=== PATIENT | male | born 1975 | race Caucasian/White ===

== ENCOUNTER 2025-02-08 05:09 | Observation (INO) | payer BC, SELFPAY ==
[2025-02-08] VITALS (17 sets, daily range): BP systolic 107–145; BP diastolic 60–93; PULSE 49–99; RESP 16–18; TEMP 36.4–37.1; O2SAT 91–100; BMI 28.8; BMI 25.4
--- NOTE | 2025-02-08 05:54 | ED_ITS ---
HPI - Abdominal Pain 2 General: Chief Complaint: Abdominal Pain Stated Complaint: severe abd pain n/v Time Seen by Provider: 02/08/25 05:53 History of Present Illness: 49-year-old man with no known medical hi story who presents emergency room with epigastric abdominal pain. This started overnight and was very severe. He has had some nausea and vomiting. No diarrhea. He says he had a similar episode about a month ago. He had taken some Ozempic for weight loss but has not had any in well over a month. No fevers. No chest pain. No altered mental status. Related Data Home Medications ?Medication ?Instructions ?Recorded ?Confirmed No Known Home Medications 02/08/25 09/0 11/27 Allergies Allergy/AdvReac Type Severity Reaction Status Date / Time cephalexin (From Keflex) Allergy ALGY-Rash Verified 02/08/25 07:52 Review of Systems 2 Narrative: Constitutional symptoms: Negative except as documented in HPI. Skin symptoms: Negative except as documented in HPI. Eye symptoms: Negative except as documented in HPI. ENMT symptoms: Negative except as documented in HPI. Respiratory symptoms: Negative except as documented in HPI. Cardiovascular symptoms: Negative except as documented in HPI. Gastrointestinal symptoms: Negative except as documented in HPI. Genitourinary symptoms: Negative except as documented in HPI. Musculoskeletal symptoms: Negative except as documented in HPI. Neurologic symptoms: Negative except as documented in HPI. Psychiatric symptoms: Negative except as documented in HPI. Endocrine symptoms: Negative except as documented in HPI. Physical Exam 2 Narrative: EXAM NARRATIVE: General: Alert, no acute distress. Skin: Warm, dry. Head: Normocephalic, atraumatic. Neck: Supple, trachea midline. Eye: Extraocular movements are intact. Ears, nose, mouth and throat: mucosa moist. Cardiovascular: Regular, Normal peripheral perfusion. Respiratory: Lungs are clear to auscultation, respirations are non-labored, breath sounds are equal, Symmetrical chest wall expansion. Gastrointestinal: Soft, moderate epigastric pain to palpation, Non distended Musculoskeletal: Normal ROM, no deformity. Neurological: Alert and oriented, No focal neurological deficit observed. Psychiatric: Cooperative, appropriate mood & affect. Course 2 Vital Signs: Vital signs: Vital Signs Temperature 98.2 F 02/08/25 05:28 Pulse Rate 61 02/08/25 08:00 Respiratory Rate 18 02/08/25 05:28 Blood Pressure 107/60 02/08/25 08:00 Pulse Oximetry 96 02/08/25 08:00 Oxygen Delivery Me thod Room Air 02/08/25 08:00 MDM - Abdominal Pain Medical Decision Making Medical decision making: Differential diagnosis including but not limited to and based on the above HPI, review of systems and physical exam: In this patient with epigastric pain differential would include cholelithiasis or cholecystitis. Hepatitis. Diverticulitis. Constipation. UTI. colitis. small bowel obstruction. crohn's flare. pancreatitis. gastritis. peptic ulcer. also concern for acute cardiac event. Orders placed to evaluate differential diagnosis based on the above differential, HPI and physical exam Lab Review: Laboratory results were reviewed and interpreted by myself the emergency room physician. Leukocytosis with a white count of 15,000. No anemia. No renal failure. Liver enzymes are normal. Bilirubin is normal. Lipase is normal. CRP is negative. CT of the abdomen pelvis with contrast: Possible abnormal gallbladder. Gallstones. Ultrasound recommended. This was reviewed and interpreted by myself the emergency room physician. I also reviewed the radiology report. Ultrasound of the gallbladder: Cholelithiasis with thickened gallbladder wall. Mcrae sign. Likely acute cholecystitis. This was reviewed and interpreted by myself the emergency room physician. I also reviewed the radiology report. I reviewed the patient's medical record. Consultation: I spoke with Dr. Gamble who is on-call for general surgery who recommends admission. He recommends every 8 Zosyn. As needed morphine. Fluids. N.p.o. for now. Although there may not be OR space today. Reexamination: Patient says his pain is quite a bit improved with Toradol. No increased work of breathing. No altered mental status. I discussed findings and plan for admission and cholecystectomy. Assessment and plan: Acute cholecystitis. Cholelithiasis ? Toradol and Zofran initially. Some pain improvement. ? Initiated maintenance fluids and Zosyn. -I discussed the patient with the hospitalist on-call who is admitting the patient. - Discussed findings and plan with patient. Answered any questions. - All laboratory values were reviewed and interpreted personally by myself, the ER physician - All imaging was reviewed and interpreted personally by myself, the ER physician. - Evaluation and treatment of this problem were appropriate in the emergency setting Lab Data 02/08/25 06:04 02/08/25 06:04 Labs/Radiology: Radiology Impressions Abdomen/Pelvis CT 02/08/25 05:58 IMPRESSION: Possibly abnormal gallbladder. Ultrasound recommended. Gallbladder Ultrasound 02/08/25 07:50 IMPRESSION: Cholelithiasis with a thickened gallbladder wall. Laboratory Results WBC 15.59 10^3/uL (3.29-11.43) H 02/08/25 06:04 RBC 5.49 10^6/uL (3.85-5.65) 02/08/25 06:04 Hgb 16.40 g/dL (11.27-16.99) 02/08/25 06:04 Hct 47.8 % (37-53) 02/08/25 06:04 MCV 87.1 fl (82-101) 02/08/25 06:04 MCH 29.9 pg (27-33) 02/08/25 06:04 MCHC 34.3 g/dL (30-55) 02/08/25 06:04 RDW 12.5 % (12.1-15.1) 02/08/25 06:04 Plt Count 302 10^3/cmm (157-399) 02/08/25 06:04 MPV 10.0 fL (7.4-10.4) 02/08/25 06:04 Neut % (Auto) 88.6 % 02/08/25 06:04 Lymph % (Auto) 6.2 % 02/08/25 06:04 [place] % (Auto) 4.4 % 02/08/25 06:04 Eos % (Auto) 0.0 % 02/08/25 06:04 Baso % (Auto) 0.3 % 02/08/25 06:04 Neut # (Auto) 13.82 10^3/uL (1.8-7.7) H 02/08/25 06:04 Lymph # (Auto) 1.0 10^3/uL (0.8-4.8) 02/08/25 06:04 [place] # (Auto) 0.7 10^3/uL (0.2-0.9) 02/08/25 06:04 Eos # (Auto) 0.0 10^3/uL (0.0-0.8) 02/08/25 06:04 Baso # (Auto) 0.0 10^3/uL (0.0-0.1) 02/08/25 06:04 Nucleated RBC % (auto) 0 % 02/08/25 06:04 Nucleated RBCs # 0.0 /100WBC 02/08/25 06:04 Sodium 137 mmol/L (136-145) 02/08/25 06:04 Potassium 4.1 mmol/L (3.5-5.1) 02/08/25 06:04 Chloride 100 mmol/L (98-107) 02/08/25 06:04 Carbon Dioxide 27 mmol/L (22-29) 02/08/25 06:04 Anion Gap 14.1 (5-19) 02/08/25 06:04 BUN 13 mg/dL (6-20) 02/08/25 06:04 Creatinine 1.0 mg/dL (0.7-1.2) 02/08/25 06:04 GFR Calculation 80.1 mL/min (90-130) L 02/08/25 06:04 Glucose 155 mg/dL (65-115) H 02/08/25 06:04 Calculated Osmolality 287 mOsm/kg (285-295) 02/08/25 06:04 Calcium 9.8 mg/dL (8.5-10.5) 02/08/25 06:04 Total Bilirubin 0.5 mg/dL (0.15-1.2) 02/08/25 06:04 AST 25 U/L (0-40) 02/08/25 06:04 ALT 29 U/L (0-41) 02/08/25 06:04 Alkaline Phosphatase 72 U/L (40-130) 02/08/25 06:04 C-Reactive Protein 3.0 mg/L (0.0-4.9) 02/08/25 06:04 Total Protein 7.8 g/dL (6.6-8.7) 02/08/25 06:04 Albumin 4.7 g/dL (3.5-5.2) 02/08/25 06:04 Globulin 3.1 g/dL (1.3-4.6) 02/08/25 06:04 Lipase 32 U/L (13-60) 02/08/25 06:04 Urine Color Yellow (Yellow) 02/08/25 06:45 Urine Appearance Clear (CLEAR) 02/08/25 06:45 Urine pH 8.0 (5-7) A 02/08/25 06:45 Ur Specific [place] 1.055 (1.005-1.030) H 02/08/25 06:45 Urine Protein Negative (Negative) 02/08/25 06:45 Urine Glucose (UA) Negative (Normal) 02/08/25 06:45 Urine Ketones 1+ (Negative) H 02/08/25 06:45 Urine Blood Negative (Negative) 02/08/25 06:45 Urine Nitrate Negative (Negative) 02/08/25 06:45 Urine Bilirubin Negative (Negative) 02/08/25 06:45 Urine Urobilinogen 0.2 mg/dL (Negative) 02/08/25 06:45 Ur Leukocyte Esterase Negative (Negative) 02/08/25 06:45 Urine RBC 0-2 /hpf (0-2) 02/08/25 06:45 Urine WBC 0-5 /hpf (0-5) 02/08/25 06:45 Ur Squamous Epith Cells 0-5 /hpf (0-5) 02/08/25 06:45 Amorphous Sediment Not Reportable 02/08/25 06:45 Urine Bacteria None seen /hpf (NONE) 02/08/25 06:45 Hyaline Casts 0.40 /lpf 02/08/25 06:45 All radiology interpretation(s) finalized by discharge Discharge Plan Discharge Patient Disposition: Admitted As Inpatient Clinical Impression: Acute calculous cholecystitis Condition: Stable Coding Level of Care Code ED Toll Service Observer for Luz Marina Francis
--- NOTE | 2025-02-08 05:58 | CTR_ITS ---
PROCEDURE INFORMATION: Exam: CT Abdomen And Pelvis With Contrast Exam date and time: 02/08/2025 6:33 AM Age: 49 years old Clinical indication: Abdominal pain; Localized; Right lower quadrant (rlq); Rlq pain with n/v TECHNIQUE: Imaging protocol: Computed tomography of the abdomen and pelvis with contrast. Radiation optimization: All CT scans at this facility use at least one of these dose optimization techniques: automated exposure control; mA and/or kV adjustment per patient size (includes targeted exams where dose is matched to clinical indication); or iterative reconstruction. Contrast material: OMNI 350; Contrast volume: 100 ml; Contrast route: INTRAVENOUS (IV); COMPARISON: No relevant prior studies available. RADIATION DOSE METRICS: Total DLP (mGy-cm): 621.62 FINDINGS: Liver: Normal. No mass. Gallbladder and biliary ducts: Possible cholelithiasis with mild thickening of the wall of the fundus of the gallbladder. Ultrasound recommended for further evaluation. Pancreas: Normal. No ductal dilation. Spleen: Normal. No splenomegaly. Adrenal glands: Normal. No mass. Kidneys and ureters: Normal. No hydronephrosis. Stomach and bowel: Unremarkable. No obstruction. No mucosal thickening. Appendix: The appendix is very well visualized and is normal. Intraperitoneal space: Unremarkable. No free air. No significant fluid collection. Vasculature: Unremarkable. No abdominal aortic aneurysm. Lymph nodes: Unremarkable. No enlarged lymph nodes. Urinary bladder: Unremarkable as visualized. Reproductive: Unremarkable as visualized. Bones/joints: Unremarkable. No acute fracture. Soft tissues: Unremarkable. CT/CT abdomen pelvis w con* [id number] IMPRESSION: Possibly abnormal gallbladder. Ultrasound recommended.
[2025-02-08 06:10] LABS: Hematocrit 47.8 % (37-53); Hemoglobin 16.40 g/dL (11.27-16.99); Mean Corpuscular HGB Conc 34.3 g/dL (30-55); Mean Corpuscular Hemoglobin 29.9 pg (27-33); Mean Corpuscular Volume 87.1 fl (82-101); Nucleated Red Blood Cells % 0 %; Platelet Count 302 10^3/cmm (157-399); Red Blood Count 5.49 10^6/uL (3.85-5.65); White Blood Count 15.59 10^3/uL (3.29-11.43)
[2025-02-08] MEDS: ondansetron 2 mg/ML SDV 2 mL 4 MG IVP (06:22)
[2025-02-08 06:28] LABS: Alanine Aminotransferase 29 U/L (0-41); Albumin Level 4.7 g/dL (3.5-5.2); Alkaline Phosphatase 72 U/L (40-130); Anion Gap 14.1 (5-19); Aspartate Amino Transferase 25 U/L (0-40); Blood Urea Nitrogen 13 mg/dL (6-20); Calcium 9.8 mg/dL (8.5-10.5); Carbon Dioxide 27 mmol/L (22-29); Chloride 100 mmol/L (98-107); Creatinine Clr Calc Pharmacy 97.5379; Globulin 3.1 g/dL (1.3-4.6); Glucose 155 mg/dL (65-115); Lipase 32 U/L (13-60); Osmolality Calculated 287 mOsm/kg (285-295); Potassium 4.1 mmol/L (3.5-5.1); Sodium 137 mmol/L (136-145); Total Protein 7.8 g/dL (6.6-8.7)
[2025-02-08] MEDS: iohexol 350 mg/mL 500 mL Btl (per mL) IV (06:37)
[2025-02-08 07:34] LABS: Glucose Urine UA Negative (Normal); Nitrate Urine Negative (Negative)
[2025-02-08 07:36] LABS: Add Urine Microscopic? YES; Specific Gravity, Urine 1.055 (1.005-1.030)
--- NOTE | 2025-02-08 07:50 | USR_ITS ---
PROCEDURE INFORMATION: Exam: US Abdomen, Limited; Right Upper Quadrant Exam date and time: 02/08/2025 8:06 AM Age: 49 years old Clinical indication: Abdominal pain; Acute; Additional info: Right upper quadrant pain, concern for cholecystitis TECHNIQUE: Imaging protocol: Real time ultrasound of the abdomen with image documentation. Limited exam focused on the right upper quadrant. COMPARISON: CT abdomen pelvis w con* [id number] 02/08/2025 6:33 AM FINDINGS: Liver: Normal. No masses. Gallbladder: Numerous gallstones. Sludge is also present. The gallbladder wall is mildly thickened at 4 mm. No definite pericholecystic fluid. Biliary ducts: Normal. No stones. No dilation. Pancreas: Visualized pancreas is unremarkable. Right kidney: Normal. No mass. No hydronephrosis. US/US gall bladder [id number] IMPRESSION: Cholelithiasis with a thickened gallbladder wall.
[2025-02-08] MEDS: piperacillin-tazobactam 3.375 GM in sodium chloride 0.9% (plus) 50 ML IV ×2 (09:13→18:53)
--- NOTE | 2025-02-08 12:12 | PC.CHAP ---
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 trimming caser visit [] Patient/Family/Request visit [] Outpatient visit [] Follow-up visit [] Physician referral [] Code/Alert [x] Routine visit [] Staff referral [] Actively dying [] Patient sleeping [] Family support [] [] Out of room [] Palliative care [] [] Receiving care in room [] Pre-surgical visit [] Trauma [] Long length of stay [] ICU visit [] Other: Relational/Emotional Strength [] Patient feels connected with others/family/visitors/staff [] Distress [] Loneliness/isolation [] Abandonment Spirituality of Patient [x] Person of Destiny [] Attends Sikhism of their Destiny [] Believes in Prayer [] Reads Bible or Yazidism materials [] There are Spiritual 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 addressed [employer]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 Interventions [x] Prayer [] Active listening [] Non-anxious presence [] Spiritual/emotional support [] Crisis/trauma care [] Spiritual counseling [] Bereavement support [] Provided bereavement packet [] Provided Bible/devotional materials [] Provided toy/stuffed animal, coloring book to patient or family member [] Provided Communion [] Anointing/[place] [] Salvation [] Completed spiritual assessment [] Other: Impact on Illness or Injury [] Angry [] Fearful [] Anxious [] Often cries [] Exhaustion [] Unable to work [] Unable to attend quaker [] Unable to walk/stand [] Unable to read [] Unable to drive [] Unable to eat/drink [] Unable to sleep [] Unable to be with family [] Patient intubated [] Other: Summary Time spent with patient
--- NOTE | 2025-02-08 13:02 | P.HP_ITS ---
Providers/Chief Complaint 2 Admitting Physician: Kenton Gamble MD Primary Care Provider: Chandu Nassar DO Chief Complaint: severe abd pain n/v History of Present Illness Edwin Keita is a 49 year old male who presented with acute cholecystitis. Patient reports about 4 episodes of right upper quadrant pain. Worse with heavy meals. His pain is now persistent. White count 16,000. Imaging consistent with early acute cholecystitis. Medications/Allergies Home Medications ?Medication ?Instructions ?Recorded ?Confirmed ?Last Taken ?Type No Known Home Medications 02/08/25 09/11/27 Unknown History Allergies Allergy/AdvReac Type Severity Reaction Status Date / Time cephalexin (From Keflex) Allergy ALGY-Rash Verified 02/08/25 07:52 Vitals/I&O/Wt Last Vital Signs Temp 98.7 F 02/08/25 12:24 Pulse 65 02/08/25 12:24 Resp 16 02/08/25 12:24 BP 115/72 02/08/25 12:24 Pulse Ox 98 02/08/25 12:24 O2 Del Method Room Air 02/08/25 12:24 02/07/25 02/08/25 02/08/25 22:59 06:59 14:59 Intake Total 0 / 0 1050 / 1050 Balance 0 / 0 1050 / 1050 Weight last 48 hrs Weight 167 lb Weight 190 lb Physical Exam 2 Narrative: Chest: Unlabored breathing room air. No lymphadenopathy. Heart: Regular rate and rhythm. Abdomen: Soft, tender right upper quadrant. Data 02/08/25 06:04 02/08/25 06:04 A&P Assessment and plan 1. Acute calculous cholecystitis: Plan: 49-year-old male who presented with acute cholecystitis. Discussed risk and benefits and patient agreed to proceed with laparoscopic cholecystectomy possible open. Patient understands that the risks of the surgery include postoperative infection, bleeding, bile leak, incisional hernia, and in very rare instances injuries to the bowel, common bile duct, portal vein, and liver failure. PDMP PDMP Reviewed: Not Reviewed Attestations 2 Medical Necessity Statement*: IV fluid, IV pain meds, IV antibiotic Coding Level of Care Code 88795 Diagnoses Acute calculous cholecystitis K80.00
--- NOTE | 2025-02-08 13:30 | ANES.PREANE2 ---
Pre-Anesthetic Assessment Height/Weight: Height 5 ft 8 in Weight 167 lb Temp Pulse Resp BP Pulse Ox O2 Del Method 98.7 F 65 16 115/72 98 Room Air 02/08/25 12:24 02/08/25 12:24 02/08/25 12:24 02/08/25 12:24 02/08/25 12:24 02/08/25 12:24 Preop Diagnosis: Acute calculous cholecystitis Operation Date: 02/08/25 13:25 Proposed Procedures p Laparoscopic Cholecystectomy(Not Applicable) - Kenton Gamble MD Was Beta Marisabel taken within 24 hours: N/A Was Clonidine taken within 24 hours: N/A Last intake: Intake Last Liquid Date 02/07/25 Last Liquid Time 20:00 Last Solid Date 02/07/25 Last Solid Time 20:00 Anesthetic Plan Other: No prior issues with anesthesia N.p.o. since yesterday evening Denies any cardiac or pulmonary issues Patient has acute cholecystitis, WBC 15.5. Vitals are stable currently Takes no home meds Plan for GETA Medications/Allergies Home Medications ?Medication ?Instructions ?Recorded ?Confirmed ?Last Taken ?Type No Known Home Medications 02/08/25 02/08/25 Unknown History Allergies Allergy/AdvReac Type Severity Reaction Status Date / Time cephalexin (From KeAutoESL) Allergy ALGY-Rash Verified 02/08/25 07:52 Current Medications Generic Name Dose Route Start Last Admin Trade Name Freq PRN Reason Stop Dose Admin Piperacillin Sod/Tazobactam 50 mls @ 100 mls/hr 02/08/25 09:00 02/08/25 09:54 Sod 3.375 gm/ Sodium Chloride IV Infused Q8H FATIMAH Infusion Protocol Sodium Chloride 1,000 mls @ 100 mls/hr 02/08/25 09:00 02/08/25 11:41 Sodium Chloride 0.9% IV 100 mls/hr .Q10H FATIMAH Administration Data Anesthesia 02/08/25 06:04 02/08/25 06:04 Short CBC 02/08/25 Range/Units 06:04 WBC 15.59 H (3.29-11.43) 10^3/uL Hgb 16.40 (11.27-16.99) g/dL Hct 47.8 (37-53) % MCV 87.1 (82-101) fl Plt Count 302 (157-399) 10^3/cmm Neut % (Auto) 88.6 % Neut # (Auto) 13.82 H (1.8-7.7) 10^3/uL BMP 02/08/25 06:04 Sodium 137 Potassium 4.1 Chloride 100 Carbon Dioxide 27 BUN 13 Creatinine 1.0 Glucose 155 H Calcium 9.8 Liver Function 02/08/25 Range/Units 06:04 Total Bilirubin 0.5 (0.15-1.2) mg/dL AST 25 (0-40) U/L ALT 29 (0-41) U/L Alkaline Phosphatase 72 (40-130) U/L Albumin 4.7 (3.5-5.2) g/dL Urine 02/08/25 Range/Units 06:45 Urine Color Yellow (Yellow) Urine Appearance Clear (CLEAR) Urine pH 8.0 A (5-7) Ur Specific [place] 1.055 H (1.005-1.030) Urine Protein Negative (Negative) Urine Glucose (UA) Negative (Normal) Urine Ketones 1+ H (Negative) Urine Nitrate Negative (Negative) Urine Bilirubin Negative (Negative) Ur Leukocyte Esterase Negative (Negative) Urine RBC 0-2 (0-2) /hpf Urine WBC 0-5 (0-5) /hpf Coags 02/08/25 06:04 C-Reactive Protein 3.0
[2025-02-08] MEDS: lidocaine-epi 1% 20 mL INJ INJECTION (15:14)
[2025-02-08] MEDS: BUPivacaine 0.25% INJ 10 mL INJECTION (15:14)
--- NOTE | 2025-02-08 16:28 | W.PM.BPON ---
Date of Procedure: 02/08/2025 Surgeon: Dr. Gamble Substation Operator Helper(s): N/A Procedure(s) performed: Laparoscopic cholecystectomy converted to open cholecystectomy. Findings of the procedure(s): Chronic cholecystitis. Significant inflammatory changes in the right upper quadrant made it impossible to obtain a critical view of safety. At this point I converted to an open cholecystectomy and performed a partial cholecystectomy. Fired a staple out at the infundibulum. Staple line looked intact. Fibrin glue applied. 19 [place] drain left in the right upper quadrant. Inspection of the abdominal cavity at the end of the case revealed an intact duodenum and hepatic flexure. Estimated blood loss: 50 cc Specimen(s) removed: Gallbladder Post-operative diagnosis: Chronic cholecystitis
--- NOTE | 2025-02-08 16:33 | P.OP_ITS ---
Operative Report Date of procedure: February 08, 2025 Pre-op diagnosis: Acute cholecystitis Post-op diagnosis: Chronic cholecystitis Post-op findings: Chronic cholecystitis. Significant inflammatory changes in the right upper quadrant made it impossible to obtain a critical view of safety. At this point I converted to an open cholecystectomy and performed a partial cholecystectomy. Fired a staple out at the infundibulum. Prior to firing the staple load I made sure that there were no stones remaining at the infundibulum or at the cystic duct. Staple line looked intact. Fibrin glue applied. 19 [place] Juan Antonio drain left in the right upper quadrant. Inspection of the abdominal cavity at the end of the case revealed an intact duodenum and hepatic flexure. Procedure done: Laparoscopic cholecystectomy converted to open partial cholecystectomy Implants: N/A Specimens removed/disposition: Gallbladder sent to pathology Pathology: Gallbladder sent to pathology Surgeon: Kenton Gamble MD Athletic Gear Custodian: N/A Anesthesia: General Estimated blood loss (mL): 50 Complications: N/A Findings: Chronic cholecystitis. Significant inflammatory changes in the right upper quadrant made it impossible to obtain a critical view of safety. At this point I converted to an open cholecystectomy and performed a partial cholecystectomy. Fired a staple out at the infundibulum. Prior to firing the staple load I made sure that there were no stones remaining at the infundibulum or at the cystic duct. Staple line looked intact. Fibrin glue applied. 19 [place] Juan Antonio drain left in the right upper quadrant. Inspection of the abdominal cavity at the end of the case revealed an intact duodenum and hepatic flexure. Condition: stable Disposition: observation Brief History: 49-year-old male who presented with acute cholecystitis. Large stones on CT scan. Discussed risk and benefits and patient agreed to proceed with laparoscopic cholecystectomy possible open. The patient was warned that given CT scan findings of large stones in the gallbladder his surgery could be more technically challenging. Patient agreed to proceed. Procedure: I discussed the risks and benefits of laparoscopic cholecystectomy, possible open, and obtained consent prior to proceeding to the operating room. SCDs were utilized. Scheduled antibiotics administered. General anesthesia was induced. The patient was placed supine, and was prepped and draped in the usual sterile fashion. Insufflation to 15mmHg was achieved using a Veress needle at Sagastume's point. A 12mm optiview trocar was placed at the umbilicus under direct visu alization. The left upper quadrant was inspected, and no injuries were noted. Two 5mm ports were placed in the right upper quadrant, and a 12mm working port was placed in the epigastrium. The right upper quadrant was inspected and I found significant inflammatory changes in the right upper quadrant. There were adhesions between the gallbladder and the duodenum. There was also some fluid in the right upper quadrant. The gallbladder was then retracted cephalad through the lateral RUQ port, and the infundibulum grabbed through the medial RUQ port and retracted laterally. I lysed the adhesions between the gallbladder and the duodenum using a combination of blunt dissection as well as dissection using hook electrocautery. The gallbladder had a thick inflammatory rind and was very friable, all of this consistent with chronic cholecystitis. I proceeded to score the peritoneum over the medial aspect of the gallbladder using a laparoscopic hook with electrocautery. Then the infundibulum was retracted medially in order to score the peritoneum over the lateral aspect of the galbladder. I attempted to dissect the cystic duct and the cystic artery using a combination of blunt dissection and energy using Kitner dissectors as well as silk electrocautery and I was unable to obtain a critical view of safety given the severe inflammatory changes in the right upper quadrant. The gallbladder was also very friable and it started tearing. At this point, I deemed it safest to convert to an open cholecystectomy and pursue a partial cholecystectomy to avoid any injuries to the common bile duct. The abdomen was desufflated. A 10 cm right subcostal incision was carried out incorporating the lateral working port. Skin was incised using a 10 blade. Electrocautery was used to dissect down to the posterior fascia layer. The abdomen was entered using Metzenbaum scissors. I inspected the hepatic flexure as well as the duodenum and they were both intact. I used a couple of lap pads to retract and protect the hepatic flexure as well as the duodenum. I then proceeded to grab the fundus of the gallbladder with a Earlene clamp. I proceeded to dissect off the gallbladder off the cystic plate using electrocautery. I was unable to reach all the way down to the cystic duct given the severe inflammatory changes. I then proceeded to open the gallbladder and empty all the stones. I irrigated the gallbladder with 200 cc of warm normal saline. I managed to remove all the stones in the gallbladder. I then palpated the gallbladder infundibulum as well as the cystic duct and did not p alpate any residual stones. I then proceeded to staple the gallbladder. At the level of the infundibulum I fired 2 blue staple loads using a laparoscopic stapler. I passed off the specimen which was sent to pathology. I inspected the staple line and it was intact. I then proceeded to washout the abdomen with 2 L of warm normal saline. I inspected the cystic plate as well as the staple line again. I confirmed adequate hemostasis in the absence of any bile leaks. I also inspected the hepatic flexure as well as the duodenum again and they were both intact and healthy. I then proceeded to apply fibrin glue to the staple line. I left a piece of omentum on top of the fibrin glue. I then left a 19 [place] Juan Antonio drain in the right upper quadrant which I secured using a 3-0 nylon. I proceeded to close the 2 fascial layers separately using looped #1 PDS. The skin was irrigated with normal saline prior to closing with 4-0 Monocryl. Surgical glue was applied. A sterile dressing was then applied. Drain output was serosanguineous. The patient woke up from anesthesia and transferred to PACU without any complications. Related Problem List Diagnoses 1. Acute calculous cholecystitis:
[2025-02-08] MEDS: acetaminophen 1,000 MG/100 ML PIGGYBACK 400 MG IV (21:53)
[2025-02-09] VITALS: BP 107/63; PULSE 76; RESP 17; TEMP 36.8; O2SAT 95
[2025-02-09] MEDS: piperacillin-tazobactam 3.375 GM in sodium chloride 0.9% (plus) 50 ML IV ×2 (00:22→09:16)
[2025-02-09 04:00] VITALS: BP 111/73; PULSE 62; RESP 18; TEMP 36.6; O2SAT 95
[2025-02-09] MEDS: acetaminophen 1,000 MG/100 ML PIGGYBACK 400 MG IV (06:31)
[2025-02-09 07:26] VITALS: BP 119/91; PULSE 66; RESP 17; TEMP 37; O2SAT 94
--- NOTE | 2025-02-09 10:27 | P.DS_ITS ---
Discharge Providers Date of Admission: 02/08/25 08:51 Date of Discharge: February 09, 2025 Attending Provider at Admission: Kenton Gamble MD Attending Provider at Discharge: Kenton Gamble MD Primary Care Provider: Chandu Nassar DO Diagnoses at Discharge Discharge Diagnosis 1. Acute calculous cholecystitis: Reason for Visit Reason for Visit: severe abd pain n/v Hospital Course Hospital Course 49-year-old male who was initially admitted for symptomatic cholelithiasis. Wh ite count of 16,000. Patient had had pain for several months. Patient decided to proceed with laparoscopic cholecystectomy possible open. Intraoperative findings consistent with chronic cholecystitis. Significant inflammatory changes in the right upper quadrant. Attempted laparoscopic cholecystectomy but could not get a critical view of safety. Decided to convert to open cholecystectomy. Opened the gallbladder and emptied all of the stones. Ensured that there were no remaining stones in the antrum. Fired a staple line at the antrum. Left a drain in the resection bed. At the end of the case the staple line looked intact. The patient did well postoperatively. Prior to discharge the patient's pain was under control, his drain was serous, and his abdominal exam was benign. Instructed to come back to the hospital if the drain turned bilious or if he developed a fever. Physical Exam Narrative: Chest: Unlabored breathing room air. No lymphadenopathy. Heart: Regular rate and rhythm. Abdomen: Soft, appropriately tender, nondistended. Drain is serous. Incisions are clean dry intact. Discharge Data Studies Completed and Pending Completed Studies During Hospitalization Category Date Time Status CT abdomen pelvis w con* [id number] Stat Cat Scan 02/08/25 05:58 Completed US gall bladder [id number] Stat Ultrasound 02/08/25 07:50 Completed Pending at discharge Category Date Time Status Pathology: Surgical [PTH] Routine Pth 02/08/25 16:15 Ordered Radiology Impressions Abdomen/Pelvis CT 02/08/25 05:58 IMPRESSION: Possibly abnormal gallbladder. Ultrasound recommended. Gallbladder Ultrasound 02/08/25 07:50 IMPRESSION: Cholelithiasis with a thickened gallbladder wall. Laboratory Results WBC 15.59 10^3/uL (3.29-11.43) H 02/08/25 06:04 RBC 5.49 10^6/uL (3.85-5.65) 02/08/25 06:04 Hgb 16.40 g/dL (11.27-16.99) 02/08/25 06:04 Hct 47.8 % (37-53) 02/08/25 06:04 MCV 87.1 fl (82-101) 02/08/25 06:04 MCH 29.9 pg (27-33) 02/08/25 06:04 MCHC 34.3 g/dL (30-55) 02/08/25 06:04 RDW 12.5 % (12.1-15.1) 02/08/25 06:04 Plt Count 302 10^3/cmm (157-399) 02/08/25 06:04 MPV 10.0 fL (7.4-10.4) 02/08/25 06:04 Neut % (Auto) 88.6 % 02/08/25 06:04 Lymph % (Auto) 6.2 % 02/08/25 06:04 [place] % (Auto) 4.4 % 02/08/25 06:04 Eos % (Auto) 0.0 % 02/08/25 06:04 Baso % (Auto) 0.3 % 02/08/25 06:04 Neut # (Auto) 13.82 10^3/uL (1.8-7.7) H 02/08/25 06:04 Lymph # (Auto) 1.0 10^3/uL (0.8-4.8) 02/08/25 06:04 [place] # (Auto) 0.7 10^3/uL (0.2-0.9) 02/08/25 06:04 Eos # (Auto) 0.0 10^3/uL (0.0-0.8) 02/08/25 06:04 Baso # (Auto) 0.0 10^3/uL (0.0-0.1) 02/08/25 06:04 Nucleated RBC % (auto) 0 % 02/08/25 06:04 Nucleated RBCs # 0.0 /100WBC 02/08/25 06:04 Sodium 137 mmol/L (136-145) 02/08/25 06:04 Potassium 4.1 mmol/L (3.5-5.1) 02/08/25 06:04 Chloride 100 mmol/L (98-107) 02/08/25 06:04 Carbon Dioxide 27 mmol/L (22-29) 02/08/25 06:04 Anion Gap 14.1 (5-19) 02/08/25 06:04 BUN 13 mg/dL (6-20) 02/08/25 06:04 Creatinine 1.0 mg/dL (0.7-1.2) 02/08/25 06:04 GFR Calculation 80.1 mL/min (90-130) L 02/08/25 06:04 Glucose 155 mg/dL (65-115) H 02/08/25 06:04 Calculated Osmolality 287 mOsm/kg (285-295) 02/08/25 06:04 Calcium 9.8 mg/dL (8.5-10.5) 02/08/25 06:04 Total Bilirubin 0.5 mg/dL (0.15-1.2) 02/08/25 06:04 AST 25 U/L (0-40) 02/08/25 06:04 ALT 29 U/L (0-41) 02/08/25 06:04 Alkaline Phosphatase 72 U/L (40-130) 02/08/25 06:04 C-Reactive Protein 3.0 mg/L (0.0-4.9) 02/08/25 06:04 Total Protein 7.8 g/dL (6.6-8.7) 02/08/25 06:04 Albumin 4.7 g/dL (3.5-5.2) 02/08/25 06:04 Globulin 3.1 g/dL (1.3-4.6) 02/08/25 06:04 Lipase 32 U/L (13-60) 02/08/25 06:04 Urine Color Yellow (Yellow) 02/08/25 06:45 Urine Appearance Clear (CLEAR) 02/08/25 06:45 Urine pH 8.0 (5-7) A 02/08/25 06:45 Ur Specific [place] 1.055 (1.005-1.030) H 02/08/25 06:45 Urine Protein Negative (Negative) 02/08/25 06:45 Urine Glucose (UA) Negative (Normal) 02/08/25 06:45 Urine Ketones 1+ (Negative) H 02/08/25 06:45 Urine Blood Negative (Negative) 02/08/25 06:45 Urine Nitrate Negative (Negative) 02/08/25 06:45 Urine Bilirubin Negative (Negative) 02/08/25 06:45 Urine Urobilinogen 0.2 mg/dL (Negative) 02/08/25 06:45 Ur Leukocyte Esterase Negative (Negative) 02/08/25 06:45 Urine RBC 0-2 /hpf (0-2) 02/08/25 06:45 Urine WBC 0-5 /hpf (0-5) 02/08/25 06:45 Ur Squamous Epith Cells 0-5 /hpf (0-5) 02/08/25 06:45 Amorphous Sediment Not Reportable 02/08/25 06:45 Urine Bacteria None seen /hpf (NONE) 02/08/25 06:45 Hyaline Casts 0.40 /lpf 02/08/25 06:45 Vitals Last Vital Signs Temp 98.6 F 02/09/25 07:26 Pulse 66 02/09/25 07:26 Resp 17 02/09/25 07:26 BP 119/91 02/09/25 07:26 Pulse Ox 94 02/09/25 07:26 O2 Del Method Room Air 02/09/25 07:26 O2 Flow Rate 6 02/08/25 17:13 Discharge Plan Discharge Patient Disposition: Home Condition: Stable Prescriptions: New oxycodone 5 mg tablet 5 mg PO Q6H PRN (Reason: pain) 5 Days Qty: 10 0RF ciprofloxacin HCl 500 mg tablet 500 mg PO BID 5 Days Qty: 10 0RF metronidazole 500 mg tablet 500 mg PO Q8H 5 Days Qty: 15 0RF Discharge Order = DC NOW: Discharge Order (Routine); Ordered 02/09/25 Ordered By: Kenton Gamble Referrals: Kenton Gamble MD [Physician, General Surgery] - 2 weeks Referral Note: We have notified Dr. Gamble's clinic of the need for a follow- up appointment to be scheduled. If you have not heard from them within the next 2 business days, please call them directly. Chandu Nassar DO [Primary Care Provider, Family Practice] - 7-10 days Referral Note: Please call your primary care provider monday to make a hospital discharge follow up in 7-10 days. Patient Instructions: Cholecystitis (DC), Acute Wound Care (DC), Open Cholecystectomy (DC), Opioid Safety, Post Anesthesia Care, Patient Portal & [place] Instructions Activity Restrictions/Additional Instructions: 1. No lifting greater than 10lbs for 6 weeks. 2. Ok to add over the counter ibuprofen 400mg q6hrs as needed for pain. Ok to add over the counter tylenol 650mg q8hrs as needed for pain. 3. Strip drain daily. Return to ED if drain output turns green or if you develop a fever. 4. OK to shower daily. No bath tubs or pools for 2 weeks. 5. Follow up in clinic in 2 weeks. Call the office if you have any questions. Stand Alone Forms: Work/School Release Discharge Attestations Time Spent in Discharge Care*: greater than 30 min Quality Metrics Clinical Quality Measures [ No reported AMI, CVA or VTE this stay] Coding Level of Care Code Acute Code for [facility] Fwd Diagnoses Acute calculous cholecystitis K80.00
--- NOTE | 2025-02-09 10:27 | P.PN_ITS ---
Subjective 2 Subjective: Feeling well this morning Drain is serous Abdomen is benign Incisions are clean dry intact Vitals/I&O/Wt Last Vital Signs Temp 98.6 F 02/09/25 07:26 Pulse 66 02/09/25 07:26 Resp 17 02/09/25 07:26 BP 119/91 02/09/25 07:26 Pulse Ox 94 02/09/25 07:26 O2 Del Method Room Air 02/09/25 07:26 O2 Flow Rate 6 02/08/25 17:13 02/08/25 02/09/25 02/09/25 22:59 06:59 14:59 Intake Total 350 / 1400 654 / 2054 360 / 360 Output Total 385 / 385 250 / 635 Balance -35 / 1015 404 / 1419 335 / 335 Weight last 48 hrs Weight 179 lb 1.6 oz Weight 167 lb Weight 190 lb Physical Exam 2 Narrative: Chest: Unlabored breathing room air. No lymphadenopathy. Heart: Regular rate and rhythm. Abdomen: Soft, appropriately tender, nondistended. Drain is serous. Incisions are clean dry intact. Data 02/08/25 06:04 02/08/25 06:04 A&P Assessment and plan 1. Chronic cholecystitis: Plan: 49-year-old male who underwent a laparoscopic cholecystectomy converted to open cholecystectomy for chronic cholecystitis. Clinically doing well. Tolerating a diet. Pain is under control. Drain is serous. Okay for discharge. Instructed to come back to the hospital if his drain turns bilious or if he gets a fever. Discussed with family as well. Follow-up in 2 weeks. Strip the drain daily. No lifting greater than 10 pounds for 6 weeks. PDMP PDMP Reviewed: Last Reviewed 02/09/25 12:04 EDT by Kenton Gamble MD Attestations 2 Medical Necessity Statement*: Chronic cholecystitis, IV fluids, IV antibiotic, IV pain meds Coding Level of Care Code 98334 Diagnoses Chronic cholecystitis K81.1
[2025-02-09 11:38] VITALS: BP 142/90; PULSE 69; RESP 17; TEMP 36.7; O2SAT 98
[2025-02-09 11:41] VITALS: BP 142/90; PULSE 69; RESP 17; TEMP 36.7; O2SAT 98
== END 2025-02-09 11:44 | disposition home or self-care (01) ==
LOC: ER 08:52 → MEDSURG 13:14
PROVIDERS: Emergency Medicine; Admitting Provider Student in an Organized Health Care Education/Training Program; Emergency Provider Emergency Medicine; PCP Electrodiagnostic Medicine; Visit Provider Student in an Organized Health Care Education/Training Program
PROC: 0FT40ZZ Resection of Gallbladder, Open Approach (ICD-10-PCS; CPT 47600; 2025-02-08 13:15)
DX: K80.00 Calculus of gallbladder with acute cholecystitis without obstruction (principal)
CPT/HCPCS: 47600; 36415; 74177; 76705; 80053; 81001; 83690; 85025; 86140; 88304; 96365; 96375; 99285; A4216; C9250; G0378; J0131; J1100; J1171; J1885; J2250; J2405; J2543; J2704; J3010; J3490; J7030; J9999

== ENCOUNTER → 2025-02-24 12:03 | Outpatient (BNVA) | payer BC, SELFPAY | PROVIDERS: PCP Electrodiagnostic Medicine; Visit Provider Student in an Organized Health Care Education/Training Program | DX: K80.00 Calculus of gallbladder with acute cholecystitis without obstruction (principal); Z98.890 Other specified postprocedural states | CPT/HCPCS: 36415; 80053; 82247 ==

== ENCOUNTER 2025-02-27 09:49 | Emergency (ER) | payer BC, SELFPAY ==
[2025-02-27 10:07] VITALS: BP 132/81; PULSE 67; RESP 18; TEMP 36.7; O2SAT 98
[2025-02-27 10:08] LABS: Hematocrit 45.2 % (37-53); Hemoglobin 15.20 g/dL (11.27-16.99); Mean Corpuscular HGB Conc 33.6 g/dL (30-55); Mean Corpuscular Hemoglobin 29.7 pg (27-33); Mean Corpuscular Volume 88.3 fl (82-101); Nucleated Red Blood Cells % 0 %; Platelet Count 351 10^3/cmm (157-399); Red Blood Count 5.12 10^6/uL (3.85-5.65); White Blood Count 11.20 10^3/uL (3.29-11.43)
--- NOTE | 2025-02-27 10:15 | ED_ITS ---
HPI - Abdominal Pain 2 General: Chief Complaint: Abdominal Pain Stated Complaint: Upper ABD Pain Dr Hernandez Time Seen by Provider: 02/27/25 10:15 History of Present Illness: 49-year-old male who is postop day [address] open cholecystectomy. He developed a bile leak he has a drain in place. Dr. Gamble had done the procedure. He had called and advised this he was sending the patient back is concerned the patient may need to be transferred for an ERCP because of the bile leak. Patient reports some nausea he is not having any vomiting or diarrhea now has some mild abdominal discomfort mostly in the epigastric region. No fever sweats or chills no medic easy melena hematemesis coffee-ground emesis continues to have slightly bilious blood-tinged drainage in the bulb from the drain. Associated Symptoms: Denies chills, dysuria and fever(s) Related Data Previous Rx's ?Medication ?Instructions ?Recorded amoxicillin 875 mg-potassium 1 tab PO BID #14 tabs clavulanate 125 mg tablet pantoprazole 40 mg tablet,delayed 40 mg PO DAILY #90 t abs 02/27/25 release sucralfate 1 gram tablet (Carafate) 1 g PO TID 8 weeks #168 tabs 02/27/25 Allergies Allergy/AdvReac Type Severity Reaction Status Date / Time cephalexin (From Keflex) Allergy ALGY-Rash Verified 02/24/25 11:19 Review of Systems 2 Const: Denies: fever(s) or chills Card: Denies: chest pain Resp: Denies: dyspnea GI: Denies: abdominal pain : Denies: dysuria, urinary frequency or urinary urgency Musc: Denies: neck pain or back pain Skin/Breast: Denies: rash PFSH ED 2 PFSH: Social History Smoking and tobacco/nicotine status: never used tobacco/nicotine Physical Exam 2 Const: COMMON NORMALS: no acute distress GENERAL APPEARANCE: cooperative and comfortable ORIENTATION/CONSCIOUSNESS: Yes awake, Yes oriented to person, Yes oriented to place and Yes oriented to time HENMT: COMMON NORMALS: normocephalic, atraumatic and hearing grossly normal bilaterally HEAD & SCALP: normocephalic and atraumatic Resp: COMMON NORMALS: normal respiratory effort, No retractions, No use of accessory muscles and clear to auscultation bilaterally AUSCULTATION: clear to auscultation bilaterally Cardio: COMMON NORMALS: regular rate, regular rhythm and No murmurs present (Cardio) RATE: regular rate RHYTHM: regular rhythm GI: COMMON NORMALS: Soft to palpation and No hepatosplenomegaly present A USCULTATION: Yes normoactive bowel sounds PALPATION: Yes Soft to palpation, No Tenderness to palpation present (GI), No Guarding due to palpation present (GI) and Yes No hepatosplenomegaly present Extremity: COMMON NORMALS: normal to inspection, capillary refill normal, no clubbing, cyanosis or edema, no calf tenderness and no pedal edema Neuro: SENSORIUM/ORIENTATION: Yes oriented to person, Yes oriented to place and Yes oriented to time Skin: COMMON NORMALS: no rashes or lesions noted GENERAL SKIN EXAM: no rashes or lesions noted Course 2 Vital Signs: Vital signs: Vital Signs Temperature 98.1 F 02/27/25 10:07 Pulse Rate 65 02/27/25 11:40 Respiratory Rate 18 02/27/25 10:07 Blood Pressure 129/83 02/27/25 11:40 Pulse Oximetry 97 02/27/25 11:40 Oxygen Delivery Me thod Room Air 02/27/25 10:07 MDM - Abdominal Pain Medical Decision Making Discussed findings with Dr. Gamble. Dr. Gamble also came and seen the patient ultimately he recommends discharge home. The tube is draining appropriately. There is no formation of a biloma. He recommends that he be discharged home on pantoprazole cell Carafate and Augmentin and follow-up with him as an outpatient Lab Data 02/27/25 10:02 02/27/25 10:02 Labs/Radiology: Radiology Impressions Abdomen/Pelvis CT 02/27/25 10:15 IMPRESSION: 1. Interval partial cholecystectomy with suspected bile leak. No evidence of subhepatic or significant extrahepatic fluid collection. Suspected bile leak appears well controlled with the surgical drain. 2. Partial cholecystectomy with sutures in the gallbladder fossa. Tiny trace of fluid in the gallbladder fossa. Persistent dilated cystic duct with mild common bile duct and intrahepatic ductal dilatation appears slightly progressed. Normal common bile duct at the pancreatic head. 3. Fluid distended stomach with air-fluid level. 4. No other acute findings. 5. Chronic bilateral pars defects L5-S1 Notified Edouard Walton DO at 02/27/2025 11:06 AM. Laboratory Results WBC 11.20 10^3/uL (3.29-11.43) 02/27/25 10:02 RBC 5.12 10^6/uL (3.85-5.65) 02/27/25 10:02 Hgb 15.20 g/dL (11.27-16.99) 02/27/25 10:02 Hct 45.2 % (37-53) 02/27/25 10:02 MCV 88.3 fl (82-101) 02/27/25 10:02 MCH 29.7 pg (27-33) 02/27/25 10:02 MCHC 33.6 g/dL (30-55) 02/27/25 10:02 RDW 12.7 % (12.1-15.1) 02/27/25 10:02 Plt Count 351 10^3/cmm (157-399) 02/27/25 10:02 MPV 9.7 fL (7.4-10.4) 02/27/25 10:02 Neut % (Auto) 78.0 % 02/27/25 10:02 Lymph % (Auto) 12.8 % 02/27/25 10:02 [place] % (Auto) 7.8 % 02/27/25 10:02 Eos % (Auto) 0.6 % 02/27/25 10:02 Baso % (Auto) 0.4 % 02/27/25 10:02 Neut # (Auto) 8.73 10^3/uL (1.8-7.7) H 02/27/25 10:02 Lymph # (Auto) 1.4 10^3/uL (0.8-4.8) 02/27/25 10:02 [place] # (Auto) 0.9 10^3/uL (0.2-0.9) 02/27/25 10:02 Eos # (Auto) 0.1 10^3/uL (0.0-0.8) 02/27/25 10:02 Baso # (Auto) 0.1 10^3/uL (0.0-0.1) 02/27/25 10:02 Nucleated RBC % (auto) 0 % 02/27/25 10:02 Nucleated RBCs # 0.0 /100WBC 02/27/25 10:02 Sodium 139 mmol/L (136-145) 02/27/25 10:02 Potassium 3.9 mmol/L (3.5-5.1) 02/27/25 10:02 Chloride 100 mmol/L (98-107) 02/27/25 10:02 Carbon Dioxide 29 mmol/L (22-29) 02/27/25 10:02 Anion Gap 13.9 (5-19) 02/27/25 10:02 BUN 11 mg/dL (6-20) 02/27/25 10:02 Creatinine 0.9 mg/dL (0.7-1.2) 02/27/25 10:02 GFR Calculation 90.4 mL/min (90-130) 02/27/25 10:02 Glucose 117 mg/dL (65-115) H 02/27/25 10:02 Calculated Osmolality 288 mOsm/kg (285-295) 02/27/25 10:02 Calcium 9.6 mg/dL (8.5-10.5) 02/27/25 10:02 Total Bilirubin 1.0 mg/dL (0.15-1.2) 02/27/25 10:02 AST 111 U/L (0-40) H 02/27/25 10:02 ALT 88 U/L (0-41) H 02/27/25 10:02 Alkaline Phosphatase 123 U/L (40-130) 02/27/25 10:02 Total Protein 7.5 g/dL (6.6-8.7) 02/27/25 10:02 Albumin 4.4 g/dL (3.5-5.2) 02/27/25 10:02 Globulin 3.1 g/dL (1.3-4.6) 02/27/25 10:02 Lipase 49 U/L (13-60) 02/27/25 10:02 Urine Color Yellow (Yellow) 02/27/25 11:11 Urine Appearance Clear (CLEAR) 02/27/25 11:11 Urine pH 7.5 (5-7) 02/27/25 11:11 Ur Specific [place] 1.025 (1.005-1.030) 02/27/25 11:11 Urine Protein Negative (Negative) 02/27/25 11:11 Urine Glucose (UA) Negative (Normal) 02/27/25 11:11 Urine Ketones Negative (Negative) 02/27/25 11:11 Urine Blood Negative (Negative) 02/27/25 11:11 Urine Nitrate Negative (Negative) 02/27/25 11:11 Urine Bilirubin Negative (Negative) 02/27/25 11:11 Urine Urobilinogen 1.0 mg/dL (Negative) 02/27/25 11:11 Ur Leukocyte Esterase Negative (Negative) 02/27/25 11:11 Urine RBC 0-2 /hpf (0-2) 02/27/25 11:11 Urine WBC 0-5 /hpf (0-5) 02/27/25 11:11 Ur Squamous Epith Cells 0-5 /hpf (0-5) 02/27/25 11:11 Amorphous Sediment Not Reportable 02/27/25 11:11 Urine Bacteria None seen /hpf (NONE) 02/27/25 11:11 Hyaline Casts 0-4 /lpf H 02/27/25 11:11 All radiology interpretation(s) finalized by discharge Discharge Plan Discharge Patient Disposition: Home Clinical Impression: S/P cholecystectomy, Postoperative bile leak Condition: Stable Prescriptions: New amoxicillin-pot clavulanate 875-125 mg tablet 1 tab PO BID Qty: 14 0RF pantoprazole 40 mg tablet,delayed release (DR/EC) 40 mg PO DAILY Qty: 90 0RF sucralfate [Carafate] 1 gram tablet 1 g PO TID 56 Days Qty: 168 0RF Discharge Orders: Discharge ED (Routine); Ordered 02/27/25 Ordered By: Edouard Walton Referrals: Chandu Nassar DO [Primary Care Provider, [facility]] Discharge Diet: Clear Liquid Discharge Activity: Increase activity as tolerated Patient Instructions: Opioid Safety, Pain Management, Patient Portal & [place] Instructions Activity Restrictions/Additional Instructions: Thank you for choosing [facility] for your healthcare needs today. It is very important that you follow up as instructed or that you return to the Emergency Department should you have concerns or if your condition changes or worsens in any way. Emergency department visits are focused on emergent conditions, in some cases you may require further evaluation on an outpatient basis. You are seen in the emergency room for concerns about a bile leak after your gallbladder surgery. CT did not show significant bile collection and it appears the drain is adequately draining the gallbladder bed. Dr. Gamble reviewed and discussed the as well he recommends that you be discharged home on Augmentin twice a day for a week also on pantoprazole and Carafate follow-up with him as scheduled. Return if you have further problems increasing pain or fever (Please note that included in your discharge packet is information concerning opioid safety and pain management. This information is given to all patients were discharged from the ER regardless of their discharge diagnosis or the medicines they usually take or are prescribed.) Print Language: Nepali Coding Level of Care Code ED Family Preservation Caseworker for Luz Marina Francis
--- NOTE | 2025-02-27 10:15 | CT_ITS ---
WS: [id number] CT ABDOMEN PELVIS TECHNIQUE: Contrast-enhanced CT of the abdomen and pelvis with coronal and sagittal reformatted images. CLINICAL INFORMATION: abd pain/status post partial cholecystectomy/drain/bile leak COMPARISON: 02/08/2025 DLP: 594.[address] scans at [facility] use at least one of these dose optimization techniques: automated exposure control; mA and/or kV adjustment per patient size (includes targeted exams where dose is matched to clinical indication); or iterative reconstruction. FINDINGS: Interval partial cholecystectomy with drain placement for possible bile leak. No evidence of subhepatic or extrahepatic fluid collection or biloma outside of the gallbladder fossa. Persistent dilatation of the cystic duct with mild dilatation of the common bile duct. Minimal intrahepatic bili ductal dilatation. Surgical sutures in the gallbladder fossa with a small amount of presumed residual gallbladder. Tiny trace of adjacent fluid. Bile leak appears well controlled with the surgical drain. Portal vein and splenic vein are patent. Fluid distended stomach with air-fluid level. Tiny esophageal hiatal hernia. Lung bases are well aerated. Normal pancreatic parenchymal enhancement. Normal caliber abdominal aorta. Celiac and SMA are patent. Adrenal glands are normal. No hydronephrosis in either kidney. Normal excretion. Normal sigmoid colon. Chronic bilateral pars defects L5-S1 with slight anterolisthesis. CT/CT abdomen pelvis w con* [id number] IMPRESSION: 1. Interval partial cholecystectomy with suspected bile leak. No evidence of s ubhepatic or significant extrahepatic fluid collection. Suspected bile leak jorge ears well controlled with the surgical drain. 2. Partial cholecystectomy with sutures in the gallbladder fossa. Tiny trace o f fluid in the gallbladder fossa. Persistent dilated cystic duct with mild comm on bile duct and intrahepatic ductal dilatation appears slightly progressed. No rmal common bile duct at the pancreatic head. 3. Fluid distended stomach with air-fluid level. 4. No other acute findings. 5. Chronic bilateral pars defects L5-S1 Notified Edouard Walton DO at 02/27/2025 11:06 AM.
[2025-02-27 10:30] LABS: Alanine Aminotransferase 88 U/L (0-41); Albumin Level 4.4 g/dL (3.5-5.2); Alkaline Phosphatase 123 U/L (40-130); Anion Gap 13.9 (5-19); Aspartate Amino Transferase 111 U/L (0-40); Blood Urea Nitrogen 11 mg/dL (6-20); Calcium 9.6 mg/dL (8.5-10.5); Carbon Dioxide 29 mmol/L (22-29); Chloride 100 mmol/L (98-107); Creatinine Clr Calc Pharmacy 108.3754; Globulin 3.1 g/dL (1.3-4.6); Glucose 117 mg/dL (65-115); Lipase 49 U/L (13-60); Osmolality Calculated 288 mOsm/kg (285-295); Potassium 3.9 mmol/L (3.5-5.1); Sodium 139 mmol/L (136-145); Total Protein 7.5 g/dL (6.6-8.7)
[2025-02-27] MEDS: iohexol 350 mg/mL 500 mL Btl (per mL) IV (10:40)
[2025-02-27 11:23] LABS: Glucose Urine UA Negative (Normal); Nitrate Urine Negative (Negative); Specific Gravity, Urine 1.025 (1.005-1.030)
[2025-02-27 11:25] LABS: Add Urine Microscopic? YES
[2025-02-27 11:40] VITALS: BP 129/83; PULSE 65; O2SAT 97
--- NOTE | 2025-02-27 13:04 | PM.CONSULT ---
Providers/Reason For Consult Consulting Physician/Specialty*: Dr. Gamble general surgery Reason for Consult*: Bile leak Primary Care Provider: Chandu Nassar DO History of Present Illness History of Present Illness Edwin Keita is a 49 year old male who underwent a laparoscopic cholecystectomy converted to open cholecystectomy due to significant inflammatory changes in the right upper quadrant. Dissection was extremely difficult. Given the inability to obtain a critical view of safety a subtotal cholecystectomy was performed and the drain was left in place. Patient did well postoperatively and was discharged. Now patient is back with concerns for a bile leak. Drain output was tested for bilirubin days prior in the clinic and results consistent with a low volume bile leak (at the time daily output was 5 to 10 cc and patient was completely asymptomatic). Patient has a pending ERCP in [place]. He now reports that the drain output is about 15 cc a day, no fevers, reports epigastric pain. Medications/Allergies Home Medications ?Medication ?Instructions ?Recorded ?Confirmed ?Last Taken ?Type amoxicillin 875 mg-potassium 1 tab PO BID #14 tabs 02/27/25 Unknown Rx clavulanate 125 mg tablet pantoprazole 40 mg tablet,delayed 40 mg PO DAILY #90 tabs 02/27/25 Unknown Rx release sucralfate 1 gram tablet (Carafate) 1 g PO TID 8 weeks #168 tabs 02/27/25 Unknown Rx Allergies Allergy/AdvReac Type Severity Reaction Status Date / Time cephalexin (From Keflex) Allergy ALGY-Rash Verified 02/24/25 11:19 PFSH Acute PFSH: Social History Smoking and tobacco/nicotine status: never used tobacco/nicotine Vitals/I&O/Wt Last Vital Signs Temp 98.1 F 02/27/25 10:07 Pulse 65 02/27/25 11:40 Resp 18 02/27/25 10:07 BP 129/83 02/27/25 11:40 Pulse Ox 97 02/27/25 11:40 O2 Del Method Room Air 02/27/25 10:07 Weight last 48 hrs Weight 190 lb Physical Exam Narrative: Chest: Unlabored breathing room air. No lymphadenopathy. Heart: Regular rate and rhythm. Abdomen: Soft, nontender on palpation, nondistended. Drain with dark output 5 cc in drain. Incisions are well-healed. Data 02/27/25 10:02 02/27/25 10:02 A&P Assessment and plan 1. Postoperative bile leak: 2. Chronic cholecystitis: Plan: 49-year-old male with a history of laparoscopic converted to open cholecystectomy. ER workup was reassuring as there is very small amount of subhepatic fluid and the surgical drain is well-positioned. Afebrile. No leukocytosis. LFTs are within expected ranges. Explained the options to the patient and the . Had an extensive discussion with them. Answered all of their questions. Given that this is a controlled small volume bile leak which is being controlled by the surgical drain, it is reasonable for him to go home and wait for ERCP in the next few weeks. He was instructed to come back to the emergency department if his pain worsens, if he gets a fever, if he develops nausea and vomiting, or if the drain output increases. Will discharge on 7 days of Augmentin in case he is developing an intra-abdominal abscess. Also treated with Protonix and sucralfate since he is mostly complaining of epigastric pain could be consistent with gastritis. My office will call him weekly until he gets his ERCP. Patient and were in agreement with this plan. PDMP PDMP Reviewed: Not Reviewed Coding Level of Care Code 25739 Diagnoses Postoperative bile leak K91.89; K83.8 Chronic cholecystitis K81.1
== END 2025-02-27 11:41 | disposition home or self-care (01) ==
PROVIDERS: Emergency Provider Family Medicine; PCP Electrodiagnostic Medicine
DX: K91.89 Other postprocedural complications and disorders of digestive system (principal); Z98.890 Other specified postprocedural states
CPT/HCPCS: 36415; 74177; 80053; 81001; 83690; 85025; 99285

== ENCOUNTER 2025-04-12 07:43 | Emergency (ER) | payer BC, SELFPAY ==
--- OUTSIDE RECORDS SUMMARY | 2025-04-12 07:46 | XMS_ITS | Continuity of Care Document ---
Author Organization KAYLA Owens [facility] Stephen, Vannesa, [facility] ([facility]) Address [address] [facility] [place] [address] Care Team Providers Care Paper Coater Name Role Phone COLIN NASSAR Primary Care Provider Unavailabl e Assessment No assessment recorded. Plan of Treatment Reminders Order Date Submit Date Provider Last Modified By Organization Details Last Modified Time Details Appointments RECHECK 10 2024 09:10A M Colin Nassar, DO Not available Not available Not available Lab CBC 2024 025 [facility], [address] [facility] [address], [place], [address], 04/07/2025 10:43:49 C-react raj protein , quantit ative, serum or plasma 2024 025 [employer] [facility], [address] [facility], [place], [address], 04/08/2025 06:41:41 Referral None recorde d. Procedures None recorde d. Surgeries None recorde d. Imaging None recorde d. Medication Orders None recorde d. Patient TargetsNo targets recorded. Patient InstructionsNo instructions recorded. Reason for Referral None Reported. Results Created Date Observation Date Name Description Value Unit Range Abnormal Flag Note LastModifiedBy Organization Detail LastModifiedTime 03/26/20 25 03/26/2025 CBC WBC 16.0 x10 4.5-10 .5 high Not Available [facility] [address], [place], [address], 03/26/2025 14:37:45 03/26/2003/26/2025 CBC RBC 4.06 x10 4.30-5 .90 low Not Available [facility] [address] [facility] 1, [place], [address], 03/26/2025 14:37:45 03/26/20 25 03/26/2025 CBC HGB 12.3 g/dL 13.5-1 8.0 low Not Available [facility] [address] [facility] 1, [place], [address], 03/26/2025 14:37:45 03/26/2003/26/2025 CBC HCT 37.5 % 35.0-6 0.0 Not Available [facility] [address] [facility] [address] [facility] [address], [place], [address], 03/26/2025 14:37:45 03/26/2003/26/2025 CBC MCV 92.4 fL 80.0-9 9.9 Not Available [facility] [address] [facility] [address] [facility] 1, [place], [address], 03/26/2025 14:37:45 03/26/2003/26/2025 CBC MCH 30.3 pg 27.0-3 2.0 Not Available [facility] [address] [facility] [address] [facility] 1, [place], [address], 03/26/2025 14:37:45 03/26/2003/26/2025 CBC MCHC 32.9 g/dL 32.0-3 6.0 Not Available [facility] [address] [facility] [address] [facility] 1, [place], [address], 03/26/2025 14:37:45 03/26/2003/26/2025 CBC RDW 13.6 % 11.5-1 4.5 Not Available [facility] [address] [facility] 1, [place], [address], 03/26/2025 14:37:45 03/26/2003/26/2025 CBC plt 849.3 x10 150.0- 451.0 high Not Available [facility] [address] [facility] 1, [place], [address], 03/26/2025 14:37:45 03/26/20 25 03/26/2025 CBC lymphocytes % 11.2 % 20.0-5 0.0 low Not Available [facility] [address] [facility] [address], [place], [address], 03/26/2025 14:37:45 03/26/2003/26/2025 CBC granulcytes % 75.5 % 30.0-7 0.0 high Not Available [facility] [address] [address], [place], [address], 03/26/2025 14:37:45 03/26/20 25 03/26/2025 CBC monocytes % 9.2 % 2.0-16 .0 Not Available [facility] [address] [address], [place], [address], 03/26/2025 14:37:45 03/26/20 25 03/26/2025 CBC granulcytes# 12.1 x10 Not Merlyn ilable [facility] [address] [address], [place], [address], 03/26/2025 14:37:45 03/26/2003/26/2025 CBC lymphocytes # 1.8 x10 Not Available [facility] [address] [address], [place], [address], 03/26/2025 14:37:45 03/26/20 25 03/26/2025 CBC monocytes # 1.5 x10 Not Avai lable [facility] [address] [address], [place], [address], 03/26/2025 14:37:45 03/26/2003/26/2025 CMP (MALE ) glucose 133.0 mg/dL 60.0-9 9.0 high Not Available [facility] [address] [facility] [address] [facility] 1, [place], [address], 03/26/2025 15:21:43 03/26/20 25 03/26/2025 CMP (MALE ) BUN (blood urea nitrogen) 12.0 mg/dL 10.0-2 6.0 Not Available [facility] [address] [facility], [place], [address], 03/26/2025 15:21:43 03/26/20 25 03/26/2025 CMP (MALE ) creatinine (serum) 0.9 mg/dL 0.4-1. 5 Not Available [facility] [address] [facility], [place], [address], 03/26/2025 15:21:43 03/26/20 25 03/26/2025 CMP (MALE ) BUN/creatini ne ratio 13.33 ratio Not Available [facility] [address] [facility], [place], [address], 03/26/2025 15:21:43 03/26/20 25 03/26/2025 CMP (MALE ) eGFR calculated 96.1 Not Available [facility] [address] [facility], [place], [address], 03/26/2025 15:21:43 03/26/2003/26/2025 CMP (MALE ) total protein 6.9 g/dL 6.0-8. 5 Not Available [facility] [address] [facility], [place], [address], 03/26/2025 15:21:43 03/26/2003/26/2025 CMP (MALE ) total bilirubin 0.5 mg/dL 0.2-1. 3 Not Available [facility] [address] [facility] 1, [place], [address], 03/26/2025 15:21:43 03/26/20 25 03/26/2025 CMP (MALE ) albumin 3.1 g/dL 3.5-5. 5 low Not Available [facility] [address] [facility] 1, [place], [address], 03/26/2025 15:21:43 03/26/2003/26/2025 CMP (MALE ) globulin 3.8 calc Not Available [facility] [address] [address], [place], [address], 03/26/2025 15:21:43 03/26/20 25 03/26/2025 CMP (MALE ) AST (SGOT) 61.0 U/L 0.0-46 .0 high Not Available [facility] [address] [facility] [address], [place], [address], 03/26/2025 15:21:43 03/26/20 25 03/26/2025 CMP (MALE ) altv (SGPT) 39.0 U/L 13.0-6 9.0 normal Not Available [facility] [address] [facility] [address], [place], [address], 03/26/2025 15:21:43 03/26/20 25 03/26/2025 CMP (MALE ) A/G ratio 0.8 ratio Not Available [facility] [address] [facility] 1, [place], [address], 03/26/2025 15:21:43 03/26/20 25 03/26/2025 CMP (MALE ) ALP phos 128.0 U/L 30.0-1 40.0 normal Not Available [facility] [address] [facility] [address], [place], [address], 03/26/2025 15:21:43 03/26/2003/26/2025 CMP (MALE ) calcium 8.5 mg/dL 8.4-10 .5 Not Available [facility] [address] [facility] [address], [place], [address], 03/26/2025 15:21:43 03/26/20 25 03/26/2025 CMP (MALE ) sodium 131.0 mmol/ L 136.0- 145.0 low Not Available [facility] [address] [facility] [address], [place], [address], 03/26/2025 15:21:43 03/26/20 25 03/26/2025 CMP (MALE ) potassium 4.4 mmol/ L 3.5-5. 1 Not Available [facility] [address] [facility] [address], [place], [address], 03/26/2025 15:21:43 03/26/2003/26/2025 CMP (MALE ) chloride 97.0 mmol/ L 98.0-1 10.0 abnormal Not Available [facility] [address] [facility] [address], [place], [address], 03/26/2025 15:21:43 03/26/2003/26/2025 CMP (MALE ) C02 30.0 mmol/ L 22.0-3 1.0 Not Available [facility] [address] [facility] [address], [place], [address], 03/26/2025 15:21:43 03/26/20 25 03/26/2025 CMP (MALE ) anion gap 4.0 calc Not Available [facility] [address] [facility] [address], [place], [address], 03/26/2025 15:21:43 03/26/2003/26/2025 CMP (MALE ) osmolality 272.7 calc Not Available [facility] [address] [facility] 1, [place], [address], 03/26/2025 15:21:43 04/01/2004/01/2025 CBC WBC 12.2 x10 high Not Available [facility] [address] [facility] 1, [place], [address], 04/01/2025 13:12:43 04/01/2004/01/2025 CBC RBC 4.24 x10 low Not Available [facility] [address] [facility] 1, [place], [address], 04/01/2025 13:12:43 04/01/2004/01/2025 CBC HGB 12.7 g/dL low Not Available [facility] [address] [facility] 1, [place], [address], 04/01/2025 13:12:43 04/01/2004/01/2025 CBC HCT 39.3 % Not Available [facility] [address] [facility] 1, [place], [address], 04/01/2025 13:12:43 04/01/2004/01/2025 CBC MCV 92.6 fL Not Available [facility] [address] [facility] 1, [place], [address], 04/01/2025 13:12:43 04/01/2004/01/2025 CBC MCH 30.0 pg Not Available [facility] [address] [facility] 1, [place], [address], 04/01/2025 13:12:43 04/01/20 25 04/01/2025 CBC MCHC 32.4 g/dL Not Available [facility] [address], [place], [address], 04/01/2025 13:12:43 04/01/2004/01/2025 CBC RDW 14.2 % Not Available [facility] [address], [place], [address], 04/01/2025 13:12:43 04/01/2004/01/2025 CBC plt 877.5 x10 high Not Available [facility] [address] [facility] [address], [place], [address], 04/01/2025 13:12:43 04/01/2004/01/2025 CBC lymphocytes % 14.1 % low Not Available [facility] [address] [facility] [address], [place], [address], 04/01/2025 13:12:43 04/01/2004/01/2025 CBC granulcytes % 74.2 % high Not Available [facility] [address] [facility] [address], [place], [address], 04/01/2025 13:12:43 04/01/2004/01/2025 CBC monocytes % 8.7 % Not Avai lable [facility] [address] [facility] [address], [place], [address], 04/01/2025 13:12:43 04/01/2004/01/2025 CBC granulcytes# 9.1 x10 Not Merlyn ilable [facility] [address] [facility] [address], [place], [address], 04/01/2025 13:12:43 04/01/2004/01/2025 CBC lymphocytes # 1.7 x10 Not Available [facility] [address] [facility] [address], [place], [address], 04/01/2025 13:12:43 04/01/2004/01/2025 CBC monocytes # 1.1 x10 Not [facility] [address] [facility] 1, [place], [address], 04/01/2025 13:12:43 04/01/2004/01/2025 CMP (MALE ) glucose 148.0 mg/dL 60.0-9 9.0 high Not Available [facility] [address] [facility] 1, [place], [address], 04/01/2025 14:20:52 04/01/20 25 04/01/2025 CMP (MALE ) BUN (blood urea nitrogen) 11.0 mg/dL 10.0-2 6.0 Not Available [facility] [address] [address], [place], [address], 04/01/2025 14:20:52 04/01/20 25 04/01/2025 CMP (MALE ) creatinine (serum) 0.8 mg/dL 0.4-1. 5 Not Available [facility] [address] [address], [place], [address], 04/01/2025 14:20:52 04/01/20 25 04/01/2025 CMP (MALE ) BUN/creatini ne ratio 13.75 ratio Not Available [facility] [address] [address], [place], [address], 04/01/2025 14:20:52 04/01/20 25 04/01/2025 CMP (MALE ) eGFR calculated 110.1 Not Available [facility] [address] [facility] [address], [place], [address], 04/01/2025 14:20:52 04/01/20 25 04/01/2025 CMP (MALE ) total protein 7.4 g/dL 6.0-8. 5 Not Available [facility] [address] [facility] [address], [place], [address], 04/01/2025 14:20:52 04/01/2004/01/2025 CMP (MALE ) total bilirubin 0.5 mg/dL 0.2-1. 3 Not Available [facility] [address] [facility] [address], [place], [address], 04/01/2025 14:20:52 04/01/2004/01/2025 CMP (MALE ) albumin 3.5 g/dL 3.5-5. 5 Not Available [facility] [address] [facility] [address], [place], [address], 04/01/2025 14:20:52 04/01/20 25 04/01/2025 CMP (MALE ) globulin 3.9 calc Not Available [facility] [address] [facility] [address], [place], [address], 04/01/2025 14:20:52 04/01/2004/01/2025 CMP (MALE ) AST (SGOT) 56.0 U/L 0.0-46 .0 high Not Available [facility] [address] [facility] [address], [place], [address], 04/01/2025 14:20:52 04/01/20 25 04/01/2025 CMP (MALE ) altv (SGPT) 68.0 U/L 13.0-6 9.0 normal Not Available [facility] [address] [facility] [address], [place], [address], 04/01/2025 14:20:52 04/01/20 25 04/01/2025 CMP (MALE ) A/G ratio 0.9 ratio Not Available [facility] [address] [facility] [address], [place], [address], 04/01/2025 14:20:52 04/01/20 25 04/01/2025 CMP (MALE ) ALP phos 103.0 U/L 30.0-1 40.0 normal Not Available [facility] [address] [facility] 1, [place], [address], 04/01/2025 14:20:52 04/01/20 25 04/01/2025 CMP (MALE ) calcium 9.1 mg/dL 8.4-10 .5 Not Available [facility] [address] [facility] [address], [place], [address], 04/01/2025 14:20:52 04/01/2004/01/2025 CMP (MALE ) sodium 135.0 mmol/ L 136.0- 145.0 low Not Available [facility] [address] [facility] 1, [place], [address], 04/01/2025 14:20:52 04/01/20 25 04/01/2025 CMP (MALE ) potassium 3.7 mmol/ L 3.5-5. 1 Not Available [facility] [address] [facility] [address], [place], [address], 04/01/2025 14:20:52 04/01/20 25 04/01/2025 CMP (MALE ) chloride 97.0 mmol/ L 98.0-1 10.0 abnormal Not Available [place] [address] [facility] [address], [place], [address], 04/01/2025 14:20:52 04/01/20 25 04/01/2025 CMP (MALE ) C02 32.0 mmol/ L 22.0-3 1.0 high Not Available [facility] [address] [facility] 1, [place], [address], 04/01/2025 14:20:52 04/01/20 25 04/01/2025 CMP (MALE ) anion gap 6.0 calc Not Available [facility] [address] [facility] 1, [place], [address], 04/01/2025 14:20:52 04/01/2004/01/2025 CMP (MALE ) osmolality 281.1 calc Not Available [facility] [address] [facility], [place], [address], 04/01/2025 14:20:52 04/01/2004/02/2025 C-LIZETH CTIVE PROTE IN C-reactive protein 5.3 mg/L <8.0 normal Not Available [facility] [address] [place], [address], 04/02/2025 09:32:12 04/01/2004/02/2025 LIPAS E lipase 174 U/L 7-60 high Not Available [facility] [address] [place], [address], 04/02/2025 09:32:13 04/07/20 25 04/07/2025 CBC WBC 8.5 x10 4.5-10 .5 Not Available [facility] [address] [facility], [place], [address], 04/07/2025 10:43:49 04/07/20 25 04/07/2025 CBC RBC 4.60 x10 4.30-5 .90 Not Available [facility] [address] [facility], [place], [address], 04/07/2025 10:43:49 04/07/20 25 04/07/2025 CBC HGB 13.4 g/dL 13.5-1 8.0 low Not Available [facility] [address] [facility] 1, [place], [address], 04/07/2025 10:43:49 04/07/20 25 04/07/2025 CBC HCT 42.4 % 35.0-6 0.0 Not Available [facility] [address] [facility] 1, [place], [address], 04/07/2025 10:43:49 04/07/20 25 04/07/2025 CBC MCV 92.1 fL 80.0-9 9.9 Not Available [facility] [address] [facility] 1, [place], [address], 04/07/2025 10:43:49 04/07/20 25 04/07/2025 CBC MCH 29.2 pg 27.0-3 2.0 Not Available [facility] [address] [facility] 1, [place], [address], 04/07/2025 10:43:49 04/07/20 25 04/07/2025 CBC MCHC 31.7 g/dL 32.0-3 6.0 low Not Available [facility] [address] [facility] 1, [place], [address], 04/07/2025 10:43:49 04/07/20 25 04/07/2025 CBC RDW 14.3 % 11.5-1 4.5 Not Available [facility] [address] [facility] 1, [place], [address], 04/07/2025 10:43:49 04/07/20 25 04/07/2025 CBC plt 659.8 x10 150.0- 451.0 high Not Available [facility] [address] [facility] 1, [place], [address], 04/07/2025 10:43:49 04/07/20 25 04/07/2025 CBC lymphocytes % 18.9 % 20.0-5 0.0 low Not Available [facility] [address] [facility] 1, [place], [address], 04/07/2025 10:43:49 04/07/20 25 04/07/2025 CBC granulcytes % 66.4 % 30.0-7 0.0 Not Available [facility] [address] [address], [place], [address], 04/07/2025 10:43:49 04/07/20 25 04/07/2025 CBC monocytes % 10.4 % 2.0-16 .0 Not Available [facility] [address] [facility] [address], [place], [address], 04/07/2025 10:43:49 04/07/20 25 04/07/2025 CBC granulcytes# 5.6 x10 Not Merlyn ilable [facility] [address] [address], [place], [address], 04/07/2025 10:43:49 04/07/20 25 04/07/2025 CBC lymphocytes # 1.6 x10 Not Available [facility] [address] [address], [place], [address], 04/07/2025 10:43:49 04/07/2004/07/2025 CBC monocytes # 0.9 x10 Not Avai lable [facility] [address], [address], 04/07/2025 10:43:49 Result Notes None recorded. Problems Name Problem SNOMED Code Status Onset Date Resolution Date Notes Provider Name and Address Organization Details Recorded Time Metabolic syndrome X 227016369 Active 2022 Colin Nassar DO [address] [place] [address], [phone], [facility] Vannesa Mitchell 4 14:10:14 Adult health examination Active 2022 Colin Nassar DO [address] [place] [address], [address], [facility] Vannesa Mitchell 3 14:59:23 Obesity 855605832 Active [address], [address] [place] [address] 5, [facility] 3 14:59:40 Chronic recurrent sinusitis 391370752 Active [address], [address] [place] [address] 5, [facility] 3 15:25:55 Mixed hyperlipide digna 039364058 Active [address], [address] [place] [address] 5, [facility] 4 09:57:35 Leukocytosi s 229900406 Active [address], [address] [place] [address] 5, [facility] 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 5 13:02:19 Reactive depression (situationa l) 05624601 Active [address], [address] [place] [address] 5, [facility] 5 08:06:48 Acute pancreatiti s 440822918 Active [address], [address] [place] [address] 5, [facility] 5 08:06:50 Acute cholecystit is 29688022 Active 2024 Colin Nassar DO [address] [place], [address], [facility] 5 08:06:52 Gallstone acute pancreatiti s 738910798 Active 2024 Colin Nassar DO [address] [place], [address], [facility] 5 07:06:29 Problem Notes None recorded. Medical Equipment None Reported. Allergies Allergen ID Allergen Name Allergen Category Reaction Reaction Severity Criticality Documentation Date Start Date Code Code System Note Provider Name and Address Organization Details Recorded Time 99112 Keflex medicatio n Not available Not available Not available 12/31/202257944 7 RxNorm Comme nt: Recor ded 04/25 1:57P M by Ligia Rothman n, Offic e Visit ; Promo sondra; Dee roth ce: *; Reaso n: Drug aller gy; ; Not Available [facility] 3 02:27:06 Medications Name Sig Start Date Stop Date Status Note LastModified by Organization Details LastModified Time ondansetron HCl 8 mg tablet TAKE ONE TABLET BY MOUTH THREE TIMES DAILY NEEDED FOR NAUSEA AND VOMITING active Not Available Not Available No t Available metronidazo le 500 mg tablet TAKE 1 TABLET BY MOUTH EVERY 8 HOURS FOR 5 DAYS 03/24 completed Not Available Not Available Not Available ciprofloxac in 500 mg tablet TAKE 1 TABLET BY MOUTH TWICE DAILY FOR 5 DAYS 03/24 completed Not Available Not Available Not Available Cholestyram ine Light 4 gram powder for suspension in a packet TAKE ONE PACKET BY MOUTH ONCE DAILY NEEDED FOR diarrhea. active Not Available Not Available No t Available sertraline 25 mg tablet Take 1 tablet every day by oral route, for mood. 04/08 completed Not Available Not Available Not Available montelukast 10 mg tablet TAKE 1 TABLET BY MOUTH DAILY 05/01 completed Not Available Not Available Not Available fluticasone propionate 50 mcg/actuati on nasal spray,suspe nsion SHAKE LIQUID AND USE 1 SPRAY IN EACH NOSTRIL EVERY DAY 05/01 completed Not Available Not Available Not Available metoclopram calli 10 mg tablet TAKE ONE TABLET BY MOUTH FOUR TIMES DAILY NEEDED FOR SEVERE nausea AND vomiting active Not Available Not Available No t Available oxycodone 5 mg tablet TAKE 1 TABLET BY MOUTH EVERY 6 HOURS NEEDED FOR PAIN FOR 5 DAYS active Not Available Not Available No t Available Eliquis 5 mg tablet TAKE TWO TABLETS BY MOUTH TWICE DAILY FOR SEVEN DAYS, THEN one TABLET TWICE DAILY. active Not Available Not Available No t Available Creon 36,000 unit-114,00 0 unit-180,00 0 unit capsule,del ayed release 1 cap 4 times daily with meals and snacks. 2024 active Not Available Not Available Not Avai lable Ozempic 0.25 mg or 0.5 mg (2 mg/1.5 mL) subcutaneou s pen injector Inject 0.25 mg every week by subcutane ous route as directed for 28 days. 03/26 completed Not Available Not Available Not Available Ozempic 0.25 mg or 0.5 mg (2 mg/3 mL) subcutaneou s pen injector INJECT 0.25MG SUBCUTANE OUSLY EVERY WEEK DIRECTED FOR 28 DAYSA. active Not Available Not Available No t Available Vitals None Recorded Social History None recorded. Functional Status Question Answer Note LastModified by Organizat ion Details LastModified Time Do you use any illicit or recreational drugs? No [email or web address] Information not available 05/01/2023 Do you or have you ever used any other forms of tobacco or nicotine? No [email or web address] Information not available 05/01/2023 What is your level of alcohol consumption? None [email or web address] Information not available 05/01/2023 Mental Status None recorded. Family History Relationship Description Onset Age of this Age Resolved Age Notes LastModified by Organization Details LastModified Time Father Coronary arterioscler osis 65 father with AMI late 60s [email or web address] Not available 05/01/2023 15:28:02 Medical History No medical history recorded. Immunizations Vaccine Type Date Status Note Provider Nam e and Address Organization Details Recorded Time Influenza, MDCK, quadrivalent, PF 05/03/2017 completed Leticia castillo [facility] 05/07/2024 09:23:05 COVID-19, mRNA, LNP-S, PF, 30 mcg/0.3 mL dose 01/02/2021 completed Leticia castillo [facility] 05/07/2024 09:23:05 COVID-19, mRNA, LNP-S, PF, 30 mcg/0.3 mL dose 01/23/2021 completed Leticia castillo [facility] 05/07/2024 09:23:05 Past Encounters Encounter ID Performer Location Encounter Start Date Encounter Closed Date Diagnosis/Indication Diagnosis SNOMED-CT Code Diagnosis ICD10 Code Diagnosis IMO Codes Diagnosis Note [id number] Colin Nassar DO [facility] ([facility]) [address] [place] [address] 03/26/2025 14:20:32 03/27/2025 13:03:22 Acute cholecystitis 73690021 K81.0 [id number] 03/26/25: Necrotic s/p parrtial excsion from laproscopi c turned open cholecyste ctemoy at [facility] feb 2025 requiring GB drain. complicate d by duct obstructio n, sepsis, pancreatit is with 25 day hospital stay at [facility]. He has been on abx for 30 days. He continues with refractory leukocytos is, weight loss, fatigue, anemic, and significna tly elevated platelets. I cunseled stop abx tx, he has been on this for >1 month, this is likely effecting his nutrition, elevated WBC likely not d/t infection. F/u with me in one week, lab then, CBC, CMP, lipase, CRP. Acute pancreatitis 7 K85.90 [id number] 03/26/25: 2/2 stone post GB excision feb 2025.will follow labs, continue antiemetic s, Start Creon, Counseled on diagnosis, treatment options including medication s and possible side effects. Hyperbilirubinemia 97268 006 E80.6 43467 Leukocytosis 571380497 D 72.829 [id number] since initial GB surgery, persistent . unclear etiology. has been evaluated by Hematology and ID at [facility]. determined NOT to be from infection or cancer. Will monitor labs weekly for now: Cbc, crp. Reactive d epression (situational) [id number] F43.21 [id number] 03/26/25: Post lengthy hospitaliz ation, start Sertraline 25mg daily, Counseled on diagnosis, treatment options including medication s and possible side effects. Bilateral upper limb superficial vein thrombophlebitis [id number] I80.8 [id number] 03/26/25: Dc'd from [facility] on Eliquis, will continue 5mg BID at this time. [id number] Colin Nassar DO [facility] ([facility]) [address] [place] [address] [phone] 5 03/26/2025 14:22:27 03/27/2025 13:03:41 Post-discharge follow-up [id number] [id number] Colin Nassar DO [facility] ([facility]) [address] [place] [address] [phone] 5 04/01/2025 12:22:22 04/02/2025 09:46:08 Acute pancreatitis [id number] K85.90 [id number] 03/26/25: 2/2 stone post GB excision feb 2025.will follow labs, continue antiemetic s, Start Creon, Counseled on diagnosis, treatment options including medication s and possible side effects. [id number] Colin Nassar DO [facility] ([facility]) [address] [place] [address] [phone] 5 04/02/2025 09:22:56 04/04/2025 11:48:33 Acute cholecystitis [id number] K81.0 9456 04/02/25: slow improvemen t, working on diet to gain weight, monitoring lab. nocurrent sign of obstructio n or infection. 03/26/25: Necrotic s/p parrtial excsion from laproscopi c turned open cholecyste ctemoy at [facility] feb 2025 requiring GB drain. complicate d by duct obstructio n, sepsis, pancreatit is with 25 day hospital stay at [facility]. He has been on abx for 30 days. He continues with refractory leukocytos is, weight loss, fatigue, anemic, and significna tly elevated platelets. I cunseled stop abx tx, he has been on this for >1 month, this is likely effecting his nutrition, elevated WBC likely not d/t infection. F/u with me in one week, lab then, CBC, CMP, lipase, CRP. Acute pancreatitis 6006 K85.90 [id number] 04/02/25: Continues Creon, tolerating well. nausea improved, no recent vomiting. no sign of infection. 03/26/25: 2/2 stone post GB excision feb 2025.will follow labs, continue antiemetic s, Start Creon, Counseled on diagnosis, treatment options including medication s and possible side effects. Leukocytosis 508841472 D 72.829 [id number] 04/02/25- improved, monitoring lab, f/u 1 week. since initial GB surgery, persistent . unclear etiology. has been evaluated by Hematology and ID at [facility]. determined NOT to be from infection or cancer. Will monitor labs weekly for now: Cbc, crp. Reactive d epression (situational) [id number] F43.21 [id number] 04/02/25: Tolerating Sertraline , continue current tx. 5: Post lengthy hospitaliz ation, start Sertraline 25mg daily, Counseled on diagnosis, treatment options including medication s and possible side effects. Bilateral upper limb superficial vein thrombophlebitis [id number] I80.8 [id number] 03/26/25: Dc'd from [facility] on Eliquis, will continue 5mg BID at this time. [id number] Colin Nassar DO [facility] ([facility]) [address] [place] [address] 04/07/2025 10:19:40 04/08/2025 10:10:52 Acute cholecystitis [id number] K81.0 9456 04/02/25: slow improvemen t, working on diet to gain weight, monitoring lab. nocurrent sign of obstructio n or infection. 03/26/25: Necrotic s/p parrtial excsion from laproscopi c turned open cholecyste ctemoy at [facility] feb 2025 requiring GB drain. complicate d by duct obstructio n, sepsis, pancreatit is with 25 day hospital stay at [facility] d. He has been on abx for 30 days. He continues with refractory leukocytos is, weight loss, fatigue, anemic, and significna tly elevated platelets. I cunseled stop abx tx, he has been on this for >1 month, this is likely effecting his nutrition, elevated WBC likely not d/t infection. F/u with me in one week, lab then, CBC, CMP, lipase, CRP. Acute pancreatitis 61049 6007 K85.90 [id number] 04/02/25: Continues Creon, tolerating well. nausea improved, no recent vomiting. no sign of infection. 03/26/25: 2/2 stone post GB excision feb 2025.will follow labs, continue antiemetic s, Start Creon, Counseled on diagnosis, treatment options including medication s and possible side effects. Leukocytosis 415855775 D 72.829 [id number] 04/02/25- improved, monitoring lab, f/u 1 week. since initial GB surgery, persistent . unclear etiology. has been evaluated by Hematology and ID at [facility]. determined NOT to be from infection or cancer. Will monitor labs weekly for now: Cbc, crp. Health Concerns Section Related Observation LastModified by Organization Detai ls LastModified Time None Recorded Concern Status LastModified by Organization Details LastModified Time None Recorded Payers Encounter Date Sequence Insurance Name Policy Number Policy Amaya Covered Member ID Amaya Member ID Guarantor Name 04/07/2025 1 [employer] [id number] Edwin Keita [id number] Edwin Keita
--- OUTSIDE RECORDS SUMMARY | 2025-04-12 07:47 | XMS_ITS | Data Portability ---
Author Organization KAYLA Owens [facility], [facility] Address [address] [place] [address] Care Team Providers Care Vision Impaired Teacher Name Role Phone COLIN MICHELLE Primary Care Provider Unavailabl e Assessment Encounter Date Assessment Date Assessment LastModified by Organization Details LastModified Time 04/02/2025 04/02/2025 Document scribed by Rashad Padilla, Store Receiver. I was present during interview and exam. I have reviewed and agree with above documentation . Dr. Colin Michelle. Reviewed and discussed repeat lab, improving other than Platelets. [email or web address] Not available 04/02/2025 09:57:02 04/08/2025 04/08/2025 Reviewed and discussed repeat lab, f/u 1 week, repeat nonfasting labs prior: cbc, cmp, crp, lipase. [email or web address] Not available 04/09/2025 07:07:44 Plan of Treatment Reminders Order Date Submit Date Provider Last Modified By Organization Details Last Modified Time Details Appointments RECHECK 10 2024 09:10A M Colin Michelle, DO Not available Not available Not available Lab CMP, serum or plasma 2024 025 [facility], [address] [facility] [address], [address], [place], [address], 04/09/2025 07:08:58 CBC 2024 025 [facility], [address] [facility] [address], [address], [place], [address], 04/09/2025 07:08:59 C-react raj protein , quantit ative, serum or plasma [address] [facility], [address] [place] [address] 248, [address], [place], [address], 04/09/2025 07:09:20 lipase, serum or plasma [address] [facility], [address] [place] [address], [address], [place], [address], 04/09/2025 07:09:20 CBC 2024 [facility], [address] [facility], [address], [address], 04/07/2025 10:43:49 C-react raj protein , quantit ative, serum or plasma [address] [facility], [address] [facility], [place], [address], 04/08/2025 06:41:41 CBC 2024 [facility], [address] [facility], [facility] [address], [address], 04/01/2025 13:12:43 CMP, serum or plasma 2024 025 [facility], [address] [facility], [facility], [address], 04/01/2025 14:20:52 lipase, serum or plasma [address] [facility], [address] [place] [address], [address], [place], [address], 04/02/2025 09:32:13 C-react raj protein , quantit ative, serum or plasma [address] [facility], [address] [facility], [place], [address], 04/02/2025 09:32:12 CBC 2024 025 CHILTON Ramsey [facility], [address], [facility], [place], [address], 03/26/2025 14:37:45 CMP, serum or plasma 2024 025 CHILTON Ramsey [facility], [address], [facility], [place], [address], 03/26/2025 15:21:43 Referral None recorde d. Procedures None recorde d. Surgeries None recorde d. Imaging None recorde d. Medication Orders None recorde d. Patient TargetsNo targets recorded. Patient InstructionsNo instructions recorded. Reason for Referral None Reported. Results Created Date Observation Date Name Description Value Unit Range Abnormal Flag Note LastModifiedBy Organization Detail LastModifiedTime 03/26/2003/26/2025 CBC WBC 16.0 x10 4.5-10 .5 high Not Available [facility] [address] [address] [facility], [place], [address], 03/26/2025 14:37:45 03/26/2003/26/2025 CBC RBC 4.06 x10 4.30-5 .90 low Not Available [facility] [address] [facility] [address] [facility], [place], [address], 03/26/2025 14:37:45 03/26/2003/26/2025 CBC HGB 12.3 g/dL 13.5-1 8.0 low Not Available [facility] [address] [facility] [address] [facility], [place], [address], 03/26/2025 14:37:45 03/26/20 25 03/26/2025 CBC HCT 37.5 % 35.0-6 0.0 Not Available Ramsey [facility] [address] [facility], [place], [address], 03/26/2025 14:37:45 03/26/20 25 03/26/2025 CBC MCV 92.4 fL 80.0-9 9.9 Not Available [facility] [address] [facility] [address] [facility], [place], [address], 03/26/2025 14:37:45 03/26/20 25 03/26/2025 CBC MCH 30.3 pg 27.0-3 2.0 Not Available [facility] [address] [facility] [address] [facility], [place], [address], 03/26/2025 14:37:45 03/26/2003/26/2025 CBC MCHC 32.9 g/dL 32.0-3 6.0 Not Available [facility] [address] [facility], [place], [address], 03/26/2025 14:37:45 03/26/20 25 03/26/2025 CBC RDW 13.6 % 11.5-1 4.5 Not Available Ramsey [facility] [address] [facility], [place], [address], 03/26/2025 14:37:45 03/26/20 25 03/26/2025 CBC plt 849.3 x10 150.0- 451.0 high Not Available Ramsey [facility] [address] [facility], [place], [address], 03/26/2025 14:37:45 03/26/20 25 03/26/2025 CBC lymphocytes % 11.2 % 20.0-5 0.0 low Not Available [facility] [address] [facility] [address] [facility], [place], [address], 03/26/2025 14:37:45 03/26/20 25 03/26/2025 CBC granulcytes % 75.5 % 30.0-7 0.0 high Not Available Ramsey [facility] [address] [facility], [place], [address], 03/26/2025 14:37:45 03/26/2003/26/2025 CBC monocytes % 9.2 % 2.0-16 .0 Not Available [facility] [address] [facility], [place], [address], 03/26/2025 14:37:45 03/26/2003/26/2025 CBC granulcytes# 12.1 x10 Not Merlyn ilable [facility] [address] [address], [place], [address], 03/26/2025 14:37:45 03/26/2003/26/2025 CBC lymphocytes # 1.8 x10 Not Available [facility] [address] [address], [place], [address], 03/26/2025 14:37:45 03/26/2003/26/2025 CBC monocytes # 1.5 x10 Not Avai lable [facility] [address] [address], [place], [address], 03/26/2025 14:37:45 03/26/2003/26/2025 CMP (MALE ) glucose 133.0 mg/dL 60.0-9 9.0 high Not Available [facility] [address] [address], [place], [address], 03/26/2025 15:21:43 03/26/2003/26/2025 CMP (MALE ) BUN (blood urea nitrogen) 12.0 mg/dL 10.0-2 6.0 Not Available [facility] [address] [address], [place], [address], 03/26/2025 15:21:43 03/26/2003/26/2025 CMP (MALE ) creatinine (serum) 0.9 mg/dL 0.4-1. 5 Not Available [facility] [address] [facility], [place], [address], 03/26/2025 15:21:43 03/26/20 25 03/26/2025 CMP (MALE ) BUN/creatini ne ratio 13.33 ratio Not Available [facility] [address] [facility], [place], [address], 03/26/2025 15:21:43 03/26/20 25 03/26/2025 CMP (MALE ) eGFR calculated 96.1 Not Available [facility] [address] [facility], [place], [address], 03/26/2025 15:21:43 03/26/20 25 03/26/2025 CMP (MALE ) total protein 6.9 g/dL 6.0-8. 5 Not Available Ramsey [facility] [address] [facility], [place], [address], 03/26/2025 15:21:43 03/26/20 25 03/26/2025 CMP (MALE ) total bilirubin 0.5 mg/dL 0.2-1. 3 Not Available [facility] [address] [facility], [place], [address], 03/26/2025 15:21:43 03/26/20 25 03/26/2025 CMP (MALE ) albumin 3.1 g/dL 3.5-5. 5 low Not Available [facility] [address] [facility], [place], [address], 03/26/2025 15:21:43 03/26/20 25 03/26/2025 CMP (MALE ) globulin 3.[address] [facility] [address] [facility], [place], [address], 03/26/2025 15:21:43 03/26/20 25 03/26/2025 CMP (MALE ) AST (SGOT) 61.0 U/L 0.0-46 .0 high Not Available [facility] [address] [facility], [place], [address], 03/26/2025 15:21:43 03/26/20 25 03/26/2025 CMP (MALE ) altv (SGPT) 39.0 U/L 13.0-6 9.0 normal Not Available Ramsey [facility] [address] [facility], [place], [address], 03/26/2025 15:21:43 03/26/20 25 03/26/2025 CMP (MALE ) A/G ratio 0.8 ratio Not Available [facility] [address] [facility], [place], [address], 03/26/2025 15:21:43 03/26/20 25 03/26/2025 CMP (MALE ) ALP phos 128.0 U/L 30.0-1 40.0 normal Not Available Ramsey [facility] [address] [facility], [place], [address], 03/26/2025 15:21:43 03/26/20 25 03/26/2025 CMP (MALE ) calcium 8.5 mg/dL 8.4-10 .5 Not Available Ramsey [facility] [address] [facility], [place], [address], 03/26/2025 15:21:43 03/26/20 25 03/26/2025 CMP (MALE ) sodium 131.0 mmol/ L 136.0- 145.0 low Not Available Ramsey [facility] [address] [facility], [place], [address], 03/26/2025 15:21:43 03/26/2003/26/2025 CMP (MALE ) potassium 4.4 mmol/ L 3.5-5. 1 Not Available Ramsey [facility] [address] [facility], [place], [address], 03/26/2025 15:21:43 03/26/2003/26/2025 CMP (MALE ) chloride 97.0 mmol/ L 98.0-1 10.0 abnormal Not Available [facility] [address] [facility], [place], [address], 03/26/2025 15:21:43 03/26/2003/26/2025 CMP (MALE ) C02 30.0 mmol/ L 22.0-3 1.0 Not Available Ramsey [facility] [address] [facility], [place], [address], 03/26/2025 15:21:43 03/26/2003/26/2025 CMP (MALE ) anion gap 4.0 calc Not Available [facility] [address], [place], [address], 03/26/2025 15:21:43 03/26/2003/26/2025 CMP (MALE ) osmolality 272.7 calc Not Available Ras[facility]y [facility] [address] [facility], [place], [address], 03/26/2025 15:21:43 04/01/2004/01/2025 CBC WBC 12.2 x10 high Not Available [facility] [address], [place], [address], 04/01/2025 13:12:43 04/01/2004/01/2025 CBC RBC 4.24 x10 low Not Available Ramsey [facility] [address] [facility], [place], [address], 04/01/2025 13:12:43 04/01/2004/01/2025 CBC HGB 12.7 g/dL low Not Available Ramsey [facility] [address] [facility], [place], [address], 04/01/2025 13:12:43 04/01/2004/01/2025 CBC HCT 39.3 % Not Available Ramsey [facility] [address] [facility], [place], [address], 04/01/2025 13:12:43 04/01/2004/01/2025 CBC MCV 92.6 fL Not Available Ramsey [facility] [address] [facility], [place], [address], 04/01/2025 13:12:43 04/01/2004/01/2025 CBC MCH 30.0 pg Not Available [facility] [address] [facility] [address] [facility], [place], [address], 04/01/2025 13:12:43 04/01/2004/01/2025 CBC MCHC 32.4 g/dL Not Available [facility] [address] [facility] [address] [facility], [place], [address], 04/01/2025 13:12:43 04/01/2004/01/2025 CBC RDW 14.2 % Not Available [facility] [address] [facility] [address] [facility], [place], [address], 04/01/2025 13:12:43 04/01/2004/01/2025 CBC plt 877.5 x10 high Not Available [facility] [address] [facility] [address] [facility], [place], [address], 04/01/2025 13:12:43 04/01/2004/01/2025 CBC lymphocytes % 14.1 % low Not Available Ramsey [facility] [address] [facility], [place], [address], 04/01/2025 13:12:43 04/01/2004/01/2025 CBC granulcytes % 74.2 % high Not Available [facility] [address] [facility], [place], [address], 04/01/2025 13:12:43 04/01/2004/01/2025 CBC monocytes % 8.7 % Not [facility] [address] [facility], [place], [address], 04/01/2025 13:12:43 04/01/2004/01/2025 CBC granulcytes# 9.1 x10 Not Merlyn ilable [facility] [address] [address], [place], [address], 04/01/2025 13:12:43 04/01/2004/01/2025 CBC lymphocytes # 1.7 x10 Not Available [facility] [address] [address], [place], [address], 04/01/2025 13:12:43 04/01/2004/01/2025 CBC monocytes # 1.1 x10 Not [facility] [address] [address], [place], [address], 04/01/2025 13:12:43 04/01/2004/01/2025 CMP (MALE ) glucose 148.0 mg/dL 60.0-9 9.0 high Not Available [facility] [address] [facility] R[address] [facility], [place], [address], 04/01/2025 14:20:52 04/01/2004/01/2025 CMP (MALE ) BUN (blood urea nitrogen) 11.0 mg/dL 10.0-2 6.0 Not Available [facility] [address] [facility], [place], [address], 04/01/2025 14:20:52 04/01/20 25 04/01/2025 CMP (MALE ) creatinine (serum) 0.8 mg/dL 0.4-1. 5 Not Available [facility] [address] [facility], [place], [address], 04/01/2025 14:20:52 04/01/20 25 04/01/2025 CMP (MALE ) BUN/creatini ne ratio 13.75 ratio Not Available [facility] [address] [facility], [place], [address], 04/01/2025 14:20:52 04/01/20 25 04/01/2025 CMP (MALE ) eGFR calculated 110.1 Not Available [facility] [address] [facility], [place], [address], 04/01/2025 14:20:52 04/01/20 25 04/01/2025 CMP (MALE ) total protein 7.4 g/dL 6.0-8. 5 Not Available [facility] [address] [facility], [place], [address], 04/01/2025 14:20:52 04/01/20 25 04/01/2025 CMP (MALE ) total bilirubin 0.5 mg/dL 0.2-1. 3 Not Available [facility] [address] [facility], [place], [address], 04/01/2025 14:20:52 04/01/20 25 04/01/2025 CMP (MALE ) albumin 3.5 g/dL 3.5-5. 5 Not Available [facility] [address] [facility], [place], [address], 04/01/2025 14:20:52 04/01/20 25 04/01/2025 CMP (MALE ) globulin 3.9 calc Not Available [facility] [address] [facility], [place], [address], 04/01/2025 14:20:52 04/01/20 25 04/01/2025 CMP (MALE ) AST (SGOT) 56.0 U/L 0.0-46 .0 high Not Available [facility] [address] [facility], [place], [address], 04/01/2025 14:20:52 04/01/2004/01/2025 CMP (MALE ) altv (SGPT) 68.0 U/L 13.0-6 9.0 normal Not Available [facility] [address] [facility], [place], [address], 04/01/2025 14:20:52 04/01/20 25 04/01/2025 CMP (MALE ) A/G ratio 0.9 ratio Not Available [facility] [address] [facility], [place], [address], 04/01/2025 14:20:52 04/01/20 25 04/01/2025 CMP (MALE ) ALP phos 103.0 U/L 30.0-1 40.0 normal Not Available [facility] [address] [facility], [place], [address], 04/01/2025 14:20:52 04/01/20 25 04/01/2025 CMP (MALE ) calcium 9.1 mg/dL 8.4-10 .5 Not Available [facility] [address] [facility], [place], [address], 04/01/2025 14:20:52 04/01/20 25 04/01/2025 CMP (MALE ) sodium 135.0 mmol/ L 136.0- 145.0 low Not Available [facility] [address] [facility], [place], [address], 04/01/2025 14:20:52 04/01/2004/01/2025 CMP (MALE ) potassium 3.7 mmol/ L 3.5-5. 1 Not Available [facility] [address] [facility], [place], [address], 04/01/2025 14:20:52 04/01/20 25 04/01/2025 CMP (MALE ) chloride 97.0 mmol/ L 98.0-1 10.0 abnormal Not Available [facility] [address] [facility], [place], [address], 04/01/2025 14:20:52 04/01/20 25 04/01/2025 CMP (MALE ) C02 32.0 mmol/ L 22.0-3 1.0 high Not Available [facility] [address] [address], [place], [address], 04/01/2025 14:20:52 04/01/20 25 04/01/2025 CMP (MALE ) anion gap 6.0 calc Not Available [facility] [address] [address], [place], [address], 04/01/2025 14:20:52 04/01/20 25 04/01/2025 CMP (MALE ) osmolality 281.1 calc Not Available [facility] [address] [address], [place], [address], 04/01/2025 14:20:52 04/01/2004/02/2025 C-LIZETH CTIVE PROTE IN C-reactive protein 5.3 mg/L <8.0 normal Not Available [facility] [address] , [place], [address], 04/02/2025 09:32:12 04/01/2004/02/2025 LIPAS E lipase 174 U/L 7-60 high Not Available [facility] [address] [facility], [place], [address], 04/02/2025 09:32:13 04/07/2004/07/2025 CBC WBC 8.5 x10 4.5-10 .5 Not Available [facility] [address] [facility], [place], [address], 04/07/2025 10:43:49 04/07/2004/07/2025 CBC RBC 4.60 x10 4.30-5 .90 Not Available [facility] [address] [facility], [place], [address], 04/07/2025 10:43:49 04/07/20 25 04/07/2025 CBC HGB 13.4 g/dL 13.5-1 8.0 low Not Available [facility] [address] [facility], [place], [address], 04/07/2025 10:43:49 04/07/2004/07/2025 CBC HCT 42.4 % 35.0-6 0.0 Not Available [facility] [address] [facility], [place], [address], 04/07/2025 10:43:49 04/07/2004/07/2025 CBC MCV 92.1 fL 80.0-9 9.9 Not Available [facility] [address] [facility], [place], [address], 04/07/2025 10:43:49 04/07/2004/07/2025 CBC MCH 29.2 pg 27.0-3 2.0 Not Available [facility] [address] [facility], [place], [address], 04/07/2025 10:43:49 04/07/20 25 04/07/2025 CBC MCHC 31.7 g/dL 32.0-3 6.0 low Not Available [facility] [address] [facility], [place], [address], 04/07/2025 10:43:49 04/07/20 25 04/07/2025 CBC RDW 14.3 % 11.5-1 4.5 Not Available [facility] [address] [facility], [place], [address], 04/07/2025 10:43:49 04/07/20 25 04/07/2025 CBC plt 659.8 x10 150.0- 451.0 high Not Available [facility] [address] [facility], [place], [address], 04/07/2025 10:43:49 04/07/20 25 04/07/2025 CBC lymphocytes % 18.9 % 20.0-5 0.0 low Not Available [facility] [address] [facility], [place], [address], 04/07/2025 10:43:49 04/07/20 25 04/07/2025 CBC granulcytes % 66.4 % 30.0-7 0.0 Not Available [facility] [address] [facility], [place], [address], 04/07/2025 10:43:49 04/07/20 25 04/07/2025 CBC monocytes % 10.4 % 2.0-16 .0 Not Available [facility] [address] [facility], [place], [address], 04/07/2025 10:43:49 04/07/20 25 04/07/2025 CBC granulcytes# 5.6 x10 Not Merlyn ilable [facility] [address] [facility], [place], [address], 04/07/2025 10:43:49 04/07/20 25 04/07/2025 CBC lymphocytes # 1.6 x10 Not Available [facility] [address] [facility], [place], [address], 04/07/2025 10:43:49 04/07/20 25 04/07/2025 CBC monocytes # 0.9 x10 Not Avai lable [facility] [address] [facility], [place], [address], 04/07/2025 10:43:49 Result Notes None recorded. Problems Name Problem SNOMED Code Status Onset Date Resolution Date Notes Provider Name and Address Organization Details Recorded Time Metabolic syndrome X 149966894 Active 2022 Colin Michelle DO [address] [place] [address], [phone], [facility] 4 14:10:14 Adult health examination Active 2022 oClin Michelle [address], [address], [facility] 3 14:59:23 Obesity 010090873 Active 2022 Colin Michelle [address], [address], [facility] 3 14:59:40 Chronic recurrent sinusitis 128821303 Active 2022 Colin Michelle DO [address] [place] [address], [address], [facility] 3 15:25:55 Mixed hyperlipide digna 901677775 Active 2023 Colin Michelle DO [address] [place] [address], [address], [facility] 4 09:57:35 Leukocytosi s 835959101 Active [address], [address] [place] [address] 5, [facility] 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 13:02:19 Reactive depression (situationa l) 50320671 Active [address], [address] [place] [address] 5, [facility] 5 08:06:48 Acute pancreatiti s 838627446 Active [address], [address] [place] [address] 5, [facility] 08:06:50 Acute cholecystit is 91735177 Active [address], [address] [place] [address] 5, [facility] 08:06:52 Gallstone acute pancreatiti s 661781502 Active [address], [address] [place] [address] 5, [facility] 07:06:29 Problem Notes None recorded. Medical Equipment None Reported. Allergies Allergen ID Allergen Name Allergen Category Reaction Reaction Severity Criticality Documentation Date Start Date Code Code System Note Provider Name and Address Organization Details Recorded Time 66265 Keflex medicatio n Not available Not available Not available 12/31/2022 7 RxNorm Comme nt: Recor ded 04/25 1:57P M by Ligia Rothman n, Offic e Visit ; Jocelyn amaro; Dee roth ce: *; Reaso n: Drug aller gy; ; Not Available [facility] 3 02:27:06 Medications Name Sig Start Date [...] Available Not Available No t Available Vitals Date Recorded Body height Body mass index (BMI) Body weight Oxygen saturation Oxygen saturation in Arterial blood by Pulse oximetry Heart rate Respiratory rate Systolic And Diastolic Provider Name and Address Organization Details Last Updated DateTime 5 172.72 cm 26.5 kg/m2 70253.8 7 g 98 % 98 % 107 /min 18 /min 124/72 mm[Hg] [facility] 15:14:28 Date Recorded Body height Body mass index (BMI) Body weight Oxygen saturation Oxygen saturation in Arterial blood by Pulse oximetry Heart rate Respiratory rate Systolic And Diastolic Provider Name and Address Organization Details Last Updated DateTime 5 172.72 cm 26.1 kg/m2 44450.1 g 97 % 97 % 90 /min 18 /min 126/84 mm[Hg] [facility] 09:36:41 Date Recorded Body height Body mass index (BMI) Body weight Oxygen saturation Oxygen saturation in Arterial blood by Pulse oximetry Heart rate Respiratory rate Systolic And Diastolic Provider Name and Address Organization Details Last Updated DateTime 5 172.72 cm 26.2 kg/m2 96238.2 9 g 97 % 97 % 91 /min 18 /min 146/90 mm[Hg] MAHAD WISE [facility] 14:26:44 Social History None recorded. Functional Status Question Answer Note LastModified by Organizat ion Details LastModified Time Do you use any illicit or recreational drugs? No [email or web address] Information not available 05/01/2023 Do you or have you ever used any other forms of tobacco or nicotine? No [email or web address] Information not available 05/01/2023 What is your level of alcohol consumption? None [email or web address] Information not available 05/01/2023 Mental Status None recorded. Family History Relationship Description Onset Age of this Age Resolved Age Notes LastModified by Organization Details LastModified Time Father Coronary arterioscler osis 65 father with AMI late 60s [email or web address] Not available 05/01/2023 15:28:02 Medical History No medical history recorded. Immunizations Vaccine Type Date Status Note Provider Clayton steele and Address Organization Details Recorded Time Influenza, MDCK, quadrivalent, PF 05/03/[address] [facility] 05/07/2024 09:23:05 COVID-19, mRNA, LNP-S, PF, 30 mcg/0.3 mL dose 01/02/[address] [facility] 05/07/2024 09:23:05 COVID-19, mRNA, LNP-S, PF, 30 mcg/0.3 mL dose 01/23/[address] [facility] 05/07/2024 09:23:05 Past Encounters Encounter ID Performer Location Encounter Start Date Encounter Closed Date Diagnosis/Indication Diagnosis SNOMED-CT Code Diagnosis ICD10 Code Diagnosis IMO Codes Diagnosis Note [id number] Colin Michelle DO [facility] ([facility]) [id number] [place] [phone] 5 05/01/2023 14:22:03 05/01/2023 15:35:15 Adult health examination [id number] Z00.00 I counseled patient on diet, exercise, weight, and mental health. We discussed appropriat e cancer screenings . All questions were addressed. I reviewed recent labs prior to visit and discussed recent labs/studi es with pt during this visit. Pt is encouraged to utilized the portal. all questions were addressed. f/u every 12 mts for annual wellness visits. Obesity [id number] E66.9 I counseled pt on obesity. We discussed risks and ways to loose weight. Pt will work on diet, exercise. Chronic re current sinusitis [id number] J32.9 Most of adult life. Refractory to nasal steroids, antihistam lauren and nasal rinses. Counseled on nasal washes. Discussed neck step would be CT scan of the sinus and then evaluation by qual research manager . He will discuss this with his and consider. [id number] Colin Michelle DO [facility] ([facility]) [address] [place] [phone] 5 10/18/2023 08:29:48 10/19/2023 11:19:04 Adult health examination [id number] Z00.00 I counseled patient on diet, exercise, weight, and mental health. We discussed appropriat e cancer screenings . All questions were addressed. I reviewed recent labs prior to visit and discussed recent labs/studi es with pt during this visit. Pt is encouraged to utilized the portal. all questions were addressed. f/u every 12 mts for annual wellness visits. [id number] Colin Michelle DO [facility] [place]) [address] [place] [phone] 04/30/2024 08:21:17 05/01/2024 08:14:51 Adult health examination [id number] Z00.00 I counseled patient on diet, exercise, weight, and mental health. We discussed appropriat e cancer screenings . All questions were addressed. I reviewed recent labs prior to visit and discussed recent labs/studi es with pt during this visit. Pt is encouraged to utilized the portal. all questions were addressed. f/u every 12 mts for annual wellness visits. [id number] Colin Michelle DO [facility] [place]) [address] [place] [phone] 5 05/07/2024 09:17:43 05/07/2024 10:19:37 Active or passive immunization [id number] Z23 Adult heal th examination [id number] Z00.00 I counseled patient on diet, exercise, weight, and mental health. We discussed appropriat e cancer screenings . All questions were addressed. I reviewed recent labs prior to visit and discussed recent labs/studi es with pt during this visit. Pt is encouraged to utilized the portal. all questions were addressed. f/u every 12 mts for annual wellness visits. Obesity 824423364 E66.9 much improved with Semaglutid e. continue for now, counseled on expectatio ns and how to wean off in the future without gaining back the weight. I counseled pt on obesity. We discussed risks and ways to loose weight. Pt will work on diet, exercise. Mixed hyperlipidemia [id number] 810252 E78.2 much improved with weight loss. Will hold off on statin due to improvemen t. counseled on diet, exercise. [id number] Colin Michelle DO [facility] ([facility]) [address] [place] [address] 03/26/2025 14:20:32 03/27/2025 13:03:22 Acute cholecystitis [id number] K81.0 [id number] 03/26/25: Necrotic s/p parrtial excsion from laproscopi c turned open cholecyste ctemoy at [facility] feb 2025 requiring GB drain. complicate d by duct obstructio n, sepsis, pancreatit is with 25 day hospital stay at [facility]. He has been on abx for 30 days. He continues with refractory leukocytos is, weight loss, fatigue, anemic, and significna tly elevated platelets. I cunseled stop abx tx, he has been on this for >1 month, this is likely effecting his nutrition, elevated WBC likely not d/t infection. F/u with me in one week, lab then, CBC, CMP, lipase, CRP. Acute pancreatitis 6007 K85.90 [id number] 03/26/25: 2/2 stone post GB excision feb 2025.will follow labs, continue antiemetic s, Start Creon, Counseled on diagnosis, treatment options including medication s and possible side effects. Hyperbilirubinemia 40298 006 E80.6 99202 Leukocytosis 016995585 D 72.829 [id number] since initial GB surgery, persistent . unclear etiology. has been evaluated by Hematology and ID at [facility]. determined NOT to be from infection or cancer. Will monitor labs weekly for now: Cbc, crp. Reactive d epression (situational) [id number] F43.21 [id number] 03/26/25: Post lengthy hospitaliz ation, start Sertraline 25mg daily, Counseled on diagnosis, treatment options including medication s and possible side effects. Bilateral upper limb superficial vein thrombophlebitis [id number] 2478876 I80.8 [id number] 03/26/25: Dc'd from [facility] on Eliquis, will continue 5mg BID at this time. [id number] Colin Michelle DO [facility] ([facility]) [address] [place] [phone] 5 03/26/2025 14:22:27 03/27/2025 13:03:41 Post-discharge follow-up [id number] Z09 [id number] Colin Michelle DO [facility] [place]) [address] [place] [phone] 5 04/01/2025 12:22:22 04/02/2025 09:46:08 Acute pancreatitis [id number] K85.90 [id number] 03/26/25: 2/2 stone post GB excision feb 2025.will follow labs, continue antiemetic s, Start Creon, Counseled on diagnosis, treatment options including medication s and possible side effects. [id number] Colin Michelle DO [facility] [place]) [address] [place] [phone] 5 04/02/2025 09:22:56 04/04/2025 11:48:33 Acute cholecystitis 33835745 K81.0 9456 04/02/25: slow improvemen t, working on diet to gain weight, monitoring lab. nocurrent sign of obstructio n or infection. 03/26/25: Necrotic s/p parrtial excsion from laproscopi c turned open cholecyste ctemoy at [facility] feb 2025 requiring GB drain. complicate d by duct obstructio n, sepsis, pancreatit is with 25 day hospital stay at [facility]. He has been on abx for 30 days. He continues with refractory leukocytos is, weight loss, fatigue, anemic, and significna tly elevated platelets. I cunseled stop abx tx, he has been on this for >1 month, this is likely effecting his nutrition, elevated WBC likely not d/t infection. F/u with me in one week, lab then, CBC, CMP, lipase, CRP. Acute pancreatitis 6007 K85.90 [id number] 04/02/25: Continues Creon, tolerating well. nausea improved, no recent vomiting. no sign of infection. 03/26/25: 2/2 stone post GB excision feb 2025.will follow labs, continue antiemetic s, Start Creon, Counseled on diagnosis, treatment options including medication s and possible side effects. Leukocytosis 402744912 D 72.829 [id number] 04/02/25- improved, monitoring lab, f/u 1 week. since initial GB surgery, persistent . unclear etiology. has been evaluated by Hematology and ID at [facility]. determined NOT to be from infection or cancer. Will monitor labs weekly for now: Cbc, crp. Reactive d epression (situational) 83350461 F43.21 [id number] 04/02/25: Tolerating Sertraline , continue current tx. 5: Post lengthy hospitaliz ation, start Sertraline 25mg daily, Counseled on diagnosis, treatment options including medication s and possible side effects. Bilateral upper limb superficial vein thrombophlebitis [id number] I80.8 [id number] 03/26/25: Dc'd from [facility] on Eliquis, will continue 5mg BID at this time. [id number] Colin Michelle DO [facility] ([facility]) [address] [place] [phone] 5 04/07/2025 10:19:40 04/08/2025 10:10:52 Acute cholecystitis 57057826 K81.0 9456 04/02/25: slow improvemen t, working on diet to gain weight, monitoring lab. nocurrent sign of obstructio n or infection. 03/26/25: Necrotic s/p parrtial excsion from laproscopi c turned open cholecyste ctemoy at [facility] feb 2025 requiring GB drain. complicate d by duct obstructio n, sepsis, pancreatit is with 25 day hospital stay at [facility]. He has been on abx for [...] CMP, lipase, CRP. Acute pancreatitis 6006 K85.90 [id number] 04/02/25: Continues Creon, tolerating well. nausea improved, no recent vomiting. no sign of infection. 03/26/25: 2/2 stone post GB excision feb 2025.will follow labs, continue antiemetic s, Start Creon, Counseled on diagnosis, treatment options including medication s and possible side effects. Leukocytosis 705382916 D 72.829 [id number] 04/02/25- improved, monitoring lab, f/u 1 week. since initial GB surgery, persistent . unclear etiology. has been evaluated by Hematology and ID at [facility]. determined NOT to be from infection or cancer. Will monitor labs weekly for now: Cbc, crp. [id number] Colin Michelle DO [facility] ([facility]) [address] [place] [phone] 04/08/2025 14:02:26 04/08/2025 15:11:33 Acute cholecystitis 75044652 K81.0 9456 04/08/25:: chronic, necrotic. off abx. continue with planned f/u with surgeon next mt. Start Cholesytro deacon.03/06 02/27: slow improvemen t, working on diet to gain weight, monitoring lab. no current sign of obstructio n or infection. 03/26/25: Necrotic s/p partial excision from laproscopi c turned open cholecyste ctomy at [facility] feb 2025 requiring GB drain. complicate d by duct obstructio n, sepsis, pancreatit is with 25 day hospital stay at [facility]. He has been on abx for 30 days. He continues with refractory leukocytos is, weight loss, fatigue, anemic, and significna tly elevated platelets. I cunseled stop abx tx, he has been on this for >1 month, this is likely effecting his nutrition, elevated WBC likely not d/t infection. F/u with me in one week, lab then, CBC, CMP, lipase, CRP. Leukocytosis 317041170 D 72.829 [id number] 04/08/25: normalized . repeat labs in 1 week.04/02- improved, monitoring lab, f/u 1 week. since initial GB surgery, persistent . unclear etiology. has been evaluated by Hematology and ID at [facility]. determined NOT to be from infection or cancer. Will monitor labs weekly for now: Cbc, crp. Reactive d epression (situational) 05645592 F43.21 [id number] 04/08/25: improved.1 : Tolerating Sertraline , continue current tx. 5: Post lengthy hospitaliz ation, start Sertraline 25mg daily, Counseled on diagnosis, treatment options including medication s and possible side effects. Bilateral upper limb superficial vein thrombophlebitis [id number] 8724387 I80.8 [id number] 04/08/25:st op eliquis, start 81mg EC asa nightly.: Dc'd from [facility] on Eliquis, will continue 5mg BID at this time. Gallstone acute pancreatitis 234125571 K85.10 [id number] 04/08/25: somewhat improved. WBC normalized . nausea mildly improved. tolerating high protein diet. continue meds and diet.04/02: Continues Creon, tolerating well. nausea improved, no recent vomiting. no sign of infection. 03/26/25: 2/2 stone post GB excision feb 2025.will follow labs, continue antiemetic s, Start Creon, Counseled on diagnosis, treatment options including medication s and possible side effects. Health Concerns Section Related Observation LastModified by Organization Detai ls LastModified Time None Recorded Concern Status LastModified by Organization Details LastModified Time None Recorded Advance Directives Directive None Recorded Payers Insurance Date Sequence Insurance Name Policy Number Policy Amaya Covered Member ID Amaya Member ID Guarantor Name 04/08/2025 1 [employer] [id number] Edwin Keita [id number] Edwin Keita Notes Date Note Type Note Provider Name and Address Organization Details Recorded Time 03/26/2025 text/html ROS as noted in the HPI Pt presents for hospital f/u He went in 02/08/25 for laparoscopic cholecystectomy that was converted to open d/t inflammation in RUQ. Spouse reports only partial gallbladder removal. Drain placed. Started draining yellow, urgent referal placed by his Gen Surg for ERCP. He continued to have pain and drainage so he went to [facility] ER and ended up transferred to [facility] for ERCP. His WBC was up to 43, prolonging his hospital stay. WBC 15.2 per spouse on day of hospital d/c. Plt also increased. Na low, was on Sodium tablets in the hospital, last 133 when checked prior to dc. Dx:Acute cholecystitis, Acute Pancreatitis, bile leak, Hyperbilirubinemia, Luekocytosis. HOSPITAL COURSE SUMMARY Ediwn Keita is a 49 y.o. male who was admitted for further evaluation of abdominal pain and vomiting. Patient was treated for necrotizing cholecystitis with partial cholecystectomy on 02/08 at [facility]. During a follow-up, his bilirubin was elevated and was concern for leak. Patient's bilirubin has been gradually increasing and he is jaundiced. Patient's drainage is darker. He has been experiencing upper abdominal pain since yesterday morning and went to ER at [facility]. Patient started vomiting last night and continues to have abdominal pain and vomiting and is unable to keep down anything since yesterday. He had a bowel movement yesterday. Patient's abdominal pain is located in the upper abdomen and back and gets better after vomiting. In the ED, patient was afebrile, hemodynamically stable, alert oriented x 3, saturating well on room air. Significant labs are normal WBC count with left shift, CMP with normal electrolytes and renal function, elevated LFTs with total bili 6.5, ALP 264, AST 364, ALT 513, normal lipase. CT abdomen pelvis with contrast showing postsurgical changes in gallbladder fossa. Ultrasound abdomen showing surgically absent gallbladder, trace amount of complex fluid in gallbladder fossa. He was given IV fluids, antiemetics and analgesics in the ED. ED provider spoke to Dr. Sloan with surgery who will consult. He is being admitted to medicine hospitalist service for further management. 03/01: Afebrile. LFTs still up, surgery Dr. Sloan recommend no interventions. GI consult pending-per report unable to do ERCP on weekend. Watch on p.o. intake. Continue IV ABX. Report pain improving since came in 03/02: No labs done today. Some cloudy RENA drain output. BCx NTD. But reports pain worsens with p.o. intake-better switching to low-fat diet. 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 03/03: some bile in the RENA drain. ERCP today showed no obstruction/Bile leak , but biliary stent placed given concerns for biliary leak/sphincterotomy done. Clear liquids>ADAT. Gsx reccd no interventions 03/04: woke up this 3 AM with no nausea no abdominal pain. Today reports no BM since testing and not passing flatus-but not eating much since admit. Lactate 1.8, LFTs downtrending. Check UA Appreciate GI recs-KUB reviewed, lipase elevated-Will proceed with CT abdomen pelvis -showed findings of pancreatitis. RENA drain more bilious 03/05: Still nausea and abdominal pain consulted for medications helping. Continue n.p.o, IVF. per GI. Still no BM-titrate bowel regimen. Appreciate surgery-recommend no interventions. Labs in a.m. UA stable, check bladder scan 03/06: Assumed care today. at bedside. Reviewed hospital course with both. Reported tachycardia and elevated blood pressure this am. Positive bowel movement last night and this am. Elevated white count this am. Abdominal pain persists. 03/07: Better night. Multiple liquid stools. Increased urine output however still dark in color. Better pain tolerance. Per GI will advance diet to full liquids. Encourage increase in activity. Notified by nursing of increased abdominal distention. No change in pain. The patients diet was advanced to full liquid diet this morning. No vomiting. Blood pressure 148/105 O2 sat 98% on room air pulse 117 Abdomen is distended without rebound. Lower extremities without edema Increasing abdominal distention with pancreatitis ERCP induced Lipase this morning had decreased to 275 from admission when it was greater than [address] of the abdomen /pelvis NPO Repeat lipase As needed medications for hypertension Discussed with Dr. Duque, surgeon. 03/08: A little more comfortable this am. Positive flatus. Discussed case with surgery this am. Reviewed feeding options with patient and family. Agreeable to post-pyloric feeding tube. Will proceed. Auto Dealer consult as well. 03/09: Patient appears more comfortable this a.m. Feeding tube in place. At goal rate tolerating. Positive liquid stool and flatus. 03/10: Increasing lower abdominal fullness and discomfort. Will order paracentesis with fluid studies. Leukocytosis worsening, ID has been consulted. Continue Zosyn. Doppler studies negative for DVT, additional infectious workup has been ordered and oral vancomycin added to regimen 03/11: Inadequate peritoneal fluid for drainage. Worsening leukocytosis but patient afebrile. Continue IV antibiotic therapy, NGT feeding. Daily potassium supplement has been added Bilateral acute upper extremity superficial venous thrombophlebitis with left cephalic vein extension. Therapeutic anticoagulation initiated. 03/12: No significant change in abdominal symptoms. Leukocytosis worse without any fevers or new growth on cultures. Continue antibiotic therapy, anticoagulation and tube feeds 03/13: Lower abdominal and back fullness with discomfort unchanged. Tolerating clears. Continued uptrend in WBC count but no fevers. Continue IV antibiotic therapy, postpyloric tube feeding 03/14: Leukocytosis improving, CRP improving. Tolerating full liquids-advancement per GI. Continue IV antibiotic therapy, postpyloric tube feeding. Significant diarrhea, rigger up requested to add stool bulking agent to formula. 03/15: Tolerated low-fat diet. Continue tube feeds, IV antibiotic therapy. Add gentle IV hydration. 03/16: Abdominal symptoms improving and tolerating low-fat diet ~25% intake. Will hold daytime feeding to promote oral intake and monitor. Continue IV antibiotic therapy 03/17: WBC, CRP improving. Abdominal symptoms improving. P.o. tolerance improving. Remove NG tube. Continue IV antibiotic therapy. 03/18: Slight increase in WBC but no fever or chills. Good p.o. tolerance and no active abdominal symptoms. Continue IV antibiotic therapy, increase out of bed activity as tolerated. Thrombocytosis, hematology evaluation tomorrow 03/19: Tolerating diet. Leukocytosis and CRP improving. Platelets trending up trending up- Hematology consulted. Continue IV antibiotic therapy 03/20: Slight uptrend in WBC and platelets, no fevers. Dependent edema-elevate lower extremities. Continue IV antibiotic repeat 03/21: CRP improving, white count stable. More frequent bowel movements overnight with traces of blood-FOBT ordered and pending. Continue IV antibiotic therapy 03/22: Stool consistency and frequency improving. White count stable without fevers. Continue IV antibiotic therapy. Increase out of bed activity as tolerated 03/23: Stool consistency and frequency continue to improve Spouse reports this was the worst hospital experience they have ever encountered, as far as communication between hospital staff.Hematology advised pt and spouse that elevated Plt like reaction to illness, was tolf if Hematology f/u needed pt can f/u in [place].They were advised he can f/u with Hepato specialist in [place] when improved, to discuss further removal of the rest of the gb. He was on abx prior to hospitalization after surgery, all during hospitalization, is still on abx today. Spouse reports it was unclear with ID how long he needed to be on them or what the plan was.He is supposed to f/u with ID ( Dr. Figueroa) next . Spouse has lab on portal on day of dc:WBC 16.2, Hgb 11.2, Pt reports he is worn out, no more than when he was in the hospital.He is trying to be a little more active, getting up, but he is tired.He continues to lose weight.He is eating well, plenty of protein, chicken, eggs, protein shakes, however weight is not gaining. He has been battling nausea, no vomiting.Has been battling diarrhea. He was dx with PE x2 weeks ago. Eliquis has been decreased to 5mg.No longer taking Ozempic. Colin Michelle, DO [address] [place] [address], [phone], [place] [facility] 03/27/2025 13:03:28 04/02/2025 text/html ROS as noted in the HPI Pt presents for recheck 1 week Cholecystitis, Pancreatitis. Overall he feels better today than he did one week ago. Lab performed yesterday, 04/01/25.Platelets remain high at 877.WBC has decreased from 16 to 12.2.albumin is improved to 3.5lipase and amylase He c/o burning and tightness in his stomach. He usually complains of this when his stomach is empty. Taking Pantoprazole when needed. His abd does feel less distended now. no juandice or icterus. no bloody or dark tarry stools. no fevers ro chillls or nightsweats. Continues with nausea, hasn't had emesis since his visit last week. No recurrence of diarrhea.Not using Cholestyramine. Continues Creon, tolerating well. He is still losing wt even though he is having protein bars, and shakes, and snacks during the dayHe has lost 3 lbs since the last visit 1 week ago. Colin Michelle DO [address] [place] [address], [phone], [facility], [place]. 04/03/2025 08:07:24 04/08/2025 text/html ROS as noted in the HPI 49-year-old male with history of cholecystitis, pancreatitis, hyperlipidemia and depression presenting for one week follow-up. Overall he feels better today than he did one week ago. Lab performed yesterday, 04/07/25Platelets remain high at 659.8, decreased from 877 on 04/01/25WBC has decreased from 16 to 8.5Albumin is improved to 3.5 Still experiencing nausea but hasn t vomited in a couple weeksNo recurrence of diarrhea. Taking Reglan and Zofran. Stopped taking Creon 2 days ago, noticed a decrease in nausea and stomach burning. Colin Michelle DO [address] [place] [address], [phone], [facility], [place]. 04/09/2025 07:09:17
--- OUTSIDE RECORDS SUMMARY | 2025-04-12 07:47 | XMS_ITS | Continuity of Care Document ---
Author Organization KAYLA Owens [facility] Stephen, LSvetlana, BANNER ([facility]) Address [address] [address] Care Team Providers Care Refractory Repairer Name Role Phone COLIN NASSAR Primary Care Provider Unavailabl e Assessment Encounter Date Assessment Date Assessment LastModified by Organization Details LastModified Time 04/08/2025 04/08/2025 Reviewed and discussed repeat lab, f/u 1 week, repeat nonfasting labs prior: cbc, cmp, crp, lipase. [email or web address] Not available 04/09/2025 07:07:44 Plan of Treatment Reminders Order Date Submit Date Provider Last Modified By Organization Details Last Modified Time Details Appointments RECHECK 10 2024 09:10A M Colin Nassar, DO Not available Not available Not available Lab CMP, serum or plasma 2024 025 [facility], [address] [facility], [facility] [address], [place], [address], 04/09/2025 07:08:58 CBC 2024 025 [facility], [address], [facility] 1, [place], [address], 04/09/2025 07:08:59 C-reacti ve protein, quantita tive, serum or plasma 2024 025 [employer] [facility], [address], [address] [facility] [place], [address], 04/09/2025 07:09:20 lipase, serum or plasma 2024 025 [facility], [address], [address] [place], [address], 04/09/2025 07:09:20 Referral None recorded . Procedures None recorded . Surgeries None recorded . Imaging None recorded . Medication Orders None recorded . Patient TargetsNo targets recorded. Patient InstructionsNo instructions recorded. Reason for Referral None Reported. Results Created Date Observation Date Name Description Value Unit Range Abnormal Flag Note LastModifiedBy Organization Detail LastModifiedTime 03/26/2003/26/2025 CBC WBC 16.0 x10 4.5-10 .5 high Not Available [facility] [address] [facility] [address], [place], [address], 03/26/2025 14:37:45 03/26/2003/26/2025 CBC RBC 4.06 x10 4.30-5 .90 low Not Available [facility] [address] [facility] 1, [place], [address], 03/26/2025 14:37:45 03/26/2003/26/2025 CBC HGB 12.3 g/dL 13.5-1 8.0 low Not Available [facility] [address] [facility] 1, [place], [address], 03/26/2025 14:37:45 03/26/2003/26/2025 CBC HCT 37.5 % 35.0-6 0.0 Not Available [facility] [address] [facility] 1, [place], [address], 03/26/2025 14:37:45 03/26/2003/26/2025 CBC MCV 92.4 fL 80.0-9 9.9 Not Available [facility] [address] [facility] 1, [place], [address], 03/26/2025 14:37:45 03/26/20 25 03/26/2025 CBC MCH 30.3 pg 27.0-3 2.0 Not Available [facility] [address] [facility] 1, [place], [address], 03/26/2025 14:37:45 03/26/20 25 03/26/2025 CBC MCHC 32.9 g/dL 32.0-3 6.0 Not Available [facility] [address] [facility] 1, [place], [address], 03/26/2025 14:37:45 03/26/2003/26/2025 CBC RDW 13.6 % 11.5-1 4.5 Not Available [facility] [address] [facility] 1, [place], [address], 03/26/2025 14:37:45 03/26/2003/26/2025 CBC plt 849.3 x10 150.0- 451.0 high Not Available [facility] [address], [place], [address], 03/26/2025 14:37:45 03/26/2003/26/2025 CBC lymphocytes % 11.2 % 20.0-5 0.0 low Not Available [facility] [address], [place], [address], 03/26/2025 14:37:45 03/26/2003/26/2025 CBC granulcytes % 75.5 % 30.0-7 0.0 high Not Available [facility] [address], [place], [address], 03/26/2025 14:37:45 03/26/20 25 03/26/2025 CBC monocytes % 9.2 % 2.0-16 .0 Not Available [facility] [address], [place], [address], 03/26/2025 14:37:45 03/26/20 25 03/26/2025 CBC granulcytes# 12.1 x10 Not Merlyn ilable [facility] [address] [address], [place], [address], 03/26/2025 14:37:45 03/26/20 25 03/26/2025 CBC lymphocytes # 1.8 x10 Not Available [facility] [address] [address], [place], [address], 03/26/2025 14:37:45 03/26/2003/26/2025 CBC monocytes # 1.5 x10 Not Avai lable [facility] [address] [address], [place], [address], 03/26/2025 14:37:45 03/26/20 25 03/26/2025 CMP (MALE ) glucose 133.0 mg/dL 60.0-9 9.0 high Not Available [address] [address], [place], [address], 03/26/2025 15:21:43 03/26/20 25 03/26/2025 CMP (MALE ) BUN (blood urea nitrogen) 12.0 mg/dL 10.0-2 6.0 Not Available [address] [address], [place], [address], 03/26/2025 15:21:43 03/26/20 25 03/26/2025 CMP (MALE ) creatinine (serum) 0.9 mg/dL 0.4-1. 5 Not Available [facility] [address], [address], 03/26/2025 15:21:43 03/26/20 25 03/26/2025 CMP (MALE ) BUN/creatini ne ratio 13.33 ratio Not Available [facility] [address] [facility] 1, [place], [address], 03/26/2025 15:21:43 03/26/20 25 03/26/2025 CMP (MALE ) eGFR calculated 96.1 Not Available [facility] [address] [facility] 1, [place], [address], 03/26/2025 15:21:43 03/26/20 25 03/26/2025 CMP (MALE ) total protein 6.9 g/dL 6.0-8. 5 Not Available [facility] [address] [facility] 1, [place], [address], 03/26/2025 15:21:43 03/26/20 25 03/26/2025 CMP (MALE ) total bilirubin 0.5 mg/dL 0.2-1. 3 Not Available [facility] [address], [place], [address], 03/26/2025 15:21:43 03/26/20 25 03/26/2025 CMP (MALE ) albumin 3.1 g/dL 3.5-5. 5 low Not Available [facility] [address] [facility] 1, [place], [address], 03/26/2025 15:21:43 03/26/20 25 03/26/2025 CMP (MALE ) globulin 3.8 calc Not Available [facility] [address] [facility] 1, [place], [address], 03/26/2025 15:21:43 03/26/20 25 03/26/2025 CMP (MALE ) AST (SGOT) 61.0 U/L 0.0-46 .0 high Not Available [facility] [address] [facility] 1, [place], [address], 03/26/2025 15:21:43 03/26/20 25 03/26/2025 CMP (MALE ) altv (SGPT) 39.0 U/L 13.0-6 9.0 normal Not Available [facility] [address], [place], [address], 03/26/2025 15:21:43 03/26/20 25 03/26/2025 CMP (MALE ) A/G ratio 0.8 ratio Not Available [facility] [address], [place], [address], 03/26/2025 15:21:43 03/26/20 25 03/26/2025 CMP (MALE ) ALP phos 128.0 U/L 30.0-1 40.0 normal Not Available [facility] [address] [facility] 1, [place], [address], 03/26/2025 15:21:43 03/26/20 25 03/26/2025 CMP (MALE ) calcium 8.5 mg/dL 8.4-10 .5 Not Available [facility] [address] [facility] 1, [place], [address], 03/26/2025 15:21:43 03/26/20 25 03/26/2025 CMP (MALE ) sodium 131.0 mmol/ L 136.0- 145.0 low Not Available [facility] [address] [facility] 1, [place], [address], 03/26/2025 15:21:43 03/26/20 25 03/26/2025 CMP (MALE ) potassium 4.4 mmol/ L 3.5-5. 1 Not Available [facility] [address] [facility] 1, [place], [address], 03/26/2025 15:21:43 03/26/20 25 03/26/2025 CMP (MALE ) chloride 97.0 mmol/ L 98.0-1 10.0 abnormal Not Available [facility] [address] [facility] 1, [place], [address], 03/26/2025 15:21:43 03/26/20 25 03/26/2025 CMP (MALE ) C02 30.0 mmol/ L 22.0-3 1.0 Not Available [facility] [address] [facility] 1, [place], [address], 03/26/2025 15:21:43 03/26/2003/26/2025 CMP (MALE ) anion gap 4.0 calc Not Available [facility] [address] R[address] [facility] 1, [place], [address], 03/26/2025 15:21:43 03/26/2003/26/2025 CMP (MALE ) osmolality 272.7 calc Not Available [facility] [address] Rekha [facility] 1, [place], [address], 03/26/2025 15:21:43 04/01/2004/01/2025 CBC WBC 12.2 x10 high Not Available [facility] [address] [facility] 1, [place], [address], 04/01/2025 13:12:43 04/01/2004/01/2025 CBC RBC 4.24 x10 low Not Available [facility] [address] [facility] 1, [place], [address], 04/01/2025 13:12:43 04/01/2004/01/2025 CBC HGB 12.7 g/dL low Not Available [facility] [address] [facility] 1, [place], [address], 04/01/2025 13:12:43 04/01/20 25 04/01/2025 CBC HCT 39.3 % Not Available [facility] [address], [place], [address], 04/01/2025 13:12:43 04/01/2004/01/2025 CBC MCV 92.6 fL Not Available [facility] [address], [place], [address], 04/01/2025 13:12:43 04/01/2004/01/2025 CBC MCH 30.0 pg Not Available [facility] [address] [facility] [address], [place], [address], 04/01/2025 13:12:43 04/01/2004/01/2025 CBC MCHC 32.4 g/dL Not Available [facility] [address] [facility] 1, [place], [address], 04/01/2025 13:12:43 04/01/2004/01/2025 CBC RDW 14.2 % Not Available [facility] [address] [facility] [address], [place], [address], 04/01/2025 13:12:43 04/01/2004/01/2025 CBC plt 877.5 x10 high Not Available [facility] [address] [facility] 1, [place], [address], 04/01/2025 13:12:43 04/01/2004/01/2025 CBC lymphocytes % 14.1 % low Not Available [facility] [address] [facility] [address], [place], [address], 04/01/2025 13:12:43 04/01/2004/01/2025 CBC granulcytes % 74.2 % high Not Available [facility] [address] [facility] 1, [place], [address], 04/01/2025 13:12:43 04/01/2004/01/2025 CBC monocytes % 8.7 % Not [facility] [address] [address], [place], [address], 04/01/2025 13:12:43 04/01/2004/01/2025 CBC granulcytes# 9.1 x10 Not Merlyn ilable [facility] [address] [address], [place], [address], 04/01/2025 13:12:43 04/01/2004/01/2025 CBC lymphocytes # 1.7 x10 Not Available [facility] [address] [address], [place], [address], 04/01/2025 13:12:43 04/01/2004/01/2025 CBC monocytes # 1.1 x10 Not [facility]ai [facility] [address] [address], [place], [address], 04/01/2025 13:12:43 04/01/2004/01/2025 CMP (MALE ) glucose 148.0 mg/dL 60.0-9 9.0 high Not Available [facility] [address] [address], [place], [address], 04/01/2025 14:20:52 04/01/2004/01/2025 CMP (MALE ) BUN (blood urea nitrogen) 11.0 mg/dL 10.0-2 6.0 Not Available [facility] [address] [address], [place], [address], 04/01/2025 14:20:52 04/01/20 25 04/01/2025 CMP (MALE ) creatinine (serum) 0.8 mg/dL 0.4-1. 5 Not Available [facility] [address] [address], [place], [address], 04/01/2025 14:20:52 04/01/20 25 04/01/2025 CMP (MALE ) BUN/creatini ne ratio 13.75 ratio Not Available [facility] [address] [facility] 1, [place], [address], 04/01/2025 14:20:52 04/01/20 25 04/01/2025 CMP (MALE ) eGFR calculated 110.1 Not Available [facility] [address], [place], [address], 04/01/2025 14:20:52 04/01/20 25 04/01/2025 CMP (MALE ) total protein 7.4 g/dL 6.0-8. 5 Not Available [facility] [address] [facility] 1, [place], [address], 04/01/2025 14:20:52 04/01/20 25 04/01/2025 CMP (MALE ) total bilirubin 0.5 mg/dL 0.2-1. 3 Not Available [facility] [address], [place], [address], 04/01/2025 14:20:52 04/01/20 25 04/01/2025 CMP (MALE ) albumin 3.5 g/dL 3.5-5. 5 Not Available [facility] [address] [facility] 1, [place], [address], 04/01/2025 14:20:52 04/01/20 25 04/01/2025 CMP (MALE ) globulin 3.9 calc Not Available [facility] [address], [place], [address], 04/01/2025 14:20:52 04/01/20 25 04/01/2025 CMP (MALE ) AST (SGOT) 56.0 U/L 0.0-46 .0 high Not Available [facility] [address] [facility] 1, [place], [address], 04/01/2025 14:20:52 04/01/20 25 04/01/2025 CMP (MALE ) altv (SGPT) 68.0 U/L 13.0-6 9.0 normal Not Available [facility] [address] [facility] 1, [place], [address], 04/01/2025 14:20:52 04/01/20 25 04/01/2025 CMP (MALE ) A/G ratio 0.9 ratio Not Available [facility] [address] [facility] 1, [place], [address], 04/01/2025 14:20:52 04/01/20 25 04/01/2025 CMP (MALE ) ALP phos 103.0 U/L 30.0-1 40.0 normal Not Available [facility] [address] Rek[address] [facility] 1, [place], [address], 04/01/2025 14:20:52 04/01/20 25 04/01/2025 CMP (MALE ) calcium 9.1 mg/dL 8.4-10 .5 Not Available [facility] [address] [facility] 1, [place], [address], 04/01/2025 14:20:52 04/01/20 25 04/01/2025 CMP (MALE ) sodium 135.0 mmol/ L 136.0- 145.0 low Not Available [facility] [address] [facility] 1, [place], [address], 04/01/2025 14:20:52 04/01/20 25 04/01/2025 CMP (MALE ) potassium 3.7 mmol/ L 3.5-5. 1 Not Available [facility] [address] [facility] 1, [place], [address], 04/01/2025 14:20:52 04/01/20 25 04/01/2025 CMP (MALE ) chloride 97.0 mmol/ L 98.0-1 10.0 abnormal Not Available [facility] [address], [place], [address], 04/01/2025 14:20:52 04/01/20 25 04/01/2025 CMP (MALE ) C02 32.0 mmol/ L 22.0-3 1.0 high Not Available [facility] [address], [place], [address], 04/01/2025 14:20:52 04/01/20 25 04/01/2025 CMP (MALE ) anion gap 6.0 calc Not Available [facility] [address], [place], [address], 04/01/2025 14:20:52 04/01/2004/01/2025 CMP (MALE ) osmolality 281.1 calc Not Available [facility] [address], [place], [address], 04/01/2025 14:20:52 04/01/20 25 04/02/2025 C-LIZETH CTIVE PROTE IN C-reactive protein 5.3 mg/L <8.0 normal Not Available [facility] [address] [place], [address], 04/02/2025 09:32:12 04/01/2004/02/2025 LIPAS E lipase 174 U/L 7-60 high Not Available [facility] [address] [place], [address], 04/02/2025 09:32:13 04/07/20 25 04/07/2025 CBC WBC 8.5 x10 4.5-10 .5 Not Available [facility] [address], [place], [address], 04/07/2025 10:43:49 04/07/20 25 04/07/2025 CBC RBC 4.60 x10 4.30-5 .90 Not Available [facility] [address] Anthony Da Silva [facility] 1, [place], [address], 04/07/2025 10:43:49 04/07/20 25 04/07/2025 CBC HGB 13.4 g/dL 13.5-1 8.0 low Not Available [facility] [address] Silva [facility] 1, [place], [address], 04/07/2025 10:43:49 04/07/20 25 04/07/2025 CBC HCT 42.4 % 35.0-6 0.0 Not Available [facility] [address] [facility] 1, [place], [address], 04/07/2025 10:43:49 04/07/20 25 04/07/2025 CBC MCV 92.1 fL 80.0-9 9.9 Not Available [facility] [address] [facility] 1, [place], [address], 04/07/2025 10:43:49 04/07/20 25 04/07/2025 CBC MCH 29.2 pg 27.0-3 2.0 Not Available [facility] [address] [facility] 1, [place], [address], 04/07/2025 10:43:49 04/07/20 25 04/07/2025 CBC MCHC 31.7 g/dL 32.0-3 6.0 low Not Available [facility] [address] Silva [facility] 1, [place], [address], 04/07/2025 10:43:49 04/07/20 25 04/07/2025 CBC RDW 14.3 % 11.5-1 4.5 Not Available [facility] [address], [place], [address], 04/07/2025 10:43:49 04/07/20 25 04/07/2025 CBC plt 659.8 x10 150.0- 451.0 high Not Available [facility] [address] [address], [place], [address], 04/07/2025 10:43:49 04/07/20 25 04/07/2025 CBC lymphocytes % 18.9 % 20.0-5 0.0 low Not Available [facility] [address] [address], [place], [address], 04/07/2025 10:43:49 04/07/20 25 04/07/2025 CBC granulcytes % 66.4 % 30.0-7 0.0 Not Available [facility] [address] [address], [place], [address], 04/07/2025 10:43:49 04/07/20 25 04/07/2025 CBC monocytes % 10.4 % 2.0-16 .0 Not Available [facility] [address] [address], [place], [address], 04/07/2025 10:43:49 04/07/20 25 04/07/2025 CBC granulcytes# 5.6 x10 Not Merlyn ilable [facility] [address] [address], [place], [address], 04/07/2025 10:43:49 04/07/20 25 04/07/2025 CBC lymphocytes # 1.6 x10 Not Available [facility] [address] [address], [place], [address], 04/07/2025 10:43:49 04/07/20 25 04/07/2025 CBC monocytes # 0.9 x10 Not Avai lable [facility] [address], [place], [address], 04/07/2025 10:43:49 Result Notes None recorded. Problems Name Problem SNOMED Code Status Onset Date Resolution Date Notes Provider Name and Address Organization Details Recorded Time Metabolic syndrome X 543026057 Active 2022 Colin Nassar [address], [address], [facility] 4 14:10:14 Adult health examination Active 2022 Colin Nassar [address], [address], [facility] 3 14:59:23 Obesity 830509871 Active 2022 Colin Nassar [address], [address], [facility] 3 14:59:40 Chronic recurrent sinusitis 806617973 Active 2022 Colin Nassar [address], [address], [facility] 3 15:25:55 Mixed hyperlipide digna 271081181 Active 2023 Colin Nassar [address], [address], [facility] 4 09:57:35 Leukocytosi s 930396003 Active 2024 Colin Nassar [address], [address], [facility] 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 13:02:19 Reactive depression (situationa l) 55887757 Active [address], [address] [place] [address] 5, [facility] 5 08:06:48 Acute pancreatiti s 175747580 Active [address], [address] [place] [address] 5, [facility] 08:06:50 Acute cholecystit is 61337327 Active [address], [address] [place] [address] 5, [facility] 5 08:06:52 Gallstone acute pancreatiti s 501286095 Active [address], [address] [place] [address] 5, [facility] 07:06:29 Problem Notes None recorded. Medical Equipment None Reported. Allergies Allergen ID Allergen Name Allergen Category Reaction Reaction Severity Criticality Documentation Date Start Date Code Code System Note Provider Name and Address Organization Details Recorded Time 26292 Keflex medicatio n Not available Not available Not available 12/31/2022 7 RxNorm Comme nt: Recor ded 04/25 1:57P M by Ligia Rothman n, Offic e Visit ; Promo sondra; Dee roth ce: *; Reaso n: Drug aller gy; ; Not Available [facility] 3 02:27:06 Medications Name Sig Start Date [...] Updated DateTime 5 172.72 cm 26.2 kg/m2 92757.2 9 g 97 % 97 % 91 /min 18 /min 146/90 mm[Hg] MAHAD WISE [facility] 5 14:26:44 Social History None recorded. Functional Status Question Answer Note LastModified by Organizat ion Details LastModified Time Do you use any illicit or recreational drugs? No [email or web address] Information not available 05/01/2023 Do you or have you ever used any other forms of tobacco or nicotine? No [email or web address] Information not available 05/01/2023 What is your level of alcohol consumption? None [email or web address] Information not available 05/01/2023 Mental Status None recorded. Family History Relationship Description Onset Age of this Age Resolved Age Notes LastModified by Organization Details LastModified Time Father Coronary arterioscler osis 65 father with AMI late 60s [email or web address] Not available 05/01/2023 15:28:02 Medical History No medical history recorded. Immunizations Vaccine Type Date Status Note Provider Nam e and Address Organization Details Recorded Time Influenza, MDCK, quadrivalent, PF 05/03/2017 completed Leticia castillo [facility] 05/07/2024 09:23:05 COVID-19, mRNA, LNP-S, PF, 30 mcg/0.3 mL dose 01/02/2021 completed Leticia castillo [facility] 05/07/2024 09:23:05 COVID-19, mRNA, LNP-S, PF, 30 mcg/0.3 mL dose 01/23/2021 armando castillo [facility] 05/07/2024 09:23:05 Past Encounters Encounter ID Performer Location Encounter Start Date Encounter Closed Date Diagnosis/Indication Diagnosis SNOMED-CT Code Diagnosis ICD10 Code Diagnosis IMO Codes Diagnosis Note [id number] Colin Nassar DO [facility] ([facility]) [address] [place] [address], [place] [address] 03/26/2025 14:20:32 03/27/2025 13:03:22 Acute cholecystitis 28241427 K81.0 [id number] 03/26/25: Necrotic s/p parrtial excsion from laproscopi c turned open cholecyste ctemoy at [facility] feb 2025 requiring GB drain. complicate d by duct obstructio n, sepsis, pancreatit is with 25 day hospital stay at [facility]. He has been on abx [...] CMP, lipase, CRP. Acute pancreatitis 6007 K85.90 [id number] 03/26/25: 2/2 stone post GB excision feb 2025.will follow labs, continue antiemetic s, Start Creon, Counseled on diagnosis, treatment options including medication s and possible side effects. Hyperbilirubinemia 00937 006 E80.6 88300 Leukocytosis 067660748 D 72.829 [id number] since initial GB surgery, persistent . unclear etiology. has been evaluated by Hematology and ID at [facility]. determined NOT to be from infection or cancer. Will monitor labs weekly for now: Cbc, crp. Reactive d epression (situational) 83703051 F43.21 [id number] 03/26/25: Post lengthy hospitaliz ation, start Sertraline 25mg daily, Counseled on diagnosis, treatment options including medication s and possible side effects. Bilateral upper limb superficial vein thrombophlebitis [id number] I80.8 [id number] 03/26/25: Dc'd from [facility] on Eliquis, will continue 5mg BID at this time. [id number] Colin Nassar DO [facility] ([facility]) [address] [place] [address] 03/26/2025 14:22:27 03/27/2025 13:03:41 Post-discharge follow-up [id number] [id number] Colin Nassar DO [facility] ([facility]) [address] [place] [address] 04/01/2025 12:22:22 04/02/2025 09:46:08 Acute pancreatitis [id number] K85.90 [id number] 03/26/25: 2/2 stone post GB excision feb 2025.will follow labs, continue antiemetic s, Start Creon, Counseled on diagnosis, treatment options including medication s and possible side effects. [id number] Colin Nassar DO [facility] ([facility]) [address] [place] [address] 04/02/2025 09:22:56 04/04/2025 11:48:33 Acute cholecystitis [id number] K81.0 [id number] 04/02/25: slow improvemen t, working on diet to gain weight, monitoring lab. nocurrent sign of obstructio n or infection. 03/26/25: Necrotic s/p parrtial excsion from laproscopi c turned open cholecyste ctemoy at [facility] feb 2025 requiring GB drain. complicate d by duct obstructio n, sepsis, pancreatit is with 25 day hospital stay at [facility]. He has been on abx [...] then, CBC, CMP, lipase, CRP. Acute pancreatitis [id number] K85.90 [id number] 04/02/25: Continues Creon, tolerating well. nausea improved, no recent vomiting. no sign of infection. 03/26/25: 2/2 stone post GB excision feb 2025.will follow labs, continue antiemetic s, Start Creon, Counseled on diagnosis, treatment options including medication s and possible side effects. Leukocytosis [id number] D 72.829 [id number] 04/02/25- improved, monitoring lab, f/u 1 week. since initial GB surgery, persistent . unclear etiology. has been evaluated by Hematology and ID at [facility]. determined NOT to be from infection or cancer. Will monitor labs weekly for now: Cbc, crp. Reactive d epression (situational) [id number] F43.21 [id number] 04/02/25: Tolerating Sertraline , continue current tx. 5: Post lengthy hospitaliz ation, start Sertraline 25mg daily, Counseled on diagnosis, treatment options including medication s and possible side effects. Bilateral upper limb superficial vein thrombophlebitis [id number] I80.8 [id number] 03/26/25: Dc'd from [facility] on Eliquis, will continue 5mg BID at this time. [id number] Colin Nassar DO [facility]) [address] [place] [phone] 04/07/2025 10:19:40 04/08/2025 10:10:52 Acute cholecystitis [id number] K81.0 [id number] 04/02/25: slow improvemen t, working on diet to gain weight, monitoring lab. nocurrent sign of obstructio n or infection. 03/26/25: Necrotic s/p parrtial excsion from laproscopi c turned open cholecyste ctemoy at [facility] feb 2025 requiring GB drain. complicate d by duct obstructio n, sepsis, pancreatit is with 25 day hospital stay at [facility]. He has been on abx [...] then, CBC, CMP, lipase, CRP. Acute pancreatitis 2629 K85.90 [id number] 04/02/25: Continues Creon, tolerating well. nausea improved, no recent vomiting. no sign of infection. 03/26/25: 2/2 stone post GB excision feb 2025.will follow labs, continue antiemetic s, Start Creon, Counseled on diagnosis, treatment options including medication s and possible side effects. Leukocytosis [id number] D 72.829 [id number] 04/02/25- improved, monitoring lab, f/u 1 week. since initial GB surgery, persistent . unclear etiology. has been evaluated by Hematology and ID at [facility]. determined NOT to be from infection or cancer. Will monitor labs weekly for now: Cbc, crp. [id number] Colin Nassar DO [facility]) [address] [place] [phone] 04/08/2025 14:02:26 04/08/2025 15:11:33 Acute cholecystitis [id number] K81.0 9456 04/08/25:: chronic, necrotic. off abx. continue with planned f/u with surgeon next [facility] Cholesytro deacon.03/06 02/27: slow improvemen t, working on diet to gain weight, monitoring lab. no current sign of obstructio n or infection. 03/26/25: Necrotic s/p partial excision from laproscopi c turned open cholecyste ctomy at [facility] feb 2025 requiring GB drain. complicate d by duct obstructio n, sepsis, pancreatit is with 25 day hospital stay at [facility]. He has been on abx for 30 days. He continues with refractory leukocytos is, weight loss, fatigue, anemic, and significna tly elevated platelets. I cunseled stop abx tx, he has been on this for >1 month, this is likely effecting his nutrition, elevated WBC likely not d/t infection. F/u with me in one week, lab then, CBC, CMP, lipase, CRP. Leukocytosis [id number] D 72.829 [id number] 04/08/25: normalized . repeat labs in 1 week.04/02- improved, monitoring lab, f/u 1 week. since initial GB surgery, persistent . unclear etiology. has been evaluated by Hematology and ID at [facility]. determined NOT to be from infection or cancer. Will monitor labs weekly for now: Cbc, crp. Reactive d epression (situational) [id number] F43.21 [id number] 04/08/25: improved.1 : Tolerating Sertraline , continue current tx. 5: Post lengthy hospitaliz ation, start Sertraline 25mg daily, Counseled on diagnosis, treatment options including medication s and possible side effects. Bilateral upper limb superficial vein thrombophlebitis [id number] I80.8 [id number] 04/08/25:st op eliquis, start 81mg EC asa nightly.: Dc'd from [facility] on Eliquis, will continue 5mg BID at this time. Gallstone acute pancreatitis [id number] K85.10 [id number] 04/08/25: somewhat improved. WBC normalized . nausea [...] ID Guarantor Name 04/08/2025 1 [employer] [employer] [id number] Edwin Keita [id number] DT Edwin Keita Notes Date Note Type Note Provider Name and Address Organization Details Recorded Time 04/08/2025 text/html ROS as noted in the [...] decrease in nausea and stomach burning. Colin Nassar, DO [address] [place] [address], [phone], [facility] 04/09/2025 07:09:17
--- OUTSIDE RECORDS SUMMARY | 2025-04-12 07:47 | XMS_ITS | Clinical Summary ---
Author Organization [facility] Address [address] Attn: Epic Prelude ADT KAYLA CLAROS [address] Care Team Providers Care Database Designer Name Role Phone NassarChandu painting Primary Care Provider [phone] Allergies Active Allergy Reactions Criticality Noted Date Comments Cephalexin Rash,Itching Low 02/28/2025 Medications pantoprazole (PROTONIX) 40 mg Tablet, Delayed Release (E.C.) Active apixaban (ELIQUIS) 5 mg tablet Take 2 Tablets (10 mg) by mouth 2 times daily for 7 days, THEN 1 Tablet (5 mg) 2 times daily. 194 Tablet 5 06/22/19 Active cholestyramine , with sugar, (QUESTRAN) 4 gram Powder in Packet Take 1 Packet by mouth 1 time daily as needed for Other (See Comment) (diarrhea). 30 Packet 1 Active amoxicillin-cl avulanate (AUGMENTIN) 875-125 mg tablet 5 03/24/20 Discontinued sucralfate (CARAFATE) 1 gram tablet Take 1 Gram by mouth 4 times daily before meals and at bedtime. 03/24/20 Discontinued ciprofloxacin HCl (CIPRO) 750 mg tablet Take 1 Tablet (750 mg) by mouth 2 times daily for 14 days. 28 Tablet 03/24/2025 1:14 PM CDT 5 04/07/20 metroNIDAZOLE (FLAGYL) 500 mg tablet Take 1 Tablet (500 mg) by mouth 3 times daily for 14 days. 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 Vascular Surgery [place] [address] [place] [phone] Provider, Abstract Referral 03/18/[address] [facility] Gastroenterology- [place] [address] [place] [address] Jeana Brandt, DO Needs EGD for stent removal 03/11/2025 External Device Data ST[facility] ABSTRACTION Provider, Abstract 03/04/2025 External Device Data [facility] ABSTRACTION Provider, Abstract 03/04/2025 External Device Data ST[facility] ABSTRACTION Provider, Abstract 03/04/2025 External Device Data ST[facility] ABSTRACTION Provider, Abstract 03/03/2025 11:01 AM CDT Anesthesia Event [facility] Endoscopy [address] [place] [phone] Tobi Quinones MD 03/03/2025 10:40 AM CDT - 03/03/2025 11:20 AM CDT Surgery [facility] Endoscopy [address] [place] [phone] Jeana Brandt, DO CHOLANGIOPANCREATOGRAPHY RETROGRADE ENDOSCOPIC 02/28/2025 4:31 PM CDT - 03/24/2025 2:16 PM CDT Hospital Encounter [facility] 3A Surgical [address] [place] [phone] Candice Hernandez, Araceli Montes MD Kuppi Reddy, Madhavi, MD Pitts, Olevia M, MD [place], Edvin Carrington MD 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 [address] [facility] [address] [place] [phone] Jeana Brandt, ERCP appointment 02/25/2025 Orders Only [facility] [address] [facility] [address] [place] [phone] Kenton Jiang MD Disease of biliary tract (Primary Dx) from Last 3 Months Social History Tobacco Use Types Packs/Day Years Used Date Smoking Tobacco: Never Smokeless Tobacco: Never Tobacco Cessation:Counseling Given: Not Answered Alcohol Use Standard Drinks/Week Comments Never 0 (1 standard drink = 0.6 oz pur e alcohol) Food Insecurity Answer Date Recorded Do you find you are eating l ess than you should because you can t pay for food? No 03/07/2025 Transportation Needs Answer Date Record ed Have you gone without health care because you didn t have a way to get there? 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 No 2024 Housing Stability Answer Date Recorded Do you worry you won t have a steady place to sleep or struggle to pay rent or mortgage? No 03/07/2025 Utility Needs Answer Date Recorded Do you have difficulty payin g for utility costs (electric, water or gas bills)? No 03/07/2025 Medication Needs Answer Date Recorded Have you skipped taking medi cation due to cost or worry you can t afford new medications? No 03/07/2025 Feeling Safe Answer Date Recorded Are you in a relationship wi th someone who hurts you emotionally and/or physically? 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[employer] Gender Identity Not on file Sexual Orientation Not on file Last Filed Vital Signs Vital Sign Reading Time Taken Comments Blood Pressure 131/88 03/24/2025 7:25 AM CDT Pulse 85 03/24/2025 7:25 AM CDT Temperature 36.4 C (97.5 F) 03/24/2025 7:25 AM CDT Respiratory Rate 16 03/24/2025 7:25 AM CDT Oxygen Saturation 98% 03/24/2025 7:25 AM CDT Inhaled Oxygen Concentration - - Weight 76.2 kg (167 lb 15.9 oz) 03/24/2025 8:57 AM CDT Height 172.7 cm (5' 8 ) 03/01/2025 2:00 AM CDT Body Mass Index 25.54 03/01/2025 2:00 AM CDT Plan of Treatment Upcoming Encounters Date Type Department Care Team (Latest Contact Info) Description 05/22/2025 2:40 PM [employer]ATION WORK[employer] Hospital Encounter [facility] Endoscopy [address] 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 [address] Jeana Brandt DO [address] [place] [address] ESOPHAGOGASTRODUODENOSCOPY Scheduled Procedures Name Priority Associated Diagnoses Date/Ti me ESOPHAGOGASTRODUODENOSCOPY Stent Removal 05/22/2025 2:40 PM [employer] WORK[employer] Health Maintenance Due Date Last Done Comments DTAP/TDAP/TD VACCINES (1 - Tdap) 1996 HEPATITIS B VACCINES (1 of 3 - 19+ 3-dose series) 1996 Pre-Diabetes and Diabetes Screening 03/21/201903/21 COLORECTAL SCREENING 2022 Colorectal Cancer Screening 2022 FIT-DNA Q 3 years 2022 FIT/FOBT Q 1 year 2022 Flex Sig/CT Colonography Q 5 years 2022 INFLUENZA VACCINE (#1) 2025 05/03/2017 COVID-19 Vaccine ( season) 2025, 01/02/2021 Goals Goal Patient Goal Type Associated Problems Recent Progress Patient-Stated? Author Autogenerat ed Goal Care Plan Autogenerated Problem No Dima Gunter RN Medical Devices Implanted Type Area Ramp Lead Device Identifier Shelf Expiration Date Model / Serial / Lot Stent Bili Advanix Rx 10fr 7cm [id number] - [id number] Implanted:Qty: 1 on 03/03/2025 by Jeana Brandt DO at [facility] Stent N/A: Bile Duct [employer] [id number] 09/05/2026 [id number] / / [id number] Procedures Procedure Name Priority Date/Time Associated Diagnosis Comments TELEMETRY REPORT 03/25/2025 2:50 AM CDT US DOPPLER VENOUS ARM BILATERAL Pending Discharge 03/24/2025 11:52 AM CDT C-REACTIVE PROTEIN Routine 03/24/2025 9:41 AM CDT BASIC METABOLIC PANEL Routine 03/24/2025 5:51 AM CDT CBC WITH DIFFERENTIAL Routine 03/24/2025 5:51 AM CDT XR ABDOMEN 1 VW Routine 03/23/2025 8:31 PM CDT BASIC METABOLIC PANEL Routine 03/23/2025 4:50 AM CDT CBC WITH DIFFERENTIAL Routine 03/23/2025 4:50 AM CDT BASIC METABOLIC PANEL Routine 03/22/2025 4:07 AM CDT CBC WITH DIFFERENTIAL Routine 03/22/2025 4:07 AM CDT C. DIFFICILE DETECTION Routine 2:26 PM CDT OCCULT BLOOD GUAIAC DIAGNOSTIC Routine 03/21/2025 10:40 AM CDT C-REACTIVE PROTEIN Routine 03/21/2025 5:03 AM CDT BASIC METABOLIC PANEL Routine 03/21/2025 5:03 AM CDT CBC WITH DIFFERENTIAL Routine 03/21/2025 5:03 AM CDT BASIC METABOLIC PANEL Routine 03/20/2025 4:22 AM CDT CBC WITH DIFFERENTIAL Routine 03/20/2025 4:22 AM CDT PERIPHERAL BLOOD SMEAR PATHOLOGY INTERP Routine 03/19/2025 5:34 AM CDT C-REACTIVE PROTEIN Routine 03/19/2025 5:34 AM CDT BASIC METABOLIC PANEL Routine 03/19/2025 5:34 AM CDT CBC WITH DIFFERENTIAL Routine 03/19/2025 5:34 AM CDT FERRITIN Routine 03/18/2025 9:29 AM CDT IRON, TIBC, AND PERCENT SATURATION Routine 03/18/2025 9:29 AM CDT BASIC METABOLIC PANEL Routine 03/18/2025 9:29 AM CDT CBC WITH DIFFERENTIAL Routine 03/18/2025 5:27 AM CDT POC GLUCOSE Routine 03/17/2025 7:53 AM CDT COMPREHENSIVE METABOLIC PANEL Routine 03/17/2025 4:01 AM CDT DIFFERENTIAL, MANUAL Routine 03/17/2025 4:01 AM CDT CK Routine 03/17/2025 4:01 AM CDT C-REACTIVE PROTEIN Routine 03/17/2025 4:01 AM CDT CBC WITH DIFFERENTIAL Routine 03/17/2025 4:01 AM CDT BASIC METABOLIC PANEL Routine 03/16/2025 8:33 AM CDT DIFFERENTIAL, MANUAL Routine 03/16/2025 4:22 AM CDT CBC WITH DIFFERENTIAL Routine 03/16/2025 4:22 AM CDT POC GLUCOSE Routine 03/15/2025 5:03 PM CDT POC GLUCOSE Routine 03/15/2025 11:11 AM CDT POC GLUCOSE Routine 03/15/2025 7:45 AM CDT CBC WITH DIFFERENTIAL Routine 03/15/2025 1:13 AM CDT COMPREHENSIVE METABOLIC PANEL Routine 03/15/2025 1:13 AM CDT POC GLUCOSE Routine 03/14/2025 5:17 PM CDT POC GLUCOSE Routine 03/14/2025 11:59 AM CDT POC GLUCOSE Routine 03/14/2025 7:06 AM CDT DIFFERENTIAL, MANUAL Routine 03/14/2025 6:44 AM CDT C-REACTIVE PROTEIN Routine 03/14/2025 6:44 AM CDT CBC WITH DIFFERENTIAL Routine 03/14/2025 6:44 AM CDT POC GLUCOSE Routine 03/14/2025 6:36 AM CDT POC GLUCOSE Routine 03/13/2025 10:11 PM CDT POC GLUCOSE Routine 03/13/2025 5:46 PM CDT POC GLUCOSE Routine 03/13/2025 12:03 PM CDT DIFFERENTIAL, MANUAL Routine 03/13/2025 5:14 AM CDT CBC WITH DIFFERENTIAL Routine 03/13/2025 5:14 AM CDT POC GLUCOSE Routine 03/13/2025 4:52 AM CDT POC GLUCOSE Routine 03/13/2025 1:37 AM CDT POC GLUCOSE Routine 03/12/2025 9:[address] CHEST ABDOMEN PELVIS W CONT Routine 03/12/2025 4:20 PM CDT POC GLUCOSE Routine 03/12/2025 11:14 AM CDT POC GLUCOSE Routine 03/12/2025 8:12 AM CDT C-REACTIVE PROTEIN Routine 03/12/2025 4:54 AM CDT LIPASE Stat 03/12/2025 4:54 AM CDT DIFFERENTIAL, MANUAL Routine 03/12/2025 4:54 AM CDT COMPREHENSIVE METABOLIC PANEL Routine 03/12/2025 4:54 AM CDT CBC WITH DIFFERENTIAL Routine 03/12/2025 4:54 AM CDT POC GLUCOSE Routine 03/12/2025 4:08 AM CDT POC GLUCOSE Routine 03/12/2025 12:07 AM CDT POC GLUCOSE Routine 03/11/2025 11:50 PM CDT POC GLUCOSE Routine 03/11/2025 10:14 PM CDT POC GLUCOSE Routine 03/11/2025 4:30 PM CDT D-DIMER Routine 03/11/2025 2:46 PM CDT CK Routine 03/11/2025 2:46 PM CDT DIFFERENTIAL, MANUAL Routine 03/11/2025 9:27 AM CDT COMPREHENSIVE METABOLIC PANEL Routine 03/11/2025 9:27 AM CDT CBC WITH DIFFERENTIAL Routine 03/11/2025 9:27 AM CDT US ABDOMEN LIMITED Routine 03/11/2025 8:18 AM CDT C. DIFFICILE DETECTION Routine 7:35 AM CDT PROTIME-INR Routine 03/11/2025 4:29 AM CDT POC GLUCOSE Routine 03/10/2025 4:46 PM CDT URINALYSIS W/REFLEX MICROSCOPIC Routine 03/10/2025 3:57 PM CDT URINE CULTURE Routine 03/10/2025 3:57 PM CDT BLOOD CULTURE Routine 03/10/2025 2:43 PM CDT BLOOD CULTURE Routine 03/10/2025 2:43 PM CDT US VENOUS DOPPLER LEG BILATERAL Routine 03/10/2025 2:38 PM CDT US DOPPLER VENOUS ARM BILATERAL Routine 03/10/2025 2:38 PM CDT C-REACTIVE PROTEIN Routine 03/10/2025 2:37 PM CDT BLOOD CULTURE Routine 03/10/2025 2:37 PM CDT BLOOD CULTURE Routine 03/10/2025 2:37 PM CDT POC GLUCOSE Routine 03/10/2025 12:34 PM CDT POC GLUCOSE Routine 03/10/2025 7:42 AM CDT POC GLUCOSE Routine 03/10/2025 5:45 AM CDT DIFFERENTIAL, MANUAL Routine 03/10/2025 4:09 AM CDT COMPREHENSIVE METABOLIC PANEL Routine 03/10/2025 4:09 AM CDT CBC WITH DIFFERENTIAL Routine 03/10/2025 4:09 AM CDT POC GLUCOSE Routine 03/09/2025 9:00 PM CDT POC GLUCOSE Routine 03/09/2025 4:10 PM CDT POC GLUCOSE Routine 03/09/2025 11:24 AM CDT POC GLUCOSE Routine 03/09/2025 8:16 AM CDT POC GLUCOSE Routine 03/09/2025 5:47 AM CDT DIFFERENTIAL, MANUAL Routine 03/09/2025 1:06 AM CDT COMPREHENSIVE METABOLIC PANEL Routine 03/09/2025 1:06 AM CDT CBC WITH DIFFERENTIAL Routine 03/09/2025 1:06 AM CDT POC GLUCOSE Routine 03/09/2025 12:01 AM CDT POC GLUCOSE Routine 03/08/2025 8:09 PM CDT EXTRA TUBE (URINE MURPHY) Stat 03/08/20 4:14 PM CDT URINALYSIS W/REFLEX MICROSCOPIC Stat 03/08/2025 4:14 PM CDT XR FLUORO NG TUBE PLACEMENT SI Stat 03/08/2025 10:41 AM CDT MAGNESIUM LEVEL Routine 03/08/2025 5:04 AM CDT COMPREHENSIVE METABOLIC PANEL Routine 03/08/2025 5:04 AM CDT CBC WITH DIFFERENTIAL Routine 03/08/2025 5:04 AM CDT LIPASE Stat 03/07/2025 6:[address] ABDOMEN PELVIS WO CONTRAST Stat 03/07/2025 4:31 PM CDT DIFFERENTIAL, MANUAL Routine 03/07/2025 4:55 AM CDT CBC WITH DIFFERENTIAL Routine 03/07/2025 4:55 AM CDT PHOSPHORUS Routine 03/07/2025 4:55 AM CDT MAGNESIUM LEVEL Routine 03/07/2025 4:55 AM CDT LIPASE Routine 03/07/2025 4:55 AM CDT COMPREHENSIVE METABOLIC PANEL Routine 03/07/2025 4:55 AM CDT LACTIC ACID Stat 03/06/2025 7:54 PM CDT XR ABDOMEN 1 VW Stat 03/06/2025 6:16 PM CDT BLOOD CULTURE Routine 03/06/2025 11:54 AM CDT BLOOD CULTURE Routine 03/06/2025 11:54 AM CDT LACTIC ACID Stat 03/06/2025 11:53 AM CDT BLOOD CULTURE Routine 03/06/2025 11:51 AM CDT BLOOD CULTURE Routine 03/06/2025 11:51 AM CDT CBC WITHOUT DIFFERENTIAL Routine 3:14 AM CDT COMPREHENSIVE METABOLIC PANEL Routine 03/06/2025 3:14 AM CDT EKG 12-LEAD Routine 03/05/2025 1:50 PM CDT TRIGLYCERIDE Routine 03/05/2025 9:[address] ABDOMEN PELVIS W CONTRAST Stat 3:54 PM CDT EXTRA TUBE (URINE MURPHY) Routine 03/04/20 2:34 PM CDT URINALYSIS W/REFLEX MICROSCOPIC Routine 03/04/2025 2:34 PM CDT LACTIC ACID Routine 03/04/2025 11:47 AM CDT XR ABDOMEN 1 VW Stat 03/04/2025 11:09 AM CDT LIPASE Routine 03/04/2025 1:16 AM CDT CBC WITHOUT DIFFERENTIAL Routine 025 1:16 AM CDT COMPREHENSIVE METABOLIC PANEL Routine 03/04/2025 1:16 AM CDT ERCP REPORT 03/03/2025 12:44 PM CDT XR ERCP BILIARY ONLY Routine 03/03/2025 11:52 AM CDT Acute cholecystitis CHOLANGIOPANCREATOGRAPHY RETROGRADE ENDOSCOPIC 03/03/2025 10:40 AM CDT CBC WITHOUT DIFFERENTIAL Routine 025 4:13 AM CDT COMPREHENSIVE METABOLIC PANEL Routine 03/03/2025 4:12 AM CDT COMPREHENSIVE METABOLIC PANEL Routine 03/01/2025 4:11 AM CDT CBC WITH DIFFERENTIAL Routine 03/01/2025 4:11 AM CDT BLOOD CULTURE Stat 02/28/2025 10:33 PM CDT BLOOD CULTURE Stat 02/28/2025 10:33 PM CDT BLOOD CULTURE Stat 02/28/2025 10:33 PM CDT BLOOD CULTURE Stat 02/28/2025 10:33 PM CDT US ABDOMEN LIMITED Stat 02/28/2025 6:[address] ABDOMEN PELVIS W CONTRAST Stat 4:28 PM CDT EXTRA TUBE (URINE MURPHY) Stat 02/29/20 3:12 PM CDT URINALYSIS W/REFLEX MICROSCOPIC Stat 02/28/2025 3:12 PM CDT LIPASE Stat 02/28/2025 3:06 PM CDT COMPREHENSIVE METABOLIC PANEL Stat 02/28/2025 3:06 PM CDT CBC WITH DIFFERENTIAL Stat 02/28/2025 3:06 PM CDT GLUCOSE FASTING Routine 03/21/2016 7:37 AM CDT from Last 3 Months or Most Recently Relevant to Health Maintenance Results * TELEMETRY REPORT (03/25/2025 2:50 AM CDT) us Provider Scanning ECG ORDERABLES Final Result * US DOPPLER VENOUS ARM BILATERAL (03/24/2025 11:52 AM CDT) Only the most recent of2 resultswithin the time period is included. Anatomical Region Laterality Modality Upper Extremity Ultrasound 03/24/2025 11:1 9 AM CDT Narrative 03/24/2025 12:32 PM CDT [facility] Cardiovascular Services Noninvasive Vascular Laboratory [address] [place] [id number] Noninvasive Vascular Lab Venous Exam Complete Upper Extremity Duplex Patient: Edwin Kumari Study ID: US DOPPLER DAHLIA Gender: M : 1975 Age: 49 Room: Height: Weight: BSA: Pt status: Inpatient Study Date: 03/24/2025 Study Time: 11:19:46 AM BSA: Ordering: Edvin Dent Interpreting:Ford Perla Gis Analyst Developer: MARJ Indications: R/O DVT. Summary Impression: 1. No evidence of deep vein thrombosis involving the veins of the right upper extremity and veins of the left upper extremity. 2. Study demonstrates acute superficial vein thrombosis involving the the right cephalic vein, the left basilic vein, and the left cephalic vein. Study data: Bilateral upper extremity venous duplex. Doppler flow study including spectral analysis, color and murphy scale imaging. Location: Vascular laboratory. Patient status: Inpatient. Study status: Routine. Procedure: A vascular evaluation was performed. Image quality was fair. Venous flow and imaging: - Right internal jugular Patent; Normal phasicity; spontaneous; normal augmentation - Right subclavian Patent; Normal phasicity; spontaneous; normal augmentation - Right axillary Patent; Normal phasicity; spontaneous; compressible; normal augmentation - Right brachial Patent; Normal phasicity; spontaneous; compressible; normal augmentation - Right cephalic Thrombosed; Acute - Right basilic Patent; Compressible - Right radial Patent; Compressible - Right ulnar Patent; Compressible - Left internal jugular Patent; Normal phasicity; spontaneous; normal augmentation - Left subclavian Patent; Normal phasicity; spontaneous; normal augmentation - Left axillary Patent; Normal phasicity; spontaneous; compressible; normal augmentation - Left brachial Patent; Normal phasicity; spontaneous; compressible; normal augmentation - Left cephalic Thrombosed; Acute - Left basilic Thrombosed; Acute - Left radial Patent; Compressible - Left ulnar Patent; Compressible CRITICAL FINDINGS - Reported to: Carissa - Read back and verified. - 03/24/25 - 11:45 - SVT [facility] Vascular Lab is accredited with the Intersocietal Commission for the Accreditation of Vascular Laboratories (ICAVL) Prepared and Electronically Authenticated Ford Perla Confirmed 03/24/2025 12:32 Procedure Note Ford Perla MD - 03/24/2025 [facility] Cardiovascular Services Noninvasive Vascular Laboratory [facility] [place] [address] Noninvasive Vascular Lab Venous Exam Complete Upper Extremity Duplex Patient: Edwin Kumari Study ID: US DOPPLER VENOU Gender: M : 1975 Age: 49 Room: Height: Weight: BSA: Pt status: Inpatient Study Date: 03/24/2025 Study Time: 11:19:46 AM BSA: Ordering: Edvin Dent Interpreting:Ford Perla Gis Analyst Developer: MARJ Indications: R/O DVT. Summary Impression: 1. No evidence of deep vein thrombosis involving the veins of the rightupper extremity and veins of the left upper extremity. 2. Study demonstrates acute superficial vein thrombosis involving thethe right cephalic vein, the left basilic vein, and the left cephalicvein. Study data: Bilateral upper extremity venous duplex. Doppler flowstudy including spectral analysis, color and murphy scale imaging. Location: Vascular laboratory. Patient status: Inpatient. Study status:Routine. Procedure: A vascular evaluation was performed. Image quality was fair. Venous flow and imaging: - Right internal jugular Patent; Normal phasicity; spontaneous; normal augmentation - Right subclavian Patent; Normal phasicity; spontaneous; normalaugmentation - Right axillary Patent; Normal phasicity; spontaneous; compressible;normal augmentation - Right brachial Patent; Normal phasicity; spontaneous; compressible;normal augmentation - Right cephalic Thrombosed; Acute - Right basilic Patent; Compressible - Right radial Patent; Compressible - Right ulnar Patent; Compressible - Left internal jugular Patent; Normal phasicity; spontaneous; normal augmentation - Left subclavian Patent; Normal phasicity; spontaneous; normalaugmentation - Left axillary Patent; Normal phasicity; spontaneous; compressible;normal augmentation - Left brachial Patent; Normal phasicity; spontaneous; compressible;normal augmentation - Left cephalic Thrombosed; Acute - Left basilic Thrombosed; Acute - Left radial Patent; Compressible - Left ulnar Patent; Compressible CRITICAL FINDINGS - Reported to: Carissa - Read back and verified. - 03/24/25 - 11:45 - SVT [facility] Vascular Lab is accredited with theIntersocietal Commission for the Accreditation of Vascular Laboratories (ICAVL) Prepared and Electronically Authenticated Ford Perla Confirmed 03/24/2025 12:32 us Edvin Dent MD US ORDERABLES Final Res ult * (ABNORMAL) C-REACTIVE PROTEIN (03/24/2025 9:41 AM CDT) Only the most recent of7 resultswithin the time period is included. CRP 32.5(H) 0.0 - 5.0 mg/L 03/24/2025 10:32 AM CDT [facility] Blood Venipuncture / Unknown 03/24/2025 9:41 AM CDT 03/24/2025 9:52 AM CDT Arielle Flores MD CHEMISTRY ORDERABLES Final Re sult [facility] CLIA # [id number] [address] [place] [id number] * (ABNORMAL) CBC WITH DIFFERENTIAL (03/24/2025 5:51 AM CDT) Only the most recent of20 resultswithin the time period is included. WBC 16.2(H) 4.5 - 11.0 K/uL 03/24/2025 6:18 AM CDT [facility] RBC 3.83(L) 4.60 - 6.20 M/uL 03/24/2025 6:18 AM T [facility] HEMOGLOBIN 11.2(L) 14.0 - 18.0 g/dL 03/24/2025 6:18 AM T [facility] HEMATOCRIT 34.1(L) 41.0 - 53.0 % 03/24/2025 6:18 AM CDT [facility] MCV 89.0 84.0 - 103.0 fL 03/24/2025 6:18 AM CDT [facility] MCH 29.2 27.0 - 34.0 pg 03/24/2025 6:18 AM CDT [facility] MCHC 32.8 30.0 - 35.0 g/dL 03/24/2025 6:18 AM [facility] PLATELETS 776(H) 140 - 440 K/uL 03/24/2025 6:18 AM [facility] MPV 8.5(L) 8.9 - 12.8 fL 03/24/2025 6:18 AM [facility] RDW 13.3 11.0 - 14.5 % 03/24/2025 6:18 AM [facility] RDW-STDEV 43.5 37.0 - 54.0 fL 03/24/2025 6:18 AM [facility] NEUTROPHILS 77(H) 42 - 75 % 03/24/2025 6:18 AM [facility] LYMPHOCYTES 11(L) 24 - 44 % 03/24/2025 6:18 AM [facility] MONOCYTES 7 2 - 10 % 03/24/2025 6:18 AM [facility] EOSINOPHILS 1 0 - 7 % 03/24/2025 6:18 AM [facility] BASOPHILS 1 0 - 1 % 03/24/2025 6:18 AM [facility] IMMATURE GRANULOCYTES 3(H) 0 - 2 % 03/24/2025 6:18 AM [facility] NEUTROPHIL ABSOLUTE 12.43(H) 2.00 - 8.00 K/uL 03/24/2025 6:18 AM [facility] LYMPHOCYTE ABSOLUTE 1.82 1.20 - 4.00 K/uL 03/24/2025 6:18 AM [facility] MONOCYTE ABSOLUTE 1.16(H) 0.10 - 0.60 K/uL 03/24/2025 6:18 AM [facility] EOSINOPHIL ABSOLUTE 0.21 0.00 - 0.70 K/uL 03/24/2025 6:18 AM [facility] BASOPHILS ABSOLUTE 0.13 0.00 - 0.20 K/uL 03/24/2025 6:18 AM [facility] IMMATURE GRANULOCYTES ABSOLUTE 0.41(H) 0.00 - 0.10 K/uL 03/24/2025 6:18 AM CDT [facility] SMEAR REVIEWED: NA - Not Applicable 03/24/2025 6:18 AM T [facility] Blood Venipuncture / Unknown 03/24/2025 5:51 AM CDT 03/24/2025 6:08 AM CDT Edvin Dent MD HEMATOLOGY ORDERABLES Fin al Result [facility] CLIA # [id number] [address] [place] [id number] * (ABNORMAL) BASIC METABOLIC PANEL (03/24/2025 5:51 AM CDT) Only the most recent of8 resultswithin the time period is included. SODIUM 133(L) 136 - 145 mmol/L 03/24/2025 6:40 AM [facility] POTASSIUM 4.1 3.5 - 5.1 mmol/L 03/24/2025 6:40 AM [facility] CHLORIDE 97(L) 98 - 107 mmol/L 03/24/2025 6:40 AM [facility] CO2 25 22 - 29 mmol/L 03/24/2025 6:40 AM [facility] CALCIUM 8.5(L) 8.6 - 10.0 mg/dL 03/24/2025 6:40 AM [facility] BUN 11 6 - 20 mg/dL 03/24/2025 6:40 AM [facility] CREATININE 0.67 0.67 - 1.17 mg/dL 03/24/2025 6:40 AM [facility] GLUCOSE 151(H) 74 - 99 mg/dL 03/24/2025 6:40 AM [facility] GFR >60 >=60 mL/min/1.7 3 sq meter 03/24/2025 6:[address] [facility] Comment:eGFR calculated with 2020 CKD-EPI equation. Vegetarian diet, extremely high or low muscle mass, and may affect results. Cystatin C with Glomerular Filtration Rate is a suitable alternative for these patients. ANION GAP 11 9 - 20 mmol/L 03/24/2025 6:40 AM CDT [facility] Blood Venipuncture / Unknown 03/24/2025 5:51 AM CDT 03/24/2025 6:07 AM CDT us Edvin Dent MD CHEMISTRY ORDERABLES Chely l Result [facility] CLIA # [id number] [address] [address] [place] [address] * XR ABDOMEN 1 VW (03/23/2025 8:31 PM CDT) Only the most recent of3 resultswithin the time period is included. Anatomical Region Laterality Modality Abdomen Computed Radiogr aphy 03/23/2025 8:31 PM CDT Impressions 03/24/2025 7:28 AM CDT IMPRESSION: Lung bases are clear. Biliary stent. Bowel gas pattern nonobstructive. Stool burden not excessive. Narrative 03/24/2025 7:28 AM CDT Exam: XR ABDOMEN 1 VW Date/Time of Exam: 03/23/2025 8:31 PM Reason For Exam: Constipation. Diagnosis: Hyperbilirubinemia; Acute cholecystitis; Encounter for removal of biliary stent. Comparison: March 06, 2025. Procedure Note Terrell Ramey MD - 03/24/2025 Exam: XR ABDOMEN 1 VW Date/Time of Exam: 03/23/2025 8:31 PM Reason For Exam: Constipation. Diagnosis: Hyperbilirubinemia; Acute cholecystitis; Encounter for removal of biliary stent. Comparison: March 06, 2025. IMPRESSION: Lung bases are clear. Biliary stent. Bowel gas pattern nonobstructive. Stool burden not excessive. us Kathe Siddiqi MD DIAGNOSTIC IMAGING ORDERABLES Fi nal Result * C. DIFFICILE DETECTION (03/21/2025 2:26 PM CDT) Only the most recent of2 resultswithin the time period is included. Pathologist [facility] TOXIGENIC C DIFFICILE NOT DETECTED Not Detected 03/21/2025 3:28 PM CDT [facility] Stool STOOL SPECIMEN / Unknown 03/21/2025 2:26 PM CDT 03/21/2025 2:26 PM CDT Narrative [facility] - 03/21/2025 3:28 PM CDT This assay is used to detect Toxigenic C. difficile target(B gene) DNA sequences in unformed stool specimens. If toxigenic C. difficile is not detected, but clinical suspicion is high please consult ID for consultation and potential repeat testing. This test should not be used as a test of cure. Arielle Flores MD MICROBIOLOGY - GENERAL ORDERA BLES Final Result Performing Organization Address City/[facility]/ZIP Co de Phone Number [facility] CLIA # [id number] [address] [place] [address] * OCCULT BLOOD GUAIAC DIAGNOSTIC (03/21/2025 10:40 AM CDT) [facility] OCCULT BLOOD, STOOL Negative Negative 03/21/2025 10:52 AM CDT [facility] Stool STOOL SPECIMEN / Unknown Collection / Unknown 03/21/2025 10:40 AM CDT 03/21/2025 10:40 AM CDT Edvin Dent MD BODY FLUIDS AND STOOLS Fi nal Result Performing Organization Address City/[facility]/ZIP Co de Phone Number [facility] CLIA # [id number] [address] [place] [address] * PERIPHERAL BLOOD SMEAR PATHOLOGY INTERP (03/19/2025 5:34 AM CDT) Pathologist [facility] PERIPHERAL BLOOD SMEAR INTERP See Interpretation Below 03/20/2025 7:32 AM CDT [facility] Comment: There is mild normocytic anemia without significant anisopoikilocytosis. No significant schistocytes. White blood cells are quantitatively increased with mild absolute neutrophilia and monocytosis. The neutrophils show complete maturation with no dysplasia and no circulating blasts. Monocytes and lymphocytes are polymorphous. Platelets are quantitatively increased with occasional large/giant forms. No significant platelet clumps. The leukocytosis and thrombocytosis morphologically appear reactive. If, however, no clinical cause is identified testing of the peripheral blood for mutations associated with chronic myeloproliferative neoplasms (BCR-ABL1 and JAK2 mutation with reflex MPN cascade) might be considered to evaluate for an underlying chronic myeloid neoplasm. Interpreted by: Kiara Ch MD Blood Venipuncture / Unknown 03/19/2025 5:34 AM CDT 03/19/2025 5:52 AM CDT Flynn Samuel MD HEMATOLOGY ORDERABLES Final Resu lt [facility] CLIA # [id number] [address] [place] [id number] * (ABNORMAL) IRON, TIBC, AND PERCENT SATURATION (03/18/2025 9:29 AM CDT) [facility] IRON 28(L) 59 - 158 ug/dL 03/18/2025 1:54 PM CDT [facility] TIBC 120(L) 250 - 450 ug/dL 03/18/2025 1:54 PM CDT [facility] IRON % SATURATION 23 15 - 60 % 03/18/2025 1:54 PM CDT [facility] Blood Venipuncture / Unknown 03/18/2025 9:29 AM CDT 03/18/2025 9:47 AM CDT Edvin Dent MD CHEMISTRY ORDERABLES Chely l Result Performing Organization Address [facility] Co de Phone Number [facility] CLIA # [id number] [address] [address] [place], [place] [address] * (ABNORMAL) FERRITIN (03/18/2025 9:29 AM CDT) Pathologist [facility] FERRITIN 2,516.0(H) 30.0 - 400.0 ng/mL 03/18/2025 2:06 PM CDT [facility] Blood Venipuncture / Unknown 03/18/2025 9:29 AM CDT 03/18/2025 9:47 AM CDT us Edvin Dent MD CHEMISTRY ORDERABLES Chely l Result Performing Organization Address [facility] de Phone Number [facility] CLIA # [id number] [address] [address] [place], [place] [address] * POC GLUCOSE (03/17/2025 7:53 AM CDT) Only the most recent of32 resultswithin the time period is included. [facility] GLUCOSE POC 96 74 - 99 mg/dL 03/17/2025 7:53 AM CDT [facility] SPECIMEN SOURCE, GLUCOSE POC Capillary 03/17/2025 7:53 AM CDT [facility] Blood, whole 03/17/2025 7:53 AM CDT 03/17/2025 8:56 AM CDT Edvin Dent MD POINT OF CARE TESTING Fin al Result Performing Organization Address [facility] Co de Phone Number [facility] CLIA # [id number] [address] [facility] [place], [place] [address] * (ABNORMAL) MANUAL DIFFERENTIAL (03/17/2025 4:01 AM CDT) Only the most recent of9 resultswithin the time period is included. SEGMENTED NEUTROPHILS 97(H) 36 - 66 % 03/17/2025 4:44 AM CDT [facility] LYMPHOCYTES RELATIVE 2(L) 24 - 44 % 03/17/2025 4:44 AM T [facility] EOSINOPHILS RELATIVE 1 0 - 3 % 03/17/2025 4:44 AM CDT [facility] PLATELET EST. Increased 03/17/2025 4:44 AM CDT [facility] NEUTROPHILS ABSOLUTE COUNT 21.73(H) 2.00 - 8.00 K/uL 03/17/2025 4:44 AM CDT [facility] LYMPHOCYTES ABSOLUTE 0.45(L) 1.20 - 4.00 K/uL 03/17/2025 4:44 AM CDT [facility] ATYPICAL LYMPHS ABSOLUTE 03/17/2025 4:44 AM T [facility] EOSINOPHILS ABSOLUTE 0.22 0.00 - 0.70 K/uL 03/17/2025 4:44 AM CDT [facility] TOXIC GRANULATION 1+ 03/17/2025 4:44 AM T [facility] TOTAL CELLS COUNTED IN DIFF 100 03/17/2025 4:44 AM T [facility] Blood Venipuncture / Unknown 03/17/2025 4:01 AM CDT 03/17/2025 4:08 AM CDT us Edvin Dent MD HEMATOLOGY ORDERABLES COM Final Result [facility] CLIA # [id number] [facility] [address] [place] [address] * (ABNORMAL) CK (03/17/2025 4:01 AM CDT) Only the most recent of2 resultswithin the time period is included. Pathologist [facility] CK 23(L) 39 - 308 U/L 03/17/2025 4:45 AM T [facility] Blood Venipuncture / Unknown 03/17/2025 4:01 AM CDT 03/17/2025 4:07 AM CDT Arielle Flores MD CHEMISTRY ORDERABLES Final Re sult [facility] CLIA # [id number] [address] [address] [place] [address] * (ABNORMAL) COMPREHENSIVE METABOLIC PANEL (03/17/2025 4:01 AM CDT) Only the most recent of13 resultswithin the time period is included. SODIUM 129(L) 136 - 145 mmol/L 03/17/2025 9:33 AM [facility] POTASSIUM 4.6 3.5 - 5.1 mmol/L 03/17/2025 9:33 AM [facility] CHLORIDE 96(L) 98 - 107 mmol/L 03/17/2025 9:33 AM [facility] CO2 22 22 - 29 mmol/L 03/17/2025 9:33 AM [facility] CALCIUM 7.9(L) 8.6 - 10.0 mg/dL 03/17/2025 9:33 AM [facility] BUN 11 6 - 20 mg/dL 03/17/2025 9:33 AM [facility] CREATININE 0.64(L) 0.67 - 1.17 mg/dL 03/17/2025 9:33 AM [facility] GLUCOSE 105(H) 74 - 99 mg/dL 03/17/2025 9:33 AM [facility] TOTAL PROTEIN 5.2(L) 6.4 - 8.3 g/dL 03/17/2025 9:33 AM [facility] ALBUMIN 2.1(L) 3.5 - 5.2 g/dL 03/17/2025 9:33 AM CDT [facility] BILIRUBIN TOTAL 0.6 0.0 - 1.0 mg/dL 03/17/2025 9:33 AM CDT [facility] ALKALINE PHOSPHATASE 176(H) 40 - 129 U/L 03/17/2025 9:33 AM CDT [facility] AST 45 10 - 50 U/L 03/17/2025 9:33 AM CDT [facility] Comment:Hemolysis present. R esult may be falsely elevated. ALT 32 <=50 U/L 03/17/2025 9:33 AM T [facility] GFR >60 >=60 mL/min/1. 73 sq meter 03/17/2025 9:33 AM T [facility] Comment:eGFR calculated with 2020 CKD-EPI equation. Vegetarian diet, extremely high or low muscle mass, and may affect results. Cystatin C with Glomerular Filtration Rate is a suitable alternative for these patients. ANION GAP 11 9 - 20 mmol/L 03/17/2025 9:33 AM CDT [facility] Blood Venipuncture / Unknown 03/17/2025 4:01 AM CDT 03/17/2025 4:07 AM CDT Edvin Dent MD CHEMISTRY ORDERABLES Chely l Result [id number] [address] [place] [address] * CT CHEST ABDOMEN PELVIS W CONT (03/12/2025 4:20 PM CDT) Anatomical Region Laterality Modality Chest Computed Tomogra phy 03/12/2025 4:07 PM CDT Impressions 03/12/2025 4:42 PM CDT Impression: 1. Small left pleural effusion. 2. No evidence of infiltrates. Contiguous axial images were obtained through the abdomen and pelvis. Sagittal and coronal reformatted images are included. The study was performed following a CT of the chest utilizing the same contrast bolus. Comparison is to a prior study from 03/07/2025. A nasogastric tube is in place with tip in the duodenal C-loop. The gallbladder is surgically absent. A biliary stent is in place. A surgical drain is present in the right upper quadrant. Prominent strandy density and induration is again seen in the retroperitoneal fat surrounding the pancreas, extending inferiorly down to the lower pelvis. This shows some interval worsening since the prior study. No focal pancreatic lesions are seen. Small amounts of free intraperitoneal fluid are seen in the abdomen and pelvis as well. There is no evidence of any ureteral stones or any dilatation of the ureters or collecting systems. There is no evidence of any abdominal aortic aneurysm or dissection. The liver, spleen, kidneys and adrenals are unremarkable. There is no evidence of any abnormal soft tissue mass, adenopathy in the abdomen or pelvis. Bowel loops are nondilated. There is no evidence of any free intraperitoneal air. Impression: 1. Prominent edematous/inflammatory changes are present in the retroperitoneum extending from the upper abdomen down to the lower pelvis. These show interval worsening since the prior study. 2. Small amounts of free intraperitoneal fluid are present. 3. The tip of the NG tube is in the duodenal C-loop. Narrative 03/12/2025 4:42 PM CDT Exam: CT CHEST ABDOMEN PELVIS W CONT Date/Time of Exam: 03/12/2025 4:20 PM Reason For Exam: leukocytosis WBC 41K Diagnosis: Hyperbilirubinemia; Acute cholecystitis Contiguous axial images were obtained through the chest. Sagittal and coronal reformatted images are included. 100 mL of Isovue-300 was given intravenously. Lymph nodes in the mediastinum all measure under 1 cm along their short axis. There is no evidence of any abnormal soft tissue masses in the chest. Atelectasis is present in the left lower lobe. The right lung is clear. A small left pleural effusion is present. There is no evidence of any thoracic aortic aneurysm or dissection. No pneumothorax is seen. Procedure Note Alexis Son MD - 03/12/2025 Exam: CT CHEST ABDOMEN PELVIS W CONT Date/Time of Exam: 03/12/2025 4:20 PM Reason For Exam: leukocytosis WBC 41K Diagnosis: Hyperbilirubinemia; Acute cholecystitis Contiguous axial images were obtained through the chest. Sagittal and coronal reformatted images are included. 100 mL of Isovue-300 was given intravenously. Lymph nodes in the mediastinum all measure under 1 cm along their short axis. There is no evidence of any abnormal soft tissue masses in the chest. Atelectasis is present in the left lower lobe. The right lung is clear. A small left pleural effusion is present. There is no evidence of any thoracic aortic aneurysm or dissection. No pneumothorax is seen. Impression: 1. Small left pleural effusion. 2. No evidence of infiltrates. Contiguous axial images were obtained through the abdomen and pelvis. Sagittal and coronal reformatted images are included. The study was performed following a CT of the chest utilizing the same contrast bolus. Comparison is to a prior study from 03/07/2025. A nasogastric tube is in place with tip in the duodenal C-loop. The gallbladder is surgically absent. A biliary stent is in place. A surgical drain is present in the right upper quadrant. Prominent strandy density and induration is again seen in the retroperitoneal fat surrounding the pancreas, extending inferiorly down to the lower pelvis. This shows some interval worsening since the prior study. No focal pancreatic lesions are seen. Small amounts of free intraperitoneal fluid are seen in the abdomen and pelvis as well. There is no evidence of any ureteral stones or any dilatation of the ureters or collecting systems. There is no evidence of any abdominal aortic aneurysm or dissection. The liver, spleen, kidneys and adrenals are unremarkable. There is no evidence of any abnormal soft tissue mass, adenopathy in the abdomen or pelvis. Bowel loops are nondilated. There is no evidence of any free intraperitoneal air. Impression: 1. Prominent edematous/inflammatory changes are present in the retroperitoneum extending from the upper abdomen down to the lower pelvis. These show interval worsening since the prior study. 2. Small amounts of free intraperitoneal fluid are present. 3. The tip of the NG tube is in the duodenal C-loop. Arielle Flores MD CT ORDERABLES Final Result * (ABNORMAL) LIPASE (03/12/2025 4:54 AM CDT) Only the most recent of5 resultswithin the time period is included. LIPASE 428(H) 13 - 60 U/L 03/12/2025 8:38 AM CDT [facility] Blood Venipuncture / Unknown 03/12/2025 4:54 AM CDT 03/12/2025 5:20 AM CDT us Juan Antonio Barragan TECHNICAL SERVICES MANAGER CHEMISTRY ORDERABLES Final R esult Performing Organization Address [facility] Co de Phone Number [facility] CLIA # [id number] [address] [address] [place], [place] [address] * (ABNORMAL) D-DIMER (03/11/2025 2:46 PM CDT) D-DIMER QUANT 9.35(H) 0.00 - 0.50 ug/mL FEU 03/11/2025 3:38 PM CDT [facility] Blood Venipuncture / Unknown 03/11/2025 2:46 PM CDT 03/11/2025 3:05 PM CDT Narrative [facility] - 03/11/2025 3:38 PM CDT D-Dimer assay cutoff value for exclusion of DVT and/or PE is <0.50 ug/mL FEU. Edvin Dent MD HEMATOLOGY ORDERABLES Fin al Result Performing Organization Address [facility] Co de Phone Number [facility] CLIA # [id number] [address] [address] * US ABDOMEN LIMITED (03/11/2025 8:18 AM CDT) Only the most recent of2 resultswithin the time period is included. Anatomical Region Laterality Modality Abdomen Ultrasound 03/11/2025 8:18 AM CDT Impressions 03/11/2025 8:33 AM CDT IMPRESSION: Please see below. US ABDOMEN LIMITED, 03/11/2025 8:18 AM. REASON FOR EXAM: Ascites. DIAGNOSIS: Hyperbilirubinemia; Acute cholecystitis. COMPARISON: CT performed 03/07/2025. TECHNIQUE: Multiplanar real-time ultrasonography of the abdomen was performed in multiple projections to evaluate for ascites. FINDINGS: There is only a trace amount of ascites. No paracentesis was performed. ++++++++++++++++++++ IMPRESSION: Trace ascites. No paracentesis performed. Narrative Procedure Note Miles Rea MD - 03/11/2025 IMPRESSION: Please see below. US ABDOMEN LIMITED, 03/11/2025 8:18 AM. REASON FOR EXAM: Ascites. DIAGNOSIS: Hyperbilirubinemia; Acute cholecystitis. COMPARISON: CT performed 03/07/2025. TECHNIQUE: Multiplanar real-time ultrasonography of the abdomen was performed in multiple projections to evaluate for ascites. FINDINGS: There is only a trace amount of ascites. No paracentesis was performed. ++++++++++++++++++++ IMPRESSION: Trace ascites. No paracentesis performed. us Edvin Zeb Dent MD US ORDERABLES Final Res ult * (ABNORMAL) PROTIME-INR (03/11/2025 4:29 AM CDT) PROTIME 17.8(H) 12.7 - 14.9 Seconds 03/11/2025 5:19 AM CDT [facility] INR 1.4(H) 0.8 - 1.2 03/11/2025 5:19 AM CDT [facility] Blood Venipuncture / Unknown 03/11/2025 4:29 AM CDT 03/11/2025 4:59 AM CDT Ruben [facility] [employer] [facility] - 03/11/2025 5:19 AM CDT Expected Values for INR: DVT/PE Goal INR 2.5; range 2.0 - 3.0 Valve Replacement Tissue Goal INR 2.5; range 2.0 - 3.0 Valve Replacement Mechanical Goal INR 3.0; range 2.5 - 3.5 POST-ME Goal INR 2.5; range 2.0 - 3.0 or Goal INR 3.0; range 2.5 - 3.5 Atrial Fibrillation Goal INR 2.5; range 2.0 - 3.0 Ischemic Stroke Goal INR 2.5; range 2.0 - 3.0 Edvin Dent MD HEMATOLOGY ORDERABLES Fin al Result [facility] CLIA # [id number] [address] [address] [place] [address] * (ABNORMAL) URINALYSIS WITH REFLEX MICROSCOPIC (03/10/2025 3:57 PM CDT) Only the most recent of4 resultswithin the time period is included. COLOR UA Yellow Pale to Dark Yellow 03/10/2025 4:10 PM CDT [facility] CLARITY UA Clear Clear 03/10/2025 4:10 PM CDT [facility] SPECIFIC GRAVITY UA 1.029 1.003 - 1.035 03/10/2025 4:10 PM CDT [facility] PH UA 7.5 5.0 - 8.0 03/10/2025 4:10 PM CDT [facility] LEUKOCYTE ESTERASE UA Negative Negative 03/10/2025 4:10 PM CDT [facility] NITRITE UA Negative Negative 03/10/2025 4:10 PM CDT [facility] PROTEIN UA 1+(A) Negative 03/10/2025 4:10 PM CDT [facility] GLUCOSE UA Negative Negative 03/10/2025 4:10 PM CDT [facility] KETONES UA Negative Negative 03/10/2025 4:10 PM CDT [facility] UROBILINOGEN UA 2.0(A) <2.0 mg/dL 4:10 PM CDT [facility] BILIRUBIN UA Negative Negative 03/10/2025 4:10 PM CDT [facility] BLOOD UA Negative Negative 03/10/2025 4:10 PM CDT [facility] WBC UA 0-2 0 - 2 /hpf 03/10/2025 4:10 PM CDT [facility] RBC UA 0-2 0 - 2 /hpf 03/10/2025 4:10 PM CDT [facility] BACTERIA UA Negative Negative /hpf 03/10/2025 4:10 PM CDT [facility] Urine URINE SPECIMEN OBTAINED BY CLEAN CATCH PROCEDURE / Unknown Collection / Unknown 03/10/2025 3:57 PM CDT 03/10/2025 4:02 PM CDT Arielle Flores MD URINE ORDERABLES Final Result [facility] CLIA # [id number] [address] [address] * URINE CULTURE (03/10/2025 3:57 PM CDT) CULTURE No growth 03/11/2025 12:42 PM CDT [facility] Urine URINE SPECIMEN OBTAINED BY CLEAN CATCH PROCEDURE / Unknown Collection / Unknown 03/10/2025 3:57 PM CDT 03/10/2025 4:02 PM CDT Arielle Flores MD MICROBIOLOGY - GENERAL ORDERA BLES Final Result [facility] CLIA # [id number] [address] [address] * BLOOD CULTURE (03/10/2025 2:43 PM CDT) Only the most recent of6 resultswithin the time period is included. BLOOD CULTURE No growth 03/15/2025 3:13 PM CDT [facility] Blood (Peripheral) Venipuncture / Unknown 03/10/2025 2:43 PM CDT 03/10/2025 2:47 PM CDT Arielle Flores MD MICROBIOLOGY - GENERAL ORDERA BLES Final Result Performing Organization Address City/State/[facility] Co de Phone Number [facility] # [id number] [address] [facility] [place] [address] * US VENOUS DOPPLER LEG BILATERAL (03/10/2025 2:38 PM CDT) Anatomical Region Laterality Modality Lower Extremity Ultrasound 03/10/2025 1:43 PM CDT Narrative 03/17/2025 10:59 AM CDT [facility] Noninvasive Vascular Laboratory [address] [place] [address] Noninvasive Vascular Lab Venous Exam Complete Lower Extremity Duplex Patient: Edwin Kumari Study ID: US VENOUS DOPPLE Gender: M : 1975 Age: 49 Room: Height: Weight: BSA: Pt status: Inpatient Study Date: 03/10/2025 Study Time: 01:43:12 PM BSA: Ordering: Arielle Flores Interpreting:Farhad Woodson MD, RPVI Gis Analyst Developer: TAYLOR Indications: DVT. Summary Impression: No evidence of deep or superficial venous thrombosis involving the right lower extremity and left lower extremity. Study data: Complete lower extremity venous duplex evaluation. Doppler flow study including spectral analysis, color and murphy scale imaging. Location: Bedside. Patient status: Inpatient. Portable. Study status: Routine. Procedure: A vascular evaluation was performed. Image quality was good. Venous flow and imaging: - Right common femoral Patent; Normal phasicity; spontaneous; compressible; normal augmentation - Right profunda femoral Patent; Normal phasicity; spontaneous; compressible; normal augmentation - Right femoral Patent; Normal phasicity; spontaneous; compressible; normal augmentation - Right popliteal Patent; Normal phasicity; spontaneous; compressible; normal augmentation - Right small saphenous Patent; Normal phasicity; spontaneous; compressible; normal augmentation - Right posterior tibial Patent; Compressible; normal augmentation - Right peroneal Patent; Compressible; normal augmentation - Right great saphenous Patent; Normal phasicity; spontaneous; compressible; normal augmentation - Left common femoral Patent; Normal phasicity; spontaneous; compressible; normal augmentation - Left profunda femoral Patent; Normal phasicity; spontaneous; compressible; normal augmentation - Left femoral Patent; Normal phasicity; spontaneous; compressible; normal augmentation - Left popliteal Patent; Normal phasicity; spontaneous; compressible; normal augmentation - Left small saphenous Patent; Normal phasicity; spontaneous; compressible; normal augmentation - Left posterior tibial Patent; Compressible; normal augmentation - Left peroneal Patent; Compressible; normal augmentation - Left great saphenous Patent; Normal phasicity; spontaneous; compressible; normal augmentation [facility] is accredited with the [facility] Commission for the Accreditation of Vascular Laboratories (ICAVL) Prepared and Electronically Authenticated Fabiola Martinez Confirmed 03/17/2025 10:59 Procedure Note Fabiola Martinez DO - 03/17/2025 [facility] Cardi[facility] Services Noninvasive Vascular Laboratory [address] [place] [address] Noninvasive Vascular Lab Venous Exam Complete Lower Extremity Duplex Patient: Edwin Kumari Study ID: US VENOUS DOPPLE Gender: M : 1975 Age: 49 Room: Height: Weight: BSA: Pt status: Inpatient Study Date: 03/10/2025 Study Time: 01:43:12 PM BSA: Ordering: Arielle Flores Interpreting:Farhad Woodson MD, RPVI Gis Analyst Developer: TAYLOR Indications: DVT. Summary Impression: No evidence of deep or superficial venous thrombosis involving the rightlower extremity and left lower extremity. Study data: Complete lower extremity venous duplex evaluation.Doppler flow study including spectral analysis, color and murphy scale imaging. Location: Bedside. Patient status: Inpatient. Portable. Studystatus: Routine. Procedure: A vascular evaluation was performed. Image qualitywas good. Venous flow and imaging: - Right common femoral Patent; Normal phasicity; spontaneous;compressible; normal augmentation - Right profunda femoral Patent; Normal phasicity; spontaneous;compressible; normal augmentation - Right femoral Patent; Normal phasicity; spontaneous; compressible;normal augmentation - Right popliteal Patent; Normal phasicity; spontaneous; compressible;normal augmentation - Right small saphenous Patent; Normal phasicity; spontaneous;compressible; normal augmentation - Right posterior tibial Patent; Compressible; normal augmentation - Right peroneal Patent; Compressible; normal augmentation - Right great saphenous Patent; Normal phasicity; spontaneous;compressible; normal augmentation - Left common femoral Patent; Normal phasicity; spontaneous;compressible; normal augmentation - Left profunda femoral Patent; Normal phasicity; spontaneous;compressible; normal augmentation - Left femoral Patent; Normal phasicity; spontaneous; compressible;normal augmentation - Left popliteal Patent; Normal phasicity; spontaneous; compressible;normal augmentation - Left small saphenous Patent; Normal phasicity; spontaneous;compressible; normal augmentation - Left posterior tibial Patent; Compressible; normal augmentation - Left peroneal Patent; Compressible; normal augmentation - Left great saphenous Patent; Normal phasicity; spontaneous;compressible; normal augmentation [facility] is accredited with theIntersocietal Commission for the Accreditation of Vascular Laboratories (ICAVL) Prepared and Electronically Authenticated Fabiola Martinez Confirmed 03/17/2025 10:59 Arielle Flores MD US ORDERABLES Final Result * EXTRA TUBE (URINE MURPHY) (03/08/2025 4:14 PM CDT) Only the most recent of3 resultswithin the time period is included. Urine URINE SPECIMEN OBTAINED BY CLEAN CATCH PROCEDURE / Unknown Collection / Unknown 03/08/2025 4:14 PM CDT 03/08/2025 4:21 PM CDT Tabitha Lynn MD URINE ORDERABLES Final Result [facility] # [id number] [facility] [address] [place] [address] * XR FLUORO NG TUBE PLACEMENT SI (03/08/2025 10:41 AM CDT) Anatomical Region Laterality Modality Abdomen Computed Radiogr aphy 03/08/2025 10:4 1 AM CDT Impressions 03/08/2025 12:52 PM CDT IMPRESSION: Please see below. Exam: XR FLUORO NG TUBE PLACEMENT SI Date/Time of Exam: 03/08/2025 10:41 AM Reason For Exam: Tube Placement. Diagnosis: Hyperbilirubinemia; Acute cholecystitis. Preliminary findings dictated by SHARLENE Fowler RPA. Personal supervision and final interpretation by Dr. Vera. A solutions architect type catheter was fluoroscopically guided into the stomach. The stomach was then distended with air and the catheter was advanced to the ligament of Treitz over a guidewire. The solutions architect catheter was then removed and a 10 Macedonian Corflow feeding tube was placed over the wire with the tip at the ligament of Treitz. Feeding tube secured using a nasal bridle. Impression: Uneventful feeding tube placement. Narrative Procedure Note Silver Vera MD - 03/08/2025 IMPRESSION: Please see below. Exam: XR FLUORO NG TUBE PLACEMENT SI Date/Time of Exam: 03/08/2025 10:41 AM Reason For Exam: Tube Placement. Diagnosis: Hyperbilirubinemia; Acute cholecystitis. Preliminary findings dictated by SHARLENE Fowler RPA. Personal supervision and final interpretation by Dr. Vera. A solutions architect type catheter was fluoroscopically guided into the stomach. The stomach was then distended with air and the catheter was advanced to the ligament of Treitz over a guidewire. The solutions architect catheter was then removed and a 10 Macedonian Corflow feeding tube was placed over the wire with the tip at the ligament of Treitz. Feeding tube secured using a nasal bridle. Impression: Uneventful feeding tube placement. us Tabitha Lynn MD DIAGNOSTIC IMAGING ORDERABLES Final Result * MAGNESIUM LEVEL (03/08/2025 5:04 AM CDT) Only the most recent of2 resultswithin the time period is included. MAGNESIUM 2.1 1.6 - 2.6 mg/dL 03/08/2025 6:05 AM CDT [facility] Blood Venipuncture / Unknown 03/08/2025 5:04 AM CDT 03/08/2025 5:32 AM CDT Tabitha Lynn MD CHEMISTRY ORDERABLES Final Res ult [facility] # [id number] [address] [address] [place] [address] * CT ABDOMEN PELVIS WO CONTRAST (03/07/2025 4:31 PM CDT) Anatomical Region Laterality Modality Abdomen Computed Tomogra phy 03/07/2025 4:12 PM CDT Impressions 03/07/2025 4:37 PM CDT IMPRESSION: Please see below. Exam: CT ABDOMEN PELVIS WO CONTRAST Date/Time of Exam: 03/07/2025 4:31 PM Reason For Exam: Pancreatitis, acute, severe. Diagnosis: Hyperbilirubinemia; Acute cholecystitis. Technique: CT of the abdomen and pelvis was performed without the administration of intravenous contrast. Comparison: March 04, 2025. FINDINGS: Evaluation of the vasculature and solid organs are limited without the use of contrast. Results small left pleural effusion with left lower lobe atelectasis or infiltrate. Small pericardial effusion. There is small volume ascites which is increased from prior exam. A drainage catheter is present in the right upper quadrant. A biliary stent is present. There is pneumobilia. There is no hydronephrosis. No suspicious renal lesion. Bladder is decompressed. There is small amount of mildly complex left retroperitoneal fluid. There is organizing peripancreatic fluid. Proximal colon is mildly distended. The small bowel is not significant only distended. There is no evidence of acute appendicitis. There is body wall edema. There are no destructive lytic or sclerotic bone lesion deformity of the left ischial tuberosity suggestive of old injury. IMPRESSION: 1. Findings suggestive of acute pancreatitis with increased ascites and organizing fluid throughout the abdomen and left retroperitoneum. 2. Increased size of a small left pleural effusion with left lower lobe airspace disease which is likely atelectasis. 3. Pneumobilia with biliary stent and drainage catheter in the right upper quadrant. 4. Mildly distended proximal colon, nonspecific but may reflect low-grade ileus. Narrative Procedure Note Terrell Ramey MD - 03/07/2025 IMPRESSION: Please see below. Exam: CT ABDOMEN PELVIS WO CONTRAST Date/Time of Exam: 03/07/2025 4:31 PM Reason For Exam: Pancreatitis, acute, severe. Diagnosis: Hyperbilirubinemia; Acute cholecystitis. Technique: CT of the abdomen and pelvis was performed without the administration of intravenous contrast. Comparison: March 04, 2025. FINDINGS: Evaluation of the vasculature and solid organs are limited without the use of contrast. Results small left pleural effusion with left lower lobe atelectasis or infiltrate. Small pericardial effusion. There is small volume ascites which is increased from prior exam. A drainage catheter is present in the right upper quadrant. A biliary stent is present. There is pneumobilia. There is no hydronephrosis. No suspicious renal lesion. Bladder is decompressed. There is small amount of mildly complex left retroperitoneal fluid. There is organizing peripancreatic fluid. Proximal colon is mildly distended. The small bowel is not significant only distended. There is no evidence of acute appendicitis. There is body wall edema. There are no destructive lytic or sclerotic bone lesion deformity of the left ischial tuberosity suggestive of old injury. IMPRESSION: 1. Findings suggestive of acute pancreatitis with increased ascites and organizing fluid throughout the abdomen and left retroperitoneum. 2. Increased size of a small left pleural effusion with left lower lobe airspace disease which is likely atelectasis. 3. Pneumobilia with biliary stent and drainage catheter in the right upper quadrant. 4. Mildly distended proximal colon, nonspecific but may reflect low-grade ileus. Tabitha Lynn MD CT ORDERABLES Final Result * (ABNORMAL) PHOSPHORUS (03/07/2025 4:55 AM CDT) PHOSPHORUS 2.1(L) 2.5 - 4.5 mg/dL 03/07/2025 5:31 AM CDT [facility] Blood Venipuncture / Unknown 03/07/2025 4:55 AM CDT 03/07/2025 4:59 AM CDT Mervin Means DO CHEMISTRY ORDERABLES Final R esult [facility] CLIA # [id number] [address] [address] [place] [address] * (ABNORMAL) LACTIC ACID (03/06/2025 7:54 PM CDT) Only the most recent of3 resultswithin the time period is included. Pathologist [facility] LACTIC ACID 2.1(H) <=2.0 mmol/L 03/06/2025 8:57 PM CDT [facility] Blood Venipuncture / Unknown 03/06/2025 7:54 PM CDT 03/06/2025 8:21 PM CDT us Mervin Means DO CHEMISTRY ORDERABLES Final R esult [facility] CLIA # [id number] [address] [facility] [place] [address] * (ABNORMAL) CBC WITHOUT DIFFERENTIAL (03/06/2025 3:14 AM CDT) Only the most recent of3 resultswithin the time period is included. [facility] WBC 27.1(H) 4.5 - 11.0 K/uL 03/06/2025 4:05 AM T [facility] RBC 5.63 4.60 - 6.20 M/uL 03/06/2025 4:05 AM T [facility] HEMOGLOBIN 16.7 14.0 - 18.0 g/dL 03/06/2025 4:05 AM CDT [facility] HEMATOCRIT 48.7 41.0 - 53.0 % 03/06/2025 4:05 AM T [facility] MCV 86.5 84.0 - 103.0 fL 03/06/2025 4:05 AM CDT [facility] MCH 29.7 27.0 - 34.0 pg 03/06/2025 4:05 AM CDT [facility] MCHC 34.3 30.0 - 35.0 g/dL 03/06/2025 4:05 AM T [facility] PLATELETS 390 140 - 440 K/uL 03/06/2025 4:05 AM CDT [facility] MPV 11.2 8.9 - 12.8 fL 03/06/2025 4:05 AM CDT [facility] RDW 13.0 11.0 - 14.5 % 03/06/2025 4:05 AM CDT [facility] RDW-STDEV 40.8 37.0 - 54.0 fL 03/06/2025 4:05 AM CDT [facility] Blood Venipuncture / Unknown 03/06/2025 3:14 AM CDT 03/06/2025 3:42 AM CDT us Stefania Farfan MD HEMATOLOGY ORDERABLES Fin al Result Performing Organization Address City/State/[facility] Co de Phone Number [facility] CLIA # [id number] [address] [place] [address] * EKG 12-LEAD (03/05/2025 1:50 PM CDT) 03/05/2025 1:50 PM CDT Narrative INTERFACE SYSTEM - 03/05/2025 7:13 PM CDT [address] [address] Test Date: 2025-03-05 Pat Name: EDWIN KUMARI Department: 12 Room: [address] [place] [address] Gender: Male Director And 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: [id number] : 1975 Requested By: Order Number: [id number] Ninoska MD: Lakeisha Martinez Measurements Intervals [place] Rate: 89 P: 78 IN: 152 QRS: 68 QRSD: 78 T: 40 QT: 352 QTc: 428 Interpretive Statements Normal sinus rhythm Normal ECG Electronically Signed On 03-05-2025 19:13:00 CDT by Lakeisha Martinez Procedure Note Lakeisha Martinez, DO - 03/05/2025 [facility] [address] [place] [address] Test Date: 2025-03-05 Pat Name: EDWIN KUMARI Department: 12 Room: [address] [place] [address] Gender: Male Director And Professor: [id number] : 1975 Requested By: Order Number: [id number] Reading MD: Lakeisha Martinez Measurements Intervals [place] Rate: 89 P: 78 IN: 152 QRS: 68 QRSD: 78 T: 40 QT: 352 QTc: 428 Interpretive Statements Normal sinus rhythm Normal ECG Electronically Signed On 03-05-2025 19:13:00 CDT by Lakeisha Martinez us Stefania Farfan MD ECG ORDERABLES Final Res ult Performing Organization Address City/[facility] Co de Phone Number INTERFACE SYSTEM Refer to clinic/hospital department * TRIGLYCERIDE (03/05/2025 9:25 AM CDT) TRIGLYCERIDE 76 <150 mg/dL 03/05/2025 10:02 AM CDT [facility] Blood Venipuncture / Unknown 03/05/2025 9:25 AM CDT 03/05/2025 9:30 AM CDT Narrative [facility] - 03/05/2025 10:02 AM CDT TRIGLYCERIDES mg/dL Normal < 150 Borderline High 150 - 199 High 200 - 499 Very High >= 500 Based on AHA/NCEP Guidelines. us Stefania Farfan MD CHEMISTRY ORDERABLES Chely l Result Performing Organization Address [facility]/ZIP Co de Phone Number [facility] CLIA # [id number] [address] [address] * CT ABDOMEN PELVIS W CONTRAST (03/04/2025 3:54 PM CDT) Only the most recent of2 resultswithin the time period is included. Anatomical Region Laterality Modality Abdomen Computed Tomogra phy 03/04/2025 3:41 PM CDT Impressions 03/04/2025 4:34 PM CDT IMPRESSION: 1. Inflammatory changes are now seen around the head of the pancreas suspicious for pancreatitis. 2. Inflammatory changes in the gallbladder fossa. Infectious process is not excluded. 3. Small amount of free fluid in the pelvis. 4. Biliary stent has been placed in the interval. Narrative 03/04/2025 4:34 PM CDT Exam: CT ABDOMEN PELVIS W CONTRAST Date/Time of Exam: 03/04/2025 3:54 PM Reason For Exam: post ercp abd pain, nausea , constipation- rule out pancreatitis, obstruction and infection. Contiguous axial images were obtained through the abdomen and pelvis. Sagittal and coronal reformatted images are included. 80 mL of Isovue-300 was given intravenously. Comparison is to a study from 02/28/2025. Postsurgical changes are again seen in the gallbladder fossa. A surgical drain remains in place in the right upper quadrant. A biliary stent has been placed in the interval. Strandy density and induration is now present in the gallbladder fossa and surrounding the duodenal C-loop and head of the pancreas. The appendix is visualized and is unremarkable in appearance. A small amount free fluid is seen on the pelvis. There is no evidence of any abdominal aortic aneurysm or dissection. There is no evidence of any ureteral stones or any dilatation of the ureters or collecting systems. The liver, spleen, kidneys and adrenals are unremarkable. There is no evidence of abnormal soft tissue masses, or adenopathy in the abdomen or pelvis. Bowel loops are nondilated. There is no evidence of any free intraperitoneal air. Procedure Note Alexis Son MD - 03/04/2025 Exam: CT ABDOMEN PELVIS W CONTRAST Date/Time of Exam: 03/04/2025 3:54 PM Reason For Exam: post ercp abd pain, nausea , constipation- rule out pancreatitis, obstruction and infection. Contiguous axial images were obtained through the abdomen and pelvis. Sagittal and coronal reformatted images are included. 80 mL of Isovue-300 was given intravenously. Comparison is to a study from 02/28/2025. Postsurgical changes are again seen in the gallbladder fossa. A surgical drain remains in place in the right upper quadrant. A biliary stent has been placed in the interval. Strandy density and induration is now present in the gallbladder fossa and surrounding the duodenal C-loop and head of the pancreas. The appendix is visualized and is unremarkable in appearance. A small amount free fluid is seen on the pelvis. There is no evidence of any abdominal aortic aneurysm or dissection. There is no evidence of any ureteral stones or any dilatation of the ureters or collecting systems. The liver, spleen, kidneys and adrenals are unremarkable. There is no evidence of abnormal soft tissue masses, or adenopathy in the abdomen or pelvis. Bowel loops are nondilated. There is no evidence of any free intraperitoneal air. IMPRESSION: 1. Inflammatory changes are now seen around the head of the pancreas suspicious for pancreatitis. 2. Inflammatory changes in the gallbladder fossa. Infectious process is not excluded. 3. Small amount of free fluid in the pelvis. 4. Biliary stent has been placed in the interval. us Stefania Farfan MD CT ORDERABLES Final Res ult * ERCP REPORT (03/03/2025 12:44 PM CDT) Narrative Procedure Note Jeana Brandt DO - 03/03/2025 12:44 PM CDT [facility] Patient Name: Edwin Kumari Procedure Date: 03/03/2025 Date of : 1975 Admit Type: Inpatient Age: 49 Attending MD: Jeana Heredia DO, Procedure: ERCP Indications: bile leak, suspected choledocholithiasis Providers: Jeana Heredia DO Referring MD: Medicines: General Anesthesia, See the Anesthesia note for documentation of the administered medications Complications: No immediate complications. Procedure: Pre-Anesthesia Assessment: - Prior to the procedure, a History and Physical was performed, and patient medications and allergies were reviewed. The patient's tolerance of previous anesthesia was also reviewed. The risks and benefits of the procedure and the sedation options and risks were discussed with the patient. All questions were answered, and informed consent was obtained. Prior Anticoagulants: The patient has taken no anticoagulant or antiplatelet agents. ASA Grade Assessment: II - A patient with mild systemic disease. After reviewing the risks and benefits, the patient was deemed in satisfactory condition to undergo the procedure. After obtaining informed consent, the scope was passed under direct vision. Throughout the procedure, the patient's blood pressure, pulse, and oxygen saturations were monitored continuously. The Duodenoscope was introduced through the mouth, and advanced to the duodenum and used to inject contrast into the bile duct. The patient tolerated the procedure well. The ERCP was accomplished without difficulty. Estimated Blood Loss: Estimated blood loss was minimal. Findings: Major papilla was identified in the second portion of the duodenum. There was no evidence of prior sphincterotomy. An Rx39 sphincterotome over a 0.025inch angled tip jagwire was used to attempt cannulation but the wire coating stripped. This was therefore exchanged for an Rx 44 sphincterotome over a 0.035inch guidewire and deep cannulation was achieved. A cholangiogram was obtained. The cholangiogram revealed a CBD of 6mm with no stones or bile leak as well as noted cystic duct stump. Once a cholangiogram was completed, a medium sized sphincterotomy was completed. A 9-12mm extraction balloon was used to sweep the duct with extraction of just bile. Occlusive cholangiogram revealed no defects. A 10F x 7cm plastic biliary stent was then deployed in the bile duct given patients hx of bile leak with bilious drain output., PD cannulation and pancreatogram intentionally not performed. All fluoroscopic images were personally interpreted. Impression: Suspected slow bile leak Recommendation: - Monitor for signs of PEP - No indication to recheck lipase unless PEP is suspected - If no hx of CHF or contraindication to aggressive fluid resuscitation, then LR bolus 1L over 4 hours followed by additional 1L over 8 hours. - Repeat LFTs in AM - Advance diet to clear liquids first and further as tolerated - Pain control PRN Jeana Heredia DO 03/03/2025 12:44:04 PM This report has been signed electronically. Number of Addenda: 0 Note Initiated On: 03/03/2025 10:58 AM Scope Withdrawal Time Scope In: Scope Out: Patient Profile: This is a 49 year old male. [address] [place], [place] us Jeana Heredia DO GI PROCEDURE ORDERABLE S Final Result * XR ERCP BILIARY ONLY (03/03/2025 11:52 AM CDT) Anatomical Region Laterality Modality Abdomen Computed Radiogr aphy 03/03/2025 11:5 2 AM CDT Impressions 03/03/2025 1:47 PM CDT IMPRESSION: No filling defects in the common duct on the final images. Narrative 03/03/2025 1:47 PM CDT Exam: XR ERCP BILIARY ONLY Date/Time of Exam: 03/03/2025 11:52 AM Reason For Exam: Other - Please see comments Diagnosis: Acute cholecystitis Intraoperative images taken during ERCP with a mobile C-arm unit are submitted. The common bile duct is nondilated. No abnormal intraluminal filling defects are seen in the common duct on the final images. Intrahepatic biliary ducts that are opacified are nondilated. There is no evidence of any stricture of the common duct. Procedure Note Alexis Son MD - 03/03/2025 Exam: XR ERCP BILIARY ONLY Date/Time of Exam: 03/03/2025 11:52 AM Reason For Exam: Other - Please see comments Diagnosis: Acute cholecystitis Intraoperative images taken during ERCP with a mobile C-arm unit are submitted. The common bile duct is nondilated. No abnormal intraluminal filling defects are seen in the common duct on the final images. Intrahepatic biliary ducts that are opacified are nondilated. There is no evidence of any stricture of the common duct. IMPRESSION: No filling defects in the common duct on the final images. Jeana Heredia DO DIAGNOSTIC IMAGING ORD ERABLES Final Result * GLUCOSE FASTING (03/21/2016 7:37 AM CDT) GLUCOSE-FASTIN G 86 70 - 99 mg/dL 03/21/2016 11:24 AM CDT [facility] Blood Collection / Unknown 03/21/2016 7:37 AM CDT 03/21/2016 10:23 AM CDT Narrative [facility] - 03/21/2016 11:24 AM CDT <100 mg/dl: Normal Fasting Glucose 100-125 mg/dl: Impaired Fasting Glucose >/=126 mg/dl: Provisional diagnosis of Diabetes The diagnosis must be confirmed. us Dionicio Montano MD CHEMISTRY ORDERABLES Final Res ult [facility] CLIA# [id number] [address] [place] [address] [facility] CLIA # [id number] [address] [facility] [place] [address] from Last 3 Months or Most Recently Relevant to Health Maintenance Additional Health Concerns Active Problems Noted Date Diagnosed Date Autogenerated Problem 03/18/2025 Insurance [facility] [employer] RX [facility] [employer] RX [employer] (INTERNAL) [facility] Internal Plans Advance Directives For more information, please contact: [phone] * Full Code (Latest Code Status on File) Date Activated Date Inactivated Comments 02/28/2025 7:59 PM 03/24/2025 4:26 PM Care Teams Database Designer Relationship Specialty Start Date End Date Chandu Nassar DO [address] [facility] [address] [place] [id number] PCP - General Family Practice 03/01/25
--- OUTSIDE RECORDS SUMMARY | 2025-04-12 07:47 | XMS_ITS | Encounter Summary ---
Author Organization [facility] Address [address] [place] [address] Care Team Providers Care Seed Tester Name Role Phone Chandu Nassar Primary Care Provider Encounter Details Date Type Department Care Team (Late st Contact Info) Description 04/08/2025 External Device Data [facility] ABSTRACTION Provider, Abstract NO ADDRESS ON FILE Social History Tobacco Use Types Packs/Day Years Used Date Smoking Tobacco: Never Smokeless Tobacco: Never Alcohol Use Standard Drinks/Week Comments Never 0 [...] worry about transportation for future doctor visits, medicinal plant picker medication, etc.? No 2024 Housing Stability Answer [...] on file Legal Sex Male 10:19 PM FACSIMILE OPERATOR Gender Identity Not on file Sexual Orientation Not on file documented as of this encounter Plan of Treatment Upcoming Encounters Date Type Department Care Team (Latest Contact Info) Description 05/22/2025 2:40 PM FACSIMILE OPERATOR Hospital Encounter [facility] [address] [place] [address] Jeana Brandt, DO [address] [facility] [address] [place] [phone] 05/22/2025 2:40 PM FACSIMILE OPERATOR - 05/22/2025 3:00 PM FACSIMILE OPERATOR Surgery [facility] [address] [place] [address] Jeana Brandt DO [address] [address] ESOPHAGOGASTRODUODENOSCOPY Scheduled Procedures Name Priority Associated Diagnoses Date/Ti me ESOPHAGOGASTRODUODENOSCOPY Stent Removal 05/22/2025 2:40 PM FACSIMILE OPERATOR documented as of this encounter Goals Goal Patient Goal Type Associated Problems Recent Progress Patient-Stated? Author Autogenerat ed Goal Care Plan Autogenerated Problem No Dima Gunter RN documented as of this encounter Visit Diagnoses Not on filedocumented in this encounter Additional Health Concerns Active Problems Noted Date Diagnosed Date Autogenerated Problem 03/18/2025 documented as of this encounter Care Teams Seed Tester Relationship Specialty Start Date End Date Chandu Nassar DO [address] [facility] [address] [place] [address] PCP - General Family Practice 03/01/25 documented as of this encounter
[2025-04-12 07:55] VITALS: BP 118/94; PULSE 88; RESP 18; TEMP 36.7; O2SAT 97; BMI 26.3
--- NOTE | 2025-04-12 08:05 | CTR_ITS ---
PROCEDURE INFORMATION: Exam: CT Abdomen And Pelvis With Contrast Exam date and time: 04/12/2025 8:38 AM Age: 49 years old Clinical indication: Abdominal pain; Generalized; Prior surgery; Surgery date: 1-6 months; Surgery type: Gb stent; Additional info: Llq abd pain, complicated HX, subtotal cholecystectomy for acute ashtyn TECHNIQUE: Imaging protocol: Computed tomography of the abdomen and pelvis with contrast. Radiation optimization: All CT scans at this facility use at least one of these dose optimization techniques: automated exposure control; mA and/or kV adjustment per patient size (includes targeted exams where dose is matched to clinical indication); or iterative reconstruction. Contrast material: OMNI 350; Contrast volume: 100 ml; Contrast route: INTRAVENOUS (IV); COMPARISON: CT abdomen pelvis w con* [id number] 02/27/2025 10:33 AM RADIATION DOSE METRICS: Total DLP (mGy-cm): 562.87 FINDINGS: Liver: The liver is enlarged, measuring 18.4 cm craniocaudal. Plastic biliary stent is in place from the johanny hepatis, terminating in the duodenum. Gallbladder and biliary ducts: Status post cholecystectomy. Trace residual fluid in the surgical bed. There is also a somewhat tubular fluid and gas structure which appears to communicate with the common bile duct with in the cholecystectomy bed. Small volume pneumobilia. Pancreas: Normal. No ductal dilation. Spleen: Spleen measures 13.8 cm in length. Adrenal glands: Normal. No mass. Kidneys and ureters: Normal. No hydronephrosis. Stomach and bowel: Sigmoid diverticulosis without definite evidence of acute diverticulitis. No bowel obstruction. Appendix: No evidence of appendicitis. Intraperitoneal space: Mild ill-defined fluid and stranding along the mesentery and throughout the abdomen/pelvis. Ill-defined complex fluid collections throughout the abdomen/pelvis, some of which appear contiguous with other collections. A prominent collection in the left posterior abdomen/retroperitoneum measures about 5.0 x 9.8 x 17.2 cm (centered on series 4, image 53). An adjacent collection along the left psoas muscle measures about 2.9 x 5.8 x 8.2 cm (series 4, image 44). A collection in the right hemipelvis along the pelvic sidewall measures about 11.8 x 3.5 x 10.0 cm (series 4, image 84). Multiple additional smaller collections are seen, including within the peritoneum. Vasculature: Unremarkable. No abdominal aortic aneurysm. Lymph nodes: Enlarged mesenteric lymph nodes in the left lower quadrant. Urinary bladder: Unremarkable as visualized. Reproductive: Prostate is mildly enlarged. Bones/joints: No acute findings. Degenerative changes most pronounced at L4-L5. 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 Heterotopic bone formation along the left inferior pubic ramus, possibly from remote fracture. Soft tissues: Unremarkable. CT/CT abdomen pelvis w con* [id number] IMPRESSION: 1. Multiple complex peritoneal, retroperitoneal, and pelvic collections are most compatible with multifocal abscesses. Some of these collections may be amenable to image guided drainage. Underlying neoplasm considered less likely given short term development. Recommend continued imaging follow-up to resolution. 2. Status post cholecystectomy with ill-defined fluid and gas in the surgical bed which may communicate with the extrahepatic bile duct. Findings could represent abscess versus a dilated remnant cystic duct. If there is concern for biliary leakage, HIDA scan could be considered for further evaluation. 3. Plastic biliary stent extending from the johanny hepatis into the duodenum. 4. Enlarged left lower quadrant mesenteric lymph nodes are likely reactive. Attention on follow-up recommended.
--- NOTE | 2025-04-12 08:07 | W.ED.ABDPA2 ---
HPI - Abdominal Pain General: Chief Complaint: Abdominal Pain Stated Complaint: lt lower abd pain Time Seen by Provider: 04/12/25 07:47 History of Present Illness: 49-year-old male past medical history significant for acute cholecystitis 2 months ago for which he underwent a complicated laparoscopic converted to open subtotal cholecystectomy due to inflammation in the right upper quadrant precluding a complete cholecystectomy, patient was eventually discharged postoperatively with drain in place and subsequently developed a low volume bile leak, this was watched for a few weeks until ERCP was performed in [place] that led to the placement of a biliary stent, this was complicated by an episode of acute pancreatitis that required treatment patient was eventually admitted for a total of 3 weeks in [place] and discharged 2 weeks ago. 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 Related Data Home Medications ?Medication ?Instructions ?Recorded ?Confirmed aspirin 81 mg tablet,delayed 81 mg PO DAILY 04/12/25 04/12/25 release (Nadine Low Dose Aspirin) cholestyramine 4 gram oral powder 4 g PO DAILY PRN Diarrhea 04/12/25 04/12/25 for suspension in a packet (Cholestyramine Light) metoclopramide HCl 10 mg tablet 10 mg PO QID PRN Nausea And 04/12/25 04/12/25 Vomiting ondansetron HCl 8 mg tablet 8 mg PO TID PRN Nausea And Vomiting 04/12/25 04/12/25 Previous Rx's ?Medication ?Instructions ?Recorded pantoprazole 40 mg tablet,delayed 40 mg PO DAILY #90 tabs 02/27/25 release Allergies Allergy/AdvReac Type Severity Reaction Status Date / Time cephalexin (From Keflex) Allergy ALGY-Rash Verified 02/24/25 11:19 PENDING SALE TO [facility] PFSH: Social History Smoking and tobacco/nicotine status: never used tobacco/nicotine Physical Exam Narrative: EXAM NARRATIVE: Gen: A&Ox4, no acute distress, nontoxic appearing HEENT: Normocephalic, atraumatic, no scleral icterus, external ears normal, moist mucous membranes Neck: Supple, full range of motion, no observable masses Lungs: No Respiratory distress, Lungs clear to auscultation bilaterally no rales, rhonchi, wheezing CV: Regular rate and rhythm, no murmur, no pitting edema to lower extremities bilaterally Abdomen: Soft, nondistended, tender to palpation in the left lower quadrant without rebound guarding or rigidity, multiple surgical scars to the anterior and right side of the abdominal cavity without evidence of erythema or purulence from the surgical sites, incisions are healed, no CVA tenderness bilaterally MSK: No joint swelling, FROM all 4 extremities Skin: No rashes, petechiae, lesions. Normal color per patient. Neuro: Alert and oriented, no slurred speech, sensation and strength grossly intact all 4 extremities Psych: Appropriate for situation. Course Reevaluation(s): Reevaluation #1: Workup showing multiple intraperitoneal and retroperitoneal fluid collections some large and likely in need of image guided drainage, no IR capability at this facility nor hepatobiliary nor GI capabilities. Patient adamantly refuses consideration of transfer back to emergency due to poor experience there, they also were port that they had been in the process of being referred to a hepatobiliary specialist in [place] due to the complicated nature of his illness which has not yet occurred, they are willing to be transferred to [place] for admission and multidisciplinary care, call was placed to [facility] transfer center, I spoke with the triage person who will route this through to their physicians and call me back Time: 09:40 Reevaluation #2: Noted that patient has an allergy to Keflex, this is a rash allergy, he has tolerated Zosyn in the past without reaction and will give this for appropriate coverage of his intra-abdominal fluid collections Consultations: Consultation #1: I spoke with a Dr. Moya, of hospitalist medicine at [facility], they accept patient for transfer of the 24-hour priority, will monitor patient on IV antibiotics in the ER until we have a bed available, may attempt to admit to hospitalist overnight if no beds will become available today but will discuss with transfer center later in the afternoon on timing. Time: 10:00 Vital Signs: Vital signs: Vital Signs Temperature 98.1 F 04/12/25 07:55 Pulse Rate 83 04/12/25 10:05 Respiratory Rate 18 04/12/25 10:05 Blood Pressure 138/91 04/12/25 10:05 Pulse Oximetry 96 04/12/25 10:05 Oxygen Delivery Me thod Room Air 04/12/25 10:05 MDM - Abdominal Pain Medical Decision Making 49-year-old male past medical history significant for complicated subtotal cholecystectomy complicated by low volume bile leak, prolonged drain placement, ERCP requiring biliary stent placement complicated by acute pancreatitis admitted to [place] for this, SVT bilateral upper extremities briefly on Eliquis which was discontinued a week ago and switched to aspirin, presenting with new onset of unfamiliar left lower quadrant abdominal pain without significant associated symptoms or peritoneal abdomen on exam, stable vital signs, plan for labs urine CT scan to assess for acute intra-abdominal abscess or surgical pathology, rule out kidney stone/UTI pyelonephritis, offered pain medication but patient currently declined as he is somewhat comfortable while not moving and not being touched reports the pain is mostly with movement and/or palpation, reassess for disposition Lab Data Labs with no anemia, no leukocytosis, minimally elevated lipase 90, mild thrombocytosis 456 improving from prior, normal creatinine, bilirubin, LFTs 04/12/25 08:00 04/12/25 08:00 Labs/Radiology: Radiology Impressions Abdomen/Pelvis CT 04/12/25 08:05 IMPRESSION: 1. Multiple complex peritoneal, retroperitoneal, and pelvic collections are most compatible with multifocal abscesses. Some of these collections may be amenable to image guided drainage. Underlying neoplasm considered less likely given short term development. Recommend continued imaging follow-up to resolution. 2. Status post cholecystectomy with ill-defined fluid and gas in the surgical bed which may communicate with the extrahepatic bile duct. Findings could represent abscess versus a dilated remnant cystic duct. If there is concern for biliary leakage, HIDA scan could be considered for further evaluation. 3. Plastic biliary stent extending from the johanny hepatis into the duodenum. 4. Enlarged left lower quadrant mesenteric lymph nodes are likely reactive. Attention on follow-up recommended. Laboratory Results WBC 9.53 10^3/uL (3.29-11.43) 04/12/25 08:00 RBC 4.60 10^6/uL (3.85-5.65) 04/12/25 08:00 Hgb 13.50 g/dL (11.27-16.99) 04/12/25 08:00 Hct 40.7 % (37-53) 04/12/25 08:00 MCV 88.5 fl (82-101) 04/12/25 08:00 MCH 29.3 pg (27-33) 04/12/25 08:00 MCHC 33.2 g/dL (30-55) 04/12/25 08:00 RDW 13.1 % (12.1-15.1) 04/12/25 08:00 Plt Count 456 10^3/cmm (157-399) H 04/12/25 08:00 MPV 9.4 fL (7.4-10.4) 04/12/25 08:00 Neut % (Auto) 72.7 % 04/12/25 08:00 Lymph % (Auto) 13.4 % 04/12/25 08:00 Dodge % (Auto) 9.3 % 04/12/25 08:00 Eos % (Auto) 3.3 % 04/12/25 08:00 Baso % (Auto) 0.9 % 04/12/25 08:00 Neut # (Auto) 6.92 10^3/uL (1.8-7.7) 04/12/25 08:00 Lymph # (Auto) 1.3 10^3/uL (0.8-4.8) 04/12/25 08:00 Dodge # (Auto) 0.9 10^3/uL (0.2-0.9) 04/12/25 08:00 Eos # (Auto) 0.3 10^3/uL (0.0-0.8) 04/12/25 08:00 Baso # (Auto) 0.1 10^3/uL (0.0-0.1) 04/12/25 08:00 Nucleated RBC % (auto) 0 % 04/12/25 08:00 Nucleated RBCs # 0.0 /100WBC 04/12/25 08:00 Sodium 137 mmol/L (136-145) 04/12/25 08:00 Potassium 4.0 mmol/L (3.5-5.1) 04/12/25 08:00 Chloride 101 mmol/L (98-107) 04/12/25 08:00 Carbon Dioxide 24 mmol/L (22-29) 04/12/25 08:00 Anion Gap 16.0 (5-19) 04/12/25 08:00 BUN 9 mg/dL (6-20) 04/12/25 08:00 Creatinine 0.7 mg/dL (0.7-1.2) 04/12/25 08:00 GFR Calculation 120.9 mL/min (90-130) 04/12/25 08:00 Glucose 97 mg/dL (65-115) 04/12/25 08:00 Calculated Osmolality 283 mOsm/kg (285-295) L 04/12/25 08:00 Lactic Acid 0.8 mmol/L (0.5-2.2) 04/12/25 08:00 Calcium 9.6 mg/dL (8.5-10.5) 04/12/25 08:00 Total Bilirubin 0.4 mg/dL (0.15-1.2) 04/12/25 08:00 AST 23 U/L (0-40) 04/12/25 08:00 ALT 38 U/L (0-41) 04/12/25 08:00 Alkaline Phosphatase 91 U/L (40-130) 04/12/25 08:00 Total Protein 7.5 g/dL (6.6-8.7) 04/12/25 08:00 Albumin 4.0 g/dL (3.5-5.2) 04/12/25 08:00 Globulin 3.5 g/dL (1.3-4.6) 04/12/25 08:00 Lipase 94 U/L (13-60) H 04/12/25 08:00 Urine Color Yellow (Yellow) 04/12/25 08:36 Urine Appearance Clear (CLEAR) 04/12/25 08:36 Urine pH 5.5 (5-7) 04/12/25 08:36 Ur Specific Granite 1.021 (1.005-1.030) 04/12/25 08:36 Urine Protein Trace (Negative) A 04/12/25 08:36 Urine Glucose (UA) Negative (Normal) 04/12/25 08:36 Urine Ketones Negative (Negative) 04/12/25 08:36 Urine Blood Negative (Negative) 04/12/25 08:36 Urine Nitrate Negative (Negative) 04/12/25 08:36 Urine Bilirubin Negative (Negative) 04/12/25 08:36 Urine Urobilinogen 0.2 mg/dL (Negative) 04/12/25 08:36 Ur Leukocyte Esterase Negative (Negative) 04/12/25 08:36 Urine RBC 0-2 /hpf (0-2) 11 08:36 Urine WBC 0-5 /hpf (0-5) 11 08:36 Ur Squamous Epith Cells 0-5 /hpf (0-5) 04/12/25 08:36 Amorphous Sediment Not Reportable 04/12/25 08:36 Urine Bacteria None seen /hpf (NONE) 04/12/25 08:36 Hyaline Casts 0.81 /lpf 04/12/25 08:36 All radiology interpretation(s) finalized by discharge ED provider radiology interpretation(s): CT showing multiple intraperitoneal and retroperitoneal and pelvic fluid collections consistent with multifocal abscess, there is also fluid near the surgical bed, no bowel perforation Discharge Plan Discharge Patient Disposition: Xfer Short-Term Hosp Clinical Impression: Intra-abdominal abscess Condition: Stable Referrals: Chandu Nassar DO [Primary Care Provider, [facility]] Patient Instructions: Abdominal Pain (ED) Print Language: [place] Coding Level of Care Code ED Manager Night for Luz Marina Francis
[2025-04-12 08:12] LABS: Hematocrit 40.7 % (37-53); Hemoglobin 13.50 g/dL (11.27-16.99); Mean Corpuscular HGB Conc 33.2 g/dL (30-55); Mean Corpuscular Hemoglobin 29.3 pg (27-33); Mean Corpuscular Volume 88.5 fl (82-101); Nucleated Red Blood Cells % 0 %; Platelet Count 456 10^3/cmm (157-399); Red Blood Count 4.60 10^6/uL (3.85-5.65); White Blood Count 9.53 10^3/uL (3.29-11.43)
[2025-04-12 08:23] LABS: Alanine Aminotransferase 38 U/L (0-41); Albumin Level 4.0 g/dL (3.5-5.2); Alkaline Phosphatase 91 U/L (40-130); Anion Gap 16.0 (5-19); Aspartate Amino Transferase 23 U/L (0-40); Blood Urea Nitrogen 9 mg/dL (6-20); Calcium 9.6 mg/dL (8.5-10.5); Carbon Dioxide 24 mmol/L (22-29); Chloride 101 mmol/L (98-107); Creatinine Clr Calc Pharmacy 133.6476; Globulin 3.5 g/dL (1.3-4.6); Glucose 97 mg/dL (65-115); Lipase 94 U/L (13-60); Osmolality Calculated 283 mOsm/kg (285-295); Potassium 4.0 mmol/L (3.5-5.1); Sodium 137 mmol/L (136-145); Total Protein 7.5 g/dL (6.6-8.7)
[2025-04-12] MEDS: iohexol 350 mg/mL 500 mL Btl (per mL) IV (08:41)
[2025-04-12 08:43] LABS: Glucose Urine UA Negative (Normal); Nitrate Urine Negative (Negative); Specific Gravity, Urine 1.021 (1.005-1.030)
[2025-04-12 09:12] VITALS: BP 129/88; PULSE 77; RESP 23; O2SAT 96
[2025-04-12] MEDS: piperacillin-tazobactam 4.5 GM in sodium chloride 0.9% (plus) 50 ML IV (09:58)
[2025-04-12 10:02] LABS: Lactic Sepsis W/Reflex 0.8 mmol/L (0.5-2.2)
[2025-04-12 10:05] VITALS: BP 138/91; PULSE 83; RESP 18; O2SAT 96
[2025-04-12 12:09] VITALS: BP 123/86; PULSE 88; RESP 19; O2SAT 96
[2025-04-12 12:13] VITALS: BP 123/86; PULSE 77; O2SAT 96
[2025-04-14 13:20] LABS: Bacillus cereus group Not Detected (NOT DETECT); Bacillus subtillis group Not Detected (NOT DETECT); Corynebacterium Not Detected (NOT DETECT); Cutibacterium acnes (P.acnes) Not Detected (NOT DETECT); Enterococcus faecalis Not Detected (NOT DETECT); Enterococcus faecium Not Detected (NOT DETECT); Listeria Not Detected (NOT DETECT); Micrococcus Not Detected (NOT DETECT); Pan Candida Not Detected (NOT DETECT); Pan Gram-Negative Not Detected (NOT DETECT); Staphylococcus epidermidis Not Detected (NOT DETECT); Staphylococcus lugdunensis Not Detected (NOT DETECT); Staphylococcus species Not Detected (NOT DETECT); Streptococcus anginosus group Not Detected (NOT DETECT); Streptococcus pyogenes Not Detected (NOT DETECT); Streptococcus species Not Detected (NOT DETECT)
== END 2025-04-12 12:15 | disposition short-term general hospital (02) ==
PROVIDERS: Emergency Provider Student in an Organized Health Care Education/Training Program; PCP Electrodiagnostic Medicine
DX: L02.211 Cutaneous abscess of abdominal wall (principal)
CPT/HCPCS: 36415; 74177; 80053; 81001; 83605; 83690; 85025; 87040; 96365; 96366; 96375; 99285; J2543; J3373; J9999

== ENCOUNTER 2025-04-27 10:00 | Emergency (ER) | payer BC, SELFPAY ==
[2025-04-27] VITALS (11 sets, daily range): BP systolic 103–118; BP diastolic 64–77; PULSE 81–116; TEMP 36.9–37; O2SAT 92–99; BMI 25.8
--- OUTSIDE RECORDS SUMMARY | 2025-04-27 10:05 | XMS_ITS | Continuity of Care Document ---
Author Organization KAYLA Owens [facility] Stephen, Vannesa, [facility] ([facility]) Address [address] [place] [address] Care Team Providers Care Media Analyst Name Role Phone COLIN NASSAR Primary Care Provider Unavailabl e Assessment No assessment recorded. Plan of Treatment Reminders Order Date Submit Date Provider Last Modified By Organization Details Last Modified Time Details Appointments RECHECK 10 2024 01:00P Nadia Nassar, DO Not available Not available Not available Lab CBC 2024 [facility], [address], [facility] [address], [place], [address], 03/26/2025 14:37:45 CMP, serum or plasma 2024 025 [facility], [address], [facility] [address], [place], [address], 03/26/2025 15:21:43 Referral None recorded . Procedures None recorded . Surgeries None recorded . Imaging None recorded . Medication Orders None recorded . Patient TargetsNo targets recorded. Patient InstructionsNo instructions recorded. Reason for Referral None Reported. Results Created Date Observation Date Name Description Value Unit Range Abnormal Flag Note LastModifiedBy Organization Detail LastModifiedTime 03/26/2003/26/2025 CBC WBC 16.0 x10 4.5-10 .5 high Not Available [facility] [address] [place] [address], [place], [address], 03/26/2025 14:37:45 03/26/2003/26/2025 CBC RBC 4.06 x10 4.30-5 .90 low Not Available [facility] [address] [facility] [address], [place], [address], 03/26/2025 14:37:45 03/26/2003/26/2025 CBC HGB 12.3 g/dL 13.5-1 8.0 low Not Available [facility] [address] [facility] [address], [place], [address], 03/26/2025 14:37:45 03/26/2003/26/2025 CBC HCT 37.5 % 35.0-6 0.0 Not Available [facility] [address] [facility] [address], [place], [address], 03/26/2025 14:37:45 03/26/2003/26/2025 CBC MCV 92.4 fL 80.0-9 9.9 Not Available [facility] [address] [facility] [address], [place], [address], 03/26/2025 14:37:45 03/26/2003/26/2025 CBC MCH 30.3 pg 27.0-3 2.0 Not Available [facility] [address] [facility] [address], [place], [address], 03/26/2025 14:37:45 03/26/2003/26/2025 CBC MCHC 32.9 g/dL 32.0-3 6.0 Not Available [facility] [address] [facility] [address], [place], [address], 03/26/2025 14:37:45 03/26/2003/26/2025 CBC RDW 13.6 % 11.5-1 4.5 Not Available [facility] [address] [facility] [address], [place], [address], 03/26/2025 14:37:45 03/26/20 25 03/26/2025 CBC plt 849.3 x10 150.0- 451.0 high Not Available [facility] [address] [place] [address], [place], [address], 03/26/2025 14:37:45 03/26/20 25 03/26/2025 CBC lymphocytes % 11.2 % 20.0-5 0.0 low Not Available [facility] [address], [place], [address], 03/26/2025 14:37:45 03/26/2003/26/2025 CBC granulcytes % 75.5 % 30.0-7 0.0 high Not Available [facility] [address] [address], [place], [address], 03/26/2025 14:37:45 03/26/20 25 03/26/2025 CBC monocytes % 9.2 % 2.0-16 .0 Not Available [facility] [address] [address], [place], [address], 03/26/2025 14:37:45 03/26/20 25 03/26/2025 CBC granulcytes# 12.1 x10 Not Merlyn ilable [facility] [address] [address], [place], [address], 03/26/2025 14:37:45 03/26/20 25 03/26/2025 CBC lymphocytes # 1.8 x10 Not Available [facility] [address] [address], [place], [address], 03/26/2025 14:37:45 03/26/20 25 03/26/2025 CBC monocytes # 1.5 x10 Not Avai lable [facility] [address] [address], [place], [address], 03/26/2025 14:37:45 03/26/20 25 03/26/2025 CMP (MALE ) glucose 133.0 mg/dL 60.0-9 9.0 high Not Available [facility] [address] [facility], [place], [address], 03/26/2025 15:21:43 03/26/20 25 03/26/2025 CMP (MALE ) BUN (blood urea nitrogen) 12.0 mg/dL 10.0-2 6.0 Not Available [facility] [address] [facility] [address], [place], [address], 03/26/2025 15:21:43 03/26/20 25 03/26/2025 CMP (MALE ) creatinine (serum) 0.9 mg/dL 0.4-1. 5 Not Available [facility] [address] [facility] 1, [place], [address], 03/26/2025 15:21:43 03/26/20 25 03/26/2025 CMP (MALE ) BUN/creatini ne ratio 13.33 ratio Not Available [facility] [address] [facility] 1, [place], [address], 03/26/2025 15:21:43 03/26/20 25 03/26/2025 CMP (MALE ) eGFR calculated 96.[address] [facility] [address] [facility] [address], [place], [address], 03/26/2025 15:21:43 03/26/20 25 03/26/2025 CMP (MALE ) total protein 6.9 g/dL 6.0-8. 5 Not Available [facility] [address] [facility] 1, [place], [address], 03/26/2025 15:21:43 03/26/20 25 03/26/2025 CMP (MALE ) total bilirubin 0.5 mg/dL 0.2-1. 3 Not Available [facility] [address] [address], [place], [address], 03/26/2025 15:21:43 03/26/20 25 03/26/2025 CMP (MALE ) albumin 3.1 g/dL 3.5-5. 5 low Not Available [facility] [address] [address], [place], [address], 03/26/2025 15:21:43 03/26/2003/26/2025 CMP (MALE ) globulin 3.8 calc Not Available [facility] [address] [address], [place], [address], 03/26/2025 15:21:43 03/26/20 25 03/26/2025 CMP (MALE ) AST (SGOT) 61.0 U/L 0.0-46 .0 high Not Available [facility] [address] [address], [place], [address], 03/26/2025 15:21:43 03/26/20 25 03/26/2025 CMP (MALE ) altv (SGPT) 39.0 U/L 13.0-6 9.0 normal Not Available [facility] [address] [address], [place], [address], 03/26/2025 15:21:43 03/26/20 25 03/26/2025 CMP (MALE ) A/G ratio 0.8 ratio Not Available [facility] [address], [address], 03/26/2025 15:21:43 03/26/20 25 03/26/2025 CMP (MALE ) ALP phos 128.0 U/L 30.0-1 40.0 normal Not Available [facility] [address] [place], [address], 03/26/2025 15:21:43 03/26/2003/26/2025 CMP (MALE ) calcium 8.5 mg/dL 8.4-10 .5 Not Available [facility] [address] [facility], [place], [address], 03/26/2025 15:21:43 03/26/20 25 03/26/2025 CMP (MALE ) sodium 131.0 mmol/ L 136.0- 145.0 low Not Available [facility] [address] [facility] [address], [place], [address], 03/26/2025 15:21:43 03/26/2003/26/2025 CMP (MALE ) potassium 4.4 mmol/ L 3.5-5. 1 Not Available [facility] [address] [place] [address], [place], [address], 03/26/2025 15:21:43 03/26/2003/26/2025 CMP (MALE ) chloride 97.0 mmol/ L 98.0-1 10.0 abnormal Not Available [facility] [address] [place] [address], [place], [address], 03/26/2025 15:21:43 03/26/20 25 03/26/2025 CMP (MALE ) C02 30.0 mmol/ L 22.0-3 1.0 Not Available [facility] [address] [place] [address], [place], [address], 03/26/2025 15:21:43 03/26/2003/26/2025 CMP (MALE ) anion gap 4.0 calc Not Available [facility] [address], [place], [address], 03/26/2025 15:21:43 03/26/2003/26/2025 CMP (MALE ) osmolality 272.7 calc Not Available [facility] [address], [place], [address], 03/26/2025 15:21:43 Result Notes None recorded. Problems Name Problem SNOMED Code Status Onset Date Resolution Date Notes Provider Name and Address Organization Details Recorded Time Metabolic syndrome X 442000234 Active 2022 Colin Nassar [address], [address], [facility] 4 14:10:14 Adult health examination Active 2022 Colin Nassar [address], [address], [facility] 3 14:59:23 Obesity 122998194 Active 2022 Colin Nassar [address], [address], [facility] 3 14:59:40 Chronic recurrent sinusitis 849868584 Active 2022 Colin Nassar [address], [address], [facility] 3 15:25:55 Mixed hyperlipide digna 890903903 Active 2023 Colineros Nassar [address], [address], [facility] 4 09:57:35 Leukocytosi s 267725922 Active 2024 Colineros Nassar [address], [address], [facility] 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 13:02:19 Reactive depression (situationa l) 11249535 Active [address], [address] [place] [address] 5, [facility] 08:06:48 Acute pancreatiti s 264456358 Active [address], [address] [place] [address] 5, [facility] 08:06:50 Acute cholecystit is 75074854 Active [address], [address] [place] [address] 5, [facility] 08:06:52 Gallstone acute pancreatiti s 270939865 Active [address], [address] [place] [address] 5, [facility] 07:06:29 Problem Notes None recorded. Medical Equipment None Reported. Allergies Allergen ID Allergen Name Allergen Category Reaction Reaction Severity Criticality Documentation Date Start Date Code Code System Note Provider Name and Address Organization Details Recorded Time 55563 Keflex medicatio n Not available Not available Not available 12/31/2022 7 RxNorm Comme nt: Recor ded 04/25 1:57P M by Ligia Rothman n, Offic e Visit ; Promo sondra; Dee roth ce: *; Reaso n: Drug aller gy; ; Not Available [employer] 3 02:27:06 72036 cephalexi n medicatio n Not available Not available Not available 04/21/20252024 2231 RxNorm Not Available walker - External Data Service - prod 09:22:34 Medications Name Sig Start Date Stop Date Status Note LastModified by Organization Details LastModified Time Normal Saline Flush 0.9 % injection syringe USE THREE ML by intracath eter route EVERY EIGHT hours active Not Available Not Available No t Available ondansetron HCl 8 mg tablet TAKE ONE [...] Not Available Not Available No t Available amoxicillin 875 mg-veronica m clavulanate 125 mg tablet TAKE ONE TABLET BY MOUTH TWICE DAILY with morning AND evening meal FOR 22 DAYS active Not Available Not Available No [...] mass index (BMI) Body weight Oxygen saturation Heart rate Respiratory rate Systolic And Diastolic Provider Name and Address Organization Details Last Updated DateTime 172.72 cm 26.5 kg/m2 75594.8 7 g 98 % 107 /min 18 /min 124/72 mm[Hg] Leticia Moreira [facility] 15:14:28 Social History None recorded. Functional Status Question Answer Note LastModified by Organizat ion Details LastModified Time Do you use any illicit or recreational drugs? No [email or web address] Information not available 05/01/2023 Do you or have you ever used any other forms of tobacco or nicotine? No [email or web address] Information not available 05/01/2023 What is your level of alcohol consumption? None [email or web address] Information not available 05/01/2023 Mental Status None recorded. Family History Relationship Description Onset Age of this Age Resolved Age Notes LastModified by Organization Details LastModified Time Father Coronary arterioscler osis 65 father with AMI late 60s [email or web address] Not available 05/01/2023 15:28:02 Medical History No medical history recorded. Immunizations Vaccine Type Date Status Note Provider Nam e and Address Organization Details Recorded Time Influenza, MDCK, quadrivalent, PF 05/03/2017 completed Leticia castillo [facility] 05/07/2024 09:23:05 COVID-19, mRNA, LNP-S, PF, 30 mcg/0.3 mL dose 01/02/2021 completed Leticia castillo [facility] 05/07/2024 09:23:05 COVID-19, mRNA, LNP-S, PF, 30 mcg/0.3 mL dose 01/23/2021 [facility] [place] 05/07/2024 09:23:05 Past Encounters Encounter ID Performer Location Encounter Start Date Encounter Closed Date Diagnosis/Indication Diagnosis SNOMED-CT Code Diagnosis ICD10 Code Diagnosis IMO Codes Diagnosis Note [id number] Colin Nassar DO [facility] ([facility]) [address] [place] [address] 03/26/2025 14:20:32 03/27/2025 13:03:22 Acute cholecystitis 46110372 K81.0 9456 03/26/25: Necrotic s/p parrtial excsion from laproscopi c turned open cholecyste ctemoy at [facility] feb 2025 requiring GB drain. complicate d by duct obstructio n, sepsis, pancreatit is with [address] [facility]. He has been on abx for 30 days. He continues with refractory leukocytos is, weight loss, fatigue, anemic, and significna tly elevated platelets. I cunseled stop abx tx, he has been on this for >1 month, this is likely effecting his nutrition, elevated WBC likely not d/t infection. F/u with me in one week, lab then, CBC, CMP, lipase, CRP. Acute pancreatitis 44118 6007 K85.90 [id number] 03/26/25: 2/2 stone post GB excision feb 2025.will follow labs, continue antiemetic s, Start Creon, Counseled on diagnosis, treatment options including medication s and possible side effects. Hyperbilirubinemia 43957 006 E80.6 82396 Leukocytosis 483330284 D 72.829 [id number] since initial GB surgery, persistent . unclear etiology. has been evaluated by Hematology and ID at [facility]. determined NOT to be from infection or cancer. Will monitor labs weekly for now: Cbc, crp. Reactive d epression (situational) 06180212 F43.21 [id number] 03/26/25: Post lengthy hospitaliz ation, start Sertraline 25mg daily, Counseled on diagnosis, treatment options including medication s and possible side effects. Bilateral upper limb superficial vein thrombophlebitis 3424409120 4256637 I80.8 [id number] 03/26/25: Dc'd from [facility] on Eliquis, will continue 5mg BID at this time. [id number] Colin Nassar DO [place] ([facility]) [address] [place] [address] 03/26/2025 14:22:27 03/27/2025 13:03:41 Post-discharge follow-up [id number] Z09 382508 Health Concerns Section Related Observation LastModified by Organization Detai ls LastModified Time None Recorded Concern Status LastModified by Organization Details LastModified Time None Recorded Payers Encounter Date Sequence Insurance Name Policy Number Policy Amaya Covered Member ID Amaya Member ID Guarantor Name 03/26/2025 1 [employer] [id number] Edwin Keita [id number] Edwin Bobby Neela Notes Date Note Type Note Provider Name and Address Organization Details Recorded Time 03/26/2025 text/html ROS as noted in the HPI Pt presents for hospital f/u He went in 02/08/25 for laparoscopic cholecystectomy that was converted to open d/t inflammation in [facility]. Spouse reports only partial gallbladder removal. Drain placed. Started draining yellow, urgent referal placed by his Gen Surg for ERCP. He continued to have pain and drainage so he went to [facility] ER and ended up transferred to [facility] for ERCP. His WBC was up to 43, prolonging his hospital stay. WBC 15.2 per spouse on day of hospital d/c. Plt also increased. Na low, was on Sodium tablets in the hospital, last 133 when checked prior to dc. Dx:Acute cholecystitis, Acute Pancreatitis, bile leak, Hyperbilirubinemia, Luekocytosis. HOSPITAL COURSE SUMMARY Edwin Keita is a 49 y.o. male who was admitted for further evaluation of abdominal pain and vomiting. Patient was treated for necrotizing cholecystitis with partial cholecystectomy on 02/08 at [place]. During a follow-up, his bilirubin was elevated and was concern for leak. Patient's bilirubin has been gradually increasing and he is jaundiced. Patient's drainage is darker. He has been experiencing upper abdominal pain since yesterday morning and went to ER at [facility]. Patient started vomiting last night and continues [...] Agreeable to post-pyloric feeding tube. Will proceed. Submarine Element Coordinator consult as well. 03/09: Patient appears more [...] antibiotic therapy, postpyloric tube feeding. Significant diarrhea, plant pathologist requested to add stool bulking agent to [...] he can f/u with Hepato specialist in [place] when improved, to discuss further removal of [...] decreased to 5mg.No longer taking Ozempic. Colin Nassar, DO [address] [place] [address], [id number], [facility] 03/27/2025 13:03:28
--- OUTSIDE RECORDS SUMMARY | 2025-04-27 10:05 | XMS_ITS | Continuity of Care Document ---
Author Organization KAYLA - Braulio Owens [facility] Stephen, LSvetlana, [facility] ([facility]) Address [address] [place] [address] Care Team Providers Care Undercover Agent Name Role Phone COLIN NASSAR Primary Care Provider Unavailabl e Assessment Encounter Date Assessment Date Assessment LastModified by Organization Details LastModified Time 04/02/2025 04/02/2025 Document scribed by Rashad Padilla Gauge Checker. I was present during interview and exam. I have reviewed and agree with above documentation . Dr. Colin Nassar. Reviewed and discussed repeat lab, improving other than Platelets. [email or web address] Not available 04/02/2025 09:57:02 Plan of Treatment Reminders Order Date Submit Date Provider Last Modified By Organization Details Last Modified Time Details Appointments RECHECK 10 2024 01:00P M Colin Nassar, DO Not available Not available Not available Lab None recorded . Referral None recorded . Procedures None recorded . Surgeries None recorded . Imaging None recorded . Medication Orders None recorded . Patient TargetsNo targets recorded. Patient InstructionsNo instructions recorded. Reason for Referral None Reported. Results Created Date Observation Date Name Description Value Unit Range Abnormal Flag Note LastModifiedBy Organization Detail LastModifiedTime 03/26/2003/26/2025 CBC WBC 16.0 x10 4.5-10 .5 high Not Available [facility] [address], [place], [address], 03/26/2025 14:37:45 03/26/20 25 03/26/2025 CBC RBC 4.06 x10 4.30-5 .90 low Not Available [facility] [address], [place], [address], 03/26/2025 14:37:45 03/26/2003/26/2025 CBC HGB 12.3 g/dL 13.5-1 8.0 low Not Available [facility] [address] [facility] [address], [place], [address], 03/26/2025 14:37:45 03/26/2003/26/2025 CBC HCT 37.5 % 35.0-6 0.0 Not Available [facility] [address] [facility], [place], [address], 03/26/2025 14:37:45 03/26/2003/26/2025 CBC MCV 92.4 fL 80.0-9 9.9 Not Available [facility] [address] [facility], [place], [address], 03/26/2025 14:37:45 03/26/2003/26/2025 CBC MCH 30.3 pg 27.0-3 2.0 Not Available [facility] [address] [facility], [place], [address], 03/26/2025 14:37:45 03/26/2003/26/2025 CBC MCHC 32.9 g/dL 32.0-3 6.0 Not Available [facility] [address] [facility], [place], [address], 03/26/2025 14:37:45 03/26/2003/26/2025 CBC RDW 13.6 % 11.5-1 4.5 Not Available [facility] [address] [facility] [address], [place], [address], 03/26/2025 14:37:45 03/26/2003/26/2025 CBC plt 849.3 x10 150.0- 451.0 high Not Available [facility] [address], [place], [address], 03/26/2025 14:37:45 03/26/2003/26/2025 CBC lymphocytes % 11.2 % 20.0-5 0.0 low Not Available [facility] [address], [place], [address], 03/26/2025 14:37:45 03/26/2003/26/2025 CBC granulcytes % 75.5 % 30.0-7 0.0 high Not Available [facility] [address], [place], [address], 03/26/2025 14:37:45 03/26/2003/26/2025 CBC monocytes % 9.2 % 2.0-16 .0 Not Available [facility] [address] [address], [place], [address], 03/26/2025 14:37:45 03/26/2003/26/2025 CBC granulcytes# 12.1 x10 Not Merlyn ilable [facility] [address] [address], [place], [address], 03/26/2025 14:37:45 03/26/2003/26/2025 CBC lymphocytes # 1.8 x10 Not Available [facility] [address] [address], [place], [address], 03/26/2025 14:37:45 03/26/2003/26/2025 CBC monocytes # 1.5 x10 Not Avai [facility]able [facility] [address] [address], [place], [address], 03/26/2025 14:37:45 03/26/2003/26/2025 CMP (MALE ) glucose 133.0 mg/dL 60.0-9 9.0 high Not Available [facility] [address], [place], [address], 03/26/2025 15:21:43 03/26/20 25 03/26/2025 CMP (MALE ) BUN (blood urea nitrogen) 12.0 mg/dL 10.0-2 6.0 Not Available [facility] [address] [facility], [place], [address], 03/26/2025 15:21:43 03/26/20 25 03/26/2025 CMP (MALE ) creatinine (serum) 0.9 mg/dL 0.4-1. 5 Not Available [facility] [address] [facility], [place], [address], 03/26/2025 15:21:43 03/26/20 25 03/26/2025 CMP (MALE ) BUN/creatini ne ratio 13.33 ratio Not Available [facility] [address], [place], [address], 03/26/2025 15:21:43 03/26/20 25 03/26/2025 CMP (MALE ) eGFR calculated 96.1 Not Available [facility] [address], [place], [address], 03/26/2025 15:21:43 03/26/20 25 03/26/2025 CMP (MALE ) total protein 6.9 g/dL 6.0-8. 5 Not Available [facility] [address], [place], [address], 03/26/2025 15:21:43 03/26/20 25 03/26/2025 CMP (MALE ) total bilirubin 0.5 mg/dL 0.2-1. 3 Not Available [facility] [address] [facility], [place], [address], 03/26/2025 15:21:43 03/26/20 25 03/26/2025 CMP (MALE ) albumin 3.1 g/dL 3.5-5. 5 low Not Available [facility] [address] [place] [facility] 1, [place], [address], 03/26/2025 15:21:43 03/26/20 25 03/26/2025 CMP (MALE ) globulin 3.8 calc Not Available [facility] [address], [place], [address], 03/26/2025 15:21:43 03/26/20 25 03/26/2025 CMP (MALE ) AST (SGOT) 61.0 U/L 0.0-46 .0 high Not Available [facility] [address], [place], [address], 03/26/2025 15:21:43 03/26/20 25 03/26/2025 CMP (MALE ) altv (SGPT) 39.0 U/L 13.0-6 9.0 normal Not Available [facility] [address], [place], [address], 03/26/2025 15:21:43 03/26/20 25 03/26/2025 CMP (MALE ) A/G ratio 0.8 ratio Not Available [facility] [address], [place], [address], 03/26/2025 15:21:43 03/26/20 25 03/26/2025 CMP (MALE ) ALP phos 128.0 U/L 30.0-1 40.0 normal Not Available [facility] [address] [place] [facility], [place], [address], 03/26/2025 15:21:43 03/26/20 25 03/26/2025 CMP (MALE ) calcium 8.5 mg/dL 8.4-10 .5 Not Available [facility] [address], [place], [address], 03/26/2025 15:21:43 03/26/20 25 03/26/2025 CMP (MALE ) sodium 131.0 mmol/ L 136.0- 145.0 low Not Available [facility] [address], [place], [address], 03/26/2025 15:21:43 03/26/2003/26/2025 CMP (MALE ) potassium 4.4 mmol/ L 3.5-5. 1 Not Available [facility] [address] [facility] [address], [place], [address], 03/26/2025 15:21:43 03/26/20 25 03/26/2025 CMP (MALE ) chloride 97.0 mmol/ L 98.0-1 10.0 abnormal Not Available [facility] [address] [facility] [address], [place], [address], 03/26/2025 15:21:43 03/26/20 25 03/26/2025 CMP (MALE ) C02 30.0 mmol/ L 22.0-3 1.0 Not Available [facility] [address], [place], [address], 03/26/2025 15:21:43 03/26/20 25 03/26/2025 CMP (MALE ) anion gap 4.0 calc Not Available [facility] [address], [place], [address], 03/26/2025 15:21:43 03/26/20 25 03/26/2025 CMP (MALE ) osmolality 272.7 calc Not Available [facility] [address] [facility] 1, [place], [address], 03/26/2025 15:21:43 04/01/2004/01/2025 CBC WBC 12.2 x10 high Not Available [facility] [address] [facility] [address], [place], [address], 04/01/2025 13:12:43 04/01/2004/01/2025 CBC RBC 4.24 x10 low Not Available [facility] [address] [facility], [place], [address], 04/01/2025 13:12:43 04/01/2004/01/2025 CBC HGB 12.7 g/dL low Not Available [facility] [address] [facility], [place], [address], 04/01/2025 13:12:43 04/01/2004/01/2025 CBC HCT 39.3 % Not Available [facility] [address] [facility], [place], [address], 04/01/2025 13:12:43 04/01/2004/01/2025 CBC MCV 92.6 fL Not Available [facility] [address] [facility], [place], [address], 04/01/2025 13:12:43 04/01/2004/01/2025 CBC MCH 30.0 pg Not Available [facility] [address] [facility] 1, [place], [address], 04/01/2025 13:12:43 04/01/2004/01/2025 CBC MCHC 32.4 g/dL Not Available [facility] [address] [facility], [place], [address], 04/01/2025 13:12:43 04/01/2004/01/2025 CBC RDW 14.2 % Not Available [facility] [address] [address], [place], [address], 04/01/2025 13:12:43 04/01/2004/01/2025 CBC plt 877.5 x10 high Not Available [facility] [address] [address], [place], [address], 04/01/2025 13:12:43 04/01/2004/01/2025 CBC lymphocytes % 14.1 % low Not Available [facility] [address] [address], [place], [address], 04/01/2025 13:12:43 04/01/2004/01/2025 CBC granulcytes % 74.2 % high Not Available [facility] [address] [address], [place], [address], 04/01/2025 13:12:43 04/01/2004/01/2025 CBC monocytes % 8.7 % Not [facility] [address] [address], [place], [address], 04/01/2025 13:12:43 04/01/2004/01/2025 CBC granulcytes# 9.1 x10 Not Merlyn ilable [facility] [address] [address], [place], [address], 04/01/2025 13:12:43 04/01/2004/01/2025 CBC lymphocytes # 1.7 x10 Not Available [facility] [address] [address], [place], [address], 04/01/2025 13:12:43 04/01/2004/01/2025 CBC monocytes # 1.1 x10 Not [facility] [address] [facility] [address], [place], [address], 04/01/2025 13:12:43 04/01/2004/01/2025 CMP (MALE ) glucose 148.0 mg/dL 60.0-9 9.0 high Not Available [facility] [address] [facility], [place], [address], 04/01/2025 14:20:52 04/01/20 25 04/01/2025 CMP (MALE ) BUN (blood urea nitrogen) 11.0 mg/dL 10.0-2 6.0 Not Available [facility] [address] [facility] 1, [place], [address], 04/01/2025 14:20:52 04/01/20 25 04/01/2025 CMP (MALE ) creatinine (serum) 0.8 mg/dL 0.4-1. 5 Not Available [facility] [address], [place], [address], 04/01/2025 14:20:52 04/01/20 25 04/01/2025 CMP (MALE ) BUN/creatini ne ratio 13.75 ratio Not Available [facility] [address] [facility], [place], [address], 04/01/2025 14:20:52 04/01/20 25 04/01/2025 CMP (MALE ) eGFR calculated 110.1 Not Available [facility] [address] [place] [facility], [place], [address], 04/01/2025 14:20:52 04/01/20 25 04/01/2025 CMP (MALE ) total protein 7.4 g/dL 6.0-8. 5 Not Available [facility] [address] [facility], [place], [address], 04/01/2025 14:20:52 04/01/20 04/01/2025 CMP (MALE ) total bilirubin 0.5 mg/dL 0.2-1. 3 Not Available [facility] [address] [facility] [address], [place], [address], 04/01/2025 14:20:52 04/01/20 25 04/01/2025 CMP (MALE ) albumin 3.5 g/dL 3.5-5. 5 Not Available [facility] [address] [facility] 1, [place], [address], 04/01/2025 14:20:52 04/01/2004/01/2025 CMP (MALE ) globulin 3.9 calc Not Available [facility] [address] [facility] 1, [place], [address], 04/01/2025 14:20:52 04/01/20 25 04/01/2025 CMP (MALE ) AST (SGOT) 56.0 U/L 0.0-46 .0 high Not Available [facility] [address] [facility] 1, [place], [address], 04/01/2025 14:20:52 04/01/20 25 04/01/2025 CMP (MALE ) altv (SGPT) 68.0 U/L 13.0-6 9.0 normal Not Available [facility] [address] [facility] 1, [place], [address], 04/01/2025 14:20:52 04/01/20 25 04/01/2025 CMP (MALE ) A/G ratio 0.9 ratio Not Available [facility] [address] [facility] 1, [place], [address], 04/01/2025 14:20:52 04/01/20 25 04/01/2025 CMP (MALE ) ALP phos 103.0 U/L 30.0-1 40.0 normal Not Available [facility] [address] [place] [facility] 1, [place], [address], 04/01/2025 14:20:52 04/01/2004/01/2025 CMP (MALE ) calcium 9.1 mg/dL 8.4-10 .5 Not Available [facility] [address] [facility] [address], [place], [address], 04/01/2025 14:20:52 04/01/20 25 04/01/2025 CMP (MALE ) sodium 135.0 mmol/ L 136.0- 145.0 low Not Available [facility] [address] [facility] [address], [place], [address], 04/01/2025 14:20:52 04/01/20 25 04/01/2025 CMP (MALE ) potassium 3.7 mmol/ L 3.5-5. 1 Not Available [facility] [address] [facility] [address], [place], [address], 04/01/2025 14:20:52 04/01/20 25 04/01/2025 CMP (MALE ) chloride 97.0 mmol/ L 98.0-1 10.0 abnormal Not Available [facility] [address] [facility] [address], [place], [address], 04/01/2025 14:20:52 04/01/20 25 04/01/2025 CMP (MALE ) C02 32.0 mmol/ L 22.0-3 1.0 high Not Available [facility] [address] [facility] [address], [place], [address], 04/01/2025 14:20:52 04/01/20 25 04/01/2025 CMP (MALE ) anion gap 6.0 calc Not Available [facility] [address] [facility] [address] [facility] [address], [place], [address], 04/01/2025 14:20:52 04/01/2004/01/2025 CMP (MALE ) osmolality 281.1 calc Not Available [facility] [address] [facility] 1, [place], [address], 04/01/2025 14:20:52 04/01/2004/02/2025 C-LIZETH CTIVE PROTE IN C-reactive protein 5.3 mg/L <8.0 normal Not Available [facility] [address] [place], [address], 04/02/2025 09:32:12 04/01/2004/02/2025 LIPAS E lipase 174 U/L 7-60 high Not Available [facility] [address] [place], [address], 04/02/2025 09:32:13 Result Notes None recorded. Problems Name Problem SNOMED Code Status Onset Date Resolution Date Notes Provider Name and Address Organization Details Recorded Time Metabolic syndrome X 854139693 Active 2022 Colin Nassar [address], [address], [facility] 4 14:10:14 Adult health examination Active 2022 Colin Nassar [address], [address], [facility] 3 14:59:23 Obesity 195141758 Active 2022 Colin Nassar [address], [address], [facility] 3 14:59:40 Chronic recurrent sinusitis 196523791 Active 2022 Colin Nassar [address], [address], [facility] 3 15:25:55 Mixed hyperlipide digna 084444734 Active [address], [address] [place] [address] 5, [facility] 4 09:57:35 Leukocytosi s 927687366 Active [address], [address] [place] [address] [address], [facility] 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 13:02:19 Reactive depression (situationa l) 72181888 Active [address], [address] [place] [address] [address], [facility] 5 08:06:48 Acute pancreatiti s 322528013 Active [address], [address] [place] [address] [address], [facility] 08:06:50 Acute cholecystit is 57850598 Active [address], [address] [place] [address] [address], [facility] 08:06:52 Gallstone acute pancreatiti s 476015441 Active [address], [address] [place] [address] [address], [facility] 5 07:06:29 Problem Notes None recorded. Medical Equipment None Reported. Allergies Allergen ID Allergen Name Allergen Category Reaction Reaction Severity Criticality Documentation Date Start Date Code Code System Note Provider Name and Address Organization Details Recorded Time 28956 Keflex medicatio n Not available Not available Not available 12/31/202207026 7 RxNorm Comme nt: Recor ded 04/25 1:57P M by Ligia e Dawso n, Offic e Visit ; Promo sondra; Signi gonzalez ce: *; Reaso n: Drug aller gy; ; Not Available [facility] 3 02:27:06 54681 cephalexi n medicatio n Not available Not available Not available 04/21/20252024 2231 RxNorm Not Available [facility] - External Data Service - prod 5 09:22:34 Medications Name Sig Start Date Stop [...] Available No t Available amoxicillin 875 mg-veronica alexis clavulanate 125 mg tablet TAKE ONE TABLET [...] Updated DateTime 5 172.72 cm 26.1 kg/m2 36642.1 g 97 % 90 /min 18 /min 126/84 mm[Hg] Leticia Moreira [facility] 5 09:36:41 Social History None recorded. Functional Status Question Answer Note LastModified by Organizat ion Details LastModified Time Do you use any illicit or recreational drugs? No [email or web address] Information not available 05/01/2023 Do you or have you ever used any other forms of tobacco or nicotine? No [email or web address] Information not available 05/01/2023 What is your level of alcohol consumption? None [email or web address] Information not available 05/01/2023 Mental Status None recorded. Family History Relationship Description Onset Age of this Age Resolved Age Notes LastModified by Organization Details LastModified Time Father Coronary arterioscler osis 65 father with AMI late 60s [email or web address] Not available 05/01/2023 15:28:02 Medical History No medical history recorded. Immunizations Vaccine Type Date Status Note Provider Clayton steele and Address Organization Details Recorded Time Influenza, MDCK, quadrivalent, PF 05/03/2017 completed Leticia castillo [facility] 05/07/2024 09:23:05 COVID-19, mRNA, LNP-S, PF, 30 mcg/0.3 mL dose 01/02/2021 completed Leticia castillo [facility] 05/07/2024 09:23:05 COVID-19, mRNA, LNP-S, PF, 30 mcg/0.3 mL dose 01/23/2021 completed Leticia castillo [facility] 05/07/2024 09:23:05 Past Encounters Encounter ID Performer Location Encounter Start Date Encounter Closed Date Diagnosis/Indication Diagnosis SNOMED-CT Code Diagnosis ICD10 Code Diagnosis IMO Codes Diagnosis Note [id number] Colin Nassar DO [facility] ([facility]) [address] [place] [address] 03/26/2025 14:20:32 03/27/2025 13:03:22 Acute cholecystitis 10074517 K81.0 [id number] 03/26/25: Necrotic s/p parrtial excsion from laproscopi c turned open cholecyste ctemoy at [facility] feb 2025 requiring GB drain. complicate d by duct obstructio n, sepsis, pancreatit is with 25 day hospital stay at [facility]. He has been on abx for 30 days. He continues with refractory leukocytos is, weight loss, fatigue, anemic, and significna tly elevated platelets. I cunseled stop abx tx, he has been on this for >1 month, this is likely effecting his nutrition, elevated WBC likely not d/t infection. F/u with me in one week, lab then, CBC, CMP, lipase, CRP. Acute pancreatitis 23504 6007 K85.90 [id number] 03/26/25: 2/2 stone post GB excision feb 2025.will follow labs, continue antiemetic s, Start Creon, Counseled on diagnosis, treatment options including medication s and possible side effects. Hyperbilirubinemia 31927 006 E80.6 44583 Leukocytosis 012725039 D 72.829 [id number] since initial GB surgery, persistent . unclear etiology. has been evaluated by Hematology and ID at [facility]. determined NOT to be from infection or cancer. Will monitor labs weekly for now: Cbc, crp. Reactive d epression (situational) 62891869 F43.21 [id number] 03/26/25: Post lengthy hospitaliz ation, start Sertraline 25mg daily, Counseled on diagnosis, treatment options including medication s and possible side effects. Bilateral upper limb superficial vein thrombophlebitis [id number] 0892843 I80.8 [id number] 03/26/25: Dc'd from [facility] on Eliquis, will continue 5mg BID at this time. [id number] Colin Nassar DO [facility] ([facility]) [address] [place] [address] 5 03/26/2025 14:22:27 03/27/2025 13:03:41 Post-discharge follow-up [id number] [id number] Colin Nassar DO [facility]) [address] [place], [place] [address] 04/01/2025 12:22:22 04/02/2025 09:46:08 Acute pancreatitis 342529786 K85.90 [id number] 03/26/25: 2/2 stone post GB excision feb 2025.will follow labs, continue antiemetic s, Start Creon, Counseled on diagnosis, treatment options including medication s and possible side effects. [id number] Colin Nassar DO [facility] ([facility]) [address] [place] [address] 5 04/02/2025 09:22:56 04/04/2025 11:48:33 Acute cholecystitis 71238183 K81.0 9456 04/02/25: slow improvemen t, working on diet to gain weight, monitoring lab. nocurrent sign of obstructio n or infection. 03/26/25: Necrotic s/p parrtial excsion from laproscopi c turned open cholecyste ctemoy at [facility] feb 2025 requiring GB drain. complicate d by duct obstructio n, sepsis, pancreatit is with 25 day hospital stay at [facility]. He has been on abx for [...] CMP, lipase, CRP. Acute pancreatitis 6007 K85.90 [id number] 04/02/25: Continues Creon, tolerating well. nausea improved, no recent vomiting. no sign of infection. 03/26/25: 2/2 stone post GB excision feb 2025.will follow labs, continue antiemetic s, Start Creon, Counseled on diagnosis, treatment options including medication s and possible side effects. Leukocytosis 661933139 D 72.829 [id number] 04/02/25- improved, monitoring lab, f/u 1 week. since initial GB surgery, persistent . unclear etiology. has been evaluated by Hematology and ID at [facility]. determined NOT to be from infection or cancer. Will monitor labs weekly for now: Cbc, crp. Reactive d epression (situational) 11266101 F43.21 [id number] 04/02/25: Tolerating Sertraline , continue current tx. 5: Post lengthy hospitaliz ation, start Sertraline 25mg daily, Counseled on diagnosis, treatment options including medication s and possible side effects. Bilateral upper limb superficial vein thrombophlebitis [id number] I80.8 [id number] 03/26/25: Dc'd from [facility] on Eliquis, will continue 5mg BID at this time. Health Concerns Section Related Observation LastModified by Organization Toby hart LastModified Time None Recorded Concern Status LastModified by Organization Details LastModified Time None Recorded Payers Encounter Date Sequence Insurance Name Policy Number Policy Amaya Covered Member ID Amaya Member ID Guarantor Name 04/02/2025 1 [employer] [id number] Edwin A Keita [id number] Edwin Keita Notes Date Note Type Note Provider Name and Address Organization Details Recorded Time 04/02/2025 text/html ROS as noted in the [...] the last visit 1 week ago. Colin Nassar, DO [address] [place] [address], [phone], [facility] 04/03/2025 08:07:24
--- OUTSIDE RECORDS SUMMARY | 2025-04-27 10:05 | XMS_ITS | Continuity of Care Document ---
Author Organization KAYLA Owens [facility], [facility] ([facility]) Address [address] [facility] [place] [address] Care Team Providers Care Content Manager Name Role Phone COLIN NASSAR Primary Care Provider Unavailabl e Assessment No assessment recorded. Plan of Treatment Reminders Order Date Submit Date Provider Last Modified By Organization Details Last Modified Time Details Appointments RECHECK 10 2024 01:00P Nadia Nassar, DO Not available Not available Not available Lab CBC 2024 025 [place] [facility], [address] [facility], [place], [address], 04/01/2025 13:12:43 CMP, serum or plasma 2024 025 [place] [facility], [address], [place], [address], 04/01/2025 14:20:52 lipase, serum or plasma 2024 025 [employer] [facility], [address] [facility] [address], [address] [place], [address], 04/02/2025 09:32:13 C-react raj protein , quantit ative, serum or plasma 2024 025 [employer] [facility], [address] [facility], [place], [address], 04/02/2025 09:32:12 Referral None recorde d. Procedures None recorde d. Surgeries None recorde d. Imaging None recorde d. Medication Orders None recorde d. Patient TargetsNo targets recorded. Patient InstructionsNo instructions recorded. Reason for Referral None Reported. Results Created Date Observation Date Name Description Value Unit Range Abnormal Flag Note LastModifiedBy Organization Detail LastModifiedTime 03/26/2003/26/2025 CBC WBC 16.0 x10 4.5-10 .5 high Not Available [facility] [address] [facility] [address], [place], [address], 03/26/2025 14:37:45 03/26/2003/26/2025 CBC RBC 4.06 x10 4.30-5 .90 low Not Available [facility] [address] [facility] 1, [place], [address], 03/26/2025 14:37:45 03/26/2003/26/2025 CBC HGB 12.3 g/dL 13.5-1 8.0 low Not Available [facility] [address] [facility] 1, [place], [address], 03/26/2025 14:37:45 03/26/2003/26/2025 CBC HCT 37.5 % 35.0-6 0.0 Not Available [facility] [address] [facility] 1, [place], [address], 03/26/2025 14:37:45 03/26/2003/26/2025 CBC MCV 92.4 fL 80.0-9 9.9 Not Available [facility] [address] [facility] 1, [place], [address], 03/26/2025 14:37:45 03/26/2003/26/2025 CBC MCH 30.3 pg 27.0-3 2.0 Not Available [facility] [address] [facility] 1, [place], [address], 03/26/2025 14:37:45 03/26/20 25 03/26/2025 CBC MCHC 32.9 g/dL 32.0-3 6.0 Not Available [facility] [address] [facility] [address], [place], [address], 03/26/2025 14:37:45 03/26/20 25 03/26/2025 CBC RDW 13.6 % 11.5-1 4.5 Not Available [facility] [address] [facility] [address], [place], [address], 03/26/2025 14:37:45 03/26/2003/26/2025 CBC plt 849.3 x10 150.0- 451.0 high Not Available [facility] [address] [address], [place], [address], 03/26/2025 14:37:45 03/26/20 25 03/26/2025 CBC lymphocytes % 11.2 % 20.0-5 0.0 low Not Available [facility] [address] [facility] [address], [place], [address], 03/26/2025 14:37:45 03/26/20 25 03/26/2025 CBC granulcytes % 75.5 % 30.0-7 0.0 high Not Available [facility] [address] [facility] [address], [place], [address], 03/26/2025 14:37:45 03/26/20 25 03/26/2025 CBC monocytes % 9.2 % 2.0-16 .0 Not Available [facility] [address] [facility] [address], [place], [address], 03/26/2025 14:37:45 03/26/20 25 03/26/2025 CBC granulcytes# 12.1 x10 Not Merlyn ilable [facility] [address] [address], [place], [address], 03/26/2025 14:37:45 03/26/20 25 03/26/2025 CBC lymphocytes # 1.8 x10 Not Available [facility] [address] [address], [place], [address], 03/26/2025 14:37:45 03/26/20 25 03/26/2025 CBC monocytes # 1.5 x10 Not [facility] [address] [address], [place], [address], 03/26/2025 14:37:45 03/26/2003/26/2025 CMP (MALE ) glucose 133.0 mg/dL 60.0-9 9.0 high Not Available [facility] [address] [address], [place], [address], 03/26/2025 15:21:43 03/26/20 25 03/26/2025 CMP (MALE ) BUN (blood urea nitrogen) 12.0 mg/dL 10.0-2 6.0 Not Available [facility] [address] [address], [place], [address], 03/26/2025 15:21:43 03/26/20 25 03/26/2025 CMP (MALE ) creatinine (serum) 0.9 mg/dL 0.4-1. 5 Not Available [facility] [address] [address], [place], [address], 03/26/2025 15:21:43 03/26/20 25 03/26/2025 CMP (MALE ) BUN/creatini ne ratio 13.33 ratio Not Available [facility] [address] [address], [place], [address], 03/26/2025 15:21:43 03/26/20 25 03/26/2025 CMP (MALE ) eGFR calculated 96.1 Not Available [facility] [address] [facility], [place], [address], 03/26/2025 15:21:43 03/26/20 25 03/26/2025 CMP (MALE ) total protein 6.9 g/dL 6.0-8. 5 Not Available [facility] [address] [facility] [address], [place], [address], 03/26/2025 15:21:43 03/26/20 25 03/26/2025 CMP (MALE ) total bilirubin 0.5 mg/dL 0.2-1. 3 Not Available [facility] [address] [facility] [address], [place], [address], 03/26/2025 15:21:43 03/26/20 25 03/26/2025 CMP (MALE ) albumin 3.1 g/dL 3.5-5. 5 low Not Available [facility] [address] [facility], [place], [address], 03/26/2025 15:21:43 03/26/2003/26/2025 CMP (MALE ) globulin 3.8 calc Not Available [facility] [address] [facility] [address], [place], [address], 03/26/2025 15:21:43 03/26/20 25 03/26/2025 CMP (MALE ) AST (SGOT) 61.0 U/L 0.0-46 .0 high Not Available [facility] [address] [facility], [place], [address], 03/26/2025 15:21:43 03/26/20 25 03/26/2025 CMP (MALE ) altv (SGPT) 39.0 U/L 13.0-6 9.0 normal Not Available [facility] [address] [facility], [place], [address], 03/26/2025 15:21:43 03/26/20 25 03/26/2025 CMP (MALE ) A/G ratio 0.8 ratio Not Available [facility] [address] [facility] [address], [place], [address], 03/26/2025 15:21:43 03/26/20 25 03/26/2025 CMP (MALE ) ALP phos 128.0 U/L 30.0-1 40.0 normal Not Available [facility] [address] [facility] [address], [place], [address], 03/26/2025 15:21:43 03/26/20 25 03/26/2025 CMP (MALE ) calcium 8.5 mg/dL 8.4-10 .5 Not Available [facility] [address] [facility] 1, [place], [address], 03/26/2025 15:21:43 03/26/20 25 03/26/2025 CMP (MALE ) sodium 131.0 mmol/ L 136.0- 145.0 low Not Available [facility] [address] [facility] 1, [place], [address], 03/26/2025 15:21:43 03/26/20 25 03/26/2025 CMP (MALE ) potassium 4.4 mmol/ L 3.5-5. 1 Not Available [facility] [address] [facility] 1, [place], [address], 03/26/2025 15:21:43 03/26/20 25 03/26/2025 CMP (MALE ) chloride 97.0 mmol/ L 98.0-1 10.0 abnormal Not Available [facility] [address] [facility] 1, [place], [address], 03/26/2025 15:21:43 03/26/20 25 03/26/2025 CMP (MALE ) C02 30.0 mmol/ L 22.0-3 1.0 Not Available [facility] [address] [facility] 1, [place], [address], 03/26/2025 15:21:43 03/26/20 25 03/26/2025 CMP (MALE ) anion gap 4.0 calc Not Available [facility] [address] [facility] 1, [place], [address], 03/26/2025 15:21:43 03/26/2003/26/2025 CMP (MALE ) osmolality 272.7 calc Not Available [facility] [address] [facility] 1, [place], [address], 03/26/2025 15:21:43 04/01/20 25 04/01/2025 CBC WBC 12.2 x10 high Not Available [facility] [address] [facility] 1, [place], [address], 04/01/2025 13:12:43 04/01/2004/01/2025 CBC RBC 4.24 x10 low Not Available [facility] [address] [facility] 1, [place], [address], 04/01/2025 13:12:43 04/01/2004/01/2025 CBC HGB 12.7 g/dL low Not Available [facility] [address] [facility] 1, [place], [address], 04/01/2025 13:12:43 04/01/2004/01/2025 CBC HCT 39.3 % Not Available [facility] [address] [facility] 1, [place], [address], 04/01/2025 13:12:43 04/01/20 25 04/01/2025 CBC MCV 92.6 fL Not Available [facility] [address], [place], [address], 04/01/2025 13:12:43 04/01/2004/01/2025 CBC MCH 30.0 pg Not Available [facility] [address], [place], [address], 04/01/2025 13:12:43 04/01/2004/01/2025 CBC MCHC 32.4 g/dL Not Available [facility] [address] [facility] [address], [place], [address], 04/01/2025 13:12:43 04/01/2004/01/2025 CBC RDW 14.2 % Not Available [facility] [address] [facility] [address], [place], [address], 04/01/2025 13:12:43 04/01/2004/01/2025 CBC plt 877.5 x10 high Not Available [facility] [address] [facility] [address], [place], [address], 04/01/2025 13:12:43 04/01/2004/01/2025 CBC lymphocytes % 14.1 % low Not Available [facility] [address] [facility] [address], [place], [address], 04/01/2025 13:12:43 04/01/2004/01/2025 CBC granulcytes % 74.2 % high Not Available [facility] [address] [facility] [address] [facility] [address], [place], [address], 04/01/2025 13:12:43 04/01/2004/01/2025 CBC monocytes % 8.7 % Not Avai lable [facility] [address] [facility] [address] [facility] [address], [place], [address], 04/01/2025 13:12:43 04/01/20 25 04/01/2025 CBC granulcytes# 9.1 x10 Not Merlyn ilable [facility] [address] [address], [place], [address], 04/01/2025 13:12:43 04/01/20 25 04/01/2025 CBC lymphocytes # 1.7 x10 Not Available [facility] [address] [address], [place], [address], 04/01/2025 13:12:43 04/01/2004/01/2025 CBC monocytes # 1.1 x10 Not Avai lable [address] [place] [address], [place], [address], 04/01/2025 13:12:43 04/01/20 25 04/01/2025 CMP (MALE ) glucose 148.0 mg/dL 60.0-9 9.0 high Not Available [facility] [address] [address], [place], [address], 04/01/2025 14:20:52 04/01/20 25 04/01/2025 CMP (MALE ) BUN (blood urea nitrogen) 11.0 mg/dL 10.0-2 6.0 Not Available [place] [address], [address], 04/01/2025 14:20:52 04/01/20 25 04/01/2025 CMP (MALE ) creatinine (serum) 0.8 mg/dL 0.4-1. 5 Not Available [facility] [address], [address], 04/01/2025 14:20:52 04/01/20 25 04/01/2025 CMP (MALE ) BUN/creatini ne ratio 13.75 ratio Not Available [place] [address] [place], [address], 04/01/2025 14:20:52 04/01/2004/01/2025 CMP (MALE ) eGFR calculated 110.1 Not Available [facility] [address] [facility], [place], [address], 04/01/2025 14:20:52 04/01/20 25 04/01/2025 CMP (MALE ) total protein 7.4 g/dL 6.0-8. 5 Not Available [facility] [address] [facility] 1, [place], [address], 04/01/2025 14:20:52 04/01/20 25 04/01/2025 CMP (MALE ) total bilirubin 0.5 mg/dL 0.2-1. 3 Not Available [facility] [address] [address], [place], [address], 04/01/2025 14:20:52 04/01/20 25 04/01/2025 CMP (MALE ) albumin 3.5 g/dL 3.5-5. 5 Not Available [facility] [address] [facility] 1, [place], [address], 04/01/2025 14:20:52 04/01/20 25 04/01/2025 CMP (MALE ) globulin 3.9 calc Not Available [facility] [address] [address], [place], [address], 04/01/2025 14:20:52 04/01/20 25 04/01/2025 CMP (MALE ) AST (SGOT) 56.0 U/L 0.0-46 .0 high Not Available [facility] [address] [facility], [place], [address], 04/01/2025 14:20:52 04/01/20 25 04/01/2025 CMP (MALE ) altv (SGPT) 68.0 U/L 13.0-6 9.0 normal Not Available [facility] [address] [facility] [address], [place], [address], 04/01/2025 14:20:52 04/01/20 25 04/01/2025 CMP (MALE ) A/G ratio 0.9 ratio Not Available [facility] [address] [facility] [address], [place], [address], 04/01/2025 14:20:52 04/01/20 25 04/01/2025 CMP (MALE ) ALP phos 103.0 U/L 30.0-1 40.0 normal Not Available [facility] [address] [facility] [address], [place], [address], 04/01/2025 14:20:52 04/01/20 25 04/01/2025 CMP (MALE ) calcium 9.1 mg/dL 8.4-10 .5 Not Available [facility] [address] [address], [place], [address], 04/01/2025 14:20:52 04/01/20 25 04/01/2025 CMP (MALE ) sodium 135.0 mmol/ L 136.0- 145.0 low Not Available [facility] [address] [address], [place], [address], 04/01/2025 14:20:52 04/01/20 25 04/01/2025 CMP (MALE ) potassium 3.7 mmol/ L 3.5-5. 1 Not Available [facility] [address] [address], [place], [address], 04/01/2025 14:20:52 04/01/20 25 04/01/2025 CMP (MALE ) chloride 97.0 mmol/ L 98.0-1 10.0 abnormal Not Available [facility] [address] [place], [address], 04/01/2025 14:20:52 04/01/20 25 04/01/2025 CMP (MALE ) C02 32.0 mmol/ L 22.0-3 1.0 high Not Available [facility] [address] [facility] [address], [place], [address], 04/01/2025 14:20:52 04/01/20 25 04/01/2025 CMP (MALE ) anion gap 6.0 calc Not Available [facility] [address] [facility] [address], [place], [address], 04/01/2025 14:20:52 04/01/20 25 04/01/2025 CMP (MALE ) osmolality 281.1 calc Not Available [facility] [address] [facility] [address], [place], [address], 04/01/2025 14:20:52 04/01/20 25 04/02/2025 C-LIZETH CTIVE PROTE IN C-reactive protein 5.3 mg/L <8.0 normal Not Available [facility] [address] [place], [address], 04/02/2025 09:32:12 04/01/2004/02/2025 LIPAS E lipase 174 U/L 7-60 high Not Available [employer] [facility] [address] [place], [address], 04/02/2025 09:32:13 Result Notes None recorded. Problems Name Problem SNOMED Code Status Onset Date Resolution Date Notes Provider Name and Address Organization Details Recorded Time Metabolic syndrome X 843332307 Active 2022 Colin Nassar DO [address] [place] [address], [address], [facility], [place] 14:10:14 Adult health examination Active 2022 Colin Nassar, [address], [address], [facility] 3 14:59:23 Obesity 931987124 Active 2022 Colin Nassar, [address], [address], [facility] 3 14:59:40 Chronic recurrent sinusitis 582507238 Active 2022 Colin Nassar, [address], [address], [facility] 3 15:25:55 Mixed hyperlipide digna 741433910 Active 2023 Colin Nassar, [address], [address], [facility] 4 09:57:35 Leukocytosi s 203864922 Active 2024 Colin Nassar, [address], [address], [facility] 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 13:02:19 Reactive depression (situationa l) 39292115 Active 2024 Colin Nassar [address], [address], [facility] 5 08:06:48 Acute pancreatiti s 768700606 Active 2024 Colin Nassar, [address], [address], [facility] 5 08:06:50 Acute cholecystit is 26845906 Active 2024 Colin Nassar [address], [address], [facility] 5 08:06:52 Gallstone acute pancreatiti s 970679775 Active 2024 Colin Nassar [address], [address], [facility] 5 07:06:29 Problem Notes None recorded. Medical Equipment None Reported. Allergies Allergen ID Allergen Name Allergen Category Reaction Reaction Severity Criticality Documentation Date Start Date Code Code System Note Provider Name and Address Organization Details Recorded Time 73588 Keflex medicatio n Not available Not available Not available 12/31/202258991 7 RxNorm Comme nt: Recor ded 04/25 1:57P M by Ligia Rothman n, Offic e Visit ; Promo sondra; Dee roth ce: *; Reaso n: Drug aller gy; ; Not Available [facility] 3 02:27:06 69439 cephalexi n medicatio n Not available Not available Not available 04/21/20252024 2231 RxNorm Not Available ephraim - External Data Service - prod 5 [...] Not Available No t Available amoxicillin 875 mg-potassiu m clavulanate 125 mg tablet TAKE ONE [...] use any illicit or recreational drugs? No [email or web address] Information not available 05/01/2023 Do you or have you ever used any other forms of tobacco or nicotine? No [email or web address] Information not available 05/01/2023 What is your level of alcohol consumption? None [email or web address] Information not available 05/01/2023 Mental Status None recorded. Family History Relationship Description Onset Age of this Age Resolved Age Notes LastModified by Organization Details LastModified Time Father Coronary arterioscler osis 65 father with AMI late 60s [email or web address] Not available 05/01/2023 15:28:02 Medical History No medical history recorded. Immunizations Vaccine Type Date Status Note Provider Nam e and Address Organization Details Recorded Time Influenza, MDCK, quadrivalent, PF 05/03/2017 completed Leticia castillo [facility] 05/07/2024 09:23:05 COVID-19, mRNA, LNP-S, PF, 30 mcg/0.3 mL dose 01/02/2021 completed Leticia castillo [facility] 05/07/2024 09:23:05 COVID-19, mRNA, LNP-S, PF, 30 mcg/0.3 mL dose 01/23/2021 completed Leticia castillo [facility] 05/07/2024 09:23:05 Past Encounters Encounter ID Performer Location Encounter Start Date Encounter Closed Date Diagnosis/Indication Diagnosis SNOMED-CT Code Diagnosis ICD10 Code Diagnosis IMO Codes Diagnosis Note [id number] Colin Nassar DO [facility] ([facility]) [address] [place] [address] 03/26/2025 14:20:32 03/27/2025 13:03:22 Acute cholecystitis 37503393 K81.0 [id number] 03/26/25: Necrotic s/p parrtial excsion from laproscopi c turned open cholecyste ctemoy at [facility] feb 2025 requiring GB drain. complicate d by duct obstructio n, sepsis, pancreatit is with 25 day hospital stay at [facility]. He has been on abx [...] then, CBC, CMP, lipase, CRP. Acute pancreatitis 600 K85.90 [id number] 03/26/25: 2/2 stone post GB excision feb 2025.will follow labs, continue antiemetic s, Start Creon, Counseled on diagnosis, treatment options including medication s and possible side effects. Hyperbilirubinemia 11676 006 E80.6 87881 Leukocytosis 341033276 D 72.829 [id number] since initial GB surgery, persistent . unclear etiology. has been evaluated by Hematology and ID at [facility]. determined NOT to be from infection or cancer. Will monitor labs weekly for now: Cbc, crp. Reactive d epression (situational) 28595971 F43.21 [id number] 03/26/25: Post lengthy hospitaliz ation, start Sertraline 25mg daily, Counseled on diagnosis, treatment options including medication s and possible side effects. Bilateral upper limb superficial vein thrombophlebitis [id number] I80.8 [id number] 03/26/25: Dc'd from [facility] on Eliquis, will continue 5mg BID at this time. [id number] Colin Nassar DO [facility] ([facility]) [address] [place] [address] 03/26/2025 14:22:27 03/27/2025 13:03:41 Post-discharge follow-up [id number] [id number] Colin Nassar DO [facility] ([facility]) [address] [place] [address] 04/01/2025 12:22:22 04/02/2025 09:46:08 Acute pancreatitis 065772150 K85.90 [id number] 03/26/25: 2/2 stone post GB excision feb [...] Member ID Amaya Member ID Guarantor Name 04/01/2025 1 YESENIA-KAYLA (PPO) [id number] Edwin Keita [id number] Edwin Keita
--- OUTSIDE RECORDS SUMMARY | 2025-04-27 10:05 | XMS_ITS | Continuity of Care Document ---
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 Plan of Treatment Reminders Order Date Submit Date Provider Last Modified By Organization Details Last Modified Time Details Appointments RECHECK 10 2024 01:00P Nadia Nassar, DO Not available Not available Not available Lab CBC 2024 025 [facility], [address], [place], [address], 04/07/2025 10:43:49 C-react raj protein , quantit ative, serum or plasma 2024 025 [facility], [address], [place], [address], 04/08/2025 06:41:41 Referral None recorde d. Procedures [...] 16.0 x10 4.5-10 .5 high Not Available [facility] [address], [place], [address], 03/26/2025 14:37:45 03/26/2003/26/2025 CBC RBC 4.06 x10 4.30-5 .90 low Not Available [facility] [address] Silva [facility] 1, [place], [address], 03/26/2025 14:37:45 03/26/2003/26/2025 CBC HGB 12.3 g/dL 13.5-1 8.0 low Not Available [facility] [address] [facility] 1, [place], [address], 03/26/2025 14:37:45 03/26/2003/26/2025 CBC HCT 37.5 % 35.0-6 0.0 Not Available [facility] [address] [facility] 1, [place], [address], 03/26/2025 14:37:45 03/26/2003/26/2025 CBC MCV 92.4 fL 80.0-9 9.9 Not Available [facility] [address] [facility] 1, [place], [address], 03/26/2025 14:37:45 03/26/20 25 03/26/2025 CBC MCH 30.3 pg 27.0-3 2.0 Not Available [facility] [address] [facility] 1, [place], [address], 03/26/2025 14:37:45 03/26/2003/26/2025 CBC MCHC 32.9 g/dL 32.0-3 6.0 Not Available [facility] [address] [facility] 1, [place], [address], 03/26/2025 14:37:45 03/26/2003/26/2025 CBC RDW 13.6 % 11.5-1 4.5 Not Available [facility] [address] [facility] 1, [place], [address], 03/26/2025 14:37:45 03/26/2003/26/2025 CBC plt 849.3 x10 150.0- 451.0 high Not Available [facility] [address] [facility], [place], [address], 03/26/2025 14:37:45 03/26/20 25 03/26/2025 CBC lymphocytes % 11.2 % 20.0-5 0.0 low Not Available [facility] [address] [facility] 1, [place], [address], 03/26/2025 14:37:45 03/26/2003/26/2025 CBC granulcytes % 75.5 % 30.0-7 0.0 high Not Available [facility] [address] [address], [place], [address], 03/26/2025 14:37:45 03/26/20 25 03/26/2025 CBC monocytes % 9.2 % 2.0-16 .0 Not Available [facility] [address] [address], [place], [address], 03/26/2025 14:37:45 03/26/20 25 03/26/2025 CBC granulcytes# 12.1 x10 Not Merlyn ilable [facility] [address] [address], [place], [address], 03/26/2025 14:37:45 03/26/2003/26/2025 CBC lymphocytes # 1.8 x10 Not Available [facility] [address] [facility], [place], [address], 03/26/2025 14:37:45 03/26/20 25 03/26/2025 CBC monocytes # 1.5 x10 Not Avai lable [facility] [address] [facility] 1, [place], [address], 03/26/2025 14:37:45 03/26/2003/26/2025 CMP (MALE ) glucose 133.0 mg/dL 60.0-9 9.0 high Not Available [facility] [address] [facility], [place], [address], 03/26/2025 15:21:43 03/26/20 25 03/26/2025 CMP (MALE ) BUN (blood urea nitrogen) 12.0 mg/dL 10.0-2 6.0 Not Available [facility] [address] [facility] 1, [place], [address], 03/26/2025 15:21:43 03/26/20 25 03/26/2025 CMP (MALE ) creatinine (serum) 0.9 mg/dL 0.4-1. 5 Not Available [facility] [address] [facility] 1, [place], [address], 03/26/2025 15:21:43 03/26/20 25 03/26/2025 CMP (MALE ) BUN/creatini ne ratio 13.33 ratio Not Available [facility] [address] [facility] 1, [place], [address], 03/26/2025 15:21:43 03/26/20 25 03/26/2025 CMP (MALE ) eGFR calculated 96.[address] [facility] [address] [facility], [place], [address], 03/26/2025 15:21:43 03/26/2003/26/2025 CMP (MALE ) total protein 6.9 g/dL 6.0-8. 5 Not Available [facility] [address] [facility], [place], [address], 03/26/2025 15:21:43 03/26/2029 0303/26/2025 CMP (MALE ) total bilirubin 0.5 mg/dL 0.2-1. 3 Not Available [facility] [address] [facility] 1, [place], [address], 03/26/2025 15:21:43 03/26/20 25 03/26/2025 CMP (MALE ) albumin 3.1 g/dL 3.5-5. 5 low Not Available [facility] [address] [facility] 1, [place], [address], 03/26/2025 15:21:43 03/26/2003/26/2025 CMP (MALE ) globulin 3.8 calc Not Available [facility] [address] [address], [place], [address], 03/26/2025 15:21:43 03/26/20 25 03/26/2025 CMP (MALE ) AST (SGOT) 61.0 U/L 0.0-46 .0 high Not Available [facility] [address] [facility] 1, [place], [address], 03/26/2025 15:21:43 03/26/20 25 03/26/2025 CMP (MALE ) altv (SGPT) 39.0 U/L 13.0-6 9.0 normal Not Available [facility] [address] [facility] 1, [place], [address], 03/26/2025 15:21:43 03/26/20 25 03/26/2025 CMP (MALE ) A/G ratio 0.8 ratio Not Available [facility] [address] [facility] 1, [place], [address], 03/26/2025 15:21:43 03/26/20 25 03/26/2025 CMP (MALE ) ALP phos 128.0 U/L 30.0-1 40.0 normal Not Available [facility] [address] [facility] 1, [place], [address], 03/26/2025 15:21:43 03/26/2003/26/2025 CMP (MALE ) calcium 8.5 mg/dL 8.4-10 .5 Not Available [facility] [address] [facility] 1, [place], [address], 03/26/2025 15:21:43 03/26/20 25 03/26/2025 CMP (MALE ) sodium 131.0 mmol/ L 136.0- 145.0 low Not Available [facility] [address] [facility] 1, [place], [address], 03/26/2025 15:21:43 03/26/20 25 03/26/2025 CMP (MALE ) potassium 4.4 mmol/ L 3.5-5. 1 Not Available [facility] [address] [facility] 1, [place], [address], 03/26/2025 15:21:43 03/26/20 25 03/26/2025 CMP (MALE ) chloride 97.0 mmol/ L 98.0-1 10.0 abnormal Not Available [facility] [address] [facility] 1, [place], [address], 03/26/2025 15:21:43 03/26/20 25 03/26/2025 CMP (MALE ) C02 30.0 mmol/ L 22.0-3 1.0 Not Available [facility] [address] [facility] 1, [place], [address], 03/26/2025 15:21:43 03/26/20 25 03/26/2025 CMP (MALE ) anion gap 4.0 calc Not Available [facility] [address] [facility] 1, [place], [address], 03/26/2025 15:21:43 03/26/2003/26/2025 CMP (MALE ) osmolality 272.7 calc Not Available [facility] [address] [facility], [place], [address], 03/26/2025 15:21:43 04/01/2004/01/2025 CBC WBC 12.2 x10 high Not Available [facility] [address] [facility] 1, [place], [address], 04/01/2025 13:12:43 04/01/2004/01/2025 CBC RBC 4.24 x10 low Not Available [facility] [address] [facility], [place], [address], 04/01/2025 13:12:43 04/01/20 25 04/01/2025 CBC HGB 12.7 g/dL low Not Available [facility] [address] [facility] [address] [address], [place], [address], 04/01/2025 13:12:43 04/01/2004/01/2025 CBC HCT 39.3 % Not Available [facility] [address] [facility] Rekha [facility], [place], [address], 04/01/2025 13:12:43 04/01/2004/01/2025 CBC MCV 92.6 fL Not Available [facility] [address] [facility], [place], [address], 04/01/2025 13:12:43 04/01/2004/01/2025 CBC MCH 30.0 pg Not Available [facility] [address] [facility], [place], [address], 04/01/2025 13:12:43 04/01/20 25 04/01/2025 CBC MCHC 32.4 g/dL Not Available [facility] [address] [facility] [address], [place], [address], 04/01/2025 13:12:43 04/01/2004/01/2025 CBC RDW 14.2 % Not Available [facility] [address], [place], [address], 04/01/2025 13:12:43 04/01/2004/01/2025 CBC plt 877.5 x10 high Not Available [facility] [address] [facility] [address], [place], [address], 04/01/2025 13:12:43 04/01/2004/01/2025 CBC lymphocytes % 14.1 % low Not Available [facility] [address] [facility] [address], [place], [address], 04/01/2025 13:12:43 04/01/2004/01/2025 CBC granulcytes % 74.2 % high Not Available [facility] [address] [facility] [address], [place], [address], 04/01/2025 13:12:43 04/01/2004/01/2025 CBC monocytes % 8.7 % Not Avai lable [facility] [address] [facility] [address], [place], [address], 04/01/2025 13:12:43 04/01/2004/01/2025 CBC granulcytes# 9.1 x10 Not Merlyn ilable [facility] [address] [facility] [address], [place], [address], 04/01/2025 13:12:43 04/01/2004/01/2025 CBC lymphocytes # 1.7 x10 Not Available [facility] [address] [facility] [address], [place], [address], 04/01/2025 13:12:43 04/01/2004/01/2025 CBC monocytes # 1.1 x10 Not [facility] [address] [facility] 1, [place], [address], 04/01/2025 13:12:43 04/01/20 25 04/01/2025 CMP (MALE ) glucose 148.0 mg/dL 60.0-9 9.0 high Not Available [facility] [address] [address], [place], [address], 04/01/2025 14:20:52 04/01/20 25 04/01/2025 CMP (MALE ) BUN (blood urea nitrogen) 11.0 mg/dL 10.0-2 6.0 Not Available [facility] [address] [address], [place], [address], 04/01/2025 14:20:52 04/01/20 25 04/01/2025 CMP (MALE ) creatinine (serum) 0.8 mg/dL 0.4-1. 5 Not Available [facility] [address] [address], [place], [address], 04/01/2025 14:20:52 04/01/20 25 04/01/2025 CMP (MALE ) BUN/creatini ne ratio 13.75 ratio Not Available [facility] [address] [address], [place], [address], 04/01/2025 14:20:52 04/01/20 25 04/01/2025 CMP (MALE ) eGFR calculated 110.1 Not Available [facility] [address] [address], [place], [address], 04/01/2025 14:20:52 04/01/20 25 04/01/2025 CMP (MALE ) total protein 7.4 g/dL 6.0-8. 5 Not Available [facility] [address] [facility] 1, [place], [address], 04/01/2025 14:20:52 04/01/20 25 04/01/2025 CMP (MALE ) total bilirubin 0.5 mg/dL 0.2-1. 3 Not Available [facility] [address] [facility] 1, [place], [address], 04/01/2025 14:20:52 04/01/20 25 04/01/2025 CMP (MALE ) albumin 3.5 g/dL 3.5-5. 5 Not Available [facility] [address] [facility] [address], [place], [address], 04/01/2025 14:20:52 04/01/20 25 04/01/2025 CMP (MALE ) globulin 3.9 calc Not Available [facility] [address] [facility] 1, [place], [address], 04/01/2025 14:20:52 04/01/20 25 04/01/2025 CMP (MALE ) AST (SGOT) 56.0 U/L 0.0-46 .0 high Not Available [facility] [address] [facility] [address], [place], [address], 04/01/2025 14:20:52 04/01/20 25 04/01/2025 CMP (MALE ) altv (SGPT) 68.0 U/L 13.0-6 9.0 normal Not Available [facility] [address] [facility] 1, [place], [address], 04/01/2025 14:20:52 04/01/20 25 04/01/2025 CMP (MALE ) A/G ratio 0.9 ratio Not Available [facility] [address] [facility] 1, [place], [address], 04/01/2025 14:20:52 04/01/20 25 04/01/2025 CMP (MALE ) ALP phos 103.0 U/L 30.0-1 40.0 normal Not Available [facility] [address] [facility] 1, [place], [address], 04/01/2025 14:20:52 04/01/20 25 04/01/2025 CMP (MALE ) calcium 9.1 mg/dL 8.4-10 .5 Not Available [facility] [address] [facility] 1, [place], [address], 04/01/2025 14:20:52 04/01/2004/01/2025 CMP (MALE ) sodium 135.0 mmol/ L 136.0- 145.0 low Not Available [facility] [address] [facility] 1, [place], [address], 04/01/2025 14:20:52 04/01/20 25 04/01/2025 CMP (MALE ) potassium 3.7 mmol/ L 3.5-5. 1 Not Available [facility] [address] [facility] 1, [place], [address], 04/01/2025 14:20:52 04/01/20 25 04/01/2025 CMP (MALE ) chloride 97.0 mmol/ L 98.0-1 10.0 abnormal Not Available [facility] [address] [facility] 1, [place], [address], 04/01/2025 14:20:52 04/01/2004/01/2025 CMP (MALE ) C02 32.0 mmol/ L 22.0-3 1.0 high Not Available [facility] [address] [facility] 1, [place], [address], 04/01/2025 14:20:52 04/01/20 25 04/01/2025 CMP (MALE ) anion gap 6.0 calc Not Available [facility] [address] [facility] 1, [place], [address], 04/01/2025 14:20:52 04/01/2004/01/2025 CMP (MALE ) osmolality 281.1 calc Not Available [facility] [address] [facility], [place], [address], 04/01/2025 14:20:52 04/01/2004/02/2025 C-LIZETH CTIVE PROTE IN C-reactive protein 5.3 mg/L <8.0 normal Not Available [facility] [address] [place], [address], 04/02/2025 09:32:12 04/01/2004/02/2025 LIPAS E lipase 174 U/L 7-60 high Not Available [facility] [address] [place], [address], 04/02/2025 09:32:13 04/07/20 25 04/07/2025 CBC WBC 8.5 x10 4.5-10 .5 Not Available [facility] [address] [facility], [place], [address], 04/07/2025 10:43:49 04/07/20 25 04/07/2025 CBC RBC 4.60 x10 4.30-5 .90 Not Available [facility] [address] [facility] 1, [place], [address], 04/07/2025 10:43:49 04/07/20 25 04/07/2025 CBC HGB 13.4 g/dL 13.5-1 8.0 low Not Available [facility] [address] [facility] 1, [place], [address], 04/07/2025 10:43:49 04/07/20 25 04/07/2025 CBC HCT 42.4 % 35.0-6 0.0 Not Available [facility] [address] [facility] 1, [place], [address], 04/07/2025 10:43:49 04/07/20 25 04/07/2025 CBC MCV 92.1 fL 80.0-9 9.9 Not Available [facility] [address] [facility] 1, [place], [address], 04/07/2025 10:43:49 04/07/20 25 04/07/2025 CBC MCH 29.2 pg 27.0-3 2.0 Not Available [facility] [address] [facility] 1, [place], [address], 04/07/2025 10:43:49 04/07/20 25 04/07/2025 CBC MCHC 31.7 g/dL 32.0-3 6.0 low Not Available [facility] [address] [facility] 1, [place], [address], 04/07/2025 10:43:49 04/07/20 25 04/07/2025 CBC RDW 14.3 % 11.5-1 4.5 Not Available [facility] [address] [facility] 1, [place], [address], 04/07/2025 10:43:49 04/07/20 25 04/07/2025 CBC plt 659.8 x10 150.0- 451.0 high Not Available [facility] [address] [facility] 1, [place], [address], 04/07/2025 10:43:49 04/07/20 25 04/07/2025 CBC lymphocytes % 18.9 % 20.0-5 0.0 low Not Available [facility] [address] [facility] Da iSlva [facility] 1, [place], [address], 04/07/2025 10:43:49 11/03/20 25 04/07/2025 CBC granulcytes % 66.4 % 30.0-7 0.0 Not Available [facility] [address], [address], 04/07/2025 10:43:49 04/07/20 25 04/07/2025 CBC monocytes % 10.4 % 2.0-16 .0 Not Available [facility] [address] [address], [place], [address], 04/07/2025 10:43:49 04/07/20 25 04/07/2025 CBC granulcytes# 5.6 x10 Not Merlyn ilable [facility] [address], [address], 04/07/2025 10:43:49 04/07/20 25 04/07/2025 CBC lymphocytes # 1.6 x10 Not Available [place] [address] [address], [address], 04/07/2025 10:43:49 04/07/20 25 04/07/2025 CBC monocytes # 0.9 x10 Not Avai lable [place] [address], [address], 04/07/2025 10:43:49 04/07/20 25 04/08/2025 C-LIZETH CTIVE PROTE IN C-reactive protein 3.2 mg/L <8.0 normal Not Available [facility] [address] [place], [address], 04/08/2025 06:41:41 Result Notes None recorded. Problems Name Problem SNOMED Code Status Onset Date Resolution Date Notes Provider Name and Address Organization Details Recorded Time Metabolic syndrome X 880090923 Active 2022 Colin Nassar DO [address] [place] [address], [phone], [facility] 4 14:10:14 Adult health examination Active 2022 Colin Nassar, [address], [address], [facility] 3 14:59:23 Obesity 587887812 Active 2022 Colin Nassar [address], [address], [facility] 3 14:59:40 Chronic recurrent sinusitis 386424007 Active 2022 Colin Nassar, [address], [address], [facility] 3 15:25:55 Mixed hyperlipide digna 468717788 Active 2023 Colin Nassar, [address], [address], [facility] 4 09:57:35 Leukocytosi s 461383784 Active 2024 Colin Nassar, [address], [address], [facility] 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 5 13:02:19 Reactive depression (situationa l) 95788840 Active 2024 Colin Nassar [address], [address], [facility] 5 08:06:48 Acute pancreatiti s 685603445 Active 2024 Colin Nassar [address], [address], [facility] 5 08:06:50 Acute cholecystit is 66865405 Active [address], [address], [facility] 5 08:06:52 Gallstone acute pancreatiti s 996866369 Active [address], [address], [facility] 5 07:06:29 Problem Notes None recorded. Medical Equipment None Reported. Allergies Allergen ID Allergen Name Allergen Category Reaction Reaction Severity Criticality Documentation Date Start Date Code Code System Note Provider Name and Address Organization Details Recorded Time 80781 Keflex medicatio n Not available Not available Not available 12/31/202294902 7 RxNorm Comme nt: Recor ded 04/25 1:57P M by Ligia Rothman n, Offic e Visit ; Promo sondra; Signi gonzalez ce: *; Reaso n: Drug aller gy; ; Not Available [facility] 3 02:27:06 38635 cephalexi n medicatio n Not available Not [...] use any illicit or recreational drugs? No Information not available 05/01/2023 Do you or have you ever used any other forms of tobacco or nicotine? No [email or web address] Information not available 05/01/2023 What is your level of alcohol consumption? None [email or web address] Information not available 05/01/2023 Mental Status None recorded. Family History Relationship Description Onset Age of this Age Resolved Age Notes LastModified by Organization Details LastModified Time Father Coronary arterioscler osis 65 father with AMI late 60s Not available 05/01/2023 15:28:02 Medical History No medical history recorded. Immunizations Vaccine Type Date Status Note Provider Nam e and Address Organization Details Recorded Time Influenza, MDCK, quadrivalent, PF 05/03/2017 completed Leticia castillo [facility] 05/07/2024 09:23:05 COVID-19, mRNA, LNP-S, PF, 30 mcg/0.3 mL dose 01/02/2021 completed Leticia castillo [facility] 05/07/2024 09:23:05 COVID-19, mRNA, LNP-S, PF, 30 mcg/0.3 mL dose 01/23/2021 completed Leticia castillo [facility] 05/07/2024 09:23:05 Past Encounters Encounter ID Performer Location Encounter Start Date Encounter Closed Date Diagnosis/Indication Diagnosis SNOMED-CT Code Diagnosis ICD10 Code Diagnosis IMO Codes Diagnosis Note [id number] Colin Nassar DO [facility] ([facility]) [address] [place] [address] 03/26/2025 14:20:32 03/27/2025 13:03:22 Acute cholecystitis 38115916 K81.0 [id number] 03/26/25: Necrotic s/p parrtial excsion from laproscopi c turned open cholecyste ctemoy at [facility] feb 2025 requiring GB drain. complicate d by duct obstructio n, sepsis, pancreatit is with 25 day hospital stay at [facility]. He has been on abx for [...] CMP, lipase, CRP. Acute pancreatitis 6006 K85.90 [id number] 03/26/25: 2/2 stone post GB excision feb 2025.will follow labs, continue antiemetic s, Start Creon, Counseled on diagnosis, treatment options including medication s and possible side effects. Hyperbilirubinemia 42989 006 E80.6 23063 Leukocytosis 025251292 D 72.829 [id number] since initial GB surgery, persistent . unclear etiology. has been evaluated by Hematology and ID at [facility]. determined NOT to be from infection or cancer. Will monitor labs weekly for now: Cbc, crp. Reactive d epression (situational) [id number] F43.21 [id number] 03/26/25: Post lengthy hospitaliz ation, start Sertraline 25mg daily, Counseled on diagnosis, treatment options including medication s and possible side effects. Bilateral upper limb superficial vein thrombophlebitis [id number] I80.8 [id number] 03/26/25: Dc'd from [facility] on Eliquis, will continue 5mg BID at this time. [id number] Colin Nassar DO [facility] ([facility]) [address] [place] [phone] 03/26/2025 14:22:27 03/27/2025 13:03:41 Post-discharge follow-up [id number] [id number] Colin Nassar DO [facility] ([facility]) [address] [place] [address] 04/01/2025 12:22:22 04/02/2025 09:46:08 Acute pancreatitis [id number] K85.90 [id number] 03/26/25: 2/2 stone post GB excision feb 2025.will follow labs, continue antiemetic s, Start Creon, Counseled on diagnosis, treatment options including medication s and possible side effects. [id number] Colineros NassarDO [facility] ([facility] [address] [place] [address] 04/02/2025 09:22:56 04/04/2025 11:48:33 Acute cholecystitis [id number] K81.0 9456 04/02/25: slow improvemen t, working on diet to gain weight, monitoring lab. nocurrent sign of obstructio n or infection. 03/26/25: Necrotic s/p parrtial excsion from laproscopi c turned open cholecyste ctemoy at [facility] feb 2025 requiring GB drain. complicate d by duct obstructio n, sepsis, pancreatit is with 25 day hospital stay at [facility]. He has been on abx for 30 days. He continues with refractory leukocytos is, weight loss, fatigue, anemic, and significna tly elevated platelets. I cunseled stop abx tx, he has been on this for >1 month, this is likely effecting his nutrition, elevated WBC likely not d/t infection. F/u with me in one week, lab then, CBC, CMP, lipase, CRP. Acute pancreatitis [id number] K85.90 [id number] 04/02/25: Continues Creon, tolerating well. nausea improved, no recent vomiting. no sign of infection. 03/26/25: 2/2 stone post GB excision feb 2025.will follow labs, continue antiemetic s, Start Creon, Counseled on diagnosis, treatment options including medication s and possible side effects. Leukocytosis [id number] D 72.829 [id number] 04/02/25- improved, monitoring lab, f/u 1 week. since initial GB surgery, persistent . unclear etiology. has been evaluated by Hematology and ID at [facility]. determined NOT to be from infection or cancer. Will monitor labs weekly for now: Cbc, crp. Reactive d epression (situational) [id number] F43.21 [id number] 04/02/25: Tolerating Sertraline , continue current tx. 5: Post lengthy hospitaliz ation, start Sertraline 25mg daily, Counseled on diagnosis, treatment options including medication s and possible side effects. Bilateral upper limb superficial vein thrombophlebitis [id number] I80.8 [id number] 03/26/25: Dc'd from [facility] on Eliquis, will continue 5mg BID at this time. [id number] Colin Nassar DO [facility] ([facility]) [address] [place] [address] 04/07/2025 10:19:40 04/08/2025 10:10:52 Acute cholecystitis [id number] K81.0 9456 04/02/25: slow improvemen t, working on diet to gain weight, monitoring lab. nocurrent sign of obstructio n or infection. 03/26/25: Necrotic s/p parrtial excsion from laproscopi c turned open cholecyste ctemoy at [facility] feb 2025 requiring GB drain. complicate d by duct obstructio n, sepsis, pancreatit is with 25 day hospital stay at [facility]. He has been on abx for [...] CMP, lipase, CRP. Acute pancreatitis 6006 K85.90 [id number] 04/02/25: Continues Creon, tolerating well. nausea improved, no recent vomiting. no sign of infection. 03/26/25: 2/2 stone post GB excision feb 2025.will follow labs, continue antiemetic s, Start Creon, Counseled on diagnosis, treatment options including medication s and possible side effects. Leukocytosis [id number] D 72.829 [id number] 04/02/25- improved, monitoring lab, f/u 1 week. since initial GB surgery, persistent . unclear etiology. has been evaluated by Hematology and ID at [facility]. determined NOT to be from infection or cancer. Will monitor labs weekly for now: Cbc, crp. Health Concerns Section Related Observation LastModified by Organization Detai ls LastModified Time None Recorded Concern Status LastModified by Organization Details LastModified Time None Recorded Payers Encounter Date Sequence Insurance Name Policy Number Policy Amaya Covered Member ID Amaya Member ID Guarantor Name 04/07/2025 1 YESENIA-KAYLA (PPO) [id number] Edwin Keita [id number] Edwin Keita
--- OUTSIDE RECORDS SUMMARY | 2025-04-27 10:05 | XMS_ITS | Data Portability ---
Author Organization KAYLA Owens [facility], [facility] Address [address] [place] [address] Care Team Providers Care System Development Manager Name Role Phone COLIN NASSAR Primary Care Provider Unavailabl e Assessment Encounter Date Assessment Date Assessment LastModified by Organization Details LastModified Time 04/02/2025 04/02/2025 Document scribed by Rashad Padilla, Respiratory Tech. I was present during interview and exam. I have reviewed and agree with above documentation . Dr. Colin Nassar. Reviewed and discussed repeat lab, improving other than Platelets. [email or web address] Not available 04/02/2025 09:57:02 04/08/2025 04/08/2025 Reviewed and discussed repeat lab, f/u 1 week, repeat nonfasting labs prior: cbc, cmp, crp, lipase. Not available 04/09/2025 07:07:44 Plan of Treatment Reminders Order Date Submit Date Provider Last Modified By Organization Details Last Modified Time Details Appointments RECHECK 10 2024 01:00P Nadia Nassar, DO Not available Not available Not available Lab CMP, serum or plasma 2024 025 [email or web address] [facility], [address], [place], [address], 04/16/2025 09:18:08 CBC 2024 025 [email or web address] [facility], [address] [facility] [address] [facility], [place], [address], 04/16/2025 09:18:08 C-react raj protein , quantit ative, serum or plasma 2024 025 [email or web address] [facility], [address] [place] [address], [address], [place], [address], 04/16/2025 09:18:08 lipase, serum or plasma 2024 025 [email or web address] [employer] [facility], [address] [place] [address], [address], [place], [address], 04/16/2025 09:18:08 CBC 2024 [facility], [address] [facility], [facility] 1, [place], [address], 04/07/2025 10:43:49 C-react raj protein , quantit ative, serum or plasma 2024 [facility], [address] [place], [address], 04/08/2025 06:41:41 CBC 2024 025 [facility], [address] [facility], [facility] [address], [address], 04/01/2025 13:12:43 CMP, serum or plasma 2024 025 [facility], [address] [facility], [facility] [address], [address], 04/01/2025 14:20:52 lipase, serum or plasma 2024 025 [employer] [facility], [address] [place] [address], [address], [place], [address], 04/02/2025 09:32:13 C-react raj protein , quantit ative, serum or plasma 2024 025 [facility], [address] [facility], [place], [address], 04/02/2025 09:32:12 Referral None recorde d. Procedures [...] x10 4.5-10 .5 high Not Available [facility] [address] [facility] 1, [place], [address], 03/26/2025 14:37:45 03/26/2003/26/2025 CBC RBC 4.06 x10 4.30-5 .90 low Not Available [facility] [address] [address], [place], [address], 03/26/2025 14:37:45 03/26/2003/26/2025 CBC HGB 12.3 g/dL 13.5-1 8.0 low Not Available [facility] [address] [facility] 1, [place], [address], 03/26/2025 14:37:45 03/26/2003/26/2025 CBC HCT 37.5 % 35.0-6 0.0 Not Available [facility] [address] [facility] 1, [place], [address], 03/26/2025 14:37:45 03/26/2003/26/2025 CBC MCV 92.4 fL 80.0-9 9.9 Not Available [facility] [address] [facility] 1, [place], [address], 03/26/2025 14:37:45 03/26/2003/26/2025 CBC MCH 30.3 pg 27.0-3 2.0 Not Available [facility] [address] [place] [facility], [place], [address], 03/26/2025 14:37:45 03/26/2003/26/2025 CBC MCHC 32.9 g/dL 32.0-3 6.0 Not Available [facility] [address] [facility] 1, [place], [address], 03/26/2025 14:37:45 03/26/2003/26/2025 CBC RDW 13.6 % 11.5-1 4.5 Not Available [facility] [address] [facility] 1, [place], [address], 03/26/2025 14:37:45 03/26/2003/26/2025 CBC plt 849.3 x10 150.0- 451.0 high Not Available [facility] [address] [facility] 1, [place], [address], 03/26/2025 14:37:45 03/26/2003/26/2025 CBC lymphocytes % 11.2 % 20.0-5 0.0 low Not Available [facility] [address] [facility] 1, [place], [address], 03/26/2025 14:37:45 03/26/2003/26/2025 CBC granulcytes % 75.5 % 30.0-7 0.0 high Not Available [facility] [address] [facility] 1, [place], [address], 03/26/2025 14:37:45 03/26/2003/26/2025 CBC monocytes % 9.2 % 2.0-16 .0 Not Available [facility] [address] [facility] 1, [place], [address], 03/26/2025 14:37:45 03/26/20 25 03/26/2025 CBC granulcytes# 12.1 x10 Not Merlyn ilable [facility] [address] [address], [place], [address], 03/26/2025 14:37:45 03/26/20 25 03/26/2025 CBC lymphocytes # 1.8 x10 Not Available [facility] [address] [address], [place], [address], 03/26/2025 14:37:45 03/26/20 25 03/26/2025 CBC monocytes # 1.5 x10 Not Avai lable [facility] [address] [address], [place], [address], 03/26/2025 14:37:45 03/26/20 25 03/26/2025 CMP (MALE ) glucose 133.0 mg/dL 60.0-9 9.0 high Not Available [facility] [address] [address], [place], [address], 03/26/2025 15:21:43 03/26/20 25 03/26/2025 CMP (MALE ) BUN (blood urea nitrogen) 12.0 mg/dL 10.0-2 6.0 Not Available [facility] [address] [address], [place], [address], 03/26/2025 15:21:43 03/26/20 25 03/26/2025 CMP (MALE ) creatinine (serum) 0.9 mg/dL 0.4-1. 5 Not Available [facility] [address], [address], 03/26/2025 15:21:43 03/26/20 25 03/26/2025 CMP (MALE ) BUN/creatini ne ratio 13.33 ratio Not Available [facility] [address] [address], [place], [address], 03/26/2025 15:21:43 03/26/20 25 03/26/2025 CMP (MALE ) eGFR calculated 96.1 Not Available [facility] [address] [facility] 1, [place], [address], 03/26/2025 15:21:43 03/26/20 25 03/26/2025 CMP (MALE ) total protein 6.9 g/dL 6.0-8. 5 Not Available [facility] [address] [place] [facility], [place], [address], 03/26/2025 15:21:43 03/26/20 25 03/26/2025 CMP (MALE ) total bilirubin 0.5 mg/dL 0.2-1. 3 Not Available [facility] [address] [facility] 1, [place], [address], 03/26/2025 15:21:43 03/26/20 25 03/26/2025 CMP (MALE ) albumin 3.1 g/dL 3.5-5. 5 low Not Available [facility] [address] [place] [facility], [place], [address], 03/26/2025 15:21:43 03/26/20 25 03/26/2025 CMP (MALE ) globulin 3.8 calc Not Available [facility] [address] [facility] 1, [place], [address], 03/26/2025 15:21:43 03/26/20 25 03/26/2025 CMP (MALE ) AST (SGOT) 61.0 U/L 0.0-46 .0 high Not Available [facility] [address] [facility] Rekha [facility] 1, [place], [address], 03/26/2025 15:21:43 03/26/20 25 03/26/2025 CMP (MALE ) altv (SGPT) 39.0 U/L 13.0-6 9.0 normal Not Available [place] [facility] [address] [facility] 1, [place], [address], 03/26/2025 15:21:43 03/26/20 25 03/26/2025 CMP (MALE ) A/G ratio 0.8 ratio Not Available [facility] [address] [facility] 1, [place], [address], 03/26/2025 15:21:43 03/26/20 25 03/26/2025 CMP (MALE ) ALP phos 128.0 U/L 30.0-1 40.0 normal Not Available [facility] [address] [address], [place], [address], 03/26/2025 15:21:43 03/26/20 25 03/26/2025 CMP (MALE ) calcium 8.5 mg/dL 8.4-10 .5 Not Available [facility] [address] [facility] 1, [place], [address], 03/26/2025 15:21:43 03/26/20 25 03/26/2025 CMP (MALE ) sodium 131.0 mmol/ L 136.0- 145.0 low Not Available [place] [facility] [address] [address], [place], [address], 03/26/2025 15:21:43 03/26/20 25 03/26/2025 CMP (MALE ) potassium 4.4 mmol/ L 3.5-5. 1 Not Available [facility] [address] [address], [place], [address], 03/26/2025 15:21:43 03/26/20 25 03/26/2025 CMP (MALE ) chloride 97.0 mmol/ L 98.0-1 10.0 abnormal Not Available [facility] [address] [address], [place], [address], 03/26/2025 15:21:43 03/26/20 25 03/26/2025 CMP (MALE ) C02 30.0 mmol/ L 22.0-3 1.0 Not Available [facility] [address], [place], [address], 03/26/2025 15:21:43 03/26/2003/26/2025 CMP (MALE ) anion gap 4.0 calc Not Available [facility] [address], [place], [address], 03/26/2025 15:21:43 03/26/2003/26/2025 CMP (MALE ) osmolality 272.7 calc Not Available [facility] [address], [place], [address], 03/26/2025 15:21:43 04/01/2004/01/2025 CBC WBC 12.2 x10 high Not Available [facility] [address], [place], [address], 04/01/2025 13:12:43 04/01/2004/01/2025 CBC RBC 4.24 x10 low Not Available [facility] [address], [place], [address], 04/01/2025 13:12:43 04/01/2004/01/2025 CBC HGB 12.7 g/dL low Not Available [facility] [address], [place], [address], 04/01/2025 13:12:43 04/01/2004/01/2025 CBC HCT 39.3 % Not Available [facility] [address], [place], [address], 04/01/2025 13:12:43 04/01/2004/01/2025 CBC MCV 92.6 fL Not Available [facility] [address] [place] [facility], [place], [address], 04/01/2025 13:12:43 04/01/2004/01/2025 CBC MCH 30.0 pg Not Available [facility] [address] [facility] 1, [place], [address], 04/01/2025 13:12:43 04/01/2004/01/2025 CBC MCHC 32.4 g/dL Not Available [facility] [address] [facility] 1, [place], [address], 04/01/2025 13:12:43 04/01/2004/01/2025 CBC RDW 14.2 % Not Available [facility] [address] [facility] 1, [place], [address], 04/01/2025 13:12:43 04/01/2004/01/2025 CBC plt 877.5 x10 high Not Available [facility] [address] [facility] 1, [place], [address], 04/01/2025 13:12:43 04/01/2004/01/2025 CBC lymphocytes % 14.1 % low Not Available [facility] [address] [facility] 1, [place], [address], 04/01/2025 13:12:43 04/01/2004/01/2025 CBC granulcytes % 74.2 % high Not Available [facility] [address] [facility] 1, [place], [address], 04/01/2025 13:12:43 04/01/2004/01/2025 CBC monocytes % 8.7 % Not Avai lable [facility] [address] [facility] 1, [place], [address], 04/01/2025 13:12:43 04/01/20 25 04/01/2025 CBC granulcytes# 9.1 x10 Not [place] ilable [facility] [address] [facility] 1, [place], [address], 04/01/2025 13:12:43 04/01/2004/01/2025 CBC lymphocytes # 1.7 x10 Not Available [facility] [address] [facility] 1, [place], [address], 04/01/2025 13:12:43 04/01/2004/01/2025 CBC monocytes # 1.1 x10 Not [facility] [address] [facility] 1, [place], [address], 04/01/2025 13:12:43 04/01/20 25 04/01/2025 CMP (MALE ) glucose 148.0 mg/dL 60.0-9 9.0 high Not Available [facility] [address] [facility] 1, [place], [address], 04/01/2025 14:20:52 04/01/20 25 04/01/2025 CMP (MALE ) BUN (blood urea nitrogen) 11.0 mg/dL 10.0-2 6.0 Not Available [facility] [address] [facility] 1, [place], [address], 04/01/2025 14:20:52 04/01/20 25 04/01/2025 CMP (MALE ) creatinine (serum) 0.8 mg/dL 0.4-1. 5 Not Available [facility] [address] [facility] 1, [place], [address], 04/01/2025 14:20:52 04/01/20 25 04/01/2025 CMP (MALE ) BUN/creatini ne ratio 13.75 ratio Not Available [facility] [address] [facility], [place], [address], 04/01/2025 14:20:52 04/01/20 25 04/01/2025 CMP (MALE ) eGFR calculated 110.1 Not Available [facility] [address] [place] [facility], [place], [address], 04/01/2025 14:20:52 04/01/20 25 04/01/2025 CMP (MALE ) total protein 7.4 g/dL 6.0-8. 5 Not Available [facility] [address] [facility] 1, [place], [address], 04/01/2025 14:20:52 04/01/20 25 04/01/2025 CMP (MALE ) total bilirubin 0.5 mg/dL 0.2-1. 3 Not Available [facility] [address] [facility] 1, [place], [address], 04/01/2025 14:20:52 04/01/20 25 04/01/2025 CMP (MALE ) albumin 3.5 g/dL 3.5-5. 5 Not Available [facility] [address] [facility] 1, [place], [address], 04/01/2025 14:20:52 04/01/20 25 04/01/2025 CMP (MALE ) globulin 3.9 calc Not Available [facility] [address] [facility] 1, [place], [address], 04/01/2025 14:20:52 04/01/20 25 04/01/2025 CMP (MALE ) AST (SGOT) 56.0 U/L 0.0-46 .0 high Not Available [facility] [address] [facility] [address], [place], [address], 04/01/2025 14:20:52 04/01/20 25 04/01/2025 CMP (MALE ) altv (SGPT) 68.0 U/L 13.0-6 9.0 normal Not Available [facility] [address], [place], [address], 04/01/2025 14:20:52 04/01/20 25 04/01/2025 CMP (MALE ) A/G ratio 0.9 ratio Not Available [facility] [address] [place] [address] [facility] 1, [place], [address], 04/01/2025 14:20:52 04/01/20 25 04/01/2025 CMP (MALE ) ALP phos 103.0 U/L 30.0-1 40.0 normal Not Available [facility] [address] [facility], [place], [address], 04/01/2025 14:20:52 04/01/20 25 04/01/2025 CMP (MALE ) calcium 9.1 mg/dL 8.4-10 .5 Not Available [facility] [address] [facility] 1, [place], [address], 04/01/2025 14:20:52 04/01/20 25 04/01/2025 CMP (MALE ) sodium 135.0 mmol/ L 136.0- 145.0 low Not Available [facility] [address] [facility] 1, [place], [address], 04/01/2025 14:20:52 04/01/20 25 04/01/2025 CMP (MALE ) potassium 3.7 mmol/ L 3.5-5. 1 Not Available [facility] [address] [place] [address] [facility] 1, [place], [address], 04/01/2025 14:20:52 04/01/20 25 04/01/2025 CMP (MALE ) chloride 97.0 mmol/ L 98.0-1 10.0 abnormal Not Available [facility] [address] [facility] 1, [place], [address], 04/01/2025 14:20:52 04/01/20 25 04/01/2025 CMP (MALE ) C02 32.0 mmol/ L 22.0-3 1.0 high Not Available [facility] [address] [facility] 1, [place], [address], 04/01/2025 14:20:52 04/01/2004/01/2025 CMP (MALE ) anion gap 6.0 calc Not Available [facility] [address] [facility] 1, [place], [address], 04/01/2025 14:20:52 04/01/2004/01/2025 CMP (MALE ) osmolality 281.1 calc Not Available [facility] [address] [facility] 1, [place], [address], 04/01/2025 14:20:52 04/01/2004/02/2025 C-LIZETH CTIVE PROTE IN C-reactive protein 5.3 mg/L <8.0 normal Not Available [facility] [address] [place], [address], 04/02/2025 09:32:12 04/01/2004/02/2025 LIPAS E lipase 174 U/L 7-60 high Not Available [employer] [facility] [address] [place], [address], 04/02/2025 09:32:13 04/07/20 25 04/07/2025 CBC WBC 8.5 x10 4.5-10 .5 Not Available [facility] [address] [facility] 1, [place], [address], 04/07/2025 10:43:49 04/07/20 25 04/07/2025 CBC RBC 4.60 x10 4.30-5 .90 Not Available [facility] [address] [facility] 1, [place], [address], 04/07/2025 10:43:49 04/07/20 25 04/07/2025 CBC HGB 13.4 g/dL 13.5-1 8.0 low Not Available [facility] [address] [facility] 1, [place], [address], 04/07/2025 10:43:49 04/07/20 25 04/07/2025 CBC HCT 42.4 % 35.0-6 0.0 Not Available [facility] [address] [facility] 1, [place], [address], 04/07/2025 10:43:49 04/07/20 25 04/07/2025 CBC MCV 92.1 fL 80.0-9 9.9 Not Available [facility] [address] [facility] 1, [place], [address], 04/07/2025 10:43:49 04/07/20 25 04/07/2025 CBC MCH 29.2 pg 27.0-3 2.0 Not Available [facility] [address] [facility] 1, [place], [address], 04/07/2025 10:43:49 04/07/20 25 04/07/2025 CBC MCHC 31.7 g/dL 32.0-3 6.0 low Not Available [facility] [address] [facility] 1, [place], [address], 04/07/2025 10:43:49 04/07/20 25 04/07/2025 CBC RDW 14.3 % 11.5-1 4.5 Not Available [facility] [address] [facility] [address] [address], [place], [address], 04/07/2025 10:43:49 04/07/20 25 04/07/2025 CBC plt 659.8 x10 150.0- 451.0 high Not Available [place] [facility] [address] [facility], [place], [address], 04/07/2025 10:43:49 04/07/20 25 04/07/2025 CBC lymphocytes % 18.9 % 20.0-5 0.0 low Not Available [place] [facility] [address] [place] [address] [facility], [place], [address], 04/07/2025 10:43:49 04/07/20 25 04/07/2025 CBC granulcytes % 66.4 % 30.0-7 0.0 Not Available [facility] [address] [facility] [address] [address], [place], [address], 04/07/2025 10:43:49 04/07/20 25 04/07/2025 CBC monocytes % 10.4 % 2.0-16 .0 Not Available [place] [facility] [address] [place] [address] [facility], [place], [address], 04/07/2025 10:43:49 04/07/20 25 04/07/2025 CBC granulcytes# 5.6 x10 Not [place] ilable [facility] [address] [place] [address] [facility], [place], [address], 04/07/2025 10:43:49 04/07/20 25 04/07/2025 CBC lymphocytes # 1.6 x10 Not Available [place] [facility] [address] [place] [address] [facility], [place], [address], 04/07/2025 10:43:49 04/07/20 25 04/07/2025 CBC monocytes # 0.9 x10 Not Avai lable [facility] [address] [facility] 1, [place], [address], 04/07/2025 10:43:49 04/07/2004/08/2025 C-LIZETH CTIVE PROTE IN C-reactive protein 3.2 mg/L <8.0 normal Not Available [employer] [facility] [address] , [place], [address], 04/08/2025 06:41:41 04/21/2004/21/2025 CBC WBC 8.4 x10 4.5-10 .5 Not Available [facility] [address] [facility] 1, [place], [address], 04/21/2025 09:44:37 04/21/2004/21/2025 CBC RBC 4.67 x10 4.30-5 .90 Not Available [facility] [address] [facility], [place], [address], 04/21/2025 09:44:37 04/21/2004/21/2025 CBC HGB 13.8 g/dL 13.5-1 8.0 Not Available [facility] [address] [place] [facility], [place], [address], 04/21/2025 09:44:37 04/21/2004/21/2025 CBC HCT 43.2 % 35.0-6 0.0 Not Available [place] [facility] [address] [facility] 1, [place], [address], 04/21/2025 09:44:37 04/21/2004/21/2025 CBC MCV 92.4 fL 80.0-9 9.9 Not Available [place] [facility] [address] [facility] 1, [place], [address], 04/21/2025 09:44:37 04/21/20 25 04/21/2025 CBC MCH 29.6 pg 27.0-3 2.0 Not Available [facility] [address] [facility] 1, [place], [address], 04/21/2025 09:44:37 04/21/2004/21/2025 CBC MCHC 32.0 g/dL 32.0-3 6.0 Not Available [facility] [address] [facility] 1, [place], [address], 04/21/2025 09:44:37 04/21/2004/21/2025 CBC RDW 13.7 % 11.5-1 4.5 Not Available [facility] [address] [facility] 1, [place], [address], 04/21/2025 09:44:37 04/21/2004/21/2025 CBC plt 384.6 x10 150.0- 451.0 Not Available [facility] [address] [place] [facility], [place], [address], 04/21/2025 09:44:37 04/21/2004/21/2025 CBC lymphocytes % 17.4 % 20.0-5 0.0 low Not Available [facility] [address] [facility] 1, [place], [address], 04/21/2025 09:44:37 04/21/2004/21/2025 CBC granulcytes % 68.9 % 30.0-7 0.0 Not Available [facility] [address] [place] [address] [facility] 1, [place], [address], 04/21/2025 09:44:37 04/21/2004/21/2025 CBC monocytes % 7.9 % 2.0-16 .0 Not Available [facility] [address] [place] [address] [facility] 1, [place], [address], 04/21/2025 09:44:37 04/21/20 25 04/21/2025 CBC granulcytes# 5.8 x10 Not [place] ilable [facility] [address] [address], [place], [address], 04/21/2025 09:44:37 04/21/20 25 04/21/2025 CBC lymphocytes # 1.5 x10 Not Available [facility] [address] [address], [place], [address], 04/21/2025 09:44:37 04/21/20 25 04/21/2025 CBC monocytes # 0.7 x10 Not Avai lable [facility] [address] [address], [place], [address], 04/21/2025 09:44:37 04/21/20 25 04/21/2025 CMP (MALE ) glucose 85.0 mg/dL 60.0-9 9.0 Not Available [facility] [address] [address], [place], [address], 04/21/2025 11:05:16 04/21/20 25 04/21/2025 CMP (MALE ) BUN (blood urea nitrogen) 13.0 mg/dL 10.0-2 6.0 Not Available [facility] [address] [address], [place], [address], 04/21/2025 11:05:16 04/21/20 25 04/21/2025 CMP (MALE ) creatinine (serum) 0.8 mg/dL 0.4-1. 5 Not Available [facility] [address] [address], [place], [address], 04/21/2025 11:05:16 04/21/20 25 04/21/2025 CMP (MALE ) BUN/creatini ne ratio 16.25 ratio Not Available [facility] [address] [address], [place], [address], 04/21/2025 11:05:16 04/21/20 25 04/21/2025 CMP (MALE ) eGFR calculated 110.1 Not Available [facility] [address] [facility] [address], [place], [address], 04/21/2025 11:05:16 04/21/20 25 04/21/2025 CMP (MALE ) total protein 7.6 g/dL 6.0-8. 5 Not Available [facility] [address] [facility], [place], [address], 04/21/2025 11:05:16 04/21/20 25 04/21/2025 CMP (MALE ) total bilirubin 0.2 mg/dL 0.2-1. 3 Not Available [facility] [address] [facility] [address], [place], [address], 04/21/2025 11:05:16 04/21/20 25 04/21/2025 CMP (MALE ) albumin 4.5 g/dL 3.5-5. 5 Not Available [facility] [address] [facility], [place], [address], 04/21/2025 11:05:16 04/21/20 25 04/21/2025 CMP (MALE ) globulin 3.1 calc Not Available [facility] [address] [facility] [address], [place], [address], 04/21/2025 11:05:16 04/21/20 25 04/21/2025 CMP (MALE ) AST (SGOT) 43.0 U/L 0.0-46 .0 Not Available [facility] [address] [facility] [address], [place], [address], 04/21/2025 11:05:16 04/21/20 25 04/21/2025 CMP (MALE ) altv (SGPT) 56.0 U/L 13.0-6 9.0 normal Not Available [facility] [address] [facility], [place], [address], 04/21/2025 11:05:16 04/21/20 25 04/21/2025 CMP (MALE ) A/G ratio 1.5 ratio Not Available [facility] [address] [facility], [place], [address], 04/21/2025 11:05:16 04/21/20 25 04/21/2025 CMP (MALE ) ALP phos 79.0 U/L 30.0-1 40.0 normal Not Available [facility] [address] [facility], [place], [address], 04/21/2025 11:05:16 04/21/2004/21/2025 CMP (MALE ) calcium 9.4 mg/dL 8.4-10 .5 Not Available [facility] [address] [facility] 1, [place], [address], 04/21/2025 11:05:16 04/21/20 25 04/21/2025 CMP (MALE ) sodium 139.0 mmol/ L 136.0- 145.0 Not Available [facility] [address] [facility], [place], [address], 04/21/2025 11:05:16 04/21/2004/21/2025 CMP (MALE ) potassium 4.3 mmol/ L 3.5-5. 1 Not Available [facility] [address] [facility], [place], [address], 04/21/2025 11:05:16 04/21/2004/21/2025 CMP (MALE ) chloride 100.0 mmol/ L 98.0-1 10.0 normal Not Available [facility] [address] [facility], [place], [address], 04/21/2025 11:05:16 04/21/20 25 04/21/2025 CMP (MALE ) C02 32.0 mmol/ L 22.0-3 1.0 high Not Available [facility] [address] [facility] 1, [place], [address], 04/21/2025 11:05:16 04/21/20 25 04/21/2025 CMP (MALE ) anion gap 7.0 calc Not Available [facility] [address] [facility] 1, [place], [address], 04/21/2025 11:05:16 04/21/20 25 04/21/2025 CMP (MALE ) osmolality 286.6 calc Not Available [facility] [address] [facility], [place], [address], 04/21/2025 11:05:16 04/21/20 25 04/21/2025 LIPID PROFI LE (MALE ) cholesterol 144.0 mg/dL 0.0-20 0.0 Not Available [facility] [address] [facility] 1, [place], [address], 04/21/2025 11:05:19 04/21/20 25 04/21/2025 LIPID PROFI LE (MALE ) trig 187.0 mg/dL 0.0-15 0.0 high Not Available [facility] [address] [facility] 1, [place], [address], 04/21/2025 11:05:19 04/21/20 25 04/21/2025 LIPID PROFI LE (MALE ) HDL - direct 41.0 mg/dL >40.0 Not Available [facility] [address] [facility] 1, [place], [address], 04/21/2025 11:05:19 04/21/20 25 04/21/2025 LIPID PROFI LE (MALE ) VLDL - direct 37.4 mg/dL Not Available [facility] [address] [facility] 1, [place], [address], 04/21/2025 11:05:19 04/21/20 25 04/21/2025 LIPID PROFI LE (MALE ) LDL - direct 65.6 mg/dL 0.0-13 0.0 Not Available [facility] [address] [facility], [place], [address], 04/21/2025 11:05:19 04/21/20 25 04/22/2025 C-LIZETH CTIVE PROTE IN C-reactive protein <3.0 mg/L <8.0 normal Not Available [place] [address] [place], [address], 04/22/2025 11:36:37 04/21/20 25 04/22/2025 AMYLA SE amylase 47 U/L 21-101 normal Not Available [address] [place] [address] [place], [address], 04/22/2025 11:36:37 04/21/20 25 04/22/2025 LIPAS E lipase 74 U/L 7-60 high Not Available [place] [address] [place], [address], 04/22/2025 11:36:38 Result Notes None recorded. Problems Name Problem SNOMED Code Status Onset Date Resolution Date Notes Provider Name and Address Organization Details Recorded Time Metabolic syndrome X 943994383 Active 2022 Colin Nassar DO [address] [place] [address], [phone], [facility] 4 14:10:14 Adult health examination Active 2022 Colin Nassar DO [address] [place] [address], [address], [facility] 3 14:59:23 Obesity 255206133 Active 2022 Colin Nassar, [address], [address] [place] [address] 5, [facility] 3 14:59:40 Chronic recurrent sinusitis 189369930 Active [address], [address] [place] [address] 5, [facility] 3 15:25:55 Mixed hyperlipide digna 765525523 Active [address], [address] [place] [address] 5, [facility] 4 09:57:35 Leukocytosi s 566241460 Active [address], [address] [place] [address] 5, [facility] 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 13:02:19 Reactive depression (situationa l) 45515489 Active [address], [address] [place] [address] 5, [facility] 5 08:06:48 Acute pancreatiti s 650149940 Active [address], [address] [place] [address] 5, [facility] 08:06:50 Acute cholecystit is 15454995 Active 2024 Colin Nassar DO [address] [place], [address], [facility] 5 08:06:52 Gallstone acute pancreatiti s 297332696 Active 2024 Colin Nassar DO [address] [place], [address], [facility], L.LIjeoma 5 07:06:29 Problem Notes None recorded. Medical Equipment None Reported. Allergies Allergen ID Allergen Name Allergen Category Reaction Reaction Severity Criticality Documentation Date Start Date Code Code System Note Provider Name and Address Organization Details Recorded Time 35971 Keflex medicatio n Not available Not available Not available 12/31/2022 7 RxNorm Comme nt: Recor ded 04/25 1:57P M by Ligia Rothman n, Offic e Visit ; Promo sondra; Dee roth ce: *; Reaso n: Drug aller gy; ; Not Available [facility] 3 02:27:06 79589 cephalexi n medicatio n Not available Not [...] Updated DateTime 5 172.72 cm 26.1 kg/m2 00594.1 g 97 % 90 /min 18 /min 126/84 mm[Hg] Leticia GARZA [facility] 5 09:36:41 Date Recorded Body height Body mass index (BMI) Body weight Oxygen saturation Heart rate Respiratory rate Systolic And Diastolic Provider Name and Address Organization Details Last Updated DateTime 5 172.72 cm 26.2 kg/m2 30093.2 9 g 97 % 91 /min 18 /min 146/90 mm[Hg] MAHAD WISE [facility] 5 14:26:44 Date Recorded Body height Body mass index (BMI) Body weight Oxygen saturation Heart rate Respiratory rate Systolic And Diastolic Provider Name and Address Organization Details Last Updated DateTime 5 172.72 cm 26.5 kg/m2 78818.7 7 g 97 % 81 /min 18 /min 110/70 mm[Hg] Leticia Moreira [facility] 5 11:55:35 Social History None recorded. Functional Status Question Answer Note LastModified by Organizat ion Details LastModified Time Do you use any illicit or recreational drugs? No [email or web address] Information not available 05/01/2023 Do you or have you ever used any other forms of tobacco or nicotine? No [email or web address] Information not available 05/01/2023 What is your level of alcohol consumption? None [email or web address] Information not available 05/01/2023 Mental Status None recorded. Family History Relationship Description Onset Age of this Age Resolved Age Notes LastModified by Organization Details LastModified Time Father Coronary arterioscler osis 65 father with AMI late 60s [email or web address] Not available 05/01/2023 15:28:02 Medical History No medical history recorded. Immunizations Vaccine Type Date Status Note Provider Nam e and Address Organization Details Recorded Time Influenza, MDCK, quadrivalent, PF 05/03/[address] [facility] 05/07/2024 09:23:05 COVID-19, mRNA, LNP-S, PF, 30 mcg/0.3 mL dose 01/02/[address] [facility] 05/07/2024 09:23:05 COVID-19, mRNA, LNP-S, PF, 30 mcg/0.3 mL dose 01/23/[address] [facility], Svetlana 05/07/2024 09:23:05 Past Encounters Encounter ID Performer Location Encounter Start Date Encounter Closed Date Diagnosis/Indication Diagnosis SNOMED-CT Code Diagnosis ICD10 Code Diagnosis IMO Codes Diagnosis Note [id number] Colin Nassar DO [facility] [address] [place] [phone] 05/01/2023 14:22:03 05/01/2023 15:35:15 Adult health examination 334509846 Z00.00 I counseled patient on diet, exercise, weight, and mental health. We discussed appropriat e cancer screenings . All questions were addressed. I reviewed recent labs prior to visit and discussed recent labs/studi es with pt during this visit. Pt is encouraged to utilized the portal. all questions were addressed. f/u every 12 mts for annual wellness visits. Obesity 884278027 E66.9 I counseled pt on obesity. We discussed risks and ways to loose weight. Pt will work on diet, exercise. Chronic re current sinusitis 959644529 J32.9 Most of adult life. Refractory to nasal steroids, antihistam lauren and nasal rinses. Counseled on nasal washes. Discussed neck step would be CT scan of the sinus and then evaluation by manager nuclear . He will discuss this with his and consider. [id number] Colin Nassar DO [facility] ([facility]) [address] [place] [address] 10/18/2023 08:29:48 10/19/2023 11:19:04 Adult health examination 645163305 Z00.00 I counseled patient on diet, exercise, weight, and mental health. We discussed appropriat e cancer screenings . All questions were addressed. I reviewed recent labs prior to visit and discussed recent labs/studi es with pt during this visit. Pt is encouraged to utilized the portal. all questions were addressed. f/u every 12 mts for annual wellness visits. [id number] Colin Nassar DO [facility] ([facility]) [address] [place] [phone] 04/30/2024 08:21:17 05/01/2024 08:14:51 Adult health examination 472616297 Z00.00 I counseled patient on diet, exercise, weight, and mental health. We discussed appropriat e cancer screenings . All questions were addressed. I reviewed recent labs prior to visit and discussed recent labs/studi es with pt during this visit. Pt is encouraged to utilized the portal. all questions were addressed. f/u every 12 mts for annual wellness visits. [id number] Colin Nassar DO [facility] ([facility]) [address] [place] [address] 05/07/2024 09:17:43 05/07/2024 10:19:37 Active or passive immunization 407361699 Z23 Adult heal th examination 044192437 Z00.00 I counseled patient on diet, exercise, weight, and mental health. We discussed appropriat e cancer screenings . All questions were addressed. I reviewed recent labs prior to visit and discussed recent labs/studi es with pt during this visit. Pt is encouraged to utilized the portal. all questions were addressed. f/u every 12 mts for annual wellness visits. Obesity 221717141 E66.9 much improved with Semaglutid e. continue for now, counseled on expectatio ns and how to wean off in the future without gaining back the weight. I counseled pt on obesity. We discussed risks and ways to loose weight. Pt will work on diet, exercise. Mixed hyperlipidemia 267 823441 E78.2 much improved with weight loss. Will hold off on statin due to improvemen t. counseled on diet, exercise. [id number] Colin Nassar DO [facility] ([facility]) [address] [place] [address] 03/26/2025 14:20:32 03/27/2025 13:03:22 Acute cholecystitis 09653265 K81.0 [id number] 03/26/25: Necrotic s/p parrtial excsion from laproscopi c turned open cholecyste ctemoy at [facility] feb 2025 requiring GB drain. complicate d by duct obstructio n, sepsis, pancreatit is with 25 day hospital stay at [facility]. He has been on abx for 30 [...] CMP, lipase, CRP. Acute pancreatitis 6006 K85.90 [id number] 03/26/25: 2/2 stone post GB excision feb 2025.will follow labs, continue antiemetic s, Start Creon, Counseled on diagnosis, treatment options including medication s and possible side effects. Hyperbilirubinemia 48224 006 E80.6 34171 Leukocytosis 028159101 D 72.829 60249567 since initial GB surgery, persistent . unclear etiology. has been evaluated by Hematology and ID at [facility]. determined NOT to be from infection or cancer. Will monitor labs weekly for now: Cbc, crp. Reactive d epression (situational) 24787997 F43.21 [id number] 03/26/25: Post lengthy hospitaliz ation, start Sertraline 25mg daily, Counseled on diagnosis, treatment options including medication s and possible side effects. Bilateral upper limb superficial vein thrombophlebitis 0132706221 1869721 I80.8 [id number] 03/26/25: Dc'd from [facility] on Eliquis, will continue 5mg BID at this time. [id number] Colin Nassar DO [facility] ([facility]) [address] [place] [phone] 03/26/2025 14:22:27 03/27/2025 13:03:41 Post-discharge follow-up [id number] Z09 984615 [id number] Colin Nassar DO [facility] ([facility]) [address] [place] [address] 04/01/2025 12:22:22 04/02/2025 09:46:08 Acute pancreatitis 913839582 K85.90 [id number] 03/26/25: 2/2 stone post GB excision feb 2025.will follow labs, continue antiemetic s, Start Creon, Counseled on diagnosis, treatment options including medication s and possible side effects. [id number] Colin Nassar DO [facility]) [address] [place] [address] 04/02/2025 09:22:56 04/04/2025 11:48:33 Acute cholecystitis 37694887 K81.0 9456 04/02/25: slow improvemen t, working on diet to gain weight, monitoring lab. nocurrent sign of obstructio n or infection. 03/26/25: Necrotic s/p parrtial excsion from laproscopi c turned open cholecyste ctemoy at [facility] feb 2025 requiring GB drain. complicate d by duct obstructio n, sepsis, pancreatit is with 25 day hospital stay at [facility]. He has been on abx for 30 [...] CMP, lipase, CRP. Acute pancreatitis 600 K85.90 [id number] 04/02/25: Continues Creon, tolerating well. nausea improved, no recent vomiting. no sign of infection. 03/26/25: 2/2 stone post GB excision feb 2025.will follow labs, continue antiemetic s, Start Creon, Counseled on diagnosis, treatment options including medication s and possible side effects. Leukocytosis 019018367 D 72.829 [id number] 04/02/25- improved, monitoring lab, f/u 1 week. since initial GB surgery, persistent . unclear etiology. has been evaluated by Hematology and ID at [facility]. determined NOT to be from infection or cancer. Will monitor labs weekly for now: Cbc, crp. Reactive d epression (situational) 36981346 F43.21 [id number] 04/02/25: Tolerating Sertraline , continue current tx. 5: Post lengthy hospitaliz ation, start Sertraline 25mg daily, Counseled on diagnosis, treatment options including medication s and possible side effects. Bilateral upper limb superficial vein thrombophlebitis 9671671982 7897424 I80.8 [id number] 03/26/25: Dc'd from [facility] on Eliquis, will continue 5mg BID at this time. [id number] Colin Nassar DO [facility] ([facility]) [address] [place] [phone] 04/07/2025 10:19:40 04/08/2025 10:10:52 Acute cholecystitis 12365400 K81.0 9456 04/02/25: slow improvemen t, working on diet to gain weight, monitoring lab. nocurrent sign of obstructio n or infection. 03/26/25: Necrotic s/p parrtial excsion from laproscopi c turned open cholecyste ctemoy at [facility] feb 2025 requiring GB drain. complicate d by duct obstructio n, sepsis, pancreatit is with 25 day hospital stay at [facility]. He has been on abx for 30 [...] CMP, lipase, CRP. Acute pancreatitis 6007 K85.90 [id number] 04/02/25: Continues Creon, tolerating well. nausea improved, no recent vomiting. no sign of infection. 03/26/25: 2/2 stone post GB excision feb 2025.will follow labs, continue antiemetic s, Start Creon, Counseled on diagnosis, treatment options including medication s and possible side effects. Leukocytosis 488395978 D 72.829 [id number] 04/02/25- improved, monitoring lab, f/u 1 week. since initial GB surgery, persistent . unclear etiology. has been evaluated by Hematology and ID at [facility]. determined NOT to be from infection or cancer. Will monitor labs weekly for now: Cbc, crp. [id number] Colin Nassar DO [facility] [address] [place] [phone] 04/08/2025 14:02:26 04/08/2025 15:11:33 Acute cholecystitis 35459797 K81.0 9456 04/08/25:: chronic, necrotic. off abx. continue with planned f/u with surgeon next mt. Start Cholesytro deacon.03/06 02/27: slow improvemen t, working on diet to gain weight, monitoring lab. no current sign of obstructio n or infection. 03/26/25: Necrotic s/p partial excision from laproscopi c turned open cholecyste ctomy at [facility] feb 2025 requiring GB drain. complicate d by duct obstructio n, sepsis, pancreatit is with 25 day hospital stay at [facility]. He has been on abx for 30 days. He continues with refractory leukocytos is, weight loss, fatigue, anemic, and significna tly elevated platelets. I cunseled stop abx tx, he has been on this for >1 month, this is likely effecting his nutrition, elevated WBC likely not d/t infection. F/u with me in one week, lab then, CBC, CMP, lipase, CRP. Leukocytosis 621144982 D 72.829 [id number] 04/08/25: normalized . repeat labs in 1 week.04/02- improved, monitoring lab, f/u 1 week. since initial GB surgery, persistent . unclear etiology. has been evaluated by Hematology and ID at [facility]. determined NOT to be from infection or cancer. Will monitor labs weekly for now: Cbc, crp. Reactive d epression (situational) 37542096 F43.21 [id number] 04/08/25: improved.1 : Tolerating Sertraline , continue current tx. 5: Post lengthy hospitaliz ation, start Sertraline 25mg daily, Counseled on diagnosis, treatment options including medication s and possible side effects. Bilateral upper limb superficial vein thrombophlebitis 6803109668 4803653 I80.8 [id number] 04/08/25:st op eliquis, start 81mg EC asa nightly.: Dc'd from [facility] on Eliquis, will continue 5mg BID at this time. Gallstone acute pancreatitis 478772065 K85.10 [id number] 04/08/25: somewhat improved. WBC normalized . nausea [...] Member ID Amaya Member ID Guarantor Name 04/19/2025 1 [employer] [id number] Edwin Keita [id number] Edwin Keita Notes Date Note Type [...] visit 1 week ago. Colin Nassar, DO [address] [place] [address], [phone], [place] [facility], [place] 04/03/2025 08:07:24 04/08/2025 text/html ROS as noted [...] nausea and stomach burning. Colin Nassar, DO [address] [place], [address], [facility], [place] 04/09/2025 07:09:17 04/22/2025 text/html ROS as noted in the HPI Pt presents for hospital f/u He went to the ER at [facility] on 04/12/25 for new onset lower left abd pain. palpated a knot and went to the ER for eval. They did a CT at [facility] and it showed multiple areas/pockets of fluid that needed drained per Interventional Radiologist. [place] [facility] [place] [facility] [place] [place] [facility] [place] [facility] for large retroperitoneal fluid collection and they placed a drain that he still has for at least 4 weeks or until he has 5-10ml drainage for 3 consecutive daysThe cx's that were done showed no bacteria and no bileThey did a fecal elastase that was greater than 800 so he has no pancreatic issueHe is currently on Augmentin 875 BID x 22 days. Lab 04/21/25, yesterday:Lipase 74, CRP wnl <3, WBC wnl, Plt wnl. Liver enzymes wnl. He is feeling better and denies any pain at this time CT abd/pelvis needs repeated around 05/06/25, this has already been ordered. Spouse reports pt's doctor is thinking about stenting the pancreas. Next appt scheduled 05/08/25. Not Available Not Available Not Available
--- OUTSIDE RECORDS SUMMARY | 2025-04-27 10:05 | XMS_ITS | Continuity of Care Document ---
Author Organization KAYLA Ayers [facility] Stephen, Vannesa, [facility] ([facility]) Address [address] [place] [address] Care Team Providers Care Barkeeper Name Role Phone COLIN MICHELLE Primary Care Provider Unavailabl e Assessment Encounter Date Assessment Date Assessment LastModified by Organization Details LastModified Time 03/26/2025 03/26/2025 I reviewed hospital records prior to seeing the patient today. I have reviewed tests/procedur es and diagnoses during hospital stay. I have reviewed and noted medications prior to admission as well as medication changes post admission. I have updated and reconciled medications post discharge today and meds are updated in EMR. I have also educated patient about medication changes and current medications. Please see hpi above and chart for detailed records. I have addressed all patient questions today. They express verbal understanding. Document scribed by Rashad Padilla, Curriculum Assistant Principal. I was present during interview and exam. I have reviewed and agree with above documentation. Dr. Colin Michelle. Counseled no need to f/u with ID for now. [email or web address] Not available 03/26/2025 16:22:51 Plan of Treatment Reminders Order Date Submit Date Provider Last Modified By Organization Details Last Modified Time Details Appointments RECHECK 10 2024 01:00P Nadia Michelle, DO Not available Not available Not available Lab None recorded. Referral None recorded. Procedures None recorded. Surgeries None recorded. Imaging None recorded. Medication Orders sertralin e 25 mg tablet 2024 025 [facility]/Pharmacy #[id number], [address], [facility] [address], [place], [address], 04/08/2025 14:22:48 Creon 36,000 unit-114, 000 unit-180, 000 unit capsule,d elayed release 2024 025 [email or web address] [facility]/Pharmacy #[id number], [address], [place], [address], 03/26/2025 18:14:02 Patient TargetsNo targets recorded. Patient InstructionsNo instructions recorded. Reason for Referral None Reported. Results Created Date Observation Date Name Description Value Unit Range Abnormal Flag Note LastModifiedBy Organization Detail LastModifiedTime 03/26/2003/26/2025 CBC WBC 16.0 x10 4.5-10 .5 high Not Available [facility] [address], [place], [address], 03/26/2025 14:37:45 03/26/2003/26/2025 CBC RBC 4.06 x10 4.30-5 .90 low Not Available [facility] [address], [place], [address], 03/26/2025 14:37:45 03/26/2003/26/2025 CBC HGB 12.3 g/dL 13.5-1 8.0 low Not Available [facility] [address], [place], [address], 03/26/2025 14:37:45 03/26/2003/26/2025 CBC HCT 37.5 % 35.0-6 0.0 Not Available [facility] [address], [place], [address], 03/26/2025 14:37:45 03/26/2003/26/2025 CBC MCV 92.4 fL 80.0-9 9.9 Not Available [facility] [address], [place], [address], 03/26/2025 14:37:45 03/26/20 25 03/26/2025 CBC MCH 30.3 pg 27.0-3 2.0 Not Available [facility] [address] [facility] [address] [facility] [address], [place], [address], 03/26/2025 14:37:45 03/26/20 25 03/26/2025 CBC MCHC 32.9 g/dL 32.0-3 6.0 Not Available [facility] [address] [facility], [place], [address], 03/26/2025 14:37:45 03/26/2003/26/2025 CBC RDW 13.6 % 11.5-1 4.5 Not Available [facility] [address] [facility], [place], [address], 03/26/2025 14:37:45 03/26/2003/26/2025 CBC plt 849.3 x10 150.0- 451.0 high Not Available [facility] [address] [facility] [address], [place], [address], 03/26/2025 14:37:45 03/26/20 25 03/26/2025 CBC lymphocytes % 11.2 % 20.0-5 0.0 low Not Available [facility] [address] [facility] [address], [place], [address], 03/26/2025 14:37:45 03/26/20 25 03/26/2025 CBC granulcytes % 75.5 % 30.0-7 0.0 high Not Available [facility] [address] [facility] [address], [place], [address], 03/26/2025 14:37:45 03/26/20 25 03/26/2025 CBC monocytes % 9.2 % 2.0-16 .0 Not Available [facility] [address] [address], [place], [address], 03/26/2025 14:37:45 03/26/20 25 03/26/2025 CBC granulcytes# 12.1 x10 Not Merlyn ilable [facility] [address] [address], [place], [address], 03/26/2025 14:37:45 03/26/20 25 03/26/2025 CBC lymphocytes # 1.8 x10 Not Available [facility] [address] [address], [place], [address], 03/26/2025 14:37:45 03/26/2003/26/2025 CBC monocytes # 1.5 x10 Not Avai lable [facility] [address] [address], [place], [address], 03/26/2025 14:37:45 03/26/20 25 03/26/2025 CMP (MALE ) glucose 133.0 mg/dL 60.0-9 9.0 high Not Available [facility] [address] [address], [place], [address], 03/26/2025 15:21:43 03/26/20 25 03/26/2025 CMP (MALE ) BUN (blood urea nitrogen) 12.0 mg/dL 10.0-2 6.0 Not Available [facility] [address] [address], [place], [address], 03/26/2025 15:21:43 03/26/20 25 03/26/2025 CMP (MALE ) creatinine (serum) 0.9 mg/dL 0.4-1. 5 Not Available [facility] [address] [address], [place], [address], 03/26/2025 15:21:43 03/26/20 25 03/26/2025 CMP (MALE ) BUN/creatini ne ratio 13.33 ratio Not Available [facility] [address] [facility] [address] [address], [place], [address], 03/26/2025 15:21:43 03/26/20 25 03/26/2025 CMP (MALE ) eGFR calculated 96.1 Not Available [facility] [address] [facility] [address], [place], [address], 03/26/2025 15:21:43 03/26/20 25 03/26/2025 CMP (MALE ) total protein 6.9 g/dL 6.0-8. 5 Not Available [facility] [address] [facility] [address], [place], [address], 03/26/2025 15:21:43 03/26/20 25 03/26/2025 CMP (MALE ) total bilirubin 0.5 mg/dL 0.2-1. 3 Not Available [facility] [address] [facility] [address], [place], [address], 03/26/2025 15:21:43 03/26/20 25 03/26/2025 CMP (MALE ) albumin 3.1 g/dL 3.5-5. 5 low Not Available [facility] [address] [facility] [address], [place], [address], 03/26/2025 15:21:43 03/26/20 25 03/26/2025 CMP (MALE ) globulin 3.8 calc Not Available [facility] [address] [facility] [address], [place], [address], 03/26/2025 15:21:43 03/26/20 25 03/26/2025 CMP (MALE ) AST (SGOT) 61.0 U/L 0.0-46 .0 high Not Available [facility] [address] [facility] [address], [place], [address], 03/26/2025 15:21:43 03/26/20 25 03/26/2025 CMP (MALE ) altv (SGPT) 39.0 U/L 13.0-6 9.0 normal Not Available [facility] [address] [facility] [address], [place], [address], 03/26/2025 15:21:43 03/26/20 25 03/26/2025 CMP (MALE ) A/G ratio 0.8 ratio Not Available [facility] [address] [facility] [address], [place], [address], 03/26/2025 15:21:43 03/26/2003/26/2025 CMP (MALE ) ALP phos 128.0 U/L 30.0-1 40.0 normal Not Available [facility] [address] [facility] [address], [place], [address], 03/26/2025 15:21:43 03/26/20 25 03/26/2025 CMP (MALE ) calcium 8.5 mg/dL 8.4-10 .5 Not Available [facility] [address] [facility] [address], [place], [address], 03/26/2025 15:21:43 03/26/20 25 03/26/2025 CMP (MALE ) sodium 131.0 mmol/ L 136.0- 145.0 low Not Available [facility] [address] [facility] [address], [place], [address], 03/26/2025 15:21:43 03/26/20 25 03/26/2025 CMP (MALE ) potassium 4.4 mmol/ L 3.5-5. 1 Not Available [facility] [address] [facility] [address], [place], [address], 03/26/2025 15:21:43 03/26/20 25 03/26/2025 CMP (MALE ) chloride 97.0 mmol/ L 98.0-1 10.0 abnormal Not Available [facility] [address] [facility] [address], [place], [address], 03/26/2025 15:21:43 03/26/2003/26/2025 CMP (MALE ) C02 30.0 mmol/ L 22.0-3 1.0 Not Available [facility] [address] [facility] [address], [place], [address], 03/26/2025 15:21:43 03/26/2003/26/2025 CMP (MALE ) anion gap 4.0 calc Not Available [facility] [address] [facility] [address], [place], [address], 03/26/2025 15:21:43 03/26/2003/26/2025 CMP (MALE ) osmolality 272.7 calc Not Available [facility] [address] [facility] [address], [place], [address], 03/26/2025 15:21:43 Result Notes None recorded. Problems Name Problem SNOMED Code Status Onset Date Resolution Date Notes Provider Name and Address Organization Details Recorded Time Metabolic syndrome X 520645871 Active 2022 Colin Michelle [address], [address], [facility] Otis MitchellLIjeoma 4 14:10:14 Adult health examination Active 2022 Colin Michelle [address], [address], [facility] Vannesa Mitchell 3 14:59:23 Obesity 192349040 Active 2022 Colin Michelle [address], [address], [facility] 3 14:59:40 Chronic recurrent sinusitis 656821766 Active 2022 Colin Michelle, [address], [address], [facility] 3 15:25:55 Mixed hyperlipide digna 408479453 Active [address], [address], [facility] 4 09:57:35 Leukocytosi s 324697263 Active [address], [address], [facility] 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 5 13:02:19 Reactive depression (situationa l) 77023651 Active [address], [address], [facility] 5 08:06:48 Acute pancreatiti s 148392852 Active [address], [address], [facility] 5 08:06:50 Acute cholecystit is 42318931 Active [address], [address], [facility] 5 08:06:52 Gallstone acute pancreatiti s 965934402 Active 2024 [facility] [address] [place], [address], [facility] 5 07:06:29 Problem Notes None recorded. Medical Equipment None Reported. Allergies Allergen ID Allergen Name Allergen Category Reaction Reaction Severity Criticality Documentation Date Start Date Code Code System Note Provider Name and Address Organization Details Recorded Time 90016 Keflex medicatio n Not available Not available Not available 12/31/202240958 7 RxNorm Comme nt: Recor ded 04/25 1:57P M by Ligiaamanda Rothman n, Offic e Visit ; Promo sondra; Dee roth ce: *; Reaso n: Drug aller gy; ; Not Available [facility] 3 02:27:06 54089 cephalexi n medicatio n Not available Not [...] Updated DateTime 5 172.72 cm 26.5 kg/m2 71763.8 7 g 98 % 107 /min 18 /min 124/72 mm[Hg] Leticia Moreira [facility] 5 15:14:28 Social History None recorded. Functional Status Question Answer Note LastModified by Organizat ion Details LastModified Time Do you use any illicit or recreational drugs? No [email or web address] Information not available 05/01/2023 Do you or have you ever used any other forms of tobacco or nicotine? No [email or web address] Information not available 05/01/2023 What is your level of alcohol consumption? None [email or web address] Information not available 05/01/2023 Mental Status None recorded. Family History Relationship Description Onset Age of this Age Resolved Age Notes LastModified by Organization Details LastModified Time Father Coronary arterioscler osis 65 father with AMI late 60s [email or web address] Not available 05/01/2023 15:28:02 Medical History No medical history recorded. Immunizations Vaccine Type Date Status Note Provider Clayton steele and Address Organization Details Recorded Time Influenza, MDCK, quadrivalent, PF 05/03/2017 completed Leticia castillo [facility] 05/07/2024 09:23:05 COVID-19, mRNA, LNP-S, PF, 30 mcg/0.3 mL dose 01/02/2021 completed Leticia castillo [facility] 05/07/2024 09:23:05 COVID-19, mRNA, LNP-S, PF, 30 mcg/0.3 mL dose 01/23/2021 completed Leticia castillo [facility] 05/07/2024 09:23:05 Past Encounters Encounter ID Performer Location Encounter Start Date Encounter Closed Date Diagnosis/Indication Diagnosis SNOMED-CT Code Diagnosis ICD10 Code Diagnosis IMO Codes Diagnosis Note [id number] Colin Michelle DO [facility] ([facility]) [address] [place] [address] 03/26/2025 14:20:32 03/27/2025 13:03:22 Acute cholecystitis 27247463 K81.0 [id number] 03/26/25: Necrotic s/p parrtial excsion from laproscopi c turned open cholecyste ctemoy at [facility] feb 2025 requiring GB drain. complicate d by duct obstructio n, sepsis, pancreatit is with 25 day hospital stay at [facility]. He has been on abx for 30 days. He continues with refractory leukocytos is, weight loss, fatigue, anemic, and significna tly elevated platelets. I cunseled stop abx tx, he has been on this for >1 month, this is likely effecting his nutrition, elevated WBC likely not d/t infection. F/u with me in one week, lab then, CBC, CMP, lipase, CRP. Acute pancreatitis 21318 6007 K85.90 [id number] 03/26/25: 2/2 stone post GB excision feb 2025.will follow labs, continue antiemetic s, Start Creon, Counseled on diagnosis, treatment options including medication s and possible side effects. Hyperbilirubinemia 12191 006 E80.6 19171 Leukocytosis 943635012 D 72.829 [id number] since initial GB surgery, persistent . unclear etiology. has been evaluated by Hematology and ID at [facility]. determined NOT to be from infection or cancer. Will monitor labs weekly for now: Cbc, crp. Reactive d epression (situational) 31547573 F43.21 [id number] 03/26/25: Post lengthy hospitaliz ation, start Sertraline 25mg daily, Counseled on diagnosis, treatment options including medication s and possible side effects. Bilateral upper limb superficial vein thrombophlebitis [id number] 9082513 I80.8 [id number] 03/26/25: Dc'd from [facility] on Eliquis, will continue 5mg BID at this time. [id number] Colin Michelle DO [facility] ([facility]) [address] [place], [place] [address] 03/26/2025 14:22:27 03/27/2025 13:03:41 Post-discharge follow-up [id number] Z09 [id number] Health Concerns Section Related Observation LastModified by Organization Detai ls LastModified Time None Recorded Concern Status LastModified by Organization Details LastModified Time None Recorded Payers Encounter Date Sequence Insurance Name Policy Number Policy Amaya Covered Member ID Amaya Member ID Guarantor Name 03/26/2025 1 [employer] [id number] Edwin Keita [id number] Edwin Keita Notes Date Note Type [...] pain and drainage so he went to [facility] ER and ended up transferred to [facility] for ERCP. His WBC was up [...] cholecystitis with partial cholecystectomy on 02/08 at [facility]. During a follow-up, his bilirubin was elevated and was concern for leak. Patient's bilirubin has been gradually increasing and he is jaundiced. Patient's drainage is darker. He has been experiencing upper abdominal pain since yesterday morning and went to ER at [facility]. Patient started vomiting last night and continues [...] Agreeable to post-pyloric feeding tube. Will proceed. Pricing Supervisor consult as well. 03/09: Patient appears more comfortable this a.m. Feeding tube in place. At goal rate tolerating. Positive liquid stool and flatus. 6: Increasing lower abdominal fullness and discomfort. Will [...] antibiotic therapy, postpyloric tube feeding. Significant diarrhea, crm manager requested to add stool bulking agent to [...] Hematology f/u needed pt can f/u in .They were advised he can f/u with Hepato specialist in [place] when improved, to discuss further removal of [...] 5mg.No longer taking Ozempic. Colin Michelle, DO [address] [place] [address], [address], [facility] 03/27/2025 13:03:28
--- OUTSIDE RECORDS SUMMARY | 2025-04-27 10:05 | XMS_ITS | Continuity of Care Document ---
Author Organization KAYLA Owens [facility] Stephen, LSvetlana, [facility] ([facility]) Address [address] [facility] [facility] [place] [address] Care Team Providers Care Exhibit Specialist Name Role Phone COLIN NASSAR Primary Care Provider Unavailabl e Assessment Encounter Date Assessment Date Assessment LastModified by Organization Details LastModified Time 04/08/2025 04/08/2025 Reviewed and discussed repeat lab, f/u 1 week, repeat nonfasting labs prior: cbc, cmp, crp, lipase. [email or web address] Not available 04/09/2025 07:07:44 Plan of Treatment Reminders Order Date Submit Date Provider Last Modified By Organization Details Last Modified Time Details Appointments RECHECK 10 2024 01:00P M Colin Nassar, DO Not available Not available Not available Lab CMP, serum or plasma 2024 025 [facility], [address], [place], [address], 04/16/2025 09:18:08 CBC 2024 025 [email or web address] [facility], [address], [place], [address], 04/16/2025 09:18:08 C-reacti ve protein, quantita tive, serum or plasma 2024 025 [email or web address] [facility], [address] [facility] [address], [address], [place], [address], 04/16/2025 09:18:08 lipase, serum or plasma 2024 025 [email or web address] [facility], [address], [address] [place], [address], 04/16/2025 09:18:08 Referral None recorded . Procedures None recorded . Surgeries None recorded . Imaging None recorded . Medication Orders None recorded . Patient TargetsNo targets recorded. Patient InstructionsNo instructions recorded. Reason for Referral None Reported. Results Created Date Observation Date Name Description Value Unit Range Abnormal Flag Note LastModifiedBy Organization Detail LastModifiedTime 03/26/2003/26/2025 CBC WBC 16.0 x10 4.5-10 .5 high Not Available [facility] [address] [facility], [place], [address], 03/26/2025 14:37:45 03/26/2003/26/2025 CBC RBC 4.06 x10 4.30-5 .90 low Not Available [facility] [address] [facility] 1, [place], [address], 03/26/2025 14:37:45 03/26/2003/26/2025 CBC HGB 12.3 g/dL 13.5-1 8.0 low Not Available [facility] [address] [facility] 1, [place], [address], 03/26/2025 14:37:45 03/26/2003/26/2025 CBC HCT 37.5 % 35.0-6 0.0 Not Available [facility] [address], [place], [address], 03/26/2025 14:37:45 03/26/2003/26/2025 CBC MCV 92.4 fL 80.0-9 9.9 Not Available [facility] [address] [facility] 1, [place], [address], 03/26/2025 14:37:45 03/26/20 25 03/26/2025 CBC MCH 30.3 pg 27.0-3 2.0 Not Available [facility] [address] [facility] 1, [place], [address], 03/26/2025 14:37:45 03/26/20 25 03/26/2025 CBC MCHC 32.9 g/dL 32.0-3 6.0 Not Available [facility] [address] [facility] 1, [place], [address], 03/26/2025 14:37:45 03/26/2003/26/2025 CBC RDW 13.6 % 11.5-1 4.5 Not Available [facility] [address] [facility], [place], [address], 03/26/2025 14:37:45 03/26/20 25 03/26/2025 CBC plt 849.3 x10 150.0- 451.0 high Not Available [facility] [address] [facility], [place], [address], 03/26/2025 14:37:45 03/26/20 25 03/26/2025 CBC lymphocytes % 11.2 % 20.0-5 0.0 low Not Available [facility] [address] [facility] 1, [place], [address], 03/26/2025 14:37:45 03/26/20 25 03/26/2025 CBC granulcytes % 75.5 % 30.0-7 0.0 high Not Available [facility] [address] [facility] 1, [place], [address], 03/26/2025 14:37:45 03/26/20 25 03/26/2025 CBC monocytes % 9.2 % 2.0-16 .0 Not Available [facility] [address] [facility] [address], [place], [address], 03/26/2025 14:37:45 03/26/2003/26/2025 CBC granulcytes# 12.1 x10 Not Merlyn ilable [facility] [address] [facility] 1, [place], [address], 03/26/2025 14:37:45 03/26/2003/26/2025 CBC lymphocytes # 1.8 x10 Not Available [facility] [address] [address], [place], [address], 03/26/2025 14:37:45 03/26/2003/26/2025 CBC monocytes # 1.5 x10 Not Avai lable [facility] [address] [address], [place], [address], 03/26/2025 14:37:45 03/26/2003/26/2025 CMP (MALE ) glucose 133.0 mg/dL 60.0-9 9.0 high Not Available [facility] [address] [address], [place], [address], 03/26/2025 15:21:43 03/26/20 25 03/26/2025 CMP (MALE ) BUN (blood urea nitrogen) 12.0 mg/dL 10.0-2 6.0 Not Available [facility] [address] [address], [place], [address], 03/26/2025 15:21:43 03/26/20 25 03/26/2025 CMP (MALE ) creatinine (serum) 0.9 mg/dL 0.4-1. 5 Not Available [facility] [address] [address], [place], [address], 03/26/2025 15:21:43 03/26/20 25 03/26/2025 CMP (MALE ) BUN/creatini ne ratio 13.33 ratio Not Available [facility] [address] [facility] 1, [place], [address], 03/26/2025 15:21:43 03/26/20 25 03/26/2025 CMP (MALE ) eGFR calculated 96.1 Not Available [facility] [address] [facility] 1, [place], [address], 03/26/2025 15:21:43 03/26/20 25 03/26/2025 CMP (MALE ) total protein 6.9 g/dL 6.0-8. 5 Not Available [facility] [address] [facility], [place], [address], 03/26/2025 15:21:43 03/26/20 25 03/26/2025 CMP (MALE ) total bilirubin 0.5 mg/dL 0.2-1. 3 Not Available [facility] [address] [facility], [place], [address], 03/26/2025 15:21:43 03/26/20 25 03/26/2025 CMP (MALE ) albumin 3.1 g/dL 3.5-5. 5 low Not Available [facility] [address] [facility] 1, [place], [address], 03/26/2025 15:21:43 03/26/20 25 03/26/2025 CMP (MALE ) globulin 3.8 calc Not Available [facility] [address] [facility], [place], [address], 03/26/2025 15:21:43 03/26/20 25 03/26/2025 CMP (MALE ) AST (SGOT) 61.0 U/L 0.0-46 .0 high Not Available [facility] [address] [facility] 1, [place], [address], 03/26/2025 15:21:43 03/26/20 25 03/26/2025 CMP (MALE ) altv (SGPT) 39.0 U/L 13.0-6 9.0 normal Not Available [facility] [address] [facility] 1, [place], [address], 03/26/2025 15:21:43 03/26/20 25 03/26/2025 CMP (MALE ) A/G ratio 0.8 ratio Not Available [facility] [address] [facility] 1, [place], [address], 03/26/2025 15:21:43 03/26/2003/26/2025 CMP (MALE ) ALP phos 128.0 U/L 30.0-1 40.0 normal Not Available [facility] [address] [facility] 1, [place], [address], 03/26/2025 15:21:43 03/26/20 25 03/26/2025 CMP (MALE ) calcium 8.5 mg/dL 8.4-10 .5 Not Available [facility] [address] [facility] 1, [place], [address], 03/26/2025 15:21:43 03/26/20 25 03/26/2025 CMP (MALE ) sodium 131.0 mmol/ L 136.0- 145.0 low Not Available [facility] [address] [facility] 1, [place], [address], 03/26/2025 15:21:43 03/26/20 25 03/26/2025 CMP (MALE ) potassium 4.4 mmol/ L 3.5-5. 1 Not Available [facility] [address] [facility] 1, [place], [address], 03/26/2025 15:21:43 03/26/20 25 03/26/2025 CMP (MALE ) chloride 97.0 mmol/ L 98.0-1 10.0 abnormal Not Available [facility] [address] [facility] 1, [place], [address], 03/26/2025 15:21:43 03/26/20 25 03/26/2025 CMP (MALE ) C02 30.0 mmol/ L 22.0-3 1.0 Not Available [facility] [address] [facility] 1, [place], [address], 03/26/2025 15:21:43 03/26/2003/26/2025 CMP (MALE ) anion gap 4.0 calc Not Available [facility] [address] [facility] 1, [place], [address], 03/26/2025 15:21:43 03/26/2003/26/2025 CMP (MALE ) osmolality 272.7 calc Not Available [facility] [address] [facility] 1, [place], [address], 03/26/2025 15:21:43 04/01/2004/01/2025 CBC WBC 12.2 x10 high Not Available [facility] [address] [facility] 1, [place], [address], 04/01/2025 13:12:43 04/01/2004/01/2025 CBC RBC 4.24 x10 low Not Available [facility] [address] [facility] 1, [place], [address], 04/01/2025 13:12:43 04/01/2004/01/2025 CBC HGB 12.7 g/dL low Not Available [facility] [address] [facility] 1, [place], [address], 04/01/2025 13:12:43 04/01/2004/01/2025 CBC HCT 39.3 % Not Available [facility] [address], [place], [address], 04/01/2025 13:12:43 04/01/2004/01/2025 CBC MCV 92.6 fL Not Available [facility] [address], [place], [address], 04/01/2025 13:12:43 04/01/2004/01/2025 CBC MCH 30.0 pg Not Available [facility] [address], [place], [address], 04/01/2025 13:12:43 04/01/2004/01/2025 CBC MCHC 32.4 g/dL Not Available [facility] [address], [place], [address], 04/01/2025 13:12:43 04/01/2004/01/2025 CBC RDW 14.2 % Not Available [facility] [address], [place], [address], 04/01/2025 13:12:43 04/01/2004/01/2025 CBC plt 877.5 x10 high Not Available [facility] [address], [place], [address], 04/01/2025 13:12:43 04/01/2004/01/2025 CBC lymphocytes % 14.1 % low Not Available [facility] [address], [place], [address], 04/01/2025 13:12:43 04/01/2004/01/2025 CBC granulcytes % 74.2 % high Not Available [facility] [address], [place], [address], 04/01/2025 13:12:43 04/01/2004/01/2025 CBC monocytes % 8.7 % [facility] [address] [address], [place], [address], 04/01/2025 13:12:43 04/01/2004/01/2025 CBC granulcytes# 9.1 x10 Not Merlyn ilable [facility] [address] [address], [place], [address], 04/01/2025 13:12:43 04/01/2004/01/2025 CBC lymphocytes # 1.7 x10 Not Available [facility] [address] [address], [place], [address], 04/01/2025 13:12:43 04/01/2004/01/2025 CBC monocytes # 1.1 x10 [facility] [address] [address], [place], [address], 04/01/2025 13:12:43 04/01/2004/01/2025 CMP (MALE ) glucose 148.0 mg/dL 60.0-9 9.0 high Not Available [facility] [address], [address], 04/01/2025 14:20:52 04/01/2004/01/2025 CMP (MALE ) BUN (blood urea nitrogen) 11.0 mg/dL 10.0-2 6.0 Not Available [facility] [address], [address], 04/01/2025 14:20:52 04/01/20 25 04/01/2025 CMP (MALE ) creatinine (serum) 0.8 mg/dL 0.4-1. 5 Not Available [facility] [address] [place], [address], 04/01/2025 14:20:52 04/01/20 25 04/01/2025 CMP (MALE ) BUN/creatini ne ratio 13.75 ratio Not Available [facility] [address] [facility], [place], [address], 04/01/2025 14:20:52 04/01/20 25 04/01/2025 CMP (MALE ) eGFR calculated 110.1 Not Available [facility] [address] [facility], [place], [address], 04/01/2025 14:20:52 04/01/20 25 04/01/2025 CMP (MALE ) total protein 7.4 g/dL 6.0-8. 5 Not Available [facility] [address] [address], [place], [address], 04/01/2025 14:20:52 04/01/20 25 04/01/2025 CMP (MALE ) total bilirubin 0.5 mg/dL 0.2-1. 3 Not Available [facility] [address] [facility] 1, [place], [address], 04/01/2025 14:20:52 04/01/20 25 04/01/2025 CMP (MALE ) albumin 3.5 g/dL 3.5-5. 5 Not Available [facility] [address] [facility] 1, [place], [address], 04/01/2025 14:20:52 04/01/20 25 04/01/2025 CMP (MALE ) globulin 3.9 calc Not Available [facility] [address] [facility], [place], [address], 04/01/2025 14:20:52 04/01/20 25 04/01/2025 CMP (MALE ) AST (SGOT) 56.0 U/L 0.0-46 .0 high Not Available [facility] [address] [facility], [place], [address], 04/01/2025 14:20:52 04/01/20 25 04/01/2025 CMP (MALE ) altv (SGPT) 68.0 U/L 13.0-6 9.0 normal Not Available [facility] [address] [facility], [place], [address], 04/01/2025 14:20:52 04/01/20 25 04/01/2025 CMP (MALE ) A/G ratio 0.9 ratio Not Available [facility] [address] [facility] 1, [place], [address], 04/01/2025 14:20:52 04/01/20 25 04/01/2025 CMP (MALE ) ALP phos 103.0 U/L 30.0-1 40.0 normal Not Available [facility] [address] [facility] 1, [place], [address], 04/01/2025 14:20:52 04/01/20 25 04/01/2025 CMP (MALE ) calcium 9.1 mg/dL 8.4-10 .5 Not Available [facility] [address] [facility] 1, [place], [address], 04/01/2025 14:20:52 04/01/20 25 04/01/2025 CMP (MALE ) sodium 135.0 mmol/ L 136.0- 145.0 low Not Available [facility] [address] [facility] 1, [place], [address], 04/01/2025 14:20:52 04/01/20 25 04/01/2025 CMP (MALE ) potassium 3.7 mmol/ L 3.5-5. 1 Not Available [facility] [address] [facility] 1, [place], [address], 04/01/2025 14:20:52 04/01/20 25 04/01/2025 CMP (MALE ) chloride 97.0 mmol/ L 98.0-1 10.0 abnormal Not Available [facility] [address] [facility] 1, [place], [address], 04/01/2025 14:20:52 04/01/20 25 04/01/2025 CMP (MALE ) C02 32.0 mmol/ L 22.0-3 1.0 high Not Available [facility] [address] [facility] 1, [place], [address], 04/01/2025 14:20:52 04/01/20 25 04/01/2025 CMP (MALE ) anion gap 6.0 calc Not Available [facility] [address] [facility] 1, [place], [address], 04/01/2025 14:20:52 04/01/20 25 04/01/2025 CMP (MALE ) osmolality 281.1 calc Not Available [facility] [address] [facility] 1, [place], [address], 04/01/2025 14:20:52 04/01/20 25 04/02/2025 C-LIZETH CTIVE PROTE IN C-reactive protein 5.3 mg/L <8.0 normal Not Available [facility] [address] [place], [address], 04/02/2025 09:32:12 04/01/2004/02/2025 LIPAS E lipase 174 U/L 7-60 high Not Available [facility] [address] [place], [address], 04/02/2025 09:32:13 04/07/20 25 04/07/2025 CBC WBC 8.5 x10 4.5-10 .5 Not Available [facility] [address] [facility] 1, [place], [address], 04/07/2025 10:43:49 04/07/20 25 04/07/2025 CBC RBC 4.60 x10 4.30-5 .90 Not Available [facility] [address] [facility] 1, [place], [address], 04/07/2025 10:43:49 04/07/20 25 04/07/2025 CBC HGB 13.4 g/dL 13.5-1 8.0 low Not Available [facility] [address] [facility] 1, [place], [address], 04/07/2025 10:43:49 04/07/20 25 04/07/2025 CBC HCT 42.4 % 35.0-6 0.0 Not Available [facility] [address] [facility], [place], [address], 04/07/2025 10:43:49 04/07/20 25 04/07/2025 CBC MCV 92.1 fL 80.0-9 9.9 Not Available [facility] [address] [facility] 1, [place], [address], 04/07/2025 10:43:49 04/07/20 25 04/07/2025 CBC MCH 29.2 pg 27.0-3 2.0 Not Available [facility] [address] [facility], [place], [address], 04/07/2025 10:43:49 04/07/20 25 04/07/2025 CBC MCHC 31.7 g/dL 32.0-3 6.0 low Not Available [facility] [address] [facility] 1, [place], [address], 04/07/2025 10:43:49 04/07/20 25 04/07/2025 CBC RDW 14.3 % 11.5-1 4.5 Not Available [facility] [address] [facility] 1, [place], [address], 04/07/2025 10:43:49 04/07/20 25 04/07/2025 CBC plt 659.8 x10 150.0- 451.0 high Not Available [facility] [address] [facility], [place], [address], 04/07/2025 10:43:49 04/07/20 25 04/07/2025 CBC lymphocytes % 18.9 % 20.0-5 0.0 low Not Available [facility] [address] [facility] 1, [place], [address], 04/07/2025 10:43:49 04/07/20 25 04/07/2025 CBC granulcytes % 66.4 % 30.0-7 0.0 Not Available [facility] [address] [facility], [place], [address], 04/07/2025 10:43:49 04/07/2004/07/2025 CBC monocytes % 10.4 % 2.0-16 .0 Not Available [facility] [address] [facility], [place], [address], 04/07/2025 10:43:49 04/07/20 25 04/07/2025 CBC granulcytes# 5.6 x10 Not Merlyn ilable [facility] [address] [facility] 1, [place], [address], 04/07/2025 10:43:49 04/07/20 25 04/07/2025 CBC lymphocytes # 1.6 x10 Not Available [facility] [address] [facility] 1, [place], [address], 04/07/2025 10:43:49 04/07/20 04/07/2025 CBC monocytes # 0.9 x10 Not Avai lable [facility] [address] [facility] [address], [place], [address], 04/07/2025 10:43:49 04/07/20 25 04/08/2025 C-LIZETH CTIVE PROTE IN C-reactive protein 3.2 mg/L <8.0 normal Not Available [facility] [address] [place], [address], 04/08/2025 06:41:41 Result Notes None recorded. Problems Name Problem SNOMED Code Status Onset Date Resolution Date Notes Provider Name and Address Organization Details Recorded Time Metabolic syndrome X 110650862 Active 2022 Colin Nassar [address], [address], [facility] 4 14:10:14 Adult health examination Active 2022 Colin Nassar [address], [address], [facility] 3 14:59:23 Obesity 941653146 Active 2022 Colin Nassar [address], [address], [facility] 3 14:59:40 Chronic recurrent sinusitis 919921924 Active 2022 Colin Nassar [address], [address], [facility] 3 15:25:55 Mixed hyperlipide digna 153991809 Active 2023 Colin Nassar [address], [address], [facility] 4 09:57:35 Leukocytosi s 704188828 Active [address], [address] [place] [address] [address], [facility] 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 13:02:19 Reactive depression (situationa l) 33305320 Active [address], [address] [place] [address] 5, [facility] 08:06:48 Acute pancreatiti s 119577441 Active [address], [address] [place] [address] 5, [facility] 08:06:50 Acute cholecystit is 50798319 Active [address], [address] [place] [address] 5, [facility] 08:06:52 Gallstone acute pancreatiti s 228130929 Active [address], [address] [place] [address] [address], [facility] 07:06:29 Problem Notes None recorded. Medical Equipment None Reported. Allergies Allergen ID Allergen Name Allergen Category Reaction Reaction Severity Criticality Documentation Date Start Date Code Code System Note Provider Name and Address Organization Details Recorded Time 23935 Keflex medicatio n Not available Not available Not available 12/31/2022 7 RxNorm Comme nt: Recor ded 04/25 1:57P M by Ligia Rothman n, Offic e Visit ; Promo sondra; Dee roth ce: *; Reaso n: Drug aller gy; ; Not Available [facility] 3 02:27:06 77546 cephalexi n medicatio n Not available Not available Not available 04/21/20252024 2231 RxNorm Not Available [facility] - External Data Service - prod 5 [...] Updated DateTime 5 172.72 cm 26.2 kg/m2 94997.2 9 g 97 % 91 /min 18 /min 146/90 mm[Hg] MAHAD WISE [facility], LOrlyLIjeoma 5 14:26:44 Social History None recorded. Functional Status Question Answer Note LastModified by Organizat ion Details LastModified Time Do you use any illicit or recreational drugs? No [email or web address] Information not available 05/01/2023 Do you or have you ever used any other forms of tobacco or nicotine? No [email or web address] Information not available 05/01/2023 What is your level of alcohol consumption? None [email or web address] Information not available 05/01/2023 Mental Status None recorded. Family History Relationship Description Onset Age of this Age Resolved Age Notes LastModified by Organization Details LastModified Time Father Coronary arterioscler osis 65 father with AMI late 60s [email or web address] Not available 05/01/2023 15:28:02 Medical History No medical history recorded. Immunizations Vaccine Type Date Status Note Provider Nam e and Address Organization Details Recorded Time Influenza, MDCK, quadrivalent, PF 05/03/2017 completed Leticia castillo [facility] 05/07/2024 09:23:05 COVID-19, mRNA, LNP-S, PF, 30 mcg/0.3 mL dose 01/02/2021 completed Leticia Moreira anna [facility] 05/07/2024 09:23:05 COVID-19, mRNA, LNP-S, PF, 30 mcg/0.3 mL dose 01/23/2021 completed Leticia Crowellcedric castillo [facility] 05/07/2024 09:23:05 Past Encounters Encounter ID Performer Location Encounter Start Date Encounter Closed Date Diagnosis/Indication Diagnosis SNOMED-CT Code Diagnosis ICD10 Code Diagnosis IMO Codes Diagnosis Note [id number] Colin Nassar DO [facility] ([facility]) [address] [place] [address] 03/26/2025 14:20:32 03/27/2025 13:03:22 Acute cholecystitis 55547663 K81.0 9456 03/26/25: Necrotic s/p parrtial excsion from laproscopi c turned open cholecyste ctemoy at [facility] feb 2025 requiring GB drain. complicate d by duct obstructio n, sepsis, pancreatit is with 25 day hospital stay at [facility]. He has been on abx for [...] CMP, lipase, CRP. Acute pancreatitis 6007 K85.90 [id number] 03/26/25: 2/2 stone post GB excision feb 2025.will follow labs, continue antiemetic s, Start Creon, Counseled on diagnosis, treatment options including medication s and possible side effects. Hyperbilirubinemia 06354 006 E80.6 31001 Leukocytosis 042491968 D 72.829 [id number] since initial GB surgery, persistent . unclear etiology. has been evaluated by Hematology and ID at [facility]. determined NOT to be from infection or cancer. Will monitor labs weekly for now: Cbc, crp. Reactive d epression (situational) 30433775 F43.21 [id number] 03/26/25: Post lengthy hospitaliz ation, start Sertraline 25mg daily, Counseled on diagnosis, treatment options including medication s and possible side effects. Bilateral upper limb superficial vein thrombophlebitis [id number] I80.8 [id number] 03/26/25: Dc'd from [facility] on Eliquis, will continue 5mg BID at this time. [id number] Colin Nassar DO [facility] ([facility]) [address] [place] [id number] 5 03/26/2025 14:22:27 03/27/2025 13:03:41 Post-discharge follow-up [id number] Colin Nassar DO [facility] ([facility]) [address] [place] [phone] 5 04/01/2025 12:22:22 04/02/2025 09:46:08 Acute pancreatitis [id number] K85.90 [id number] 03/26/25: 2/2 stone post GB excision feb 2025.will follow labs, continue antiemetic s, Start Creon, Counseled on diagnosis, treatment options including medication s and possible side effects. [id number] Colin Nassar DO [facility] ([facility]) [address] [place] [address] [phone] 5 04/02/2025 09:22:56 04/04/2025 11:48:33 Acute cholecystitis [id number] K81.0 9456 04/02/25: slow improvemen t, working on diet to gain weight, monitoring lab. nocurrent sign of obstructio n or infection. 03/26/25: Necrotic s/p parrtial excsion from laproscopi c turned open cholecyste ctemoy at [facility] feb 2025 requiring GB drain. complicate d by duct obstructio n, sepsis, pancreatit is with 25 day hospital stay at [facility]. He has been on abx for [...] CMP, lipase, CRP. Acute pancreatitis 600 K85.90 [id number] 04/02/25: Continues Creon, tolerating well. nausea improved, no recent vomiting. no sign of infection. 03/26/25: 2/2 stone post GB excision feb 2025.will follow labs, continue antiemetic s, Start Creon, Counseled on diagnosis, treatment options including medication s and possible side effects. Leukocytosis [id number] D 72.829 [id number] 04/02/25- improved, monitoring lab, f/u 1 week. since initial GB surgery, persistent . unclear etiology. has been evaluated by Hematology and ID at [facility]. determined NOT to be from infection or cancer. Will monitor labs weekly for now: Cbc, crp. Reactive d epression (situational) [id number] F43.21 [id number] 04/02/25: Tolerating Sertraline , continue current tx. 5: Post lengthy hospitaliz ation, start Sertraline 25mg daily, Counseled on diagnosis, treatment options including medication s and possible side effects. Bilateral upper limb superficial vein thrombophlebitis [id number] I80.8 [id number] 03/26/25: Dc'd from [facility] on Eliquis, will continue 5mg BID at this time. [id number] Colin Nassar DO [facility] ([facility]) [address] [place] [address] 04/07/2025 10:19:40 04/08/2025 10:10:52 Acute cholecystitis [id number] K81.0 9456 04/02/25: slow improvemen t, working on diet to gain weight, monitoring lab. nocurrent sign of obstructio n or infection. 03/26/25: Necrotic s/p parrtial excsion from laproscopi c turned open cholecyste ctemoy at [facility] feb 2025 requiring GB drain. complicate d by duct obstructio n, sepsis, pancreatit is with 25 day hospital stay at [facility]. He has been on abx for [...] CMP, lipase, CRP. Acute pancreatitis 600 K85.90 [id number] 04/02/25: Continues Creon, tolerating well. nausea improved, no recent vomiting. no sign of infection. 03/26/25: 2/ stone post GB excision feb 2025.will follow labs, continue antiemetic s, Start Creon, Counseled on diagnosis, treatment options including medication s and possible side effects. Leukocytosis [id number] D 72.829 [id number] 04/02/25- improved, monitoring lab, f/u 1 week. since initial GB surgery, persistent . unclear etiology. has been evaluated by Hematology and ID at [facility]. determined NOT to be from infection or cancer. Will monitor labs weekly for now: Cbc, crp. [id number] Colin Nassar DO [facility] ([facility]) [address] [place] [address] 04/08/2025 14:02:26 04/08/2025 15:11:33 Acute cholecystitis [id number] K81.0 [id number] 04/08/25:: chronic, necrotic. off abx. continue with planned f/u with surgeon next [facility] [place].03/06 02/27: slow improvemen t, working on diet to gain weight, monitoring lab. no current sign of obstructio n or infection. 03/26/25: Necrotic s/p partial excision from laproscopi c turned open cholecyste ctomy at [facility] feb 2025 requiring GB drain. complicate d by duct obstructio n, sepsis, pancreatit is with 25 day hospital stay at [facility]. He has been on abx for 30 days. He continues with refractory leukocytos is, weight loss, fatigue, anemic, and significna tly elevated platelets. I cunseled stop abx tx, he has been on this for >1 month, this is likely effecting his nutrition, elevated WBC likely not d/t infection. F/u with me in one week, lab then, CBC, CMP, lipase, CRP. Leukocytosis [id number] D 72.829 [id number] 04/08/25: normalized . repeat labs in 1 week.04/02- improved, monitoring lab, f/u 1 week. since initial GB surgery, persistent . unclear etiology. has been evaluated by Hematology and ID at [facility]. determined NOT to be from infection or cancer. Will monitor labs weekly for now: Cbc, crp. Reactive d epression (situational) [id number] F43.21 [id number] 04/08/25: improved.1 : Tolerating Sertraline , continue current tx. 5: Post lengthy hospitaliz ation, start Sertraline 25mg daily, Counseled on diagnosis, treatment options including medication s and possible side effects. Bilateral upper limb superficial vein thrombophlebitis [id number] I80.8 [id number] 04/08/25:st op eliquis, start 81mg EC asa nightly.: Dc'd from [facility] on Eliquis, will continue 5mg BID at this time. Gallstone acute pancreatitis [id number] K85.10 [id number] 04/08/25: somewhat improved. WBC normalized . nausea [...] ID Guarantor Name 04/08/2025 1 [employer] [id number] Edwin Keita [id number] EDMUNDO Keita Notes Date Note Type Note Provider [...] nausea and stomach burning. Colin Nassar, DO [address] [place] [address], [phone], [facility] 04/09/2025 07:09:17
--- OUTSIDE RECORDS SUMMARY | 2025-04-27 10:05 | XMS_ITS | Clinical Summary ---
Author Organization [facility] Address [address] Thorntonn: Epic Prelude ADT KAYLA CLAROS [address] Care Team Providers Care Experimental Mechanic Name Role Phone Nassar, Chandu ALVAREZ Primary Care Provider [phone] Allergies Active Allergy Reactions Criticality Noted Date Comments Cephalexin Rash,Itching Low 02/28/2025 Medications pantoprazole (PROTONIX) 40 mg Tablet, Delayed Release (E.C.) 02/27/2025 Active apixaban (ELIQUIS) 5 mg tablet Take 2 Tablets (10 mg) by mouth 2 times daily for 7 days, THEN 1 Tablet (5 mg) 2 times daily. 194 Tablet 03/24/2025 06/22/19 26 Active cholestyramine, with sugar, (QUESTRAN) 4 gram Powder in Packet Take 1 Packet by mouth 1 time daily as needed for Other (See Comment) (diarrhea). 30 Packet 1 03/24/2025 Active ciprofloxacin HCl (CIPRO) 750 mg tablet Take 1 Tablet (750 mg) by mouth 2 times daily for 14 days. 28 Tablet 03/24/2025 1:14 PM CDT 03/20/2025 04/07/20 25 metroNIDAZOLE (FLAGYL) 500 mg tablet Take 1 Tablet (500 mg) by mouth 3 times daily for 14 days. 42 Tablet 03/24/2025 1:14 PM CDT 03/20/2025 04/07/20 25 Active Problems Problem Noted Date Diagnosed [...] Data STL ABSTRACTION Provider, Abstract 03/25/2025 Telephone [facility] Vascular Surgery [place] [address] [place] [address] Provider, Abstract Referral 03/18/2025 Telephone [facility] [address] [place] [address] Jeana Brandt DO Needs EGD for stent removal 03/11/2025 External Device Data STL ABSTRACTION Provider, Abstract 03/04/2025 External Device Data STL ABSTRACTION Provider, Abstract 03/04/2025 External Device Data STL ABSTRACTION Provider, Abstract 03/04/2025 External Device Data STL ABSTRACTION Provider, Abstract 03/03/2025 11:01 AM CDT Anesthesia Event [facility] Endoscopy [address] [place] [address] Tobi Quinones MD 03/03/2025 10:40 AM CDT - 03/03/2025 11:20 AM CDT Surgery [facility] [address] [place] [address] Jeana Brandt DO CHOLANGIOPANCREATOGRAPHY RETROGRADE ENDOSCOPIC 02/28/2025 4:31 PM CDT - 03/24/2025 2:16 PM CDT Hospital Encounter [facility] 3A Surgical [address] 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 Discharge Disposition: Home or Self Care 02/28/2025 Travel 02/27/2025 Orders Only [facility] [place] [id number] [facility] [address] [place] [phone] Jeana Brandt DO Choledocholithiasis (Primary Dx); Biliary drain displacement, initial encounter 02/27/2025 Telephone [facility] [address] [facility] [address] [place] [phone] Jeana Brandt DO ERCP appointment 02/25/2025 [facility] [address] [facility] [address] [place] [phone] Kenton Jiang MD Disease of biliary tract [...] worry about transportation for future doctor visits, crab picker medication, etc.? 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 [address] Jeana Brandt, DO [address] [facility] [address] [place] [address] 05/22/2025 2:40 PM PENAL OFFICER - 05/22/2025 3:00 PM PENAL OFFICER Surgery [facility] Endoscopy [address] [place] [address] Jeana Brandt, DO [address] [place] [phone] ESOPHAGOGASTRODUODENOSCOPY Scheduled Procedures Name Priority Associated Diagnoses Date/Ti me ESOPHAGOGASTRODUODENOSCOPY Stent Removal 05/22/2025 2:40 PM PENAL OFFICER Health Maintenance Due Date Last Done Comments [...] Gunter RN Medical Devices Implanted Type Area Gas Inspector Device Identifier Shelf Expiration Date Model / Serial / Lot Stent Bili Advanix Rx 10fr 7cm [id number] - [id number] Implanted:Qty: 1 on 03/03/2025 by Jeana Brandt DO at [facility] Stent N/A: Bile Duct [employer] AMANDA [id number] 09/05/2026 [id number] / / [id number] Procedures Procedure Name Priority Date/Time Associated Diagnosis [...] CDT EXTRA TUBE (URINE MURPHY) Stat 03/08/20 25 4:14 PM CDT URINALYSIS W/REFLEX MICROSCOPIC Stat [...] AM CDT Narrative 03/24/2025 12:32 PM CDT [facility] Cardiovascular Services Noninvasive Vascular Laboratory [address] [place] [address] Noninvasive Vascular Lab Venous Exam Complete Upper Extremity Duplex Patient: Edwin Kumari Study ID: US DOPPLER VENOU Gender: M : 1975 Age: 49 Room: Height: Weight: BSA: Pt status: Inpatient Study Date: 03/24/2025 Study Time: 11:19:46 AM BSA: Ordering: Edvin Dent Interpreting:Ford Perla Integration Specialist: MARJ Indications: R/O DVT. Summary Impression: 1. [...] verified. - 03/24/25 - 11:45 - SVT [facility] Vascular Lab is accredited with the Intersocietal Commission for the Accreditation of Vascular Laboratories (ICAVL) Prepared and Electronically Authenticated Ford Perla Confirmed 03/24/2025 12:32 Procedure Note Ford Perla MD - 03/24/2025 [facility] Cardiovascular Services Noninvasive Vascular Laboratory [address] [place] [address] Noninvasive Vascular Lab Venous Exam Complete Upper Extremity Duplex Patient: Edwin Kumari Study ID: US DOPPLER VENOU Gender: M : 1975 Age: 49 Room: Height: Weight: BSA: Pt status: Inpatient Study Date: 03/24/2025 Study Time: 11:19:46 AM BSA: Ordering: Edvin Dent Interpreting:Ford Perla Integration Specialist: MARJ Indications: R/O DVT. Summary Impression: 1. [...] verified. - 03/24/25 - 11:45 - SVT [facility] Vascular Lab is accredited with theIntersocietal Commission for the Accreditation of Vascular Laboratories (ICAVL) Prepared and Electronically Authenticated Ford Perla Confirmed 03/24/2025 12:32 us Edvin Dent MD US ORDERABLES Final Res ult * (ABNORMAL) C-REACTIVE PROTEIN (03/24/2025 9:41 AM CDT) Only the most recent of7 resultswithin the time period is included. CRP 32.5(H) 0.0 - 5.0 mg/L 03/24/2025 10:32 AM CDT [facility] Blood Venipuncture / Unknown 03/24/2025 9:41 AM CDT 03/24/2025 9:52 AM CDT Arielle Flores MD CHEMISTRY ORDERABLES Final Re sult [facility] CLIA # [id number] [address] [address] * (ABNORMAL) CBC WITH DIFFERENTIAL (03/24/2025 5:51 AM CDT) Only the most recent of20 resultswithin the time period is included. WBC 16.2(H) 4.5 - 11.0 K/uL 03/24/2025 6:18 AM T [facility] RBC 3.83(L) 4.60 - 6.20 M/uL 03/24/2025 6:18 AM T [facility] HEMOGLOBIN 11.2(L) 14.0 - 18.0 g/dL 03/24/2025 6:18 AM T [facility] HEMATOCRIT 34.1(L) 41.0 - 53.0 % 03/24/2025 6:18 AM T [facility] MCV 89.0 84.0 - 103.0 fL 03/24/2025 6:18 AM T [facility] MCH 29.2 27.0 - 34.0 pg 03/24/2025 6:18 AM T [facility] MCHC 32.8 30.0 - 35.0 g/dL 03/24/2025 6:18 AM T [facility] PLATELETS 776(H) 140 - 440 K/uL 03/24/2025 6:18 AM T [facility] MPV 8.5(L) 8.9 - 12.8 fL 03/24/2025 6:18 AM [facility] RDW 13.3 11.0 - 14.5 % 03/24/2025 6:18 AM [facility] RDW-STDEV 43.5 37.0 - 54.0 fL 03/24/2025 6:18 AM [facility] NEUTROPHILS 77(H) 42 - 75 % 03/24/2025 6:18 AM [facility] LYMPHOCYTES 11(L) 24 - 44 % 03/24/2025 6:18 AM [facility] MONOCYTES 7 2 - 10 % 03/24/2025 6:18 AM [facility] EOSINOPHILS 1 0 - 7 % 03/24/2025 6:18 AM [facility] BASOPHILS 1 0 - 1 % 03/24/2025 6:18 AM [facility] IMMATURE GRANULOCYTES 3(H) 0 - 2 % 03/24/2025 6:18 AM [facility] NEUTROPHIL ABSOLUTE 12.43(H) 2.00 - 8.00 K/uL 03/24/2025 6:18 AM [facility] LYMPHOCYTE ABSOLUTE 1.82 1.20 - 4.00 K/uL 03/24/2025 6:18 AM [facility] MONOCYTE ABSOLUTE 1.16(H) 0.10 - 0.60 K/uL 03/24/2025 6:18 AM [facility] EOSINOPHIL ABSOLUTE 0.21 0.00 - 0.70 K/uL 03/24/2025 6:18 AM [facility] BASOPHILS ABSOLUTE 0.13 0.00 - 0.20 K/uL 03/24/2025 6:18 AM [facility] IMMATURE GRANULOCYTES ABSOLUTE 0.41(H) 0.00 - 0.10 K/uL 03/24/2025 6:18 AM [facility] SMEAR REVIEWED: NA - Not Applicable 03/24/2025 6:18 AM [facility] Blood Venipuncture / Unknown 03/24/2025 5:51 AM CDT 03/24/2025 6:08 AM CDT us Edvin Dent MD HEMATOLOGY ORDERABLES Fin al Result [facility] CLIA # [id number] [address] [place] [address] * (ABNORMAL) BASIC METABOLIC PANEL (03/24/2025 5:51 AM CDT) Only the most recent of8 resultswithin the time period is included. SODIUM 133(L) 136 - 145 mmol/L 03/24/2025 6:40 AM T [facility] POTASSIUM 4.1 3.5 - 5.1 mmol/L 03/24/2025 6:40 AM [facility] CHLORIDE 97(L) 98 - 107 mmol/L 03/24/2025 6:40 AM [facility] CO2 25 22 - 29 mmol/L 03/24/2025 6:40 AM [facility] CALCIUM 8.5(L) 8.6 - 10.0 mg/dL 03/24/2025 6:40 AM [facility] BUN 11 6 - 20 mg/dL 03/24/2025 6:40 AM [facility] CREATININE 0.67 0.67 - 1.17 mg/dL 03/24/2025 6:40 AM [facility] GLUCOSE 151(H) 74 - 99 mg/dL 03/24/2025 6:40 AM [facility] GFR >60 >=60 mL/min/1.7 3 sq meter 03/24/2025 6:40 AM [facility] Comment:eGFR calculated with 2020 CKD-EPI equation. Vegetarian diet, extremely high or low muscle mass, and may affect results. Cystatin C with Glomerular Filtration Rate is a suitable alternative for these patients. ANION GAP 11 9 - 20 mmol/L 03/24/2025 6:40 AM CDT [facility] Blood Venipuncture / Unknown 03/24/2025 5:51 AM CDT 03/24/2025 6:07 AM CDT Edvin Dent MD CHEMISTRY ORDERABLES Chely l Result [facility] CLIA # [id number] [address] [facility] [facility] [address] * XR ABDOMEN 1 VW (03/23/2025 8:31 [...] gas pattern nonobstructive. Stool burden not excessive. Kathe Siddiqi MD DIAGNOSTIC IMAGING ORDERABLES Fi nal Result * C. DIFFICILE DETECTION (03/21/2025 2:26 PM CDT) Only the most recent of2 resultswithin the time period is included. Pathologist [facility] TOXIGENIC C DIFFICILE NOT DETECTED Not Detected 03/21/2025 3:28 PM CDT [facility] Stool STOOL SPECIMEN / Unknown 03/21/2025 2:26 PM CDT 03/21/2025 2:26 PM CDT Narrative [facility] - 03/21/2025 3:28 PM CDT This assay [...] ORDERA BLES Final Result Performing Organization Address [facility] Co de Phone Number [facility] CLIA # [id number] [address] [address] * OCCULT BLOOD GUAIAC DIAGNOSTIC (03/21/2025 10:40 AM CDT) Pathologist [facility] OCCULT BLOOD, STOOL Negative Negative 03/21/2025 10:52 AM CDT [facility] Stool STOOL SPECIMEN / Unknown Collection / Unknown 03/21/2025 10:40 AM CDT 03/21/2025 10:40 AM CDT Edvin Dent MD BODY FLUIDS AND STOOLS Fi nal Result [facility] CLIA # [id number] [address] [facility] [place] [address] * PERIPHERAL BLOOD SMEAR PATHOLOGY INTERP (03/19/2025 5:34 AM CDT) PERIPHERAL BLOOD SMEAR INTERP See Interpretation Below 03/20/2025 7:32 AM CDT [facility] Comment: There is mild normocytic anemia without [...] Samuel MD HEMATOLOGY ORDERABLES Final Resu lt Performing Organization Address [facility] de Phone Number [facility] CLIA # [id number] [address] [place] [address] * (ABNORMAL) IRON, TIBC, AND PERCENT SATURATION (03/18/2025 9:29 AM CDT) IRON 28(L) 59 - 158 ug/dL 03/18/2025 1:54 PM CDT [facility] TIBC 120(L) 250 - 450 ug/dL 03/18/2025 1:54 PM CDT [facility] IRON % SATURATION 23 15 - 60 % 03/18/2025 1:54 PM CDT [facility] Blood Venipuncture / Unknown 03/18/2025 9:29 AM CDT 03/18/2025 9:47 AM CDT Edvin Dent MD CHEMISTRY ORDERABLES Chely l Result Performing Organization Address [facility] Co de Phone Number [facility] CLIA # [id number] [facility] [address] * (ABNORMAL) FERRITIN (03/18/2025 9:29 AM CDT) Pathologist [facility] FERRITIN 2,516.0(H) 30.0 - 400.0 ng/mL 03/18/2025 2:06 PM CDT [facility] Blood Venipuncture / Unknown 03/18/2025 9:29 AM CDT 03/18/2025 9:47 AM CDT Edvin Dent MD CHEMISTRY ORDERABLES Chely l Result Performing Organization Address City/[facility]/ZIP Co de Phone Number [facility] CLIA # [id number] [address] [address] * POC GLUCOSE (03/17/2025 7:53 AM CDT) Only the most recent of32 resultswithin the time period is included. [facility] GLUCOSE POC 96 74 - 99 mg/dL 03/17/2025 7:53 AM CDT [facility] SPECIMEN SOURCE, GLUCOSE POC Capillary 03/17/2025 7:53 AM CDT [facility] Blood, whole 03/17/2025 7:53 AM CDT 03/17/2025 8:56 AM CDT Edvin Dent MD POINT OF CARE TESTING Fin al Result Performing Organization Address City/[facility]/ZIP Co de Phone Number [facility] CLIA # [id number] [address] [address] * (ABNORMAL) MANUAL DIFFERENTIAL (03/17/2025 4:01 AM CDT) Only the most recent of9 resultswithin the time period is included. Pathologist [facility] SEGMENTED NEUTROPHILS 97(H) 36 - 66 % 03/17/2025 4:44 AM CDT [facility] LYMPHOCYTES RELATIVE 2(L) 24 - 44 % 03/17/2025 4:44 AM T [facility] EOSINOPHILS RELATIVE 1 0 - 3 % 03/17/2025 4:44 AM T [facility] PLATELET EST. Increased 03/17/2025 4:44 AM T [facility] NEUTROPHILS ABSOLUTE COUNT 21.73(H) 2.00 - 8.00 K/uL 03/17/2025 4:44 AM T [facility] LYMPHOCYTES ABSOLUTE 0.45(L) 1.20 - 4.00 K/uL 03/17/2025 4:44 AM T [facility] ATYPICAL LYMPHS ABSOLUTE 03/17/2025 4:44 AM T [facility] EOSINOPHILS ABSOLUTE 0.22 0.00 - 0.70 K/uL 03/17/2025 4:44 AM [facility] TOXIC GRANULATION 1+ 03/17/2025 4:44 AM T [facility] TOTAL CELLS COUNTED IN DIFF 100 03/17/2025 4:44 AM [facility] Blood Venipuncture / Unknown 03/17/2025 4:01 AM CDT 03/17/2025 4:08 AM CDT us Edvin Dent MD HEMATOLOGY ORDERABLES COM Final Result [facility] CLIA # [id number] [address] [place] [address] * (ABNORMAL) CK (03/17/2025 4:01 AM CDT) Only the most recent of2 resultswithin the time period is included. CK 23(L) 39 - 308 U/L 03/17/2025 4:45 AM T [facility] Blood Venipuncture / Unknown 03/17/2025 4:01 AM CDT 03/17/2025 4:07 AM CDT us Arielle Flores MD CHEMISTRY ORDERABLES Final Re sult [facility] CLCARMEN # [id number] [address] [place] [address] * (ABNORMAL) COMPREHENSIVE METABOLIC PANEL (03/17/2025 4:01 AM CDT) Only the most recent of13 resultswithin the time period is included. SODIUM 129(L) 136 - 145 mmol/L 03/17/2025 9:33 AM CDT [facility] POTASSIUM 4.6 3.5 - 5.1 mmol/L 03/17/2025 9:33 AM CDT [facility] CHLORIDE 96(L) 98 - 107 mmol/L 03/17/2025 9:33 AM T [facility] CO2 22 22 - 29 mmol/L 03/17/2025 9:33 AM T [facility] CALCIUM 7.9(L) 8.6 - 10.0 mg/dL 03/17/2025 9:33 AM T [facility] BUN 11 6 - 20 mg/dL 03/17/2025 9:33 AM T [facility] CREATININE 0.64(L) 0.67 - 1.17 mg/dL 03/17/2025 9:33 AM T [facility] GLUCOSE 105(H) 74 - 99 mg/dL 03/17/2025 9:33 AM T [facility] TOTAL PROTEIN 5.2(L) 6.4 - 8.3 g/dL 03/17/2025 9:33 AM T [facility] ALBUMIN 2.1(L) 3.5 - 5.2 g/dL 03/17/2025 9:33 AM CDT [facility] BILIRUBIN TOTAL 0.6 0.0 - 1.0 mg/dL 03/17/2025 9:33 AM T [facility] ALKALINE PHOSPHATASE 176(H) 40 - 129 U/L 03/17/2025 9:33 AM CDT [facility] AST 45 10 - 50 U/L 03/17/2025 9:33 AM CDT [facility] Comment:Hemolysis present. R esult may be falsely elevated. ALT 32 <=50 U/L 03/17/2025 9:33 AM CDT [facility] GFR >60 >=60 mL/min/1. 73 sq meter 03/17/2025 9:33 AM CDT [facility] Comment:eGFR calculated with 2020 CKD-EPI equation. Vegetarian diet, extremely high or low muscle mass, and may affect results. Cystatin C with Glomerular Filtration Rate is a suitable alternative for these patients. ANION GAP 11 9 - 20 mmol/L 03/17/2025 9:33 AM CDT [facility] Blood Venipuncture / Unknown 03/17/2025 4:01 AM CDT 03/17/2025 4:07 AM CDT us Edvin Dent MD CHEMISTRY ORDERABLES Chely l Result [facility] CLIA # [id number] [address] [place] [address] * CT CHEST ABDOMEN PELVIS W CONT [...] - 60 U/L 03/12/2025 8:38 AM CDT [facility] Blood Venipuncture / Unknown 03/12/2025 4:54 AM CDT 03/12/2025 5:20 AM CDT us Juan Antonio Barragan NP CHEMISTRY ORDERABLES Final R esult Performing Organization Address [facility] Co de Phone Number [facility] CLIA # [id number] [address] [address] [place] [address] * (ABNORMAL) D-DIMER (03/11/2025 2:46 PM CDT) D-DIMER QUANT 9.35(H) 0.00 - 0.50 ug/mL FEU 03/11/2025 3:38 PM CDT [facility] [employer] [facility] Blood Venipuncture / Unknown 03/11/2025 2:46 PM CDT 03/11/2025 3:05 PM CDT Narrative [facility] [employer] [facility] - 03/11/2025 3:38 PM CDT D-Dimer assay cutoff value for exclusion of DVT and/or PE is <0.50 ug/mL FEU. Edvin Dent MD HEMATOLOGY ORDERABLES Fin al Result Performing Organization Address [facility] Co de Phone Number [facility] CLIA # [id number] [facility] [address] [address] * US ABDOMEN LIMITED (03/11/2025 8:18 AM [...] ++++++++++++++++++++ IMPRESSION: Trace ascites. No paracentesis performed. Edvin Dent MD ORDERABLES Final Res ult * (ABNORMAL) PROTIME-INR (03/11/2025 4:29 AM CDT) PROTIME 17.8(H) 12.7 - 14.9 Seconds 03/11/2025 5:19 AM CDT [facility] INR 1.4(H) 0.8 - 1.2 03/11/2025 5:19 AM CDT [facility] Blood Venipuncture / Unknown 03/11/2025 4:29 AM CDT 03/11/2025 4:59 AM CDT Narrative [facility] - 03/11/2025 5:19 AM CDT Expected Values for INR: DVT/PE Goal INR 2.5; range 2.0 - 3.0 Valve Replacement Tissue Goal INR 2.5; range 2.0 - 3.0 Valve Replacement Mechanical Goal INR 3.0; range 2.5 - 3.5 POST-MS Goal INR 2.5; range 2.0 - 3.0 or Goal INR 3.0; range 2.5 - 3.5 Atrial Fibrillation Goal INR 2.5; range 2.0 - 3.0 Ischemic Stroke Goal INR 2.5; range 2.0 - 3.0 Edvin Dent MD HEMATOLOGY ORDERABLES Fin al Result [facility] CLCARMEN # [id number] [facility] [address] [place] [address] * (ABNORMAL) URINALYSIS WITH REFLEX MICROSCOPIC (03/10/2025 3:57 PM CDT) Only the most recent of4 resultswithin the time period is included. COLOR UA Yellow Pale to Dark Yellow 03/10/2025 4:10 PM CDT [facility] CLARITY UA Clear Clear 03/10/2025 4:10 PM CDT [facility] SPECIFIC GRAVITY UA 1.029 1.003 - 1.035 03/10/2025 4:10 PM CDT [facility] PH UA 7.5 5.0 - 8.0 03/10/2025 4:10 PM CDT [facility] LEUKOCYTE ESTERASE UA Negative Negative 03/10/2025 4:10 PM CDT [facility] NITRITE UA Negative Negative 03/10/2025 4:10 PM CDT [facility] PROTEIN UA 1+(A) Negative 03/10/2025 4:10 PM CDT [facility] GLUCOSE UA Negative Negative 03/10/2025 4:10 PM CDT [facility] KETONES UA Negative Negative 03/10/2025 4:10 PM CDT [facility] UROBILINOGEN UA 2.0(A) <2.0 mg/dL 4:10 PM CDT [facility] BILIRUBIN UA Negative Negative 03/10/2025 4:10 PM CDT [facility] BLOOD UA Negative Negative 03/10/2025 4:10 PM CDT [facility] WBC UA 0-2 0 - 2 /hpf 03/10/2025 4:10 PM CDT [facility] RBC UA 0-2 0 - 2 /hpf 03/10/2025 4:10 PM CDT [facility] BACTERIA UA Negative Negative /hpf 03/10/2025 4:10 PM CDT [facility] Urine URINE SPECIMEN OBTAINED BY CLEAN CATCH PROCEDURE / Unknown Collection / Unknown 03/10/2025 3:57 PM CDT 03/10/2025 4:02 PM CDT Arielle Flores MD URINE ORDERABLES Final Result Performing Organization Address City/[facility]/ZIP Co de Phone Number [facility] CLIA # [id number] [address] [facility] [place] [address] * URINE CULTURE (03/10/2025 3:57 PM CDT) CULTURE No growth 03/11/2025 12:42 PM CDT [facility] Urine URINE SPECIMEN OBTAINED BY CLEAN CATCH PROCEDURE / Unknown Collection / Unknown 03/10/2025 3:57 PM CDT 03/10/2025 4:02 PM CDT Arielle Flores MD MICROBIOLOGY - GENERAL ORDERA BLES Final Result Performing Organization Address [facility] Co de Phone Number [facility] CLIA # [id number] [address] [address] * BLOOD CULTURE (03/10/2025 2:43 PM CDT) Only the most recent of6 resultswithin the time period is included. BLOOD CULTURE No growth 03/15/2025 3:13 PM CDT [facility] Blood (Peripheral) Venipuncture / Unknown 03/10/2025 2:43 PM CDT 03/10/2025 2:47 PM CDT Arielle Flores MD MICROBIOLOGY - GENERAL ORDERA BLES Final Result Performing Organization Address City/[facility]/ZIP Co de Phone Number [facility] ERIC # [id number] [address] [facility] [place] [address] * US VENOUS DOPPLER LEG BILATERAL (03/10/2025 2:38 PM CDT) Anatomical Region Laterality Modality Lower Extremity Ultrasound 03/10/2025 1:43 PM CDT Narrative 03/17/2025 10:59 AM CDT [facility] Cardiovascular Services Noninvasive Vascular Laboratory [address] [place] [address] Noninvasive Vascular Lab Venous Exam Complete Lower Extremity Duplex Patient: Edwin Kumari Study ID: US VENOUS DOPPLE Gender: M : 1975 Age: 49 Room: Height: Weight: BSA: Pt status: Inpatient Study Date: 03/10/2025 Study Time: 01:43:12 PM BSA: Ordering: Arielle Flores Interpreting:Farhad Woodson MD, RPVI Integration Specialist: TAYLOR Indications: DVT. Summary Impression: No evidence [...] Patent; Normal phasicity; spontaneous; compressible; normal augmentation [facility] Vascular Lab is accredited with the Intersocietal Commission for the Accreditation of Vascular Laboratories (ICAVL) Prepared and Electronically Authenticated Fabiola Martinez Confirmed 03/17/2025 10:59 Procedure Note Fabiola Martinez DO - 03/17/2025 [facility] Cardiovascular Services Noninvasive Vascular Laboratory [address] [place] [address] Noninvasive Vascular Lab Venous Exam Complete Lower Extremity Duplex Patient: Edwin Kumari Study ID: US VENOUS DOPPLE Gender: Nadia : 1975 Age: 49 Room: Height: Weight: BSA: Pt status: Inpatient Study Date: 03/10/2025 Study Time: 01:43:12 PM BSA: Ordering: Arielle Flores Interpreting:Farhad Woodson MD, RPVI Integration Specialist: TAYLOR Indications: DVT. Summary Impression: No evidence [...] saphenous Patent; Normal phasicity; spontaneous;compressible; normal augmentation [facility] is accredited with theIntersocietal Commission for the Accreditation of Vascular Laboratories (ICAVL) Prepared and Electronically Authenticated Michelle Fabiola Confirmed 03/17/2025 10:59 Arielle Flores MD US ORDERABLES Final Result * EXTRA TUBE (URINE MURPHY) (03/08/2025 4:14 PM CDT) Only the most recent of3 resultswithin the time period is included. Urine URINE SPECIMEN OBTAINED BY CLEAN CATCH PROCEDURE / Unknown Collection / Unknown 03/08/2025 4:14 PM CDT 03/08/2025 4:21 PM CDT Tabitha Lynn MD URINE ORDERABLES Final Result [facility] # [id number] [address] [place] [id number] * XR FLUORO NG TUBE PLACEMENT SI [...] and final interpretation by Dr. Vera. A football pad repairer type catheter was fluoroscopically guided into the stomach. The stomach was then distended with air and the catheter was advanced to the ligament of Treitz over a guidewire. The football pad repairer catheter was then removed and a 10 [place] Corflow feeding tube was placed over the [...] Hyperbilirubinemia; Acute cholecystitis. Preliminary findings dictated by Agus Lundberg RPA, RRA. Personal supervision and final interpretation by Dr. Vera. A football pad repairer type catheter was fluoroscopically guided into the stomach. The stomach was then distended with air and the catheter was advanced to the ligament of Treitz over a guidewire. The football pad repairer catheter was then removed and a 10 [place] Corflow feeding tube was placed over the wire with the tip at the ligament of Treitz. Feeding tube secured using a nasal bridle. Impression: Uneventful feeding tube placement. Tabitha Lynn MD DIAGNOSTIC IMAGING ORDERABLES Final Result * MAGNESIUM LEVEL (03/08/2025 5:04 AM CDT) Only the most recent of2 resultswithin the time period is included. MAGNESIUM 2.1 1.6 - 2.6 mg/dL 03/08/2025 6:05 AM CDT [facility] Blood Venipuncture / Unknown 03/08/2025 5:04 AM CDT 03/08/2025 5:32 AM CDT Tabitha Lynn MD CHEMISTRY ORDERABLES Final Res ult [facility] CLIA # [id number] [address] [address] [place] [address] * CT ABDOMEN PELVIS WO CONTRAST (03/07/2025 [...] * (ABNORMAL) PHOSPHORUS (03/07/2025 4:55 AM CDT) [facility] PHOSPHORUS 2.1(L) 2.5 - 4.5 mg/dL 03/07/2025 5:31 AM CDT [facility] Blood Venipuncture / Unknown 03/07/2025 4:55 AM CDT 03/07/2025 4:59 AM CDT Mervin Means DO CHEMISTRY ORDERABLES Final R esult [facility] CLIA # [id number] [address] [place] [address] [place] [address] * (ABNORMAL) LACTIC ACID (03/06/2025 7:54 PM CDT) Only the most recent of3 resultswithin the time period is included. [facility] LACTIC ACID 2.1(H) <=2.0 mmol/L 03/06/2025 8:57 PM CDT [facility] Blood Venipuncture / Unknown 03/06/2025 7:54 PM CDT 03/06/2025 8:21 PM CDT us Mervin Means DO CHEMISTRY ORDERABLES Final R esult [facility] CLIA # [id number] [address] [address] [place], [place] [address] * (ABNORMAL) CBC WITHOUT DIFFERENTIAL (03/06/2025 3:14 AM CDT) Only the most recent of3 resultswithin the time period is included. Pathologist [facility] WBC 27.1(H) 4.5 - 11.0 K/uL 03/06/2025 4:05 AM [facility] RBC 5.63 4.60 - 6.20 M/uL 03/06/2025 4:05 AM [facility] HEMOGLOBIN 16.7 14.0 - 18.0 g/dL 03/06/2025 4:05 AM [facility] HEMATOCRIT 48.7 41.0 - 53.0 % 03/06/2025 4:05 AM [facility] MCV 86.5 84.0 - 103.0 fL 03/06/2025 4:05 AM [facility] MCH 29.7 27.0 - 34.0 pg 03/06/2025 4:05 AM [facility] MCHC 34.3 30.0 - 35.0 g/dL 03/06/2025 4:05 AM [facility] PLATELETS 390 140 - 440 K/uL 03/06/2025 4:05 AM [facility] MPV 11.2 8.9 - 12.8 fL 03/06/2025 4:05 AM [facility] RDW 13.0 11.0 - 14.5 % 03/06/2025 4:05 AM CDT [facility] RDW-STDEV 40.8 37.0 - 54.0 fL 03/06/2025 4:05 AM CDT [facility] Blood Venipuncture / Unknown 03/06/2025 3:14 AM CDT 03/06/2025 3:42 AM CDT us Stefania Farfan MD HEMATOLOGY ORDERABLES Fin al Result [facility] CLIA # [id number] [address] [place] [address] * EKG 12-LEAD (03/05/2025 1:50 PM CDT) 03/05/2025 1:50 PM CDT Narrative INTERFACE SYSTEM - 03/05/2025 7:13 [place] [address] Test Date: 2025-03-05 Pat Name: EDWIN KUMARI Department: 12 Room: [address] [place] [address] Gender: Male Story Analyst: [id number] : 1975 Requested By: Order Number: [id number] Ninoska MD: Lakeisha Martinez Measurements Intervals [place] Rate: 89 P: 78 MI: 152 QRS: 68 QRSD: 78 T: 40 QT: 352 QTc: 428 Interpretive Statements Normal sinus rhythm Normal ECG Electronically Signed On 03-05-2025 19:13:00 CDT by Lakeisha Martinez Procedure Note Lakeisha Martinez, DO - 03/05/2025 [place] [address] Test Date: 2025-03-05 Pat Name: EDWIN KUMARI Department: 12 Room: [address] [place] [address] Gender: Male Story Analyst: [id number] : 1975 Requested By: Order Number: [id number] Reading MD: Lakeisha Martinez Measurements Intervals [place] Rate: 89 P: 78 MI: 152 QRS: 68 QRSD: 78 T: 40 QT: 352 QTc: 428 Interpretive Statements Normal sinus rhythm Normal ECG Electronically Signed On 03-05-2025 19:13:00 CDT by Lakeisha Martinez Stefania Farfan MD ECG ORDERABLES Final Res ult Performing Organization Address City/[facility] Co de Phone Number INTERFACE SYSTEM Refer to clinic/hospital department * TRIGLYCERIDE (03/05/2025 9:25 AM CDT) TRIGLYCERIDE 76 <150 mg/dL 03/05/2025 10:02 AM CDT [facility] Blood Venipuncture / Unknown 03/05/2025 9:25 AM CDT 03/05/2025 9:30 AM CDT Narrative [facility] - 03/05/2025 10:02 AM CDT TRIGLYCERIDES mg/dL Normal < 150 Borderline High 150 - 199 High 200 - 499 Very High >= 500 Based on AHA/NCEP Guidelines. Stefania Farfan MD CHEMISTRY ORDERABLES Chely l Result Performing Organization Address [facility] de Phone Number [facility] CLIA # [id number] [address] [place] [id number] * CT ABDOMEN PELVIS W CONTRAST (03/04/2025 [...] Brandt DO - 03/03/2025 12:44 PM CDT [facility] GI Patient Name: Edwin Kumari Procedure [...] is a 49 year old male. [address] [place], [place] us Jeana Heredia DO GI PROCEDURE [...] - 99 mg/dL 03/21/2016 11:24 AM CDT [facility] Blood Collection / Unknown 03/21/2016 7:37 AM CDT 03/21/2016 10:23 AM CDT Narrative [facility] - 03/21/2016 11:24 AM CDT <100 mg/dl: Normal Fasting Glucose 100-125 mg/dl: Impaired Fasting Glucose >/=126 mg/dl: Provisional diagnosis of Diabetes The diagnosis must be confirmed. Dionicio Montano MD CHEMISTRY ORDERABLES Final Res ult [facility] CLIA# [id number] [address] [place] [address] [address] [id number] 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
--- NOTE | 2025-04-27 10:51 | ED_ITS ---
HPI - Abdominal Pain 2 General: Chief Complaint: Abdominal Pain Stated Complaint: drainage around drain site, fever Time Seen by Provider: 04/27/25 10:50 History of Present Illness: This was a previously healthy 49-year-old man who recently had a complicated cholecystectomy surgery for cholecystitis this was about 2 months ago. Had to be converted to open and then was not complete. He developed low-volume bile leak and then had an ERCP in [place] that led to placement of a biliary stent. He then had an episode of pancreatitis that required and he was admitted for a total of 3 weeks in [place] and discharged just over a month ago. He had DVTs while he was there in his upper extremities and was started on Eliquis. This was discontinued. He is now on just on aspirin. He was then seen again in emergency room on 04/12/2025 with abdominal pain and found to have intra- abdominal abscesses for which he was transferred to [facility]. According to they went there and an abscess drain was placed. She said nothing ever grew out of it but he was placed on Augmentin. Over the last 4 days he has developed fevers. Also the drainage from the abdominal drain has changed consistency and is more chunky . And then today he started draining pus around the drain and had a large volume of pus just in his dressing. No focal abdominal pain at this time. No altered mental status. says he did have a fever of 101.8 at home. She gave him ibuprofen. He has been having fevers for the last 4 days. Related Data Home Medications ?Medication ?Instructions ?Recorded ?Confirmed aspirin 81 mg tablet,delayed 81 mg PO DAILY 04/12/25 1 06/12/24 release (Nadine Low Dose Aspirin) cholestyramine 4 gram oral powder 4 g PO DAILY PRN Dayana rrhea 04/12/25 04/12/25 for suspension in a packet (Cholestyramine Light) metoclopramide HCl 10 mg tablet 10 mg PO QID PRN Nause a And 04/12/25 04/12/25 Vomiting ondansetron HCl 8 mg tablet 8 mg PO TID PRN Nausea And Vomiting 04/12/25 04/12/25 Previous Rx's ?Medication ?Instructions ?Recorded pantoprazole 40 mg tablet,delayed 40 mg PO DAILY #90 t abs 02/27/25 release Allergies Allergy/AdvReac Type Severity Reaction Status Date / Time cephalexin (From [employer]) Allergy ALGY-Rash Verified 04/27/25 10:28 Review of Systems 2 Narrative: Constitutional symptoms: Negative except as documented in HPI. Skin symptoms: Negative except as documented in HPI. Eye symptoms: Negative except as documented in HPI. ENMT symptoms: Negative except as documented in HPI. Respiratory symptoms: Negative except as documented in HPI. Cardiovascular symptoms: Negative except as documented in HPI. Gastrointestinal symptoms: Negative except as documented in HPI. Genitourinary symptoms: Negative except as documented in HPI. Musculoskeletal symptoms: Negative except as documented in HPI. Neurologic symptoms: Negative except as documented in HPI. Psychiatric symptoms: Negative except as documented in HPI. Endocrine symptoms: Negative except as documented in HPI. PFSH ED 2 PFSH: Social History Smoking and tobacco/nicotine status: never used tobacco/nicotine Physical Exam 2 Narrative: EXAM NARRATIVE: General: Alert, no acute distress. Skin: Warm, dry. Head: Normocephalic, atraumatic. Neck: Supple, trachea midline. Eye: Extraocular movements are intact. Ears, nose, mouth and throat: mucosa moist. Cardiovascular: Regular, Normal peripheral perfusion. Respiratory: Lungs are clear to auscultation, respirations are non-labored, breath sounds are equal, Symmetrical chest wall expansion. Gastrointestinal: Soft, no focal tenderness, Non distended. There is a drain in place in the left flank. This does have some drainage Musculoskeletal: Normal ROM, no deformity. Neurological: Alert and oriented, No focal neurological deficit observed. Psychiatric: Cooperative, appropriate mood & affect. Course 2 Vital Signs: Vital signs: Vital Signs Temperature 98.4 F 04/27/25 14:34 Pulse Rate 116 H 04/27/25 14:20 Blood Pressure 107/71 04/27/25 14:34 Pulse Oximetry 99 04/27/25 14:34 Oxygen Delivery Me thod Room Air 04/27/25 14:20 MDM - Abdominal Pain Medical Decision Making Medical decision making Patient's reason for coming to the emergency room: Fever and drainage around an abscess drain Social determinants: Patient is a [place] [employer]. He is . is present. I reviewed the patient's medical record. Reviewed previous records from here. Including ER note from April 12. I reviewed the patient's current home meds Patient is no longer on Eliquis. Alternate historians: provided most of the history as this was a long complicated series of events Differential diagnosis: including but not limited to and based on the above HPI, review of systems and physical exam: In this patient with known intra- abdominal abscesses and fevers my primary concern is sepsis and worsening abscesses. Also he could have some other viral illness. Renal failure. Orders placed to evaluate differential diagnosis based on the above differential, HPI and physical exam Lab Review: Laboratory results were reviewed and interpreted by myself the emergency room physician. Leukocytosis with a white count of 17,000. No anemia. No renal failure. Lactic acid is not elevated. Flu COVID and RSV are negative. CRP is extremely elevated at 400. Chest x-ray: No acute process. No infiltrate. No pneumothorax. This was reviewed and interpreted by myself the emergency room physician. I also reviewed the radiology report. CT of the abdomen pelvis with contrast FINDINGS: Liver: Normal. No mass. Gallbladder and biliary ducts: Status post cholecystectomy or partial cholecystectomy. There is a stent in the extrahepatic bile duct without change. Slight pneumobilia. Pancreas: Normal. No ductal dilation. Spleen: Normal. No splenomegaly. Adrenal glands: Normal. No mass. Kidneys and ureters: Left hydronephrosis is new. Stomach and bowel: Unremarkable. No obstruction. No mucosal thickening. Appendix: No evidence of appendicitis. Intraperitoneal space: There are multiple rim enhancing fluid collections or abscesses throughout the abdomen and pelvis. Some of these are stable but others are larger, such as a right pelvic sidewall collection measuring 4.8 cm in thickness, previously 4.3 cm. Left mesenteric collection measures 3.5 cm in thickness, previously 3.1 cm. Midline omental collection inferior to the transverse colon measures 4.9 x 3.3 cm, previously 2.2 x 4.5 cm. Inferior mesenteric collection measuring 4.4 x 3.7 cm previously was 3.8 x 1.7 cm. At least 1 collection is smaller: A left paracolic collection contains some gas bubbles measures 7.4 cm in greatest transverse dimension, decreased from 9.6 cm. There are some gas bubbles along the percutaneous drain which terminates anterior to the left psoas muscle at the level of the mid abdomen. Vasculature: Unremarkable. No abdominal aortic aneurysm. Lymph nodes: Unremarkable. No enlarged lymph nodes. Urinary bladder: Diffuse bladder wall thickening. Reproductive: Enlarged prostate. Bones/joints: Bilateral L5 pars defects. Old left ischial tuberosity fracture with hypertrophic bone changes. Soft tissues: See Intraperitoneal space finding. CT/CT abdomen pelvis w con* [id number] IMPRESSION: 1. Multiple rim enhancing intraperitoneal collections or abscesses which are mostly stable to increased in size. One collection in the left paracolic region is smaller. Percutaneous drainage catheter from a left-sided approach. 2. Mild left hydronephrosis which is new. 3. Other findings as detailed above. Assessment of risk: Level of risk: This is a fairly high risk patient given the straining of unfortunate medical events that have occurred over the last couple of months. Hospitalization considerations: Patient needs to be admitted. [facility] is being transferred [facility]. He needs GI and interventional radiology Reexamination: Patient has remained fairly stable. Mildly tachycardic. No altered mental status. No severe abdominal pain. Consultation: I spoke with gastroenterology at [facility] and he recommends transfer for evaluation by interventional for drainage and admission to the hospitalist service Consultation: I spoke with Dr. Orona hospitalist on-call at [facility]. He accept the patient in transfer. It may be a day or 2 before he goes. Some consulting hospitalist for management here. Consultation: I spoke with Dr. Dr. Anne who is on-call for the hospitalist service and he will manage the patient medically while he is on hold here. Assessment and plan: Intra-abdominal abscesses Sepsis -2.5 L normal saline bolus. Fluid volumes based on ideal body weight. -Broad-spectrum antibiotics were administered. Zyvox and meropenem -Sepsis quality measures. -Lactic acid with a reflex was ordered. -Blood cultures were ordered. ?I reevaluated the patient's volume status after sepsis fluids were given. -I discussed the patient with the accepting physician on-call. - Discussed findings and plan with patient. Answered any questions. - All laboratory values were reviewed and interpreted personally by myself, the ER physician - All imaging was reviewed and interpreted personally by myself, the ER physician. - Evaluation and treatment of this problem were appropriate in the emergency setting Critical Care: -I spent a total of 66 minutes of critical care time managing the patient, independent of any other practitioner. -The time involved in the performance of separately reportable procedures was not counted towards critical care time. Lab Data 04/27/25 10:53 04/27/25 10:53 Labs/Radiology: Radiology Impressions Abdomen/Pelvis CT 04/27/25 12:04 IMPRESSION: 1. Multiple rim enhancing intraperitoneal collections or abscesses which are mostly stable to increased in size. One collection in the left paracolic region is smaller. Percutaneous drainage catheter from a left-sided approach. 2. Mild left hydronephrosis which is new. 3. Other findings as detailed above. Laboratory Results WBC 17.13 10^3/uL (3.29-11.43) H 04/27/25 10:53 RBC 4.91 10^6/uL (3.85-5.65) 04/27/25 10:53 Hgb 14.10 g/dL (11.27-16.99) 04/27/25 10:53 Hct 43.3 % (37-53) 04/27/25 10:53 MCV 88.2 fl (82-101) 04/27/25 10:53 MCH 28.7 pg (27-33) 04/27/25 10:53 MCHC 32.6 g/dL (30-55) 04/27/25 10:53 RDW 13.0 % (12.1-15.1) 04/27/25 10:53 Plt Count 368 10^3/cmm (157-399) 04/27/25 10:53 MPV 9.9 fL (7.4-10.4) 04/27/25 10:53 Neut % (Auto) 83.8 % 04/27/25 10:53 Lymph % (Auto) 5.1 % 04/27/25 10:53 [place] % (Auto) 9.5 % 04/27/25 10:53 Eos % (Auto) 0.6 % 04/27/25 10:53 Baso % (Auto) 0.4 % 04/27/25 10:53 Neut # (Auto) 14.34 10^3/uL (1.8-7.7) H 04/27/25 10:53 Lymph # (Auto) 0.9 10^3/uL (0.8-4.8) 04/27/25 10:53 [place] # (Auto) 1.6 10^3/uL (0.2-0.9) H 04/27/25 10:53 Eos # (Auto) 0.1 10^3/uL (0.0-0.8) 04/27/25 10:53 Baso # (Auto) 0.1 10^3/uL (0.0-0.1) 04/27/25 10:53 Nucleated RBC % (auto) 0 % 04/27/25 10:53 Nucleated RBCs # 0.0 /100WBC 04/27/25 10:53 Sodium 130 mmol/L (136-145) L 04/27/25 10:53 Potassium 4.1 mmol/L (3.5-5.1) 04/27/25 10:53 Chloride 92 mmol/L (98-107) L 04/27/25 10:53 Carbon Dioxide 28 mmol/L (22-29) 04/27/25 10:53 Anion Gap 17.1 (5-19) 04/27/25 10:53 BUN 10 mg/dL (6-20) 04/27/25 10:53 Creatinine 0.8 mg/dL (0.7-1.2) 04/27/25 10:53 GFR Calculation 103.6 mL/min (90-130) 04/27/25 10:53 Glucose 102 mg/dL (65-115) 04/27/25 10:53 Calculated Osmolality 271 mOsm/kg (285-295) L 04/27/25 10:53 Lactic Acid 1.3 mmol/L (0.5-2.2) 04/27/25 10:53 Calcium 9.6 mg/dL (8.5-10.5) 04/27/25 10:53 Total Bilirubin 0.5 mg/dL (0.15-1.2) 04/27/25 10:53 AST 27 U/L (0-40) 04/27/25 10:53 ALT 36 U/L (0-41) 04/27/25 10:53 Alkaline Phosphatase 124 U/L (40-130) 04/27/25 10:53 C-Reactive Protein 398.5 mg/L (0.0-4.9) H 04/27/25 10:53 Total Protein 7.5 g/dL (6.6-8.7) 04/27/25 10:53 Albumin 3.7 g/dL (3.5-5.2) 04/27/25 10:53 Globulin 3.5 g/dL (1.3-4.6) 04/27/25 10:53 Procalcitonin 2.61 ng/mL (0-0.5) H 04/27/25 10:53 Urine Color Boyd (Yellow) A 04/27/25 12:03 Urine Appearance Turbid (CLEAR) A 04/27/25 12:03 Urine pH 5.5 (5-7) 04/27/25 12:03 Ur Specific [place] 1.033 (1.005-1.030) H 04/27/25 12:03 Urine Protein 2+ (Negative) A 04/27/25 12:03 Urine Glucose (UA) Negative (Normal) 04/27/25 12:03 Urine Ketones Trace (Negative) 04/27/25 12:03 Urine Blood Negative (Negative) 04/27/25 12:03 Urine Nitrate Negative (Negative) 04/27/25 12:03 Urine Bilirubin 1+ (Negative) H 04/27/25 12:03 Urine Urobilinogen 1.0 mg/dL (Negative) 04/27/25 12:03 Ur Leukocyte Esterase Trace (Negative) A 04/27/25 12:03 Urine RBC 0-2 /hpf (0-2) 04/27/25 12:03 Urine WBC 0-5 /hpf (0-5) 04/27/25 12:03 Ur Squamous Epith Cells 0-5 /hpf (0-5) 04/27/25 12:03 Calcium Oxalate Crystal 5-10 /hpf H 04/27/25 12:03 Amorphous Sediment Not Reportable 04/27/25 12:03 Urine Bacteria None seen /hpf (NONE) 04/27/25 12:03 Hyaline Casts 4.95 /lpf 04/27/25 12:03 Influenza A (PCR) Negative (Negative) 04/27/25 10:58 Influenza Type B (PCR) Negative (Negative) 04/27/25 10:58 RSV (PCR) Negative (Negative) 04/27/25 10:58 SARS-CoV-2 (PCR) Negative (Negative) 04/27/25 10:58 All radiology interpretation(s) finalized by discharge Discharge Plan Discharge Patient Disposition: Xfer Short-Term Hosp Clinical Impression: Intra-abdominal abscess, Sepsis Condition: Stable Referrals: Chandu Nassar DO [Primary Care Provider, Family Practice] Patient Instructions: Abdominal Pain (ED) Print Language: Gibraltarian Coding Level of Care Code ED Glass Sander for Luz Marina Francis
[2025-04-27 11:00] LABS: Hematocrit 43.3 % (37-53); Hemoglobin 14.10 g/dL (11.27-16.99); Mean Corpuscular HGB Conc 32.6 g/dL (30-55); Mean Corpuscular Hemoglobin 28.7 pg (27-33); Mean Corpuscular Volume 88.2 fl (82-101); Nucleated Red Blood Cells % 0 %; Platelet Count 368 10^3/cmm (157-399); Red Blood Count 4.91 10^6/uL (3.85-5.65); White Blood Count 17.13 10^3/uL (3.29-11.43)
[2025-04-27 11:18] LABS: Albumin Level 3.7 g/dL (3.5-5.2); Alkaline Phosphatase 124 U/L (40-130); Chloride 92 mmol/L (98-107); Potassium 4.1 mmol/L (3.5-5.1); Sodium 130 mmol/L (136-145)
[2025-04-27 11:19] LABS: Lactic Sepsis W/Reflex 1.3 mmol/L (0.5-2.2)
[2025-04-27 11:25] LABS: Procalcitonin 2.61 ng/mL (0-0.5)
[2025-04-27 11:39] LABS: Alanine Aminotransferase 36 U/L (0-41); Anion Gap 17.1 (5-19); Aspartate Amino Transferase 27 U/L (0-40); Blood Urea Nitrogen 10 mg/dL (6-20); Calcium 9.6 mg/dL (8.5-10.5); Carbon Dioxide 28 mmol/L (22-29); Globulin 3.5 g/dL (1.3-4.6); Glucose 102 mg/dL (65-115); Osmolality Calculated 271 mOsm/kg (285-295); Total Protein 7.5 g/dL (6.6-8.7)
[2025-04-27 11:59] LABS: Respiratory Syncytial Virus Ce NEGATIVE (Negative); SARS-CoV-2 PCR NEGATIVE (Negative)
--- NOTE | 2025-04-27 12:04 | CTR_ITS ---
PROCEDURE INFORMATION: Exam: CT Abdomen And Pelvis With Contrast Exam date and time: 04/27/2025 12:24 PM Age: 49 years old Clinical indication: Fever; Abdominal pain; Tenderness; Right; Prior surgery; Surgery date: 6+ months; Surgery type: Abscess drain; Additional info: Fever, abd abscess with drain TECHNIQUE: Imaging protocol: Computed tomography of the abdomen and pelvis with contrast. Radiation optimization: All CT scans at this facility use at least one of these dose optimization techniques: automated exposure control; mA and/or kV adjustment per patient size (includes targeted exams where dose is matched to clinical indication); or iterative reconstruction. Contrast material: OMNIPAQUE 350; Contrast volume: 100 ml; Contrast route: INTRAVENOUS (IV); COMPARISON: CT abdomen pelvis w con* [id number] 04/12/2025 8:38 AM RADIATION DOSE METRICS: Total DLP (mGy-cm): 584.05 FINDINGS: Liver: Normal. No mass. Gallbladder and biliary ducts: Status post cholecystectomy or partial cholecystectomy. There is a stent in the extrahepatic bile duct without change. Slight pneumobilia. Pancreas: Normal. No ductal dilation. Spleen: Normal. No splenomegaly. Adrenal glands: Normal. No mass. Kidneys and ureters: Left hydronephrosis is new. Stomach and bowel: Unremarkable. No obstruction. No mucosal thickening. Appendix: No evidence of appendicitis. Intraperitoneal space: There are multiple rim enhancing fluid collections or abscesses throughout the abdomen and pelvis. Some of these are stable but others are larger, such as a right pelvic sidewall collection measuring 4.8 cm in thickness, previously 4.3 cm. Left mesenteric collection measures 3.5 cm in thickness, previously 3.1 cm. Midline omental collection inferior to the transverse colon measures 4.9 x 3.3 cm, previously 2.2 x 4.5 cm. Inferior mesenteric collection measuring 4.4 x 3.7 cm previously was 3.8 x 1.7 cm. At least 1 collection is smaller: A left paracolic collection contains some gas bubbles measures 7.4 cm in greatest transverse dimension, decreased from 9.6 cm. There are some gas bubbles along the percutaneous drain which terminates anterior to the left psoas muscle at the level of the mid abdomen. Vasculature: Unremarkable. No abdominal aortic aneurysm. Lymph nodes: Unremarkable. No enlarged lymph nodes. Urinary bladder: Diffuse bladder wall thickening. Reproductive: Enlarged prostate. Bones/joints: Bilateral L5 pars defects. Old left ischial tuberosity fracture with hypertrophic bone changes. Soft tissues: See Intraperitoneal space finding. CT/CT abdomen pelvis w con* [id number] IMPRESSION: 1. Multiple rim enhancing intraperitoneal collections or abscesses which are mostly stable to increased in size. One collection in the left paracolic region is smaller. Percutaneous drainage catheter from a left-sided approach. 2. Mild left hydronephrosis which is new. 3. Other findings as detailed above.
[2025-04-27 12:17] LABS: Glucose Urine UA Negative (Normal); Nitrate Urine Negative (Negative)
[2025-04-27] MEDS: iohexol 350 mg/mL 500 mL Btl (per mL) IV (12:32)
[2025-04-27 12:40] LABS: Specific Gravity, Urine 1.033 (1.005-1.030)
[2025-04-27 12:42] LABS: UA Slide Review UA Slide Review Perf
[2025-04-27] MEDS: linezolid premix 600 MG/300 ML PREMIX 300 MG IV (13:27)
--- NOTE | 2025-04-27 14:02 | XRR_ITS ---
PROCEDURE INFORMATION: Exam: XR Chest Exam date and time: 04/27/2025 3:15 PM Age: 49 years old Clinical indication: Fever TECHNIQUE: Imaging protocol: Radiologic exam of the chest. Views: 1 view. COMPARISON: CT abdomen pelvis w con* [id number] 04/27/2025 12:24 PM FINDINGS: Lungs: Lungs are clear bilaterally. Pleural spaces: No pleural effusion. No pneumothorax. Heart/Mediastinum: The cardiac silhouette and mediastinal contours are unremarkable. Bones/joints: Unremarkable for age. XR/XR chest 1V portable [id number] IMPRESSION: No acute cardiopulmonary process.
--- NOTE | 2025-04-27 15:16 | PM.CONSULT ---
Providers/Reason For Consult Consulting Physician/Specialty*: Hayden Anne MD Reason for Consult*: Management of medical problems Requesting Physician: Dr. Mitchell, ER physician Primary Care Provider: Chandu Nassar DO History of Present Illness History of Present Illness Edwin Keita is a 49 year old male who came to the ER today with complaint of fever. Symptoms started gradually in the last few days, with apparent nausea and vomiting. He quickly developed a fever this morning, therefore making patient report to the ER for further evaluation. This morning, patient's reports noticing some purulent discharge from the percutaneous abdominal drain that he has had for the past few weeks. He is current/recent medical/surgical history consists of recent cholecystectomy, which ended up in an ERCP. The ERCP was complicated with some apparent acute pancreatitis, which later required a biliary tube. Subsequently, patient developed some intra-abdominal abscess, which was treated at [facility], and he was discharged from there with a percutaneous tube to drain the intra-abdominal abscess. This has been going on until the last few days, during which the above-mentioned symptoms develop. He denies associated diarrhea, constipation, chest pain, cough or difficulty breathing. Upon presenting to the ER here, given patient's complicated gallbladder and other GI problems, [facility] was contacted, who accepted patient for transfer. Otherwise, he was still on some IV antibiotics, Zyvox and meropenem. Currently, he is awaiting a bed at [facility]. Otherwise, as at the time I saw patient, he reports no new complaints. He is stable. Review of Systems Narrative: General: Negative for fever, headaches, dizziness or weakness. Respiration: Negative for shortness of breath, cough or wheezing. UGS: Negative for dysuria, urgency or increased urinary frequency. All other systems reviewed, and essentially negative, except as in the HPI. Medications/Allergies Home Medications ?Medication ?Instructions ?Recorded ?Confirmed ?Last Taken ?Type pantoprazole 40 mg tablet,delayed 40 mg PO DAILY #90 tabs 02/27/25 04/12/25 04/11/25 Rx release aspirin 81 mg tablet,delayed 81 mg PO DAILY 04/12/25 04/12/25 04/11/25 History release (Nadine Low Dose Aspirin) cholestyramine 4 gram oral powder 4 g PO DAILY PRN Diarrhea 04/12/25 04/12/25 Unknown History for suspension in a packet (Cholestyramine Light) metoclopramide HCl 10 mg tablet 10 mg PO QID PRN Nausea And 04/12/25 04/12/25 Unknown History Vomiting ondansetron HCl 8 mg tablet 8 mg PO TID PRN Nausea And Vomiting 04/12/25 04/12/25 Unknown History Allergies Allergy/AdvReac Type Severity Reaction Status Date / Time cephalexin (From Keflex) Allergy ALGY-Rash Verified 04/27/25 10:28 PFSH Acute PFSH: Social History Smoking and tobacco/nicotine status: never used tobacco/nicotine Vitals/I&O/Wt Last Vital Signs Temp 98.4 F 04/27/25 14:34 Pulse 116 H 04/27/25 14:20 BP 107/71 04/27/25 14:34 Pulse Ox 99 04/27/25 14:34 O2 Del Method Room Air 04/27/25 14:20 04/27/25 04/27/25 04/27/25 06:59 14:59 22:59 Intake Total 1300 / 1300 Balance 1300 / 1300 Weight last 48 hrs Weight 77.111 kg Physical Exam Narrative: General: Acutely ill looking patient. Otherwise, awake but mildly lethargic. No obvious respiratory distress. Neuro/Psych: Cranial nerves II to XII grossly intact. No obvious focal deficits. Chest/Resp: Bilateral equal air entry; chest clinically clear. CVS: Rhythm: Regular heart rate and rhythm. No obvious murmurs appreciated. GI: Mild generalized tenderness with some guarding. Percutaneous drain drainage pus-looking fluid. Extremities: Bilateral equal pulses. No obvious pitting pedal edema. Skin: No obvious skin rashes or significant lesions. Moist mucous membranes. MSK: No obvious joint effusions or bony deformities noted. No apparent muscle tenderness. Data 04/27/25 10:53 04/27/25 10:53 Micro: Microbiology 04/27/25 10:54 Blood Culture - Preliminary Blood SPECIMEN COLLECTED 04/27/25 10:53 Blood Culture - Preliminary Blood SPECIMEN COLLECTED CT Abd/Pel: Radiologist's impression: 1. Multiple rim enhancing intraperitoneal collections or abscesses which are mostly stable to increased in size. One collection in the left paracolic region is smaller. Percutaneous drainage catheter from a left-sided approach. 2. Mild left hydronephrosis which is new.. CXR: Radiologist's impression: Lungs: Lungs are clear bilaterally. Pleural spaces: No pleural effusion. No pneumothorax. Heart/Mediastinum: The cardiac silhouette and mediastinal contours are unremarkable. A&P Assessment and plan 1. Intra-abdominal abscess: 2. Chronic cholecystitis: 3. Sepsis: Plan: Currently stable patient, at least clinically. I will continue ongoing IV Zyvox and Merrem., Rehydrate with infusion of normal saline to be run at 125 cc/h.. Treat other symptoms empirically: Tylenol for fever, morphine for severe pain, etc. Await transfer to [facility] as soon as bed is available, and transportation/logistics are completed. Further plans to be adjusted as clinically patient evolves. See my orders for more details. PDMP PDMP Reviewed: Not Reviewed Coding Level of Care Code Acute Code for Chg Fwd Diagnoses Intra-abdominal abscess K65.1 Chronic cholecystitis K81.1 Sepsis A41.9
[2025-04-27] MEDS: ondansetron 2 mg/ML SDV 2 mL 4 MG IVP (15:36)
[2025-04-28 02:55] LABS: Bacillus cereus group Not Detected (NOT DETECT); Bacillus subtillis group Not Detected (NOT DETECT); Corynebacterium Not Detected (NOT DETECT); Cutibacterium acnes (P.acnes) Not Detected (NOT DETECT); Enterococcus faecalis Not Detected (NOT DETECT); Enterococcus faecium Not Detected (NOT DETECT); Listeria Not Detected (NOT DETECT); Micrococcus Not Detected (NOT DETECT); Pan Candida Not Detected (NOT DETECT); Pan Gram-Negative Not Detected (NOT DETECT); Staphylococcus epidermidis Not Detected (NOT DETECT); Staphylococcus lugdunensis Not Detected (NOT DETECT); Staphylococcus species Not Detected (NOT DETECT); Streptococcus anginosus group Not Detected (NOT DETECT); Streptococcus pyogenes Not Detected (NOT DETECT); Streptococcus species Not Detected (NOT DETECT)
== END 2025-04-27 17:37 | disposition short-term general hospital (02) ==
PROVIDERS: Emergency Provider Emergency Medicine; PCP Electrodiagnostic Medicine
DX: K65.1 Peritoneal abscess (principal); A41.9 Sepsis, unspecified organism; Z11.52 Encounter for screening for COVID-19; Z98.890 Other specified postprocedural states
CPT/HCPCS: 71045; 74177; 80053; 81001; 83605; 84145; 85025; 86140; 87040; 87637; 96365; 96366; 96375; 99285; J2020; J2185; J2405; J7030

== ENCOUNTER 2025-05-19 08:53 | Outpatient (CLI) | payer BC, SELFPAY ==
--- NOTE | 2025-05-19 08:58 | CT_ITS ---
WS: [id number] CT ABDOMEN AND PELVIS WITH CONTRAST HISTORY: ACUTE BILIARY PANCREATITIS W/O INFECTION OR NECROSIS TECHNIQUE: Imaging performed of the abdomen and pelvis with IV contrast. Single phase imaging of the abdomen. Coronal and sagittal reformats are submitted. All CT scans at [facility] use at least one of these dose optimization techniques: automated exposure control; mA and/or kV adjustment per patient size (includes targeted exams where dose is matched to clinical indication); or iterative reconstruction. IV CONTRAST: Omnipaque 350; 100 mL IV. Oral contrast: No DLP: 381.37 mGy.cm COMPARISON: 04/27/2025, 02/27/2025, 04/12/2025 Lower thorax: Lung bases are clear. Normal size heart with a small anterior pericardial effusion which is slightly more prominent as compared to 04/27/2025. No hiatal hernia. Liver/biliary system: Liver is normal in size. No intrahepatic duct dilatation. Gallbladder: Surgical clips in the gallbladder fossa. By history of partial cholecystectomy. There is a small fluid collection in the gallbladder fossa which was previously noted also without significant change in size. There is a small amount of air in the gallbladder fossa which is new. Pancreas: Normal size pancreas. Spleen: Normal size spleen. No mass or infarct. Adrenal glands: Normal. Right kidney: Normal size kidney. There is now mild dilatation of the RIGHT renal pelvis and the RIGHT ureter. No stones are identified. Left kidney: Normal size kidney. Mild dilatation of the LEFT renal pelvis and ureter. Similar to 04/27/2025 but new since 02/08/2025. Aorta: Normal. Numerous intraperitoneal and retroperitoneal fluid collections are identified. These have been previously described over multiple prior exams. Retroperitoneal fluid collection on the LEFT posterior to the kidney has a percutaneous drain. Drain is in good position and the collection has slightly decreased there is mild residual complex fluid measuring 1.8 x 3.8 cm near the pigtail catheter and contacting the LEFT psoas muscle. Additional large complex fluid collection with peripherally enhancing wall centered in the RIGHT pelvis. This collection contains a pigtail catheter and there is air present within the collection which is new. The pigtail catheter is also new. This is a multiloculated collection which is contiguous with the large collection in the central peritoneum. There is a track extending inferiorly into the RIGHT pelvis. The pelvic collection measures 12.6 cm. The transverse diameter of the presacral component is 6.1 cm. There has been a decrease in size but minimal since 04/27/2025. This collection extends superiorly and does appear to extend into the complex collection with air in the central mesentery measuring 6.3 x 9.2 cm. There are additional smaller collections noted in the peritoneal cavity. There is fluid extending along the LEFT and RIGHT paracolic gutters. There is a fluid collection near the cecum with a small amount of air. This may be an additional abscess or changes of colitis. Stomach is markedly distended with fluid. Proximal duodenum is also distended with fluid. There may be a partial obstruction of the duodenum as it crosses the midline due to the inflammatory changes centrally. Abdominal wall: Unremarkable abdominal wall. No hernia. Urinary bladder is minimally distended. Small fluid collections anterior to the urinary bladder. These are probably all contiguous with the larger complex collection in the RIGHT pelvis. Bones: Unremarkable. CT/CT abdomen pelvis w con* [id number] IMPRESSION: 1. LEFT retroperitoneal percutaneous drainage catheter is identified. Small am ount of residual abscess and inflammation at the drainage catheter site. Overal l improved. 2. New percutaneous drainage catheter in the RIGHT pelvis. This collection may have slightly decreased in size but it is still large and there is air present within the collection which could be due to recent instrumentation or infectio n. This large collection extends deep into the presacral pelvis but also superi enmanuel to the mesenteric collection. There is a large collection in the central m esentery with air. There is air both within the central mesenteric collection a nd the contiguous component into the RIGHT pelvis suggesting there may be an in fectious process. 3. Additional smaller scattered fluid collections. Some of these collections h ave increased in size and some are improving. 4. Now there is bilateral mild hydronephrosis. Ureters may be obstructed by th e inflammatory changes which do contact the ureters. 5. Status post subtotal colectomy. There is a small amount of air now at the g allbladder fossa which was not present before along with the gallbladder clips. 6. Stomach is markedly distended with fluid through the second portion of the duodenum. Inflammatory changes are probably involving the duodenum and causing a mild ileus.
[2025-05-19] MEDS: iohexol 350 mg/mL 500 mL Btl (per mL) IV (09:17)
== END 2025-05-19 08:54 | disposition home or self-care (01) ==
LOC: RAD 08:54
PROVIDERS: PCP Electrodiagnostic Medicine; Visit Provider Electrodiagnostic Medicine
DX: K85.90 Acute pancreatitis without necrosis or infection, unspecified (principal); I31.39 Other pericardial effusion (noninflammatory); Z90.49 Acquired absence of other specified parts of digestive tract; N28.89 Other specified disorders of kidney and ureter; Z96.0 Presence of urogenital implants
CPT/HCPCS: 74177

== ENCOUNTER 2025-06-04 08:45 | Oncology outpatient (recurring) (ONCR) | payer BC, SELFPAY ==
[2025-05-09 10:55] LABS: Hematocrit 37.7 % (37-53); Hemoglobin 12.40 g/dL (11.27-16.99); Mean Corpuscular HGB Conc 32.9 g/dL (30-55); Mean Corpuscular Hemoglobin 29.0 pg (27-33); Mean Corpuscular Volume 88.1 fl (82-101); Nucleated Red Blood Cells % 0 %; Platelet Count 661 10^3/cmm (157-399); Red Blood Count 4.28 10^6/uL (3.85-5.65); White Blood Count 23.69 10^3/uL (3.29-11.43)
[2025-05-09 11:14] LABS: Alanine Aminotransferase 31 U/L (0-41); Albumin Level 2.7 g/dL (3.5-5.2); Alkaline Phosphatase 110 U/L (40-130); Anion Gap 11.9 (5-19); Aspartate Amino Transferase 36 U/L (0-40); Blood Urea Nitrogen 9 mg/dL (6-20); Calcium 8.3 mg/dL (8.5-10.5); Carbon Dioxide 28 mmol/L (22-29); Chloride 94 mmol/L (98-107); Globulin 3.5 g/dL (1.3-4.6); Glucose 106 mg/dL (65-115); Osmolality Calculated 269 mOsm/kg (285-295); Potassium 3.9 mmol/L (3.5-5.1); Sodium 130 mmol/L (136-145); Total Protein 6.2 g/dL (6.6-8.7)
[2025-05-16 11:09] LABS: Alanine Aminotransferase 30 U/L (0-41); Albumin Level 2.5 g/dL (3.5-5.2); Alkaline Phosphatase 117 U/L (40-130); Aspartate Amino Transferase 41 U/L (0-40); Blood Urea Nitrogen 9 mg/dL (6-20); Calcium 8.5 mg/dL (8.5-10.5); Carbon Dioxide 24 mmol/L (22-29); Chloride 92 mmol/L (98-107); Globulin 3.7 g/dL (1.3-4.6); Glucose 151 mg/dL (65-115); Osmolality Calculated 266 mOsm/kg (285-295); Sodium 127 mmol/L (136-145); Total Protein 6.2 g/dL (6.6-8.7)
[2025-05-16 11:12] LABS: Anion Gap 15.5 (5-19); Potassium 4.5 mmol/L (3.5-5.1)
--- NOTE | 2025-05-16 11:28 | PC.NURSE ---
Patient's notified that the CBC clotted, lab indicated there were platelet clumps. states patient has been having similar problems, that his platelets have been high. indicated patient had labs drawn at his Drs appointment in [facility] this week, she did not want to have him redrawn at this time. Patient is scheduled to return to infusion center on Monday the
[2025-05-21 11:36] LABS: Hematocrit 40.0 % (37-53); Hemoglobin 13.00 g/dL (11.27-16.99); Mean Corpuscular HGB Conc 32.5 g/dL (30-55); Mean Corpuscular Hemoglobin 28.3 pg (27-33); Mean Corpuscular Volume 87.1 fl (82-101); Nucleated Red Blood Cells % 0 %; Platelet Count 784 10^3/cmm (157-399); Red Blood Count 4.59 10^6/uL (3.85-5.65); White Blood Count 20.09 10^3/uL (3.29-11.43)
[2025-05-21 11:55] LABS: Alanine Aminotransferase 28 U/L (0-41); Albumin Level 3.1 g/dL (3.5-5.2); Alkaline Phosphatase 99 U/L (40-130); Anion Gap 13.3 (5-19); Aspartate Amino Transferase 39 U/L (0-40); Blood Urea Nitrogen 9 mg/dL (6-20); Calcium 8.9 mg/dL (8.5-10.5); Carbon Dioxide 29 mmol/L (22-29); Chloride 93 mmol/L (98-107); Globulin 3.4 g/dL (1.3-4.6); Glucose 103 mg/dL (65-115); Osmolality Calculated 271 mOsm/kg (285-295); Potassium 4.3 mmol/L (3.5-5.1); Sodium 131 mmol/L (136-145); Total Protein 6.5 g/dL (6.6-8.7)
[2025-05-28 09:09] LABS: Hematocrit 38.3 % (37-53); Hemoglobin 12.30 g/dL (11.27-16.99); Mean Corpuscular HGB Conc 32.1 g/dL (30-55); Mean Corpuscular Hemoglobin 28.3 pg (27-33); Mean Corpuscular Volume 88.0 fl (82-101); Nucleated Red Blood Cells % 0 %; Platelet Count 639 10^3/cmm (157-399); Red Blood Count 4.35 10^6/uL (3.85-5.65); White Blood Count 20.58 10^3/uL (3.29-11.43)
[2025-05-28 09:21] LABS: Chloride 96 mmol/L (98-107); Potassium 4.0 mmol/L (3.5-5.1); Sodium 133 mmol/L (136-145)
[2025-05-28 09:53] LABS: Alanine Aminotransferase 33 U/L (0-41); Albumin Level 3.2 g/dL (3.5-5.2); Alkaline Phosphatase 92 U/L (40-130); Anion Gap 16.0 (5-19); Aspartate Amino Transferase 36 U/L (0-40); Blood Urea Nitrogen 9 mg/dL (6-20); Calcium 9.4 mg/dL (8.5-10.5); Carbon Dioxide 25 mmol/L (22-29); Globulin 3.3 g/dL (1.3-4.6); Glucose 100 mg/dL (65-115); Osmolality Calculated 275 mOsm/kg (285-295); Total Protein 6.5 g/dL (6.6-8.7)
[2025-06-04 09:21] LABS: Hematocrit 41.2 % (37-53); Hemoglobin 13.40 g/dL (11.27-16.99); Mean Corpuscular HGB Conc 32.5 g/dL (30-55); Mean Corpuscular Hemoglobin 28.3 pg (27-33); Mean Corpuscular Volume 86.9 fl (82-101); Nucleated Red Blood Cells % 0 %; Platelet Count 468 10^3/cmm (157-399); Red Blood Count 4.74 10^6/uL (3.85-5.65); White Blood Count 12.28 10^3/uL (3.29-11.43)
[2025-06-04 09:42] LABS: Alanine Aminotransferase 51 U/L (0-41); Albumin Level 3.6 g/dL (3.5-5.2); Alkaline Phosphatase 94 U/L (40-130); Anion Gap 16.9 (5-19); Aspartate Amino Transferase 45 U/L (0-40); Blood Urea Nitrogen 7 mg/dL (6-20); Calcium 9.6 mg/dL (8.5-10.5); Carbon Dioxide 25 mmol/L (22-29); Chloride 100 mmol/L (98-107); Globulin 3.8 g/dL (1.3-4.6); Glucose 96 mg/dL (65-115); Osmolality Calculated 284 mOsm/kg (285-295); Potassium 3.9 mmol/L (3.5-5.1); Sodium 138 mmol/L (136-145); Total Protein 7.4 g/dL (6.6-8.7)
== END 2025-06-04 23:59 | disposition home or self-care (01) ==
PROVIDERS: Internal Medicine Infectious Disease; Specialist; PCP Electrodiagnostic Medicine; Visit Provider Electrodiagnostic Medicine
DX: K65.1 Peritoneal abscess; Z53.9 Procedure and treatment not carried out, unspecified reason
CPT/HCPCS: 36415; 36592; 80053; 85025; 85651; 86140